=== PATIENT | male | born 1950 | race Asian ===

== ENCOUNTER 2024-05-26 11:46 | Inpatient (IN) | payer MEDICARE, SELFPAY ==
[2024-05-26 12:14] VITALS: BP 93/58; PULSE 74; RESP 20; TEMP 36.5; O2SAT 100; BMI 23.0
--- NOTE | 2024-05-26 12:26 | XR_ITS ---
Examination: Foot, left, 3 views Technique: AP, oblique, lateral views foot, 3 views Date and time of exam: May 26, 2024 1212 hours INDICATIONS: Nonhealing ulcer lateral foot fifth digit one month FINDINGS: Prominent osteopenia. No fracture. No anjelica cortical bone destruction IMPRESSION: No anjelica cortical bone destruction If symptoms persist, consider MRI foot without contrast follow-up
--- NOTE | 2024-05-26 12:27 | EDRME_ITS ---
Rapid Medical Screening Exam [facility] Arrival date/time: 05/26/24 11:46 73-year-old male with a history of hyperlipidemia and type 2 diabetes presents to the emergency room with a chief complaint of abnormal lab work and generalized weakness. Patient states he was sent to the emergency room for a sodium level of 120 and an elevated WBC count I have greeted and performed a focused initial assessment of this patient. A comprehensive ED assessment and evaluation of the patient, analysis of all test results, and completion of the medical decision making process will be conducted by additional ED providers. Chief Complaint: Recheck/Abnormal Lab/Rx Vital signs: Vital Signs Temperature 97.7 F 05/26/24 12:14 Pulse Rate 74 05/26/24 12:14 Respiratory Rate 20 05/26/24 12:14 Blood Pressure 93/58 L 05/26/24 12:14 Pulse Oximetry (%) 100 05/26/24 12:14 Oxygen Delivery Method Room Air 05/26/24 12:14 Vital signs reviewed by provider: Yes
[2024-05-26 12:59] LABS: Basophils % (Auto) 0 % (0-2.5); Eosinophils # (Auto) 0.4 Thou/mm3 (0.0-0.5); Eosinophils % (Auto) 2 % (0-10); Hematocrit 32.3 % (41.0-53.0); Hemoglobin 11.5 g/dL (13.5-16.0); Immature Granulocytes % (Auto) 2 % (0-0); Immature Granulocytes Auto 0.43 Thou/mm3 (0.00-0.00); Lymphocytes # (Auto) 1.2 Thou/mm3 (1.0-4.8); Lymphocytes % (Auto) 4 % (10-50); Mean Corpuscular HGB Conc 35.6 g/dl (31.0-37.0); Mean Corpuscular Hemoglobin 31.9 pg (25.0-35.0); Mean Corpuscular Volume 90 fL (80-100); Monocytes # (Auto) 2.1 Thou/mm3 (0.0-0.8); Monocytes % (Auto) 8 % (0-12); Neutrophils # (Auto) 22.3 Thou/mm3 (1.8-7.7); Neutrophils % (Auto) 85 % (37-80); Nucleated Red Blood Cell % 0 /100 WBC (0); Platelet Count 356 Thou/mm3 (140-440); RDW Standard Deviation 40.4 fL (35.1-43.9); Red Blood Count 3.61 Miln/mm3 (4.50-5.90); White Blood Count 26.4 Thou/mm3 (3.8-10.6)
[2024-05-26 13:17] LABS: Alanine Aminotransferase 77 U/L (10-49); Albumin, Serum 4.6 gm/dL (3.4-4.8); Albumin/Globulin Ratio 1.5 (1.2-2.2); Alkaline Phosphatase 86 U/L (46-116); Anion Gap 10 (7-16); Aspartate Amino Transferase 76 U/L (0-34); BUN/Creatinine Ratio 27 Ratio (12-20); Bilirubin,Total 0.2 mg/dL (0.3-1.2); Blood Urea Nitrogen 68 mg/dL (9-23); Calcium 9.2 mg/dL (8.3-10.6); Calcium (Corrected) 9.2 mg/dL (8.5-10.1); Carbon Dioxide 21.6 mMol/L (20.0-31.0); Chloride 90 mMol/L (98-107); Creatinine (Component) 2.5 mg/dL (0.6-1.3); Estimated Creatinine Clearance 21.5 mL/min (>60); Glucose 120 mg/dL (74-106); Lipase 74 U/L (12-53); Osmolality,Calculated 266 (275-295); Potassium 5.2 mMol/L (3.4-5.1); Sodium 122 mMol/L (136-145); Total Protein 7.6 gm/dL (5.7-8.2); eGFR 27 See Note
[2024-05-26 14:49] LABS: Collection Type, Urine Clean Catch
[2024-05-26 15:02] LABS: Bilirubin,Urine Negative (Negative); Blood,Urine Negative (Negative); Clarity,Urine Clear (Clear/Hazy); Color,Urine Yellow (Lt Yel-Yel); Glucose, Urine 2+ (Negative); Hyaline Casts,Urine < 1 /hpf (0-1); Ketones,Urine Negative (Negative); Leukocyte Esterase,Urine Positive (Negative); Nitrite,Urine Negative (Negative); PH,Urine 5.5 (5.0-7.0); Protein,Urine Trace (Neg - Trace); RBC,Urine 1 /hpf (0-3); Specific Gravity,Urine 1.016 (1.001-1.035); Squamous Epithelial Cell,Urine < 1 /hpf (0-5); WBC,Urine 2 /hpf (0-5)
[2024-05-26 15:11] VITALS: BP 128/69; PULSE 62; RESP 20; TEMP 36.3; O2SAT 100
[2024-05-26 18:22] VITALS: BP 135/81; PULSE 76; RESP 18; TEMP 36.5; O2SAT 100
--- NOTE | 2024-05-26 18:29 | PD.EDRECHK ---
ED Recheck Abnl Lab Rx-RME/HPI General Chief Complaint: Recheck/Abnormal Lab/Rx Stated Complaint: Abnormal labs today, infection on left toes Time Seen by Provider: 05/26/24 18:08 Arrival date/time: 05/26/24 11:46 RME / HPI RME / HPI narrative: 05/26/24 11:46 73-year-old male with a history of hyperlipidemia and type 2 diabetes presents to the emergency room with a chief complaint of abnormal lab work and generalized weakness. Patient states he was sent to the emergency room for a sodium level of 120 and an elevated WBC count I have greeted and performed a focused initial assessment of this patient. A comprehensive ED assessment and evaluation of the patient, analysis of all test results, and completion of the medical decision making process will be conducted by additional ED providers. The patient is a [place]-speaking 73-year-old male with past medical history of type 2 diabetes, hypertension, and hyperlipidemia who was sent to the ED today by PCP due to abnormal outpatient labs showing low sodium (120), elevated WBC (25), and elevated creatinine (2.5). Patient additionally has had a non-healing left foot wound for about 1 month with worsening pain. Patient is not sure how the wound started. Pain is worse at night and the pain is causing him to limp while walking. Patient was started on PO antibiotics by PCP but wound has not improved. He denies any fevers, chills, shortness of breath, chest pain, nausea, vomiting, or diarrhea. Patient reports no change in intake recently. He drinks about 2 bottles of water daily. Son is present at bedside to assist with translating and provide history. Patient goes to [facility] for primary care. Patient is currently not on insulin or any medications for his diabetes, currently managed through diet. Patient lives with son currently. complaint: abnormal lab Onset/Timin Initial visit (ago): hour(s) Initial visit for: cellulitis Returns today for: called because of abnormal lab/test and persistent/worsening pain related to initial visit Description of abnormal result: Sodium 120 WBC 25 Symptoms since prior visit: worsening pain and worsening redness Context: called for abnormal lab result Related Data Previous Rx's ?Medication ?Instructions ?Recorded aspirin 81 mg tablet,delayed 81 mg PO QDAY #30 tabs 06/10/23 release atorvastatin 80 mg tablet 80 mg PO QPM #30 tabs 06/10/23 blood-glucose sensor (FreeStyle #1 ea 06/10/23 Gian 3 Sensor device) sitagliptin phosphate 100 mg 100 mg PO QDAY #30 tabs 06/10/23 tablet (Januvia) Allergies Allergy/AdvReac Type Severity Reaction Status Date / Time No Known Allergies Allergy Unverified 06/07/23 18:57 Past Medical History Past Medical History Comments PMH COMMENT: Past Medical History: Type 2 diabetes, hypertension, and hyperlipidemia Family History: No known family history of diabetes or heart diseases Surgical History: Cholecystectomy, sinus surgery Social History: Former history of smoking 1 pack per day for about 50 years, quit about 10 years ago, denies current alcohol use, denies recreational drug use Current Medications: Patient does not remember his home medications but reports he takes an antihypertensive, cholesterol pill, and [id number] PPI Allergies: No known drug allergies ED Exam Narrative Physical exam: Physical Exam General: Awake and in no acute distress. Conversational and non-toxic appearing. HEENT: Normocephalic, atraumatic, mucous membranes moist. Heart: Regular rate and rhythm, no murmurs. Lungs: Clear to auscultation with no wheezing or crackles. Abdomen: Soft, nondistended, nontender, positive bowel sounds. ?No guarding or rebound tenderness. Neurologic: Alert and oriented x3, no gross neurological deficit, and patient able to move all 4 extremities. Extremities: No edema. Left foot with superficial ulcer with dark eschar that measures about 6x4 cm over lateral dorsum. Surrounding erythema. No drainage, pus, or fluctuance. 1x1 cm ulcer with dark eschar over the 5th lateral toe. Left foot with reduced peripheral DP, PT pulses. Skin: No rash or ecchymoses. Expanded Lower Extremity Exam Top foot image:  1. Superficial ulcer 4x6 cm with dark eschar 2. Superficial ulcer 1x1 cm with dark eschar Other Other exam information: Course Quality Measures none Orders Category Date Time Status Admit to Inpatient Status Routine Admission 05/26/24 20:03 Active Patient Condition Routine Admission 05/26/24 20:03 Ordered Bedside Blood Glucose [facility] Care 05/26/24 20:10 Active COVID-19 Screening Questionnaire NOW Care 05/26/24 19:25 Active Decision to Admit X1 Care 05/26/24 19:25 Active Notify provider NEEDED Care 05/26/24 20:03 Active Obtain weight NOW Care 05/26/24 20:03 Active Wound Care NOW Care 05/26/24 20:07 Active Diet Carbohydrate Consistent Diet 05/27/24 Breakfast Active XR foot comp LT min 3V Stat Exams 05/26/24 12:26 Completed Blood Culture (Lab) Stat Lab 05/26/24 20:07 Ordered CBC AM DRAW Lab 05/27/24 05:00 Ordered CBC AM DRAW Lab 05/28/24 05:00 Ordered CBC AM DRAW Lab 05/29/24 05:00 Ordered CBC AM DRAW Lab 05/30/24 05:00 Ordered CBC Stat Lab 05/26/24 12:43 Completed CMP [Comprehensive Metabolic Panel] AM DRAW Lab 05/27/24 05:00 Ordered CMP [Comprehensive Metabolic Panel] AM DRAW Lab 05/28/24 05:00 Ordered CMP [Comprehensive Metabolic Panel] AM DRAW Lab 05/29/24 05:00 Ordered CMP [Comprehensive Metabolic Panel] AM DRAW Lab 05/30/24 05:00 Ordered CMP [Comprehensive Metabolic Panel] Stat Lab 05/26/24 12:43 Completed CRP [C-Reactive Protein] Stat Lab 05/26/24 20:05 Ordered ESR [Sed Rate (ESR)] Stat Lab 05/26/24 20:05 Ordered Lipase Stat Lab 05/26/24 12:43 Completed MRSA Nasal Screen Stat Lab 05/26/24 20:07 Ordered Magnesium AM DRAW Lab 05/27/24 05:00 Ordered Magnesium AM DRAW Lab 05/28/24 05:00 Ordered Magnesium AM DRAW Lab 05/29/24 05:00 Ordered Magnesium AM DRAW Lab 05/30/24 05:00 Ordered Phosphorous AM DRAW Lab 05/27/24 05:00 Ordered Phosphorous AM DRAW Lab 05/28/24 05:00 Ordered Phosphorous AM DRAW Lab 05/29/24 05:00 Ordered Phosphorous AM DRAW Lab 05/30/24 05:00 Ordered Potassium Stat Lab 05/26/24 20:05 Ordered UA [Urinalysis] Stat Lab 05/26/24 14:12 Completed Urine Culture Stat Lab 05/26/24 14:12 Received Acetaminophen Tab [Tylenol Tab] Med 05/26/24 20:03 Active 650 mg PO Q6H PRN Acetaminophen Tab [Tylenol Tab] Med 05/26/24 20:03 Active 650 mg PO Q6H PRN Aspirin [Ecotrin] Med 05/26/24 20:10 Discontinued 81 mg PO X1 ONE Atorvastatin Calcium [Lipitor] Med 05/26/24 21:00 Ordered 80 mg PO HS Dextrose 50% Syr [D50w Syringe Abboject] Med 05/26/24 20:10 Active 25 ml IV Q15MIN PRN Dextrose 50% Syr [D50w Syringe Abboject] Med 05/26/24 20:10 Active 50 ml IV Q15MIN PRN Doxycycline Inj [Vibramycin Inj] 100 mg Med 05/26/24 21:00 Ordered Sodium Chloride 0.9% (P) [NS 0.9% mini bag] 100 ml IV BID Glucagon Inj Med 05/26/24 20:10 Active 1 mg IM Q15MIN PRN HYDROcodone/APAP 10/325 [[place] 10/325] Med 05/26/24 20:03 Active 1 tab PO Q4HR PRN INSULIN LISPRO (AdmeLOG) [HumaLOG] Med 05/26/24 21:00 Ordered See Protocol SC ACHS Ketorolac Inj [Toradol Inj] Med 05/26/24 18:34 Discontinued 30 mg IVP X1 ONE Ondansetron Inj [Zofran Inj] Med 05/26/24 20:03 Ordered 4 mg IV Q6H PRN Pantoprazole Inj [Protonix Inj] Med 05/27/24 09:00 Ordered 40 mg IVP QDAY Sodium Chloride 0.9% 1000 ml [Ns] 1,000 ml Med 05/26/24 20:06 Ordered IV 75 mls/hr cefTRIAXone/D5w 1gm IV premix [Rocephin/D5w 1gm IV Med 05/26/24 20:15 Ordered premix] 50 ml IV QDAY oxyCODONE/APAP 5/325 [Percocet 5/325] Med 05/26/24 20:03 Active 1 tab PO Q6H PRN Code Status Routine Oth 05/26/24 20:03 Ordered Vital Signs Vital signs: Vital Signs Temperature 97.7 F 05/26/24 12:14 Pulse Rate 74 05/26/24 12:14 Respiratory Rate 20 05/26/24 12:14 Blood Pressure 93/58 L 05/26/24 12:14 Pulse Oximetry (%) 100 05/26/24 12:14 Oxygen Delivery Method Room Air 05/26/24 12:14 Recheck / Abnormal Lab / Rx MDM Narrative MDM Narrative:: 18:20 Took over care of patient, reviewed the labs and X-ray. Patient has a leukocytosis as well as GORDON and electrolyte abnormalities. These are likely secondary to worsening infection, diabetic foot wound/cellulitis. Patient was prescribed PO antibiotics but has not had improvement. Reviewed the case with attending Dr. Fields. Patient would benefit from inpatient admission for initiation of IV antibiotics, fluid hydration, electrolyte correction, and possible further workup for nonhealing left foot wound. Patient data External records reviewed:: [facility] previous records Clinical information provided by:: patient and family Social determinants that could affect healthcare access:: none Patient has the following chronic illnesses:: As above How is presenting disease/condition affected by chronic disease/condition?: exacerbated by Evaluation data The following diagnostics were reviewed and interpreted by me:: lab results and radiology exam(s) Lab and/or radiology exams considered but not ordered:: MRI of the left foot Interpretation Summary: Left foot XR interpreted by me, no anjelica cortical bone destruction indicative of an osteomyelitis. Medications / Prescriptions Medications or Prescriptions considered but not ordered:: Additional pain medications such as Dilaudid. Medication administrations:: Medication Administration History Acetaminophen (Acetaminophen 325 Mg Tablet) 650 mg PO Q6H PRN PRN Reason: PAIN SCALE 1-3 (mild Stop: 06/25/24 20:02 Acetaminophen (Acetaminophen 325 Mg Tablet) 650 mg PO Q6H PRN PRN Reason: Fever >100 Stop: 06/25/24 20:02 Hydrocodone Bitart/Acetaminophen (Hydrocodone/Apap 10/325 Tab) 1 tab PO Q4HR PRN PRN Reason: PAIN SCALE 7-10 (Severe Stop: 05/31/24 20:02 Atorvastatin Calcium (Atorvastatin Calcium 20 Mg Tablet) 80 mg PO HS LEXI Stop: 06/25/24 20:59 Dextrose (Dextrose 50%-Water Inj 50 Ml Syringe) 25 ml IV Q15MIN PRN PRN Reason: BG 50-70 responsive npo pt Stop: 06/25/24 20:09 Dextrose (Dextrose 50%-Water Inj 50 Ml Syringe) 50 ml IV Q15MIN PRN PRN Reason: BG <50 OR BG <70 & pt unresponsive Stop: 06/25/24 20:09 Glucagon (Glucagon Inj 1 Mg Vial) 1 mg IM Q15MIN PRN PRN Reason: BG <70, and no IV access Sodium Chloride (Ns) 1,000 mls @ 75 mls/hr IV .[id number] [facility] Stop: 06/25/24 20:05 Doxycycline Hyclate 100 mg/ (Sodium Chloride) 100 mls @ 100 mls/hr IV BID [facility] Stop: 06/02/24 20:59 Ceftriaxone Sodium/Dextrose (Rocephin/D5w 1gm Iv Premix) 50 mls @ 100 mls/hr IV QDAY [facility] Stop: 06/02/24 20:14 Insulin Human Lispro (Insulin Lispro (Admelog) 1 Unit/0.01 Ml Unit) 0 unit [facility]; Protocol Stop: 06/25/24 20:59 Ondansetron HCl (Ondansetron Inj 2 Mg/Ml Inj 2 Ml) 4 mg IV Q6H PRN; Protocol PRN Reason: NAUSEA OR VOMITING Stop: 06/25/24 20:02 Oxycodone/Acetaminophen (Oxycodone/Apap 5/325 Tablet) 1 tab PO Q6H PRN PRN Reason: PAIN SCALE 4-6 (Moderate Stop: 05/31/24 20:02 Pantoprazole Sodium (Pantoprazole Inj 40 Mg Vial) 40 mg IVP QDAY [facility] Stop: 06/26/24 08:59 Discontinued Medications Aspirin (Aspirin Ec 81 Mg Tabec) 81 mg PO X1 ONE Stop: 05/26/24 20:11 Ketorolac Tromethamine (Ketorolac Inj 30 Mg/Ml Vial) 30 mg IVP X1 ONE Stop: 05/26/24 18:35 Last Admin: 05/26/24 19:20 Dose: 30 mg Documented By: EF ^ Consultations Consultation(s) initiated? (list below): Yes Consultation #1 (Physician, Specialty, Details): Hospitalist for admission Diagnosis Recheck Differential Diagnosis: other Most likely diagnosis given after review of the tests above:: Cellulitis of left foot, non healing diabetic foot wound, GORDON, electrolyte abnormalities, leukocytosis Admission Indicated Admission indicated?: indicated Admission Request Was there a request for admission?: Yes Admission Attestation Admission request attestation: Discussed case with [] from Hospitalist service regarding admission. Discussed patients ED course, exam findings, labs, and radiology results. The Hospitalist [agrees,declines] to accept the patient for admission. Disposition Plan Disposition Plan: Discharge Discharge Attestation Discharge Attestation: The patient and all family members were given an opportunity to ask questions and understood the discharge instructions. Discharge instructions specifically effects, indications for sooner follow up or return to the emergency department, and the expected course of current diagnosis. Patient condition: Stable Discharge Plan Plan Patient Disposition: Admit Acute Care w/in Hospital Prescriptions/Referrals Prescriptions/Med Rec: No Action aspirin 81 mg Tablet,Delayed Release (Dr/Ec) 81 mg PO QDAY Qty: 30 0RF (DME) FreeStInboundWriter Gian 3 Sensor Device See Rx Instructions .Route Qty: 1 0RF Rx Instructions: As directed Januvia 100 mg tablet 100 mg PO QDAY Qty: 30 0RF atorvastatin 80 mg tablet 80 mg PO QPM Qty: 30 0RF Referrals: Olivia Zuniga PA-C [Primary Care Provider] - In 1 week Problem List Clinical Impression: Diabetic foot infection Patient/Caregiver Discharge Instructions Print Language: Wolof Stand Alone Forms: [employer]essi Award Info., Patient Portal Info Letter
[2024-05-26] MEDS: KETOROLAC INJ 30 MG/ML VIAL IVP (19:20)
--- NOTE | 2024-05-26 19:56 | ESHP_ITS ---
Documentation for date of: 05/26/24 HPI History of Present Illness History of present illness: This is a 73-year-old male PMHx of T2DM, HLD, HTN, presenting with left foot swelling and pain x 1 month. He is [place]-speaking, at bedside assisted with interpretation. Foot pain has been worsening over the last month. Does not recall specific foot injury, isnet bite, or wound. He was seen by PCP today who recommended hospital admission given severe cellulitis, GORDON and leukocytosis. PCP also started oral ABX today. Denies previous similar symptoms, fever, chills, weight loss, headache, fall, trauma, chest pain, sob, cough, GI or urinary symptoms. No history of renal, liver or cardiovascular disease other than above mentioned. ED COURSE: Complaining of left foot pain. Had significant cellulitis of left foot extending below the ankle in addition to several superficial skin lesions as prescribed and physical exam below. Afebrile, BP 135/81, HR 76, RR 18, satting 100% on room air. WBC 26.4, Hgb 11.5 around baseline. Odium 122, potassium 5.2, CR 2.5 (baseline 1.6), BUN 68, GFR 27 (baseline 46), GLUCOSE 120, AST 76 and ALT 77. Left foot x-ray showed no anjelica cortical bone destruction. PMHx: HLD, HTN, T2DM PSHx: Septoplasty MEDS: Pending med rec ALLERGIES: NKA SH: Former history of smoking 1 pack per day for about 50 years, quit about 10 years ago, denies current alcohol use, denies recreational drug use Exam Vital Signs Temp Pulse Resp BP Pulse Ox O2 Del Method 97.7 F 76 18 135/81 H 100 Room Air 05/26/24 18:22 05/26/24 18:22 05/26/24 18:22 05/26/24 18:22 05/26/24 18:22 05/26/24 18:22 Narrative Exam GENERAL * Appears in moderate distress secondary to pain. HEENT * NCAT.?JAGDISH. Oral mucosa is moist. Patent Nares NECK * Supple, nontender, no thyromegaly, no meningismus, no JVD, no step offs CHEST * RRR, no m/g/r * CTAB, no w/r/r. Symmetrical chest rise. No intercostal subcostal retraction * Atraumatic, nontender, no crepitus, symmetrical expansion. ABDOMEN * Soft, flat, nontender. No guarding/rebound tenderness/masses. * Bowel sounds presents EXTREMITIES * Nontender, no cyanosis, no edema * No edema/cyanosis.? SKIN * Swelling, erythema, and warmth extending below the ankle. * 4 x 6 cm superficial nonbleeding, nonpurulent ulcer over distal anterolateral aspect of left food. * Similar lesion measuring 1 x 1 cm over distal plantar aspect of left foot 5th digit. * Similar lesion measuring 1 x 1 cm over distal plantar aspect of right foot 5th digit. * Slightly reduced DP/PT pulses on the left compared to right foot. NEUROMUSCULAR * No lumbar or midline, no CVA, no paraspinal muscle spasm or tenderness. * Moves all 4 extremities well, with full ROM and good CSM. * GRIFFIN x4, CN II-XII grossly intact. * No focal neurologic deficits. PSYCHIATRY * Normal mood and affect, cooperative, no SI or HI or hallucinations. Results: Labs 05/26/24 12:43 05/27/24 01:25 Labs: Short CBC 05/26/24 Range/Units 12:43 WBC 26.4 H (3.8-10.6) Thou/mm3 Hgb 11.5 L (13.5-16.0) g/dL Hct 32.3 L (41.0-53.0) % Plt Count 356 (140-440) Thou/mm3 BMP 05/26/24 12:43 Sodium 122 L Potassium 5.2 H Chloride 90 L Carbon Dioxide 21.6 BUN 68 H Creatinine 2.5 H Glucose 120 H Calcium 9.2 Liver Function 05/26/24 Range/Units 12:43 Total Bilirubin 0.2 L (0.3-1.2) mg/dL AST 76 H (0-34) U/L ALT 77 H (10-49) U/L Alkaline Phosphatase 86 (46-116) U/L Albumin 4.6 (3.4-4.8) gm/dL Urine 05/26/24 Range/Units 14:12 Urine Color Yellow (Lt Yel-Yel) Urine Clarity Clear (Clear/Hazy) Urine pH 5.5 (5.0-7.0) Ur Specific [place] 1.016 (1.001-1.035) Urine Protein Trace (Neg - Trace) Urine Glucose (UA) 2+ A (Negative) Quality Measures Quality Measures none Advance care planning discussed with:: patient Medications Home Medications and Allergies Allergies Allergy/AdvReac Type Severity Reaction Status Date / Time No Known Allergies Allergy Unverified 06/07/23 18:57 Visit Medications Discontinued Medications Ketorolac Tromethamine (Ketorolac Inj 30 Mg/Ml Vial) 30 mg IVP X1 ONE Stop: 05/26/24 18:35 Last Admin: 05/26/24 19:20 Dose: 30 mg Assessment & Plan Plan In summary: 73-year-old male PMHx of T2DM, HLD, HTN admitted for left foot cellulitis. Started on ANTIBIOTICS. Additionally, he is being managed for GORDON, hyperkalemia, and hyponatremia. Left foot cellulitis Leukocytosis Presenting with 1 month of left foot swelling, erythema and pain. Exam consistent with cellulitis extending below ankle, and 2 superficial skin lesions as described in exam above. He also had small skin lesion of fifth digit of right foot. Pulses diminished in left foot compared to right. No signs of compartment syndrome or necrosis. X-ray was negative for bony destruction. WBC 26.4. Afebrile, denies stomach symptoms. ? Continue CEFTRIAXONE daily (2/6 to present) ? Continue DOXYCYCLINE BID (26 to present) ? Wound care ? Pending CRP, ESR ? Pending blood culture ? Pending bilateral arterial duplex ? Consider MRI if symptoms do not improve Prerenal GORDON on CKD stage IIIA Hyperkalemia Hyponatremia Likely dehydrational. Sodium 122, potassium 5.2 then 6.0 on repeat. CR 2.5 (baseline 1.6), BUN 68, GFR 27 (baseline 46) Anticipate improvement with fluid resuscitation ? Started NS maintenance at 75 cc/H ? Gave X1 CALCIUM GLUCONATE 1 g, INSULIN 5 unit KAYEXALATE 30 mg ? Trending potassium ? Pending EKG. ? Pending urine sodium and electrolytes ? Daily labs HTN, HLD Currently normotensive. Pending med rec ? Restart antihypertensives as indicated. ? Continue home ATORVASTATIN 80 mg HS T2DM GLUCOSE 120. No recent A1c on file. ? INSULIN sliding scale ? Accu-Cheks ? Pending A1c Others Patient on daily ASPIRIN, unclear why. No known history of CVA, or PAD. ? Continued home ASPIRIN 81 mg daily Health maintenance Diet: CHO consistent GI prophylaxis: PROTONIX DVT prophylaxis: HEPARIN subcu Antibiotics: CEFTRIAXONE, DOXYCYCLINE CODE STATUS: Full code Disposition: Treating cellulitis. Patient case was discussed with attending, Todd Real MD. DO DENI Morejon Attending Provider Attestation/Addendum I have examined the patient, reviewed labs and imaging findings, discussed the case with the resident(s), and reviewed entered orders. I agree with the plan of care as outlined in this note, with these additional summaries/recommendations: Patient is a 73-year-old male with a medical history of diabetes mellitus type 2, hyperlipidemia, and primary hypertension presented to [facility] emergency department on 05/26/2024 with chief complaint of left foot pain and abnormal labs after being evaluated by PCP today and advised to go to the emergency room. In the ED patient was found to have left foot cellulitis, GORDON, and hyponatremia. Hospitalist team consulted for continuation of care. # Left foot cellulitis # Left foot wound Nonhealing left foot wound has been present for approximately 1 month which has progressively worsened and now difficulty ambulating and has apparently received outpatient antibiotics. XR LT Foot: No anjelica cortical bone destruction, WBC 26.4 on admission Order CRP/ESR, blood cultures, arterial Doppler to R/O PAD, and consult wound care Plan: Start IV Rocephin and oral doxycycline (05/26/24-). if CRP/ESR return elevated we will obtain MRI foot to definitively rule out osteomyelitis. Follow-up with physical therapy and wound care. Pain management and repeat hematology panel in AM. # Hypotonic hyponatremia Appears more chronic in nature and likely acute on chronic Presented with sodium 122 and serum osmolality 266 Likely multifactorial 2/2 dehydration/extrarenal losses/CKD/SIADH/low solute intake Work-up: Order urine osmolality, urine sodium, TSH, and trend sodium frequently Plan: Patient asymptomatic. Appears more hypovolemic in nature and will start IV maintenance fluids with frequent sodium checks. If no improvement we will consider nephrology consultation. # GORDON on CKD # Hyperkalemia Baseline creatinine appears to be around 1.6 and on admission creatinine 2.5 with BUN 68. GORDON component most likely secondary to prerenal azotemia from dehydration Plan: Start IV maintenance fluids. Avoid nephrotoxic agents and renally dose medications. Potassium minimally elevated and we will order repeat. # Diabetes mellitus type 2 06/09/23 A1c 7.2% Plan: Order repeat A1c. Start insulin sliding scale with Accu-Cheks. Target blood sugar of 140-180 while hospitalized. # Primary hypertension: Pending home medication reconciliation. Resume home antihypertensives as tolerated. # Hyperlipidemia: Plan: Resume home atorvastatin Dr. Real
[2024-05-26] MEDS: ATORVASTATIN CALCIUM 20 MG TABLET 80 MG PO (20:55)
[2024-05-26] MEDS: cefTRIAXone/D5w 1gm IV premix 50 ML IV (20:56)
[2024-05-26] MEDS: ASPIRIN EC 81 MG TABEC PO (20:56)
[2024-05-26] MEDS: SODIUM CHLORIDE 0.9% 1000 ML 1,000 ML 75 ML IV (20:56)
[2024-05-26] MEDS: INSULIN LISPRO (AdmeLOG) 1 UNIT/0.01 ML UNIT SC (20:56)
--- NOTE | 2024-05-26 21:16 | PC.NURSE ---
patient arrived with left foot discoloration and abrasion approximately 2x2 inches no drainage noted patient states he has had this wound for about 1 month.
--- NOTE | 2024-05-26 21:50 | XR_ITS ---
Examination: Arterial duplex lower extremity study. Date and time of exam: May 26, 2024 1950 2:00 PM Indications: Nonhealing wound left foot beginning one month ago Findings: Duplex sonographic imaging of the lower extremity arteries using B-mode/Zamudio scale imaging and Doppler spectral analysis and color flow. Ankle brachial indices have been recorded. Right common femoral artery demonstrates triphasic flow. Right superficial femoral artery demonstrates biphasic flow. Right popliteal artery demonstrates biphasic flow. Right posterior tibial artery demonstrated monophasic flow. Right ankle/brachial index is not able to perform Left common femoral artery demonstrates triphasic flow. Left superficial femoral artery demonstrates triphasic flow. Left popliteal artery demonstrates biphasic flow. Left posterior tibial artery demonstrated no flow. Left ankle/brachial index is 0.70. Impression: Severe bilateral obstructive arterial disease Recommend correlation with elective CTA abdominal aorta iliofemoral runoff
[2024-05-26 21:57] LABS: C-Reactive Protein 2.6 mg/dL (0.0-0.9)
[2024-05-26 22:21] LABS: Sed Rate (ESR) 57 mm/hr (0-20)
[2024-05-26 22:57] VITALS: BP 137/60; PULSE 75; RESP 18; TEMP 36.6; O2SAT 100
[2024-05-26] MEDS: DEXTROSE 50%-WATER INJ 50 ML SYRINGE IV (22:59)
[2024-05-26] MEDS: DOXYCYCLINE INJ 100 MG in SODIUM CHLORIDE 0.9% (P) 100 ML IV (22:59)
[2024-05-26] MEDS: CALCIUM GLUCONATE 10% INJ 1 GM/10 ML VIAL IV (22:59)
[2024-05-26] MEDS: SOD POLYSTYRENE SULFON SUSP 15 GM/60 ML BTL 30 GM PO (23:00)
[2024-05-26] MEDS: INSULIN HUM REGULAR 1 UNIT/0.01 ML (PER UNIT) 5 UNIT IV (23:00)
[2024-05-26 23:41] VITALS: BMI 22.8
[2024-05-27] VITALS (7 sets, daily range): BP systolic 96–132; BP diastolic 43–70; PULSE 62–106; RESP 17–18; TEMP 36.1–36.8; O2SAT 98–100
[2024-05-27] MEDS: HYDROcodone/APAP 10/325 TAB PO ×4 (00:02→18:40)
[2024-05-27] MEDS: SODIUM CHLORIDE 0.9% 1000 ML 1,000 ML 75 ML IV ×2 (01:23→21:36)
[2024-05-27 01:47] LABS: Potassium 5.4 mMol/L (3.4-5.1)
[2024-05-27] MEDS: HYDROmorphone INJ 2 MG/ML VIAL 0.25 MG IVP (02:16)
[2024-05-27] MEDS: oxyCODONE/APAP 5/325 TABLET 1 TAB PO (03:13)
[2024-05-27] MEDS: HEPARIN SOD INJ 5000 UNIT/ML VIAL SC ×3 (05:10→21:32)
[2024-05-27 05:45] LABS: Basophils # (Auto) 0.1 Thou/mm3 (0.0-0.2); Basophils % (Auto) 0 % (0-2.5); Eosinophils # (Auto) 0.6 Thou/mm3 (0.0-0.5); Eosinophils % (Auto) 3 % (0-10); Hematocrit 27.9 % (41.0-53.0); Hemoglobin 9.8 g/dL (13.5-16.0); Immature Granulocytes % (Auto) 2 % (0-0); Immature Granulocytes Auto 0.37 Thou/mm3 (0.00-0.00); Lymphocytes % (Auto) 4 % (10-50); Mean Corpuscular HGB Conc 35.1 g/dl (31.0-37.0); Mean Corpuscular Hemoglobin 31.8 pg (25.0-35.0); Mean Corpuscular Volume 91 fL (80-100); Monocytes # (Auto) 1.8 Thou/mm3 (0.0-0.8); Monocytes % (Auto) 8 % (0-12); Neutrophils # (Auto) 19.3 Thou/mm3 (1.8-7.7); Neutrophils % (Auto) 84 % (37-80); Nucleated Red Blood Cell % 0 /100 WBC (0); Platelet Count 287 Thou/mm3 (140-440); RDW Standard Deviation 40.6 fL (35.1-43.9); Red Blood Count 3.08 Miln/mm3 (4.50-5.90); White Blood Count 23.1 Thou/mm3 (3.8-10.6)
[2024-05-27 05:51] LABS: Glucose Estimated Average 151 mg/dL (80-131); Hemoglobin A1C 6.9 % Hgb (4.8-6.0)
[2024-05-27 06:48] LABS: Alanine Aminotransferase 63 U/L (10-49); Albumin, Serum 3.7 gm/dL (3.4-4.8); Albumin/Globulin Ratio 1.6 (1.2-2.2); Alkaline Phosphatase 80 U/L (46-116); Anion Gap 10 (7-16); Aspartate Amino Transferase 67 U/L (0-34); BUN/Creatinine Ratio 25 Ratio (12-20); Bilirubin,Total < 0.2 mg/dL (0.3-1.2); Blood Urea Nitrogen 75 mg/dL (9-23); Calcium 8.6 mg/dL (8.3-10.6); Calcium (Corrected) 8.8 mg/dL (8.5-10.1); Carbon Dioxide 19.6 mMol/L (20.0-31.0); Chloride 94 mMol/L (98-107); Estimated Creatinine Clearance 18.6 mL/min (>60); Globulin 2.3 gm/dL (2.3-3.5); Glucose 74 mg/dL (74-106); Magnesium 2.3 mg/dL (1.6-2.6); Osmolality,Calculated 270 (275-295); Phosphorous 5.9 mg/dL (2.4-5.1); Potassium 5.2 mMol/L (3.4-5.1); Sodium 124 mMol/L (136-145); eGFR 21 See Note
[2024-05-27] MEDS: PANTOPRAZOLE INJ 40 MG VIAL IVP (09:14)
[2024-05-27] MEDS: cefTRIAXone/D5w 1gm IV premix 50 ML IV (09:14)
[2024-05-27] MEDS: SODIUM CHLORIDE 0.9% 1000 ML 1,000 ML 999 ML IV (09:33)
--- NOTE | 2024-05-27 09:41 | PC.SS ---
Follow up note: Pt is on IV antibiotic.
[2024-05-27] MEDS: VANCOMYCIN/NS 1 GM IVPB 200 ML IV (10:26)
[2024-05-27] MEDS: traMADol HCL 50 MG TABLET PO (11:10)
--- NOTE | 2024-05-27 11:28 | XR_ITS ---
Examination: Retroperitoneal ultrasound, complete Technique: Multiple high resolution grayscale images of the retroperitoneum obtained, including kidneys and bladder. Exam date and time:May 27, 2024 1149 hours INDICATIONS: Acute renal insufficiency on laboratory examination today. FINDINGS: Right kidney 9.0 x 4.5 x 4.7 cm cortex 1.8 cm Left kidney 10.7 x 4.8 x 5.0 cm renal cortex 1.7 cm Moderate bilateral renal parenchymal scar formation 20 mm lower pole left renal cyst No hydronephrosis No bladder mass or bladder calculi, bladder prevoid volume 2 51 cc Prostate 4.2 x 3.4 x 3.9 cm volume 28.8 cc no prostate nodules IMPRESSION: Small kidneys with bilateral renal cortical thinning Moderate bilateral renal parenchymal scar formation
--- NOTE | 2024-05-27 11:55 | ESPR_ITS ---
<Statement entered by Hipolito Carbajal MD - 05/28/24 17:29> I discussed with and supervised the international representative physician involved in the care of this patient. Patient assessment and plan was discussed with entire medicine team, including my attending. I agree with the assessment and plan as documented by international representative doctor. Patient care was discussed with my attending physician Dr. Mel Carbajal, PGY-2 Documentation for date of: 05/27/24 Subjective Subjective Interval history: Patient is [place] speaking and interview conducted with registered healthcare interpretor Patient was seen and examined at bedside this AM. No acute exents overnight. Patient tolerating diet, adequate urine output and mentation is at baseline. Patient complains of 10/10 pain in his left foot. NA 124, OSM 270, K5.2, BUN 75 and CR 3. 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 Renal ultrasound and urine electrolytes ordered as well as CK level MRI left foot ordered to rule out osteomyelitis. Ceftriaxone and Doxy were discontinued and patient started on cefepime, Flagyl and vancomycin. Exam Vital Signs Temp Pulse Resp BP Pulse Ox O2 Del Method 97 F 62 18 101/53 L 99 Room Air 05/27/24 08:00 05/27/24 08:00 05/27/24 08:00 05/27/24 08:00 05/27/24 08:00 05/27/24 08:00 Narrative Exam Constitutional Alert, oriented x 3 and mild distress. Elderly male HEENT Vision grossly intact. Patent nares. Trachea midline Respiratory Chest normal on inspection and clear auscultation bilaterally Cardiovascular S1 and S2 audible, RRR. No murmurs carotid bruit. No gross JVD. Abdominal Soft and non tender to palpation in all quadrants. BS + Genitourinary No bladder tenderness, no flank pain. Normal to palpation Musculoskeletal Extremities tone within normal limits. No LE edema. Neurological CN II - XII grossly intact. Extremity motor and sensation grossly intact. Skin Warm, dry and intact. Left foot swollen, erythematous, 3 x 3 cm eschar noted on dorsal aspect of foot. Right fifth toe has 1x1cm area of necrosis Psychiatric Patient has good affect, is cooperative Objective Labs 06/03/24 05:34 06/03/24 05:34 Labs: Laboratory Results - last 24 hr 05/26/24 05/26/24 05/26/24 12:43 14:12 21:25 WBC 26.4 H RBC 3.61 L Hgb 11.5 L Hct 32.3 L MCV 90 MCH 31.9 MCHC 35.6 RDW Std Deviation 40.4 Plt Count 356 Neut % (Auto) 85 H Lymph % (Auto) 4 L [place] % (Auto) 8 Eos % (Auto) 2 Baso % (Auto) 0 Neut # (Auto) 22.3 H Lymph # (Auto) 1.2 [place] # (Auto) 2.1 H Eos # (Auto) 0.4 Baso # (Auto) 0.0 Immature Gran # (Auto) 0.43 H Absolute Nucleated RBC 0.00 Immature Gran % 2 H Nucleated RBC % 0 ESR 57 H Sodium 122 L Potassium 5.2 H 6.0 H D Chloride 90 L Carbon Dioxide 21.6 Anion Gap 10 BUN 68 H Creatinine 2.5 H Estim Creat Clear Calc 21.5 L eGFR 27 L BUN/Creatinine Ratio 27 H Glucose [address] Glu mg/dL Hemoglobin A1c Calculated Osmolality 266 L Calcium 9.2 Corrected Calcium 9.2 Phosphorus Magnesium Total Bilirubin 0.2 L AST 76 H ALT 77 H Alkaline Phosphatase 86 C-Reactive Prot, Quant 2.6 H Total Protein 7.6 Albumin 4.6 Globulin 3.0 Albumin/Globulin Ratio 1.5 Lipase 74 H Ur Collection Type Clean Catch Urine Color Yellow Urine Clarity Clear Urine pH 5.5 Ur Specific [place] 1.016 Urine Protein Trace Urine Glucose (UA) 2+ A Urine Ketones Negative Urine Blood Negative Urine Nitrite Negative Urine Bilirubin Negative Urine Urobilinogen (Auto) 2.0 Ur Leukocyte Esterase Positive Urine RBC 1 Urine WBC 2 Ur Squamous Epith Cells < 1 Urine Bacteria None Hyaline Casts < 1 Ur Random Sodium Ur Random Potassium Ur Random Chloride 05/27/24 05/27/24 05/27/24 01:25 04:58 11:25 WBC 23.1 H RBC 3.08 L Hgb 9.8 L Hct 27.9 L MCV 91 MCH 31.8 MCHC 35.1 RDW Std Deviation 40.6 Plt Count 287 D Neut % (Auto) 84 H Lymph % (Auto) 4 L [place] % (Auto) 8 Eos % (Auto) 3 Baso % (Auto) 0 Neut # (Auto) 19.3 H Lymph # (Auto) 1.0 [place] # (Auto) 1.8 H Eos # (Auto) 0.6 H Baso # (Auto) 0.1 Immature Gran # (Auto) 0.37 H Absolute Nucleated RBC 0.00 Immature Gran % 2 H Nucleated RBC % 0 ESR Sodium 124 L Potassium 5.4 H D 5.2 H Chloride 94 L Carbon Dioxide 19.6 L Anion Gap 10 BUN 75 H Creatinine 3.0 H D Estim Creat Clear Calc 18.6 L eGFR 21 L BUN/Creatinine Ratio 25 H Glucose [address] Glu mg/dL 151 H Hemoglobin A1c 6.9 H Calculated Osmolality 270 L Calcium 8.6 Corrected Calcium 8.8 Phosphorus 5.9 H Magnesium 2.3 Total Bilirubin < 0.2 L AST 67 H ALT 63 H Alkaline Phosphatase 80 C-Reactive Prot, Quant Total Protein 6.0 Albumin 3.7 D Globulin 2.3 Albumin/Globulin Ratio 1.6 Lipase Ur Collection Type Urine Color Urine Clarity Urine pH Ur Specific [place] Urine Protein Urine Glucose (UA) Urine Ketones Urine Blood Urine Nitrite Urine Bilirubin Urine Urobilinogen (Auto) Ur Leukocyte Esterase Urine RBC Urine WBC Ur Squamous Epith Cells Urine Bacteria Hyaline Casts Ur Random Sodium Cancelled Ur Random Potassium Cancelled Ur Random Chloride Cancelled Quality Measures Quality Measures none Advance care planning discussed with:: patient Assessment & Plan Assessment Current Active Medications: Generic Name Dose Route Start Last Admin Trade Name Freq PRN Reason Stop Dose Admin Acetaminophen 650 mg 05/26/24 20:03 Acetaminophen 325 Mg Tablet PO 06/25/24 20:02 Q6H PRN PAIN SCALE 1-3 (mild Acetaminophen 650 mg 05/26/24 20:03 Acetaminophen 325 Mg Tablet PO 06/25/24 20:02 Q6H PRN Fever >100 Hydrocodone Bitart/Acetaminophen 1 tab 05/27/24 09:31 Hydrocodone/Apap 10/325 Tab PO 05/31/24 20:02 Q4HR PRN PAIN SCALE 4-10(Mod-Sev Atorvastatin Calcium 80 mg 05/26/24 21:00 05/26/24 20:55 Atorvastatin Calcium 20 Mg Tablet PO 06/25/24 20:59 80 mg HS LEXI Administration Dextrose 25 ml 05/26/24 20:10 Dextrose 50%-Water Inj 50 Ml Syringe IV 06/25/24 20:09 Q15MIN PRN BG 50-70 responsive npo pt Dextrose 50 ml 05/26/24 20:10 Dextrose 50%-Water Inj 50 Ml Syringe IV 06/25/24 20:09 Q15MIN PRN BG <50 OR BG <70 & pt unresponsive Glucagon 1 mg 05/26/24 20:10 Glucagon Inj 1 Mg Vial IM Q15MIN PRN BG <70, and no IV access Heparin Sodium (Porcine) 5,000 unit 05/27/24 06:00 05/27/24 05:10 Heparin Sod Inj 5000 Unit/Ml Vial SC 06/10/24 05:59 5,000 unit Q8HR LEXI Administration Sodium Chloride 1,000 mls @ 75 mls/hr 05/26/24 20:06 05/27/24 01:23 Ns IV 06/25/24 20:05 75 mls/hr .[id number] LEXI Administration Ceftriaxone Sodium/Dextrose 50 mls @ 100 mls/hr 05/26/24 20:15 05/27/24 09:14 Rocephin/D5w 1gm Iv Premix IV 06/02/24 20:14 100 mls/hr QDAY LEXI Administration Insulin Human Lispro 0 unit 05/26/24 21:00 05/27/24 11:39 Insulin Lispro (Admelog) 1 Unit/0.01 Ml Unit SC 06/25/24 20:59 Not Given ACHS LEXI Protocol Ondansetron HCl 4 mg 05/26/24 20:03 Ondansetron Inj 2 Mg/Ml Inj 2 Ml IV 06/25/24 20:02 Q6H PRN NAUSEA OR VOMITING Protocol Pantoprazole Sodium 40 mg 05/27/24 09:00 05/27/24 09:14 Pantoprazole Inj 40 Mg Vial IVP 06/26/24 08:59 40 mg QDAY LEXI Administration Pharmacy Consult 1 each 05/27/24 09:00 Vancomycin Pharmacy To Dose 1 Each Each IV 06/26/24 08:59 QDAY PRN CONSULT Plan 73-year-old male PMHx of T2DM, HLD, HTN admitted for left foot cellulitis. Started on ANTIBIOTICS. Additionally, he is being managed for GORDON, hyperkalemia, and hyponatremia. Left foot cellulitis Bilateral peripheral arterial disease Leukocytosis Presenting with 1 month of left foot swelling, erythema and pain. On exam Left foot swollen, erythematous, 3 x 3 cm eschar noted on dorsal aspect of foot. Right fifth toe has 1x1cm area of necrosis He also had small skin lesion of fifth digit of right foot. Pulses diminished in left foot compared to right. Bilateral lower limb duplex arterial ultrasound completed and significant for bilateral peripheral arterial disease with left SOILA 0.7 X-ray was negative for bony destruction. WBC 26.4 ---> 23.1 CRP 2.6 Plan: ? Pending blood culture ? MRI left foot ordered to rule out osteomyelitis ? Discontinued CEFTRIAXONE 1 g IV daily [05/26-05/27] ? Discontinued DOXYCYCLINE 100 Mg once IV twice daily [05/26-05/27) ? Continue aspirin 81 Mg po daily - Started on cefepime 2 g IV x 1 and then 1 g IV daily from 05/28 for a total of 10 days treatment to be completed on 06/04/2024 ? Started on metronidazole 500 Mg IV every 8 hourly on [05/27? ? Started on vancomycin 1 g IV 3 times daily on [05/27? ? Wound care Prerenal GORDON on CKD stage IIIA Hyperkalemia Hypoosmolar hyponatremia Non-anion gap metabolic acidosis Likely dehydrational. Sodium 124 Osm 270, potassium 5.2 CR 3 (baseline 1.6), BUN 75, DDx: RTA type IV, medication induced Plan: ? Urine electrolytes ordered ? Kayexalate 30 g p.o. x 1 ? Normal saline 500 cc IVF bolus ? Nephrology, Dr Malhotra consulted. Appreciate recommendations Primary HTN Hypotension HLD BP 97/73 Plan: ? Antihypertensive held in light of hypotension ? Continue home ATORVASTATIN 80 mg HS Insulin-dependent diabetes mellitus type 2 [6.9%] Fasting blood glucose 74 Plan: ? Sliding scale insulin to cover for blood glucose spikes ? Hypoglycemic procedures in place Health maintenance: Disposition: IV antibiotics. MRI left foot. Pending Nephro recs Diet: Low consistent carb Lines: pIVs GI Prophylaxis: Pantoprazole Thrombo Prophylaxis: Heparin Code status: FULL CODE Plan of care discussed with Attending Dr. Leal and PGY2 Dr. Raven Rios MD PGY 1 Attending Provider Attestation/Addendum 73-year-old male with multiple comorbidities including hypertension, hyperlipidemia, type 2 diabetes mellitus who presented with left foot pain found to have left foot swelling with decreased pulses. As a result, unable to do a CTA given that patient has acute kidney injury and subsequently underwent bilateral lower limb arterial ultrasound with findings of bilateral peripheral arterial disease. As of now, plan to continue IV antibiotic therapy pending MRI of the foot. Patient does have swelling and erythema on exam however does have pulses bilaterally.I reviewed above note and agree with findings and plans. I have also personally examined the patient with medicine team and went over assessment and plan with medical team including international representative and resident physician.
[2024-05-27 11:59] LABS: Chloride,Urine Random 24.7 mMol/L (55.0-125.0); Creatinine,Random Urine 43 mg/dL (30-125); Potassium,Urine Random 14 mMol/L (12-62); Sodium,Urine Random 46.7 mMol/L (20.0-110.0)
--- NOTE | 2024-05-27 12:33 | PC.NURSE ---
Patients BP was 79/53 on his right arm and 96/42 on his left hand. MD notified.
[2024-05-27 12:35] LABS: Lactate (Lactic Acid) 0.5 mMol/L (0.4-2.0)
[2024-05-27 12:58] LABS: Albumin, Serum 3.6 gm/dL (3.4-4.8); Anion Gap 8 (7-16); BUN/Creatinine Ratio 27 Ratio (12-20); Blood Urea Nitrogen 69 mg/dL (9-23); Calcium 8.4 mg/dL (8.3-10.6); Calcium (Corrected) 8.7 mg/dL (8.5-10.1); Carbon Dioxide 20.8 mMol/L (20.0-31.0); Chloride 98 mMol/L (98-107); Creatine Kinase 1009 U/L (34-171); Creatinine (Component) 2.6 mg/dL (0.6-1.3); Estimated Creatinine Clearance 21.5 mL/min (>60); Glucose 95 mg/dL (74-106); Osmolality,Calculated 275 (275-295); Phosphorous 5.4 mg/dL (2.4-5.1); Potassium 5.2 mMol/L (3.4-5.1); Sodium 127 mMol/L (136-145); eGFR 25 See Note
[2024-05-27] MEDS: Silvasorb Gel 45 ML TUBE TOP (13:28)
--- NOTE | 2024-05-27 14:18 | PC.SS ---
SS met with patient, wfie, and dtr regarding hsi d/c plan.? Pt is alert/oriented.? Pt was admitted for Left Foot Celluliteis.? Pt confirmed demographic and contact information is correct on facesheet.? Pt resides with and son.? Pt ambulates using a 4 wheel with seat, rollator walker.? Pt is ok with all ADLs.? Pt named his dtr, Whit Beckham or his son, Paula Beckham medical decision makers if he is unable.? SS provided verbal d/c options for home or SNF.? Patient?s choice is to return home upon d/c.? Pt is diabetic, has glucometer, and test strips.? Pt is not on dialysis.? Pt followed up with PCP morning and who referred him to the ER.?? D/C plan:? Return home Next of Kin:? Whit Beckham, dtr, phone# [phone] or Paula Holcombchasityelvira, , phkone# [phone] PCP:? Dr. Olivia Zuniga from [facility] Address:? Correct on facesheet
--- NOTE | 2024-05-27 14:54 | ESCONSULT_ITS ---
HPI Data of Consult Consult date: 05/27/24 Requesting Physician: Delia Leal MD Admitting Provider: Todd Real MD Attending Provider: Delia Leal MD Primary Care Provider: Olivia Zuniga PA-C Consult Narrative Reason for consult: GORDON History of present illness: Mr. Hawthorne is a 73 year old male with PMH significant for Hypertension, hyperlipidemia and type 2 diabetes mellitus presented with chief complaint of left foot swelling that gradually worsened in last 1 month. He reported that, there could have been some foot injury or insect bite that he is not aware of. He went to see his PCP yesterday who recommended him to visit emergency department. He denied any fever or chills, headache, nausea or vomiting, chest pain or SOB, any changes in bowel or bladder habit. During evaluation, his vitals were stable, white count 23.1, hemoglobin 9.8, ESR 57, sodium level during presentation was 122 that slowly increased to 127 on IV normal saline 75 cc/h. Potassium initially was 5.2, that increased to 6.0 and trended down to 5.2. BUN 69, creatinine 2.6 which appears to be his baseline, and phosphorus 5.4. Left foot x-ray revealed no anjelica cortical bone destruction. Duplex scan lower extremity revealed severe bilateral obstructive arterial disease. Renal ultrasound revealed small kidneys with bilateral renal cortical thinning, moderate bilateral renal parenchymal scar formation. Urine electrolytes revealed creatinine 43, sodium 46, potassium 14, and chloride 24. PMH: As mentioned above PSHx: Septoplasty Allergies: No known allergies social history: Past smoker with [id number] smoking history and quit 18 years ago, denies any alcohol or recreational drug use. Medications: To be reconciled Nephrology consultation was done for further management of moderate hypovolemic hyponatremia, hyperkalemia and CKD. cc:: cc: Delia Leal MD Review of Systems Review of Systems Systems Reviewed: All systems reviewed, normal except as documented Past Medical History Past Medical History NEUROLOGIC: Negative Neurological Disorders CARDIAC: Positive Hypercholesterolemia and Hypertension; Negative Cardiac Disorders, Myocardial Infarction, Atrial Fibrillation, Angina, Heart Murmur, Coronary Artery Disease, Atherosclerotic Heart Disease, Peripheral Vascular Disease, Aneurysm, Congestive Heart Failure, Congenital Heart Disease, Rheumatic Fever, Cardiomyopathy, Edema, Pericarditis, Cellulitis, Deep Vein Thrombosis, Hypotension or Varicose Veins RESPIRATORY: Positive Respiratory Disorders (PNA), Asthma and Emphysema; Negative Chronic Obstructive Pulmonary Disease (COPD), Bronchitis, Pneumonia, Pulmonary Fibrosis, Tuberculosis, Pulmonary Embolism, Pulmonary Edema or Sleep Apnea GASTROINTESTINAL: Negative Gastrointestinal Disorders, Hepatitis or Colorectal Cancer GENITOURINARY: Positive Genitourinary Disorders; Negative Renal Disease, Kidney Stones, Neurogenic Bladder, Inguinal Hernia, Dialysis, Prostate Cancer or Benign Prostatic Hyperplasia REPRODUCTIVE: Negative Breast Cancer or Testicular Cancer MUSCULOSKELETAL: Positive Musculoskeletal Disorders; Negative Muscular Dystrophy, Myasthenia Gravis, Marfan's Syndrome, Bone Cancer, Arthritis, Rheumatoid Arthritis, Osteoporosis, Degenerative Disk Disease, Gout, Scoliosis, Carpal Tunnel Syndrome, Fibromyalgia, Fractures, Osteomyelitis or Poliovirus ENT: Negative Cataracts ENDOCRINE: Positive Endocrine Disorders and Diabetes Mellitus Type 2; Negative Diabetes Mellitus Type 1, Hypoglycemia, Anish's Syndrome, Albemarle's Disease, Hyperthyroidism, Hypothyroidism, Parathyroid Disease, Pituitary Disease, Systemic Lupus Erythematosus, Syndrome of Inappropriate Antidiuretic Hormone (SIADH), Adrenal Disease or Graves' Disease HEMATOLOGIC: Positive Blood Disorders and Anemia; Negative Leukemia, Hemophilia, Thalassemia, Sickle Cell Disease or Clotting Problems OTHER HISTORY: Positive Hospitalization; Negative Autoimmune Disease, Down Syndrome, Developmental Delay, Shingles, Falls, Blood Transfusions, Blood Transfusion Reaction, Anesthesia Reactions, Organ Transplant, Chemotherapy, Radiation Therapy, Hyperbaric Therapy, MRSA, VRSA, Vancomycin-Resistant Enterococci, Human Immunodeficiency Virus (HIV), Chicken Pox, Measles, Mumps, Rubella ([place] Measles), Pertussis, Clostridium Difficile, Cancer, Breast Cancer, Cervical Cancer, Colorectal Cancer, Lung Cancer, Ovarian Cancer, Prostate Cancer or Testicular Cancer Family History FAMILY HISTORY: Negative Family Psychiatric Problems, Family Respiratory Disorders, Family Cardiac Disorders, Family Gastrointestinal Problems, Family Cancer, Family Surgery or Family Anesthesia Reaction Surgical History SURGICAL: Positive Nose Surgery (deviated septum repair) and Vasectomy; Negative Cardiac Surgery, Pacemaker, Endocrine Surgery, Ear Surgery, Tympanostomy Tube, Eye Surgery, Oral Surgery, Tonsillectomy, Adenoidectomy, Cochlear Implant, Corneal Transplant, Throat Surgery, Abdominal Surgery, Tracheostomy, Nephrectomy, Transurethral Resection, Joint Replacement, Amputation, Open Reduction Internal Fixation, Arthroscopy, Neurologic Surgery, Brain Shunt or Organ Transplant Social History SMOKING STATUS: Former smoker SECOND HAND EXPOSURE: No Past Medical History Comments PMH COMMENT: Past Medical History: Type 2 diabetes, hypertension, and hyperlipidemia Family History: No known family history of diabetes or heart diseases Surgical History: Cholecystectomy, sinus surgery Social History: Former history of smoking 1 pack per day for about 50 years, quit about 10 years ago, denies current alcohol use, denies recreational drug use Current Medications: Patient does not remember his home medications but reports he takes an antihypertensive, cholesterol pill, and [id number] PPI Allergies: No known drug allergies Exam Vital Signs Temp Pulse Resp BP Pulse Ox O2 Del Method 97.2 F 75 17 96/43 L 98 Room Air 05/27/24 12:00 05/27/24 12:05/27/24 12:05/27/24 12:05/27/24 12:05/27/24 12:00 Narrative Exam General: Elderly, cooperative gentleman, no acute distress, Alert and Oriented x 3 HEENT: Moist mucous membranes, oropharynx clear Neck: Supple, No masses, No JVD CVS: S1S2 Regular rate and rhythm, No murmurs, rubs or gallops Lungs: Clear to auscultation with no accessory use, no wheeze no rhonchi Abd: Soft, NT/ND, +BS, no organomegaly Ext: Left foot swollen, erythematous, 3 x 3 cm eschar noted on dorsal aspect of foot. Right fifth toe has 1x1cm area of necrosis Psych: Appropriate mood and affect Results Labs 05/29/24 05:08 05/29/24 05:08 Labs: Short CBC 05/27/24 Range/Units 04:58 WBC 23.1 H (3.8-10.6) Thou/mm3 Hgb 9.8 L (13.5-16.0) g/dL Hct 27.9 L (41.0-53.0) % Plt Count 287 D (140-440) Thou/mm3 BMP 05/26/24 05/27/24 05/27/24 21:25 01:25 04:58 Sodium 124 L Potassium 6.0 H D 5.4 H D 5.2 H Chloride 94 L Carbon Dioxide 19.6 L BUN 75 H Creatinine 3.0 H D Glucose 74 Calcium 8.6 05/27/24 12:24 Sodium 127 L Potassium 5.2 H Chloride 98 Carbon Dioxide 20.8 BUN 69 H Creatinine 2.6 H Glucose 95 Calcium 8.4 Cardiac Enzymes 05/27/24 Range/Units 12:24 Total Creatine Kinase 1009 H (34-171) U/L Liver Function 05/27/24 05/27/24 Range/Units 04:58 12:24 Total Bilirubin < 0.2 L (0.3-1.2) mg/dL AST 67 H (0-34) U/L ALT 63 H (10-49) U/L Alkaline Phosphatase 80 (46-116) U/L Albumin 3.7 D 3.6 (3.4-4.8) gm/dL Urine 05/26/24 Range/Units 14:12 Urine Color Yellow (Lt Yel-Yel) Urine Clarity Clear (Clear/Hazy) Urine pH 5.5 (5.0-7.0) Ur Specific [place] 1.016 (1.001-1.035) Urine Protein Trace (Neg - Trace) Urine Glucose (UA) 2+ A (Negative) Quality Measures Quality Measures none Advance care planning discussed with:: patient Medications Home Medications and Allergies Allergies Allergy/AdvReac Type Severity Reaction Status Date / Time No Known Allergies Allergy Unverified 06/07/23 18:57 Visit Medications Acetaminophen (Acetaminophen 325 Mg Tablet) 650 mg PO Q6H PRN PRN Reason: PAIN SCALE 1-3 (mild Stop: 06/25/24 20:02 Acetaminophen (Acetaminophen 325 Mg Tablet) 650 mg PO Q6H PRN PRN Reason: Fever >100 Stop: 06/25/24 20:02 Hydrocodone Bitart/Acetaminophen (Hydrocodone/Apap 10/325 Tab) 1 tab PO Q4HR PRN PRN Reason: PAIN SCALE 4-10(Mod-Sev Stop: 05/31/24 20:02 Atorvastatin Calcium (Atorvastatin Calcium 20 Mg Tablet) 80 mg PO HS LEXI Stop: 06/25/24 20:59 Last Admin: 05/26/24 20:55 Dose: 80 mg Dextrose (Dextrose 50%-Water Inj 50 Ml Syringe) 25 ml IV Q15MIN PRN PRN Reason: BG 50-70 responsive npo pt Stop: 06/25/24 20:09 Dextrose (Dextrose 50%-Water Inj 50 Ml Syringe) 50 ml IV Q15MIN PRN PRN Reason: BG <50 OR BG <70 & pt unresponsive Stop: 06/25/24 20:09 Glucagon (Glucagon Inj 1 Mg Vial) 1 mg IM Q15MIN PRN PRN Reason: BG <70, and no IV access Heparin Sodium (Porcine) (Heparin Sod Inj 5000 Unit/Ml Vial) 5,000 unit SC Q8HR [facility] Stop: 06/10/24 05:59 Last Admin: 05/27/24 13:28 Dose: 5,000 unit Sodium Chloride (Ns) 1,000 mls @ 75 mls/hr IV .[id number] [facility] Stop: 06/25/24 20:05 Last Admin: 05/27/24 01:23 Dose: 75 mls/hr Ceftriaxone Sodium/Dextrose (Rocephin/D5w 1gm Iv Premix) 50 mls @ 100 mls/hr IV QDAY [facility] Stop: 06/02/24 20:14 Last Admin: 05/27/24 09:14 Dose: 100 mls/hr Insulin Human Lispro (Insulin Lispro (Admelog) 1 Unit/0.01 Ml Unit) 0 unit SC ACHS [facility]; Protocol Stop: 06/25/24 20:59 Last Admin: 05/27/24 11:39 Dose: Not Given Ondansetron HCl (Ondansetron Inj 2 Mg/Ml Inj 2 Ml) 4 mg IV Q6H PRN; Protocol PRN Reason: NAUSEA OR VOMITING Stop: 06/25/24 20:02 Pantoprazole Sodium (Pantoprazole Inj 40 Mg Vial) 40 mg IVP QDAY [facility] Stop: 06/26/24 08:59 Last Admin: 05/27/24 09:14 Dose: 40 mg Pharmacy Consult (Vancomycin Pharmacy To Dose 1 Each Each) 1 each IV QDAY PRN PRN Reason: CONSULT Stop: 06/26/24 08:59 Discontinued Medications Hydrocodone Bitart/Acetaminophen (Hydrocodone/Apap 10/325 Tab) 1 tab PO Q4HR PRN PRN Reason: PAIN SCALE 7-10 (Severe Stop: 05/31/24 20:02 Last Admin: 05/27/24 09:28 Dose: 1 tab Aspirin (Aspirin Ec 81 Mg Tabec) 81 mg PO X1 ONE Stop: 05/26/24 20:11 Last Admin: 05/26/24 20:56 Dose: 81 mg Calcium Gluconate (Calcium Gluconate 10% Inj 1 Gm/10 Ml Vial) 1 gm IV X1 ONE Stop: 05/26/24 22:06 Last Admin: 05/26/24 22:59 Dose: 1 gm Dextrose (Dextrose 50%-Water Inj 50 Ml Syringe) 50 ml IV X1 ONE Stop: 05/26/24 22:10 Last Admin: 05/26/24 22:59 Dose: 50 ml Hydromorphone HCl (Hydromorphone Inj 2 Mg/Ml Vial) 0.25 mg IVP X1 ONE Stop: 05/27/24 02:02 Last Admin: 05/27/24 02:16 Dose: 0.25 mg Doxycycline Hyclate 100 mg/ (Sodium Chloride) 100 mls @ 100 mls/hr IV BID LEXI Stop: 06/02/24 20:59 Last Admin: 05/26/24 22:59 Dose: 100 mls/hr Vancomycin/Sodium Chloride (Vancomycin/Ns 1 Gm Ivpb) 200 mls @ 120 mls/hr IV X1 ONE Stop: 05/27/24 10:39 Last Admin: 05/27/24 10:26 Dose: 120 mls/hr Sodium Chloride (Ns) 1,000 mls @ 999 mls/hr IV .Q1H1M ONE Stop: 05/27/24 10:26 Last Admin: 05/27/24 09:33 Dose: 999 mls/hr Insulin Human Regular (Insulin Hum Regular 1 Unit/0.01 Ml (Per Unit)) 5 unit IV X1 ONE Stop: 05/26/24 22:10 Last Admin: 05/26/24 23:00 Dose: 5 unit Ketorolac Tromethamine (Ketorolac Inj 30 Mg/Ml Vial) 30 mg IVP X1 ONE Stop: 05/26/24 18:35 Last Admin: 05/26/24 19:20 Dose: 30 mg Oxycodone/Acetaminophen (Oxycodone/Apap 5/325 Tablet) 1 tab PO Q6H PRN PRN Reason: PAIN SCALE 4-6 (Moderate Stop: 05/31/24 20:02 Last Admin: 05/27/24 03:13 Dose: 1 tab Sodium Polystyrene Sulfonate (Sod Polystyrene Sulfon Susp 15 Gm/60 Ml Btl) 30 gm PO X1 ONE Stop: 05/26/24 22:10 Last Admin: 05/26/24 23:00 Dose: 30 gm Tramadol HCl (Tramadol Hcl 50 Mg Tablet) 50 mg PO X1 ONE Stop: 05/27/24 10:49 Last Admin: 05/27/24 11:10 Dose: 50 mg Assessment & Plan Plan The patient is a 73 year old male with PMH significant for Hypertension, hyperlipidemia and type 2 diabetes mellitus presented with chief complaint of left foot swelling that gradually worsened in last 1 month was found to have left foot cellulitis, and nephrology consultation was done for the mangement of hyperkalemia, hyponatremia and GORDON on CKD. #Hyperkalemia Likely secondary to CKD Potassium initially was 5.2, that increased to 6.0 and trended down to 5.2. Patient was given Kayexalate 30 g x 1 overnight -Kayexalate 30 g x 1 again given this afternoon -Monitor BMP every 4 hourly, if potassium greater than 6.5 or EKG changes, consider IV regular insulin 5 unit x 1, albuterol inhalation, IV D50 50 cc x 1, and calcium gluconate 1 g x 1. #Moderate hypovolemic hypoosmolar hyponatremia Patient's sodium was as low as 122, and has been slowly being corrected to 127 -Continue with IV normal saline 75 cc/hr -Continue to monitor BMP every 4 hourly #GORDON on CKD IIIA Likely prerenal 2/2 dehydrations Patients baseline GFR is 46 and has gone down to 25 Renal ultrasound revealed small kidneys with bilateral renal cortical thinning, moderate bilateral renal parenchymal scar formation. Urine electrolytes revealed creatinine 43, sodium 46, potassium 14, and chloride 24 consistent with prerenal GORDON with BUN/Cr ration 25 -Continue with NS 75cc/hr -Monitor BMP daily am -Avoid nephrotoxic drugs #HTN Currently stable -Avoid JENNIFER/ARB or thiazide diuretics, in the setting of GORDON on CKD Left foot cellulitis Leukocytosis HLD T2DM -Management deferred to primary team Thank you for your opportunity to participate nephrology team in this patient care. The patient's management plan was discussed with my attending physician MD Oral Cloud MD, PGY2 Attending Provider Attestation/Addendum Patient seen and examined with resident physician Dr. Mendez. Note reviewed, agree with findings and recommendations. Patient with GORDON secondary to prerenal azotemia and underlying CKD (from hypertension, diabetes. Renal ultrasound showed moderate scarring consistent with underlying CKD. Hyperkalemia seems to be improving with medical management. Suspect from underlying renal insufficiency. Patient also with left foot cellulitis on antibiotics. Decreased circulation consistent with diabetic peripheral artery disease. Noted anemia-will add iron and Procrit. Thank you Dr. Leal for allowing me to participate in the care of Mr. Hawthorne
[2024-05-27] MEDS: CEFEPIME INJ 2 GM in SODIUM CHLORIDE 0.9% (P) 50 ML IV (15:23)
[2024-05-27] MEDS: SOD POLYSTYRENE SULFON SUSP 15 GM/60 ML BTL 30 GM PO (15:35)
[2024-05-27] MEDS: metroNIDAZOLE/NS 500 MG IVPB 500 MG/100 ML BAG 200 MG IV ×2 (15:35→21:35)
[2024-05-27 16:01] LABS: Lactate (Lactic Acid) 0.6 mMol/L (0.4-2.0)
[2024-05-27 17:46] LABS: Anion Gap 8 (7-16); BUN/Creatinine Ratio 25 Ratio (12-20); Blood Urea Nitrogen 66 mg/dL (9-23); Calcium 8.6 mg/dL (8.3-10.6); Carbon Dioxide 20.3 mMol/L (20.0-31.0); Chloride 98 mMol/L (98-107); Creatinine (Component) 2.6 mg/dL (0.6-1.3); Estimated Creatinine Clearance 21.5 mL/min (>60); Glucose 106 mg/dL (74-106); Osmolality,Calculated 272 (275-295); Potassium 5.5 mMol/L (3.4-5.1); Sodium 126 mMol/L (136-145); eGFR 25 See Note
--- NOTE | 2024-05-27 19:30 | PC.NURSE ---
Patient's daughter did not came back to take all the home medications of the patient. Medications left on med room [place], called pharmacy to keep it for now. Endorsed to shift nurse manager nurse.
[2024-05-27 20:04] LABS: Anion Gap 10 (7-16); BUN/Creatinine Ratio 25 Ratio (12-20); Blood Urea Nitrogen 65 mg/dL (9-23); Calcium 8.9 mg/dL (8.3-10.6); Carbon Dioxide 21.2 mMol/L (20.0-31.0); Chloride 99 mMol/L (98-107); Creatinine (Component) 2.6 mg/dL (0.6-1.3); Estimated Creatinine Clearance 21.5 mL/min (>60); Glucose 117 mg/dL (74-106); Osmolality,Calculated 280 (275-295); Potassium 5.2 mMol/L (3.4-5.1); Sodium 130 mMol/L (136-145); eGFR 25 See Note
[2024-05-27] MEDS: ATORVASTATIN CALCIUM 20 MG TABLET 80 MG PO (21:34)
[2024-05-28] VITALS (8 sets, daily range): BP systolic 90–102; BP diastolic 54–73; PULSE 90–116; RESP 18–20; TEMP 36.3–36.7; O2SAT 97–100
[2024-05-28] MEDS: HYDROcodone/APAP 10/325 TAB PO ×4 (01:36→22:25)
[2024-05-28 05:48] LABS: Basophils # (Auto) 0.1 Thou/mm3 (0.0-0.2); Basophils % (Auto) 0 % (0-2.5); Eosinophils # (Auto) 0.6 Thou/mm3 (0.0-0.5); Eosinophils % (Auto) 3 % (0-10); Hematocrit 27.7 % (41.0-53.0); Hemoglobin 9.6 g/dL (13.5-16.0); Immature Granulocytes % (Auto) 2 % (0-0); Immature Granulocytes Auto 0.32 Thou/mm3 (0.00-0.00); Lymphocytes # (Auto) 0.7 Thou/mm3 (1.0-4.8); Lymphocytes % (Auto) 3 % (10-50); Mean Corpuscular HGB Conc 34.7 g/dl (31.0-37.0); Mean Corpuscular Hemoglobin 31.6 pg (25.0-35.0); Mean Corpuscular Volume 91 fL (80-100); Monocytes # (Auto) 1.6 Thou/mm3 (0.0-0.8); Monocytes % (Auto) 7 % (0-12); Neutrophils # (Auto) 18.6 Thou/mm3 (1.8-7.7); Neutrophils % (Auto) 85 % (37-80); Nucleated Red Blood Cell % 0 /100 WBC (0); Platelet Count 318 Thou/mm3 (140-440); RDW Standard Deviation 41.4 fL (35.1-43.9); Red Blood Count 3.04 Miln/mm3 (4.50-5.90)
[2024-05-28] MEDS: metroNIDAZOLE/NS 500 MG IVPB 500 MG/100 ML BAG 200 MG IV ×3 (05:52→21:52)
[2024-05-28] MEDS: HEPARIN SOD INJ 5000 UNIT/ML VIAL SC ×3 (05:55→21:55)
[2024-05-28 06:17] LABS: Alanine Aminotransferase 45 U/L (10-49); Albumin, Serum 3.7 gm/dL (3.4-4.8); Albumin/Globulin Ratio 1.5 (1.2-2.2); Alkaline Phosphatase 95 U/L (46-116); Anion Gap 8 (7-16); Aspartate Amino Transferase 63 U/L (0-34); BUN/Creatinine Ratio 26 Ratio (12-20); Bilirubin,Total 0.2 mg/dL (0.3-1.2); Blood Urea Nitrogen 63 mg/dL (9-23); Calcium 8.8 mg/dL (8.3-10.6); Chloride 103 mMol/L (98-107); Creatinine (Component) 2.4 mg/dL (0.6-1.3); Estimated Creatinine Clearance 23.3 mL/min (>60); Globulin 2.5 gm/dL (2.3-3.5); Glucose 83 mg/dL (74-106); Magnesium 2.2 mg/dL (1.6-2.6); Osmolality,Calculated 277 (275-295); Phosphorous 5.1 mg/dL (2.4-5.1); Potassium 4.9 mMol/L (3.4-5.1); Sodium 130 mMol/L (136-145); Total Protein 6.2 gm/dL (5.7-8.2); eGFR 28 See Note
[2024-05-28 07:13] LABS: Vancomycin,Random 10.8 mcg/mL
[2024-05-28] MEDS: CEFEPIME INJ 1 GM in SODIUM CHLORIDE 0.9% (P) 50 ML IV (09:59)
[2024-05-28] MEDS: PANTOPRAZOLE INJ 40 MG VIAL IVP (10:00)
[2024-05-28] MEDS: Silvasorb Gel 45 ML TUBE TOP (10:04)
[2024-05-28] MEDS: VANCOMYCIN/NS 500 MG IVPB 100 ML 120 MG IV (11:15)
[2024-05-28] MEDS: SODIUM CHLORIDE 0.9% 1000 ML 1,000 ML 70 ML IV (14:48)
[2024-05-28] MEDS: MORPHINE SULF INJ 10 MG/ML VIAL 2 MG IVP ×2 (14:54→19:07)
[2024-05-28] MEDS: INSULIN LISPRO (AdmeLOG) 1 UNIT/0.01 ML UNIT SC (17:31)
--- NOTE | 2024-05-28 18:20 | ESPR_ITS ---
Documentation for date of: 05/28/24 Subjective Subjective Interval history: The patient is a 73 year old male with PMH significant for Hypertension, hyperlipidemia and type 2 diabetes mellitus presented with chief complaint of left foot swelling that gradually worsened in last 1 month. He reported that, there could have been some foot injury or insect bite that he is not aware of. He went to see his PCP yesterday who recommended him to visit emergency department. He denied any fever or chills, headache, nausea or vomiting, chest pain or SOB, any changes in bowel or bladder habit. During evaluation, his vitals were stable, white count 23.1, hemoglobin 9.8, ESR 57, sodium level during presentation was 122 that slowly increased to 127 on IV normal saline 75 cc/h. Potassium initially was 5.2, that increased to 6.0 and trended down to 5.2. BUN 69, creatinine 2.6 which appears to be his baseline, and phosphorus 5.4. Left foot x-ray revealed no anjelica cortical bone destruction. Duplex scan lower extremity revealed severe bilateral obstructive arterial disease. Renal ultrasound revealed small kidneys with bilateral renal cortical thinning, moderate bilateral renal parenchymal scar formation. Urine electrolytes revealed creatinine 43, sodium 46, potassium 14, and chloride 24. PMH: As mentioned above PSHx: Septoplasty Allergies: No known allergies social history: Past smoker with [id number] smoking history and quit 18 years ago, denies any alcohol or recreational drug use. Medications: To be reconciled Nephrology consultation was done for further management of moderate hypovolemic normal osmolar hyponatremia, hyperkalemia and CKD. 05/28/2024: The patient was interviewed and examined at the bedside this morning. He reported pain over his left foot. Vitals were stable with soft blood pressure. Labs were significant for white count 22.0, hemoglobin 9.6. Sodium 130, potassium 4.9, BUN 63, creatinine 2.4, EGFR 28, phosphorus 5.1. We will continue with maintenance normal saline fluid 70 cc/h as patient seemed to be mildly dehydrated, and his sodium correction is at goal levels. Exam Vital Signs Temp Pulse Resp BP Pulse Ox O2 Del Method 97.6 F 90 18 90/54 L 97 Room Air 05/28/24 16:05/28/24 16:05/28/24 16:05/28/24 16:05/28/24 16:25 16:00 Narrative Exam General: Elderly, cooperative gentleman, no acute distress, Alert and Oriented x 3 HEENT: Moist mucous membranes, oropharynx clear Neck: Supple, No masses, No JVD CVS: S1S2 Regular rate and rhythm, No murmurs, rubs or gallops Lungs: Clear to auscultation with no accessory use, no wheeze no rhonchi Abd: Soft, NT/ND, +BS, no organomegaly Ext: Left foot swollen, erythematous, 3 x 3 cm eschar noted on dorsal aspect of foot. Right fifth toe has 1x1cm area of necrosis Psych: Appropriate mood and affect Objective Labs 05/29/24 05:08 05/29/24 05:08 Labs: Laboratory Results - last 24 hr 05/27/24 05/28/24 18:55 04:58 WBC 22.0 H RBC 3.04 L Hgb 9.6 L Hct 27.7 L MCV 91 MCH 31.6 MCHC 34.7 RDW Std Deviation 41.4 Plt Count 318 D Neut % (Auto) 85 H Lymph % (Auto) 3 L [place] % (Auto) 7 Eos % (Auto) 3 Baso % (Auto) 0 Neut # (Auto) 18.6 H Lymph # (Auto) 0.7 L [place] # (Auto) 1.6 H Eos # (Auto) 0.6 H Baso # (Auto) 0.1 Immature Gran # (Auto) 0.32 H Absolute Nucleated RBC 0.00 Immature Gran % 2 H Nucleated RBC % 0 Sodium 130 L 130 L Potassium 5.2 H 4.9 Chloride 99 103 Carbon Dioxide 21.2 19.0 L Anion Gap 10 8 BUN 65 H 63 H Creatinine 2.6 H 2.4 H Estim Creat Clear Calc 21.5 L 23.3 L eGFR 25 L 28 L BUN/Creatinine Ratio 25 H 26 H Glucose 117 H 83 Calculated Osmolality 280 277 Calcium 8.9 8.8 Corrected Calcium 9.0 Phosphorus 5.1 Magnesium 2.2 Total Bilirubin 0.2 L AST 63 H ALT 45 Alkaline Phosphatase 95 Total Protein 6.2 Albumin 3.7 Globulin 2.5 Albumin/Globulin Ratio 1.5 Random Vancomycin 10.8 Quality Measures Quality Measures none Advance care planning discussed with:: patient Assessment & Plan Assessment Current Active Medications: Generic Name Dose Route Start Last Admin Trade Name Freq PRN Reason Stop Dose Admin Acetaminophen 650 mg 02/06/25 20:03 Acetaminophen 325 Mg Tablet PO 06/25/24 20:02 Q6H PRN PAIN SCALE 1-3 (mild Acetaminophen 650 mg 05/26/24 20:03 Acetaminophen 325 Mg Tablet PO 06/25/24 20:02 Q6H PRN Fever >100 Hydrocodone Bitart/Acetaminophen 1 tab 05/27/24 09:31 05/28/24 10:29 Hydrocodone/Apap 10/325 Tab PO 05/31/24 20:02 1 tab Q4HR PRN Administration PAIN SCALE 4-10(Mod-Sev Atorvastatin Calcium 80 mg 05/26/24 21:00 05/27/24 21:34 Atorvastatin Calcium 20 Mg Tablet PO 06/25/24 20:59 80 mg HS LEXI Administration Dextrose 25 ml 05/26/24 20:10 Dextrose 50%-Water Inj 50 Ml Syringe IV 06/25/24 20:09 Q15MIN PRN BG 50-70 responsive npo pt Dextrose 50 ml 05/26/24 20:10 Dextrose 50%-Water Inj 50 Ml Syringe IV 06/25/24 20:09 Q15MIN PRN BG <50 OR BG <70 & pt unresponsive Glucagon 1 mg 05/26/24 20:10 Glucagon Inj 1 Mg Vial IM Q15MIN PRN BG <70, and no IV access Heparin Sodium (Porcine) 5,000 unit 05/27/24 06:00 05/28/24 14:49 Heparin Sod Inj 5000 Unit/Ml Vial SC 06/10/24 05:59 5,000 unit Q8HR LEXI Administration Metronidazole 500 mg in 100 mls @ 200 mls/hr 05/27/24 15:05 05/28/24 14:48 Flagyl 500 Mg Iv IV 06/03/24 15:04 200 mls/hr Q8HR LEXI Administration Cefepime HCl 1 gm/ Sodium 50 mls @ 100 mls/hr 05/28/24 09:00 05/28/24 09:59 Chloride IV 06/04/24 08:59 100 mls/hr DAILY LEXI Administration Sodium Chloride 1,000 mls @ 70 mls/hr 05/28/24 10:27 05/28/24 14:48 Ns IV 06/27/24 10:26 70 mls/hr .[id number] LEXI Administration Insulin Human Lispro 0 unit 05/26/24 21:00 05/28/24 17:31 Insulin Lispro (Admelog) 1 Unit/0.01 Ml Unit SC 06/25/24 20:59 1 unit ACHS LEXI Administration Protocol Morphine Sulfate 2 mg 05/28/24 12:27 05/28/24 14:54 Morphine Sulf Inj 10 Mg/Ml Vial IVP 06/02/24 12:26 2 mg Q4HR PRN Administration Pain-breakthrough Ondansetron HCl 4 mg 05/26/24 20:03 Ondansetron Inj 2 Mg/Ml Inj 2 Ml IV 06/25/24 20:02 Q6H PRN NAUSEA OR VOMITING Protocol Pantoprazole Sodium 40 mg 05/27/24 09:00 05/28/24 10:00 Pantoprazole Inj 40 Mg Vial IVP 06/26/24 08:59 40 mg QDAY LEXI Administration Pharmacy Consult 1 each 05/27/24 09:00 Vancomycin Pharmacy To Dose 1 Each Each IV 06/26/24 08:59 QDAY PRN CONSULT Plan The patient is a 73 year old male with PMH significant for Hypertension, hyperlipidemia and type 2 diabetes mellitus presented with chief complaint of left foot swelling that gradually worsened in last 1 month was found to have left foot cellulitis, and nephrology consultation was done for the mangement of hyperkalemia, hyponatremia and GORDON on CKD. #Hyperkalemia Likely secondary to CKD Potassium initially was 5.2, that increased to 6.0 and trended down to 5.2. Patient was given Kayexalate 30 g x 1 overnight -Kayexalate 15 g x 1 again given -Monitor daily am K. #Moderate hypovolemic hypoosmolar hyponatremia Patient's sodium was as low as 122, and has been slowly being corrected to 127 2: Na level 130 -Continue with IV normal saline 70 cc/hr -Continue to monitor BMP in the am #GORDON on CKD IIIA Likely prerenal 2/2 dehydrations Patients baseline GFR is 46 and has gone down to 25 Renal ultrasound revealed small kidneys with bilateral renal cortical thinning, moderate bilateral renal parenchymal scar formation. Urine electrolytes revealed creatinine 43, sodium 46, potassium 14, and chloride 24 consistent with prerenal GORDON with BUN/Cr ration 25 -Continue with NS 70cc/hr -Monitor BMP daily am -Avoid nephrotoxic drugs #HTN Currently stable -Avoid JENNIFER/ARB or thiazide diuretics, in the setting of GORDON on CKD Left foot cellulitis Leukocytosis= HLD T2DM -Management deferred to primary team Thank you for your opportunity to participate nephrology team in this patient care. The patient's management plan was discussed with my attending physician MD Oral Cloud MD, PGY2 Attending Provider Attestation/Addendum Patient seen and examined with resident physician Dr. Mendez. Note reviewed, agree with findings and recommendations. Patient with GORDON secondary to prerenal azotemia and underlying CKD (from hypertension, diabetes. Renal ultrasound showed moderate scarring consistent with underlying CKD. Hyperkalemia seems to be improving with medical management. Suspect from underlying renal insufficiency. Patient also with left foot cellulitis on antibiotics. Decreased circulation consistent with diabetic peripheral artery disease. Noted anemia-will add iron and Procrit.
--- NOTE | 2024-05-28 19:51 | ESPR_ITS ---
Documentation for date of: 05/28/24 Subjective Subjective Interval history: No significant overnight events, WBC downtrending, creatinine improved from 2.6- 2.4. Patient pending MRI to rule out cellulitis. We will continue cefepime, Flagyl and vancomycin meantime. During exam patient still endorsing pain, will add morphine for breakthrough management. Exam Vital Signs Temp Pulse Resp BP Pulse Ox O2 Del Method 97.6 F 90 18 90/54 L 97 Room Air 05/28/24 16:00 05/28/24 16:00 05/28/24 16:00 05/28/24 16:00 05/28/24 16:00 05/28/24 16:00 Narrative Exam Constitutional Alert, oriented x 3 and mild distress. Elderly male HEENT Vision grossly intact. Patent nares. Trachea midline Respiratory Chest normal on inspection and clear auscultation bilaterally Cardiovascular S1 and S2 audible, RRR. No murmurs carotid bruit. No gross JVD. Abdominal Soft and non tender to palpation in all quadrants. BS + Genitourinary No bladder tenderness, no flank pain. Normal to palpation Musculoskeletal Extremities tone within normal limits. No LE edema. Neurological CN II - XII grossly intact. Extremity motor and sensation grossly intact. Skin Warm, dry and intact. Left foot swollen, erythematous, 3 x 3 cm eschar noted on dorsal aspect of foot. Right fifth toe has 1x1cm area of necrosis Psychiatric Patient has good affect, is cooperative Objective Labs 06/03/24 05:34 06/03/24 05:34 Labs: Laboratory Results - last 24 hr 05/27/24 05/28/24 18:55 04:58 WBC 22.0 H RBC 3.04 L Hgb 9.6 L Hct 27.7 L MCV 91 MCH 31.6 MCHC 34.7 RDW Std Deviation 41.4 Plt Count 318 D Neut % (Auto) 85 H Lymph % (Auto) 3 L [facility] % (Auto) 7 Eos % (Auto) 3 Baso % (Auto) 0 Neut # (Auto) 18.6 H Lymph # (Auto) 0.7 L [facility] # (Auto) 1.6 H Eos # (Auto) 0.6 H Baso # (Auto) 0.1 Immature Gran # (Auto) 0.32 H Absolute Nucleated RBC 0.00 Immature Gran % 2 H Nucleated RBC % 0 Sodium 130 L 130 L Potassium 5.2 H 4.9 Chloride 99 103 Carbon Dioxide 21.2 19.0 L Anion Gap 10 8 BUN 65 H 63 H Creatinine 2.6 H 2.4 H Estim Creat Clear Calc 21.5 L 23.3 L eGFR 25 L 28 L BUN/Creatinine Ratio 25 H 26 H Glucose 117 H 83 Calculated Osmolality 280 277 Calcium 8.9 8.8 Corrected Calcium 9.0 Phosphorus 5.1 Magnesium 2.2 Total Bilirubin 0.2 L AST 63 H ALT 45 Alkaline Phosphatase 95 Total Protein 6.2 Albumin 3.7 Globulin 2.5 Albumin/Globulin Ratio 1.5 Random Vancomycin 10.8 Quality Measures Quality Measures none Advance care planning discussed with:: other Assessment & Plan Assessment Current Active Medications: Generic Name Dose Route Start Last Admin Trade Name Freq PRN Reason Stop Dose Admin Acetaminophen 650 mg 05/26/24 20:03 Acetaminophen 325 Mg Tablet PO 06/25/24 20:02 Q6H PRN PAIN SCALE 1-3 (mild Acetaminophen 650 mg 05/26/24 20:03 Acetaminophen 325 Mg Tablet PO 06/25/24 20:02 Q6H PRN Fever >100 Hydrocodone Bitart/Acetaminophen 1 tab 05/27/24 09:31 05/28/24 10:29 Hydrocodone/Apap 10/325 Tab PO 05/31/24 20:02 1 tab Q4HR PRN Administration PAIN SCALE 4-10(Mod-Sev Atorvastatin Calcium 80 mg 05/26/24 21:00 05/27/24 21:34 Atorvastatin Calcium 20 Mg Tablet PO 06/25/24 20:59 80 mg HS LEXI Administration Dextrose 25 ml 05/26/24 20:10 Dextrose 50%-Water Inj 50 Ml Syringe IV 06/25/24 20:09 Q15MIN PRN BG 50-70 responsive npo pt Dextrose 50 ml 05/26/24 20:10 Dextrose 50%-Water Inj 50 Ml Syringe IV 06/25/24 20:09 Q15MIN PRN BG <50 OR BG <70 & pt unresponsive Glucagon 1 mg 05/26/24 20:10 Glucagon Inj 1 Mg Vial IM Q15MIN PRN BG <70, and no IV access Heparin Sodium (Porcine) 5,000 unit 05/27/24 06:00 05/28/24 14:49 Heparin Sod Inj 5000 Unit/Ml Vial SC 06/10/24 05:59 5,000 unit Q8HR LEXI Administration Metronidazole 500 mg in 100 mls @ 200 mls/hr 05/27/24 15:05 05/28/24 14:48 Flagyl 500 Mg Iv IV 06/03/24 15:04 200 mls/hr Q8HR LEXI Administration Cefepime HCl 1 gm/ Sodium 50 mls @ 100 mls/hr 05/28/24 09:00 05/28/24 09:59 Chloride IV 06/04/24 08:59 100 mls/hr DAILY LEXI Administration Sodium Chloride 1,000 mls @ 70 mls/hr 05/28/24 10:27 05/28/24 14:48 Ns IV 06/27/24 10:26 70 mls/hr .[id number] LEXI Administration Insulin Human Lispro 0 unit 05/26/24 21:00 05/28/24 17:31 Insulin Lispro (Admelog) 1 Unit/0.01 Ml Unit SC 06/25/24 20:59 1 unit ACHS LEXI Administration Protocol Morphine Sulfate 2 mg 05/28/24 12:27 05/28/24 19:07 Morphine Sulf Inj 10 Mg/Ml Vial IVP 06/02/24 12:26 2 mg Q4HR PRN Administration Pain-breakthrough Ondansetron HCl 4 mg 05/26/24 20:03 Ondansetron Inj 2 Mg/Ml Inj 2 Ml IV 06/25/24 20:02 Q6H PRN NAUSEA OR VOMITING Protocol Pantoprazole Sodium 40 mg 05/27/24 09:00 05/28/24 10:00 Pantoprazole Inj 40 Mg Vial IVP 06/26/24 08:59 40 mg QDAY LEXI Administration Pharmacy Consult 1 each 05/27/24 09:00 Vancomycin Pharmacy To Dose 1 Each Each IV 06/26/24 08:59 QDAY PRN CONSULT Plan 73-year-old male PMHx of T2DM, HLD, HTN admitted for left foot cellulitis. Started on ANTIBIOTICS. Additionally, he is being managed for GORDON, hyperkalemia, and hyponatremia. Left foot cellulitis Bilateral peripheral arterial disease Leukocytosis Presenting with 1 month of left foot swelling, erythema and pain. On exam Left foot swollen, erythematous, 3 x 3 cm eschar noted on dorsal aspect of foot. Right fifth toe has 1x1cm area of necrosis He also had small skin lesion of fifth digit of right foot. Pulses diminished in left foot compared to right. Bilateral lower limb duplex arterial ultrasound completed and significant for bilateral peripheral arterial disease with left SOILA 0.7 X-ray was negative for bony destruction. WBC 26.4 ---> 23.1 CRP 2.6 Plan: ? Pending blood culture ? MRI left foot ordered to rule out osteomyelitis ? Discontinued CEFTRIAXONE 1 g IV daily [05/26-05/27] ? Discontinued DOXYCYCLINE 100 Mg once IV twice daily [05/26-05/27) ? Continue aspirin 81 Mg po daily - Started on cefepime 2 g IV x 1 and then 1 g IV daily from 05/28 for a total of 10 days treatment to be completed on 06/04/2024 ? Started on metronidazole 500 Mg IV every 8 hourly on [05/27? ? Started on vancomycin 1 g IV 3 times daily on [05/27? ? Wound care Prerenal GORDON on CKD stage IIIA Hyperkalemia Hypoosmolar hyponatremia Non-anion gap metabolic acidosis Likely dehydrational. Sodium 124 Osm 270, potassium 5.2 CR 3 (baseline 1.6), BUN 75, DDx: RTA type IV, medication induced Plan: ? Urine electrolytes ordered ? Kayexalate 30 g p.o. x 1 ? Normal saline 500 cc IVF bolus ? Nephrology, Dr Malhotra consulted. Appreciate recommendations Primary HTN Hypotension HLD BP 97/73 Plan: ? Antihypertensive held in light of hypotension ? Continue home ATORVASTATIN 80 mg HS Insulin-dependent diabetes mellitus type 2 [6.9%] Fasting blood glucose 74 Plan: ? Sliding scale insulin to cover for blood glucose spikes ? Hypoglycemic procedures in place Health maintenance: Disposition: IV antibiotics. MRI left foot. Pending Nephro recs Diet: Low consistent carb Lines: pIVs GI Prophylaxis: Pantoprazole Thrombo Prophylaxis: Heparin Code status: FULL CODE This patient care was discussed with my attending Dr. Mel Carbajal MD PGY-2 Disclaimer: Minor errors in ceramic restorer may be present since this note was dictated by speech recognition software. Attending Provider Attestation/Addendum 73-year-old male with multiple comorbidities including hypertension, hyperlipidemia, type 2 diabetes mellitus who presented with left foot pain found to have left foot swelling with decreased pulses. As a result, unable to do a CTA given that patient has acute kidney injury and subsequently underwent bilateral lower limb arterial ultrasound with findings of bilateral peripheral arterial disease. As of now, plan to continue IV antibiotic therapy pending MRI of the foot. Patient does have swelling and erythema on exam however does have pulses bilaterally. Furthermore, plan to continue IV antibiotic therapy pending MRI. I reviewed above note and agree with findings and plans. I have also personally examined the patient with medicine team and went over assessment and plan with medical team including chief of internal medicine and resident physician.
[2024-05-28] MEDS: ATORVASTATIN CALCIUM 20 MG TABLET 80 MG PO (20:05)
[2024-05-28] MEDS: SOD POLYSTYRENE SULFON SUSP 15 GM/60 ML BTL PO (20:07)
[2024-05-28] MEDS: ALBUTEROL/IPRATROPIUM (Duoneb) RT SOL 3 ML NEBU INH (22:00)
[2024-05-28] MEDS: guaiFENesin SYRUP 200 MG/10 ML UDC PO (22:26)
[2024-05-29] VITALS (9 sets, daily range): BP systolic 90–110; BP diastolic 56–74; PULSE 87–120; RESP 16–18; TEMP 36.3–36.9; O2SAT 97–100
[2024-05-29] MEDS: MORPHINE SULF INJ 10 MG/ML VIAL 2 MG IVP (02:40)
[2024-05-29] MEDS: HYDROcodone/APAP 10/325 TAB PO ×2 (05:24→19:57)
[2024-05-29] MEDS: metroNIDAZOLE/NS 500 MG IVPB 500 MG/100 ML BAG 200 MG IV ×3 (05:28→22:32)
[2024-05-29] MEDS: HEPARIN SOD INJ 5000 UNIT/ML VIAL SC ×3 (05:31→22:35)
[2024-05-29 05:43] LABS: Basophils % (Auto) 0 % (0-2.5); Eosinophils # (Auto) 0.6 Thou/mm3 (0.0-0.5); Eosinophils % (Auto) 3 % (0-10); Hematocrit 25.4 % (41.0-53.0); Hemoglobin 8.9 g/dL (13.5-16.0); Immature Granulocytes % (Auto) 1 % (0-0); Immature Granulocytes Auto 0.29 Thou/mm3 (0.00-0.00); Lymphocytes # (Auto) 0.8 Thou/mm3 (1.0-4.8); Lymphocytes % (Auto) 4 % (10-50); Mean Corpuscular Volume 91 fL (80-100); Monocytes # (Auto) 1.7 Thou/mm3 (0.0-0.8); Monocytes % (Auto) 8 % (0-12); Neutrophils # (Auto) 17.7 Thou/mm3 (1.8-7.7); Neutrophils % (Auto) 84 % (37-80); Nucleated Red Blood Cell % 0 /100 WBC (0); Platelet Count 266 Thou/mm3 (140-440); RDW Standard Deviation 42.3 fL (35.1-43.9); Red Blood Count 2.78 Miln/mm3 (4.50-5.90); White Blood Count 21.1 Thou/mm3 (3.8-10.6)
[2024-05-29 06:00] LABS: Alanine Aminotransferase 62 U/L (10-49); Albumin, Serum 3.5 gm/dL (3.4-4.8); Albumin/Globulin Ratio 1.5 (1.2-2.2); Alkaline Phosphatase 96 U/L (46-116); Anion Gap 7 (7-16); Aspartate Amino Transferase 66 U/L (0-34); BUN/Creatinine Ratio 27 Ratio (12-20); Bilirubin,Total 0.2 mg/dL (0.3-1.2); Blood Urea Nitrogen 52 mg/dL (9-23); Calcium 8.6 mg/dL (8.3-10.6); Carbon Dioxide 20.9 mMol/L (20.0-31.0); Chloride 104 mMol/L (98-107); Creatinine (Component) 1.9 mg/dL (0.6-1.3); Estimated Creatinine Clearance 29.4 mL/min (>60); Globulin 2.4 gm/dL (2.3-3.5); Glucose 134 mg/dL (74-106); Magnesium 1.9 mg/dL (1.6-2.6); Osmolality,Calculated 280 (275-295); Potassium 4.8 mMol/L (3.4-5.1); Sodium 132 mMol/L (136-145); Total Protein 5.9 gm/dL (5.7-8.2); Vancomycin,Random 9.9 mcg/mL; eGFR 37 See Note
[2024-05-29] MEDS: CEFEPIME INJ 1 GM in SODIUM CHLORIDE 0.9% (P) 50 ML IV (08:24)
[2024-05-29] MEDS: PANTOPRAZOLE INJ 40 MG VIAL IVP (08:24)
[2024-05-29] MEDS: SODIUM CHLORIDE 0.9% 1000 ML 1,000 ML 70 ML IV (08:29)
[2024-05-29 08:41] LABS: Thyroid Stimulating Hormone 0.05 uIU/mL (0.55-4.78)
[2024-05-29] MEDS: Silvasorb Gel 45 ML TUBE TOP (09:41)
[2024-05-29] MEDS: EPOETIN ALFA-EPBX INJ 10,000 UNIT/ML VIAL (ESRD) 10000 UNIT SC (10:23)
[2024-05-29] MEDS: ferumoxytoL (ESRD) 510 MG in SODIUM CHLORIDE 0.9% 100 ML 234 MG IV (10:25)
[2024-05-29] MEDS: VANCOMYCIN/NS 1 GM IVPB 200 ML IV (12:34)
--- NOTE | 2024-05-29 12:43 | PD.SURCONS ---
HPI Consult details History of present illness: 73M with HTN, HLD, DMII admitted with 1-month history of left foot swelling and pain. Pt has been treated with cefepime/flagy/vanc since 05/26, WBC is gradually downtrending from 26 but pt has had worsening appearance of foot prompting general surgery consultation. Pt underwent xray which was negative for osteo, arterial duplex showing severe obstructive disease bilaterally and is awaiting MRI PMHx: HLD, HTN, DMII (A1c 6.9) PSHx: Septoplasty Allergies: NKDA SH: Smoked 50PPD but quit 10 years ago Review of Systems Review of Systems ROS Unobtainable: All systems reviewed & no additional complaints except as documented Meds Home Medications and Allergies Allergies Allergy/AdvReac Type Severity Reaction Status Date / Time No Known Allergies Allergy Unverified 06/07/23 18:57 Exam Vital Signs Temp Pulse Resp BP Pulse Ox O2 Del Method 97.5 F 96 18 110/68 97 Room Air 05/29/24 12:00 05/29/24 12:00 05/29/24 12:00 05/29/24 12:00 05/29/24 12:00 05/29/24 12:00 Constitutional Constitutional: no acute distress Routine Respiratory Exam Respiratory: Present no resp distress Routine Extremities Exam Comments: left foot erythema distally with blue discoloration of 4th and 5th toes, eschar of lateral aspect of foot, no fluctuance or drainage. Foot is warm but no pulses are palpable Results Results: Laboratory Laboratory results: results reviewed Results: Imaging Imaging narrative: Xray and SOILA/PVR reviewed Assessment & Plan Plan 73M with HTN, HLD, DMII presenting with left foot cellulitis now with blue discoloration of toes. On exam there is no evidence of any abscess Will follow up MRI Obtain CTA if possible given renal function No indication for surgical intervention for now
--- NOTE | 2024-05-29 13:24 | ESPR_ITS ---
Documentation for date of: 05/29/24 Subjective Subjective Interval history: Interval history: The patient is a 73 year old male with PMH significant for Hypertension, hyperlipidemia and type 2 diabetes mellitus presented with chief complaint of left foot swelling that gradually worsened in last 1 month. He reported that, there could have been some foot injury or insect bite that he is not aware of. He went to see his PCP yesterday who recommended him to visit emergency department. He denied any fever or chills, headache, nausea or vomiting, chest pain or SOB, any changes in bowel or bladder habit. During evaluation, his vitals were stable, white count 23.1, hemoglobin 9.8, ESR 57, sodium level during presentation was 122 that slowly increased to 127 on IV normal saline 75 cc/h. Potassium initially was 5.2, that increased to 6.0 and trended down to 5.2. BUN 69, creatinine 2.6 which appears to be his baseline, and phosphorus 5.4. Left foot x-ray revealed no anjelica cortical bone destruction. Duplex scan lower extremity revealed severe bilateral obstructive arterial disease. Renal ultrasound revealed small kidneys with bilateral renal cortical thinning, moderate bilateral renal parenchymal scar formation. Urine electrolytes revealed creatinine 43, sodium 46, potassium 14, and chloride 24. PMH: As mentioned above PSHx: Septoplasty Allergies: No known allergies social history: Past smoker with [id number] smoking history and quit 18 years ago, denies any alcohol or recreational drug use. Medications: To be reconciled Nephrology consultation was done for further management of moderate hypovolemic normal osmolar hyponatremia, hyperkalemia and CKD. 05/28/2024: The patient was interviewed and examined at the bedside this morning. He reported pain over his left foot. Vitals were stable with soft blood pressure. Labs were significant for white count 22.0, hemoglobin 9.6. Sodium 130, potassium 4.9, BUN 63, creatinine 2.4, EGFR 28, phosphorus 5.1. We will continue with maintenance normal saline fluid 70 cc/h as patient seemed to be mildly dehydrated, and his sodium correction is at goal levels. 05/29/2024 patient currently seen in medical floor. Resting comfortably. Labs, medications reviewed. Creatinine improving. Continue with current management. Left foot cellulitis/ulcers, severe peripheral vascular disease. Review of Systems Review of Systems Narrative Review of Systems: Patient denies any chest pain, shortness of breath. Denies any nausea, vomiting. Exam Vital Signs Temp Pulse Resp BP Pulse Ox O2 Del Method 36.9 C 104 H 18 104/63 98 Room Air 05/29/24 20:00 05/29/24 20:00 05/29/24 20:00 05/29/24 20:00 05/29/24 20:00 05/29/24 20:00 Narrative Exam General: Elderly, cooperative gentleman, no acute distress, Alert and Oriented x 3 HEENT: Moist mucous membranes, oropharynx clear Neck: Supple, No masses, No JVD CVS: S1S2 Regular rate and rhythm, No murmurs, rubs or gallops Lungs: Clear to auscultation with no accessory use, no wheeze no rhonchi Abd: Soft, NT/ND, +BS, no organomegaly Ext: Left foot swollen, erythematous, 3 x 3 cm eschar noted on dorsal aspect of foot. Right fifth toe has 1x1cm area of necrosis Psych: Appropriate mood and affect Objective Labs 05/31/24 04:48 05/31/24 04:48 Labs: Laboratory Results - last 24 hr 05/29/24 05:08 WBC 21.1 H RBC 2.78 L Hgb 8.9 L Hct 25.4 L MCV 91 MCH 32.0 MCHC 35.0 RDW Std Deviation 42.3 Plt Count 266 D Neut % (Auto) 84 H Lymph % (Auto) 4 L [place] % (Auto) 8 Eos % (Auto) 3 Baso % (Auto) 0 Neut # (Auto) 17.7 H Lymph # (Auto) 0.8 L [place] # (Auto) 1.7 H Eos # (Auto) 0.6 H Baso # (Auto) 0.0 Immature Gran # (Auto) 0.29 H Absolute Nucleated RBC 0.00 Immature Gran % 1 H Nucleated RBC % 0 Sodium 132 L Potassium 4.8 Chloride 104 Carbon Dioxide 20.9 Anion Gap 7 BUN 52 H Creatinine 1.9 H D Estim Creat Clear Calc 29.4 L eGFR 37 L BUN/Creatinine Ratio 27 H Glucose 134 H D Calculated Osmolality 280 Calcium 8.6 Corrected Calcium 9.0 Phosphorus 4.0 Magnesium 1.9 Total Bilirubin 0.2 L AST 66 H ALT 62 H Alkaline Phosphatase 96 Total Protein 5.9 Albumin 3.5 Globulin 2.4 Albumin/Globulin Ratio 1.5 TSH 0.05 L* Random Vancomycin 9.9 Assessment & Plan Additional Assessment & Plan Additional Plan: The patient is a 73 year old male with PMH significant for Hypertension, hyperlipidemia and type 2 diabetes mellitus presented with chief complaint of left foot swelling that gradually worsened in last 1 month was found to have left foot cellulitis, and nephrology consultation was done for the mangement of hyperkalemia, hyponatremia and GORDON on CKD. #Hyperkalemia Likely secondary to CKD As needed Kayexalate -Monitor daily am K. #Moderate hypovolemic hypoosmolar hyponatremia Patient's sodium was as low as 122, and has been slowly being corrected to 127 05/29: Na level 133 -Continue with IV normal saline 70 cc/hr -Continue to monitor BMP in the am #GORDON on CKD IIIA Likely prerenal 2/2 dehydrations Renal ultrasound revealed small kidneys with bilateral renal cortical thinning, moderate bilateral renal parenchymal scar formation. Urine electrolytes revealed creatinine 43, sodium 46, potassium 14, and chloride 24 consistent with prerenal GORDON with BUN/Cr ration 25 -Continue with NS 70cc/hr -Monitor BMP daily am -Avoid nephrotoxic drugs #HTN Currently stable -Avoid JENNIFER/ARB or thiazide diuretics, in the setting of GORDON on CKD Left foot cellulitis Leukocytosis= HLD T2DM -Management deferred to primary team Thank you for your opportunity to participate nephrology team in this patient care. Quality - progress note Quality Measures Quality Measures: VTE prophylaxis Reason for Continued Stay Reason for Continued Stay: further monitoring
--- NOTE | 2024-05-29 14:22 | ESPR_ITS ---
<Statement entered by Volodymyr Mendes MD - 05/30/24 16:31> Agree with plan and examination finding on the note below. Patient seen and examined at bedside today. Labs and imaging reviewed. Patient care discussed with my attending Dr. Leal and co-resident . Documentation for date of: 05/29/24 Subjective Subjective Interval history: LPatient was seen and examined at bedside this AM. No acute exents overnight. Patient tolerating diet, adequate urine output and mentation is at baseline. Patient complains of 9/10 left foot pain but adequate relief with pain medication. Pending MRI left foot to rule out osteomyelitis. Will consult general surgery, Dr. Hutton for further recommendations. Exam Vital Signs Temp Pulse Resp BP Pulse Ox O2 Del Method 97.5 F 96 18 110/68 97 Room Air 05/29/24 12:00 05/29/24 12:00 05/29/24 12:00 05/29/24 12:00 05/29/24 12:00 05/29/24 12:00 Narrative Exam Constitutional Alert, oriented x 3 and mild distress. Elderly male HEENT Vision grossly intact. Patent nares. Trachea midline Respiratory Chest normal on inspection and clear auscultation bilaterally Cardiovascular S1 and S2 audible, RRR. No murmurs carotid bruit. No gross JVD. Abdominal Soft and non tender to palpation in all quadrants. BS + Genitourinary No bladder tenderness, no flank pain. Normal to palpation Musculoskeletal Extremities tone within normal limits. 1+ edematous left foot. Dorsalis pedis and posterior tibial artery pulses not palpated in bilateral lower limbs. Neurological CN II - XII grossly intact. Extremity motor and sensation grossly intact. Skin Warm, dry and intact. Left foot swollen, erythematous, bluish color, 3 x 3 cm eschar noted on dorsal aspect of foot. Right fifth toe has 1x1cm area of necrosis Psychiatric Patient has good affect, is cooperative Objective Labs 06/03/24 05:34 06/03/24 05:34 Labs: Laboratory Results - last 24 hr 05/29/24 05:08 WBC 21.1 H RBC 2.78 L Hgb 8.9 L Hct 25.4 L MCV 91 MCH 32.0 MCHC 35.0 RDW Std Deviation 42.3 Plt Count 266 D Neut % (Auto) 84 H Lymph % (Auto) 4 L [place] % (Auto) 8 Eos % (Auto) 3 Baso % (Auto) 0 Neut # (Auto) 17.7 H Lymph # (Auto) 0.8 L [place] # (Auto) 1.7 H Eos # (Auto) 0.6 H Baso # (Auto) 0.0 Immature Gran # (Auto) 0.29 H Absolute Nucleated RBC 0.00 Immature Gran % 1 H Nucleated RBC % 0 Sodium 132 L Potassium 4.8 Chloride 104 Carbon Dioxide 20.9 Anion Gap 7 BUN 52 H Creatinine 1.9 H D Estim Creat Clear Calc 29.4 L eGFR 37 L BUN/Creatinine Ratio 27 H Glucose 134 H D Calculated Osmolality 280 Calcium 8.6 Corrected Calcium 9.0 Phosphorus 4.0 Magnesium 1.9 Total Bilirubin 0.2 L AST 66 H ALT 62 H Alkaline Phosphatase 96 Total Protein 5.9 Albumin 3.5 Globulin 2.4 Albumin/Globulin Ratio 1.5 TSH 0.05 L* Random Vancomycin 9.9 Quality Measures Quality Measures none Advance care planning discussed with:: patient Assessment & Plan Assessment Current Active Medications: Generic Name Dose Route Start Last Admin Trade Name Freq PRN Reason Stop Dose Admin Acetaminophen 650 mg 05/26/24 20:03 Acetaminophen 325 Mg Tablet PO 06/25/24 20:02 Q6H PRN PAIN SCALE 1-3 (mild Acetaminophen 650 mg 05/26/24 20:03 Acetaminophen 325 Mg Tablet PO 06/25/24 20:02 Q6H PRN Fever >100 Hydrocodone Bitart/Acetaminophen 1 tab 05/27/24 09:31 05/29/24 05:24 Hydrocodone/Apap 10/325 Tab PO 05/31/24 20:02 1 tab Q4HR PRN Administration PAIN SCALE 4-10(Mod-Sev Albuterol/Ipratropium 3 ml 05/28/24 21:02 05/28/24 22:00 Albuterol/Ipratropium (Duoneb) Rt Marjorie 3 Ml Nebu INH 06/27/24 21:01 3 ml Q6HRRT PRN Administration SHORTNESS OF BREATH OR WHEEZE Atorvastatin Calcium 80 mg 05/26/24 21:00 05/28/24 20:05 Atorvastatin Calcium 20 Mg Tablet PO 06/25/24 20:59 80 mg HS LEXI Administration Dextrose 25 ml 05/26/24 20:10 Dextrose 50%-Water Inj 50 Ml Syringe IV 06/25/24 20:09 Q15MIN PRN BG 50-70 responsive npo pt Dextrose 50 ml 05/26/24 20:10 Dextrose 50%-Water Inj 50 Ml Syringe IV 06/25/24 20:09 Q15MIN PRN BG <50 OR BG <70 & pt unresponsive Glucagon 1 mg 05/26/24 20:10 Glucagon Inj 1 Mg Vial IM Q15MIN PRN BG <70, and no IV access Heparin Sodium (Porcine) 5,000 unit 05/27/24 06:00 05/29/24 05:31 Heparin Sod Inj 5000 Unit/Ml Vial SC 06/10/24 05:59 5,000 unit Q8HR LEXI Administration Metronidazole 500 mg in 100 mls @ 200 mls/hr 05/27/24 15:05 05/29/24 05:58 Flagyl 500 Mg Iv IV 06/03/24 15:04 Infused Q8HR LEXI Infusion Cefepime HCl 1 gm/ Sodium 50 mls @ 100 mls/hr 05/28/24 09:00 05/29/24 08:24 Chloride IV 06/04/24 08:59 100 mls/hr DAILY LEXI Administration Sodium Chloride 1,000 mls @ 70 mls/hr 05/28/24 10:27 05/29/24 08:29 Ns IV 06/27/24 10:26 70 mls/hr .[id number] LEXI Administration Vancomycin/Sodium Chloride 200 mls @ 120 mls/hr 05/29/24 10:00 05/29/24 12:34 Vancomycin/Ns 1 Gm Ivpb IV 06/05/24 09:59 120 mls/hr QDAY@1000 LEXI Administration Insulin Human Lispro 0 unit 05/26/24 21:00 05/29/24 12:35 Insulin Lispro (Admelog) 1 Unit/0.01 Ml Unit SC 06/25/24 20:59 Not Given ACHS LEXI Protocol Morphine Sulfate 2 mg 05/28/24 12:27 05/29/24 02:40 Morphine Sulf Inj 10 Mg/Ml Vial IVP 06/02/24 12:26 2 mg Q4HR PRN Administration Pain-breakthrough Ondansetron HCl 4 mg 05/26/24 20:03 Ondansetron Inj 2 Mg/Ml Inj 2 Ml IV 06/25/24 20:02 Q6H PRN NAUSEA OR VOMITING Protocol Pantoprazole Sodium 40 mg 05/27/24 09:00 05/29/24 08:24 Pantoprazole Inj 40 Mg Vial IVP 06/26/24 08:59 40 mg QDAY LEXI Administration Pharmacy Consult 1 each 05/27/24 09:00 Vancomycin Pharmacy To Dose 1 Each Each IV 06/26/24 08:59 QDAY PRN CONSULT Plan 73-year-old male PMHx of T2DM, HLD, HTN admitted for left foot cellulitis. Started on ANTIBIOTICS. Additionally, he is being managed for GORDON, hyperkalemia, and hyponatremia. Left foot cellulitis Bilateral peripheral arterial disease Leukocytosis Presenting with 1 month of left foot swelling, erythema and pain. On exam Left foot swollen, erythematous, 3 x 3 cm eschar noted on dorsal aspect of foot. Right fifth toe has 1x1cm area of necrosis He also had small skin lesion of fifth digit of right foot. Pulses diminished in left foot compared to right however present Bilateral lower limb duplex arterial ultrasound completed and significant for bilateral peripheral arterial disease with left SOILA 0.7 X-ray was negative for bony destruction. WBC 26.4 ---> 23.1 CRP 2.6 Patient received 1 day of ceftriaxone 1 g IV daily and doxycycline 100 Mg IV twice daily from [05/26 - 05/27] Blood culture NBG x 48 hours preliminary Urine culture no growth. Plan: ? MRI left foot ordered to rule out osteomyelitis ? Continue aspirin 81 Mg po daily - Continue cefepime 2 g IV x 1 and then 1 g IV daily from 05/28 for a total of 10 days treatment to be completed on 06/04/2024 ? Continue metronidazole 500 Mg IV every 8 hourly on [05/27? ? Continue vancomycin 1 g IV 3 times daily on [05/27? ? Wound care recommendations pending ? As per general surgeon, no signs of abscess currently and no need for acute surgical intervention. Recommended to wait on MRI left foot. ? General Surgery, Dr. Hutton consulted. Appreciate recommendations Prerenal GORDON on CKD stage IIIA - improving Hyperkalemia - resolved Hypoosmolar hyponatremia - resolved Non-anion gap metabolic acidosis - resolved Likely dehydrational. Sodium 124 ---> 132 , potassium 5.2---> 4.8 CR 3 ---> 1.9 (baseline 1.6), BUN 75 ---> 52 DDx: RTA type IV, medication induced Plan: ? Renally dose medication ? Avoid nephrotoxic agents ? Nephrology, Dr Malhotra consulted. Appreciate recommendations Primary HTN Hypotension Hyperlipidemia BP 98/71 Plan: ? Antihypertensive held in light of hypotension ? Continue home ATORVASTATIN 80 mg HS Insulin-dependent diabetes mellitus type 2 [6.9%] Fasting blood glucose 134 Plan: ? Sliding scale insulin to cover for blood glucose spikes ? Hypoglycemic procedures in place Health maintenance: Disposition: Pending left foot MRI. IV antibiotics Diet: Low consistent carb Lines: pIVs GI Prophylaxis: Pantoprazole Thrombo Prophylaxis: Heparin 5000 units SC every 8 hours Code status: FULL CODE Plan of care discussed with Attending Dr. Leal and PGY3 Dr. Vaughn Rios MD PGY 1 Attending Provider Attestation/Addendum 73-year-old male with multiple comorbidities including hypertension, hyperlipidemia, type 2 diabetes mellitus who presented with left foot pain found to have left foot swelling with decreased pulses. As a result, unable to do a CTA given that patient has acute kidney injury and subsequently underwent bilateral lower limb arterial ultrasound with findings of bilateral peripheral arterial disease. As of now, plan to continue IV antibiotic therapy pending MRI of the foot. Patient does have swelling and erythema on exam however does have pulses bilaterally. Furthermore, plan to continue IV antibiotic therapy pending MRI. Discussed case with general surgeon who recommended continuing IV antibiotic therapy and did not recommend any surgical intervention as of now. I reviewed above note and agree with findings and plans. I have also personally examined the patient with medicine team and went over assessment and plan with medical team including planner intern and resident physician.
[2024-05-29] MEDS: INSULIN LISPRO (AdmeLOG) 1 UNIT/0.01 ML UNIT SC ×2 (17:16→20:09)
[2024-05-29] MEDS: ATORVASTATIN CALCIUM 20 MG TABLET 80 MG PO (20:07)
[2024-05-30] VITALS (10 sets, daily range): BP systolic 104–139; BP diastolic 55–76; PULSE 91–115; RESP 15–19; TEMP 36.7–36.9; O2SAT 97–100; BMI 22.6
[2024-05-30] MEDS: HYDROcodone/APAP 10/325 TAB PO ×3 (04:13→19:38)
[2024-05-30] MEDS: SODIUM CHLORIDE 0.9% 1000 ML 1,000 ML 70 ML IV ×2 (04:16→20:56)
[2024-05-30 05:38] LABS: Basophils % (Auto) 0 % (0-2.5); Eosinophils # (Auto) 0.9 Thou/mm3 (0.0-0.5); Eosinophils % (Auto) 4 % (0-10); Hematocrit 25.6 % (41.0-53.0); Hemoglobin 8.9 g/dL (13.5-16.0); Immature Granulocytes % (Auto) 2 % (0-0); Immature Granulocytes Auto 0.39 Thou/mm3 (0.00-0.00); Lymphocytes # (Auto) 0.9 Thou/mm3 (1.0-4.8); Lymphocytes % (Auto) 4 % (10-50); Mean Corpuscular HGB Conc 34.8 g/dl (31.0-37.0); Mean Corpuscular Hemoglobin 31.6 pg (25.0-35.0); Mean Corpuscular Volume 91 fL (80-100); Monocytes # (Auto) 1.5 Thou/mm3 (0.0-0.8); Monocytes % (Auto) 7 % (0-12); Neutrophils # (Auto) 17.3 Thou/mm3 (1.8-7.7); Neutrophils % (Auto) 83 % (37-80); Nucleated Red Blood Cell % 0 /100 WBC (0); Platelet Count 247 Thou/mm3 (140-440); RDW Standard Deviation 42.2 fL (35.1-43.9); Red Blood Count 2.82 Miln/mm3 (4.50-5.90)
[2024-05-30] MEDS: metroNIDAZOLE/NS 500 MG IVPB 500 MG/100 ML BAG 200 MG IV ×3 (05:58→20:57)
[2024-05-30] MEDS: HEPARIN SOD INJ 5000 UNIT/ML VIAL SC ×3 (06:01→20:57)
[2024-05-30 07:15] LABS: Alanine Aminotransferase 60 U/L (10-49); Albumin, Serum 3.4 gm/dL (3.4-4.8); Albumin/Globulin Ratio 1.4 (1.2-2.2); Alkaline Phosphatase 105 U/L (46-116); Anion Gap 9 (7-16); Aspartate Amino Transferase 72 U/L (0-34); BUN/Creatinine Ratio 26 Ratio (12-20); Bilirubin,Total 0.2 mg/dL (0.3-1.2); Blood Urea Nitrogen 39 mg/dL (9-23); Calcium 8.8 mg/dL (8.3-10.6); Calcium (Corrected) 9.3 mg/dL (8.5-10.1); Carbon Dioxide 19.7 mMol/L (20.0-31.0); Chloride 103 mMol/L (98-107); Creatinine (Component) 1.5 mg/dL (0.6-1.3); Estimated Creatinine Clearance 37.3 mL/min (>60); Globulin 2.5 gm/dL (2.3-3.5); Glucose 77 mg/dL (74-106); Magnesium 1.9 mg/dL (1.6-2.6); Osmolality,Calculated 272 (275-295); Phosphorous 2.8 mg/dL (2.4-5.1); Potassium 4.6 mMol/L (3.4-5.1); Sodium 132 mMol/L (136-145); Total Protein 5.9 gm/dL (5.7-8.2); eGFR 49 See Note
--- NOTE | 2024-05-30 07:49 | ESPR_ITS ---
<Statement entered by Volodymyr Mendes MD - 05/31/24 17:15> Agree with plan and examination finding on the note below. Patient seen and examined at bedside today. Labs and imaging reviewed. Patient care discussed with my attending Dr. Leal and co-resident Dr. Rios. Documentation for date of: 05/30/24 Subjective Subjective Interval history: LPatient was seen and examined at bedside this AM. No acute exents overnight. Patient tolerating diet, adequate urine output and mentation is at baseline. Patient complains of 9/10 left foot pain but adequate relief with pain medication. Pending CTA aorta with iliofemoral run off Vascular surgery, Dr. Greer consulted and closely following the case. Appreciate recommendations Exam Vital Signs Temp Pulse Resp BP Pulse Ox O2 Del Method 98.1 F 100 15 139/59 H 100 Room Air 05/30/24 04:00 05/30/24 04:00 05/30/24 04:00 05/30/24 04:00 05/30/24 04:00 05/30/24 04:00 Narrative Exam Constitutional Alert, oriented x 3 and mild distress. Elderly male HEENT Vision grossly intact. Patent nares. Trachea midline Respiratory Chest normal on inspection and clear auscultation bilaterally Cardiovascular S1 and S2 audible, RRR. No murmurs carotid bruit. No gross JVD. Abdominal Soft and non tender to palpation in all quadrants. BS + Genitourinary No bladder tenderness, no flank pain. Normal to palpation Musculoskeletal Extremities tone within normal limits. 1+ edematous left foot. Dorsalis pedis and posterior tibial artery pulses weak in bilateral lower limbs. Neurological CN II - XII grossly intact. Extremity motor and sensation grossly intact. Skin Warm, dry and intact. Left foot swollen, erythematous, 3 x 3 cm eschar noted on dorsal aspect of foot. Right fifth toe has 1x1cm area of necrosis Psychiatric Patient has good affect, is cooperative Objective Labs 06/03/24 05:34 06/03/24 05:34 Labs: Laboratory Results - last 24 hr 05/29/24 05/30/24 05:08 05:14 WBC 21.0 H RBC 2.82 L Hgb 8.9 L Hct 25.6 L MCV 91 MCH 31.6 MCHC 34.8 RDW Std Deviation 42.2 Plt Count 247 Neut % (Auto) 83 H Lymph % (Auto) 4 L [place] % (Auto) 7 Eos % (Auto) 4 Baso % (Auto) 0 Neut # (Auto) 17.3 H Lymph # (Auto) 0.9 L [place] # (Auto) 1.5 H Eos # (Auto) 0.9 H Baso # (Auto) 0.0 Immature Gran # (Auto) 0.39 H Absolute Nucleated RBC 0.00 Immature Gran % 2 H Nucleated RBC % 0 Sodium 132 L 132 L Potassium 4.8 4.6 Chloride 104 103 Carbon Dioxide 20.9 19.7 L Anion Gap 7 9 BUN 52 H 39 H Creatinine 1.9 H D 1.5 H Estim Creat Clear Calc 29.4 L 37.3 L eGFR 37 L 49 L BUN/Creatinine Ratio 27 H 26 H Glucose 134 H D 77 D Calculated Osmolality 280 272 L Calcium 8.6 8.8 Corrected Calcium 9.0 9.3 Phosphorus 4.0 2.8 Magnesium 1.9 1.9 Total Bilirubin 0.2 L 0.2 L AST 66 H 72 H ALT 62 H 60 H Alkaline Phosphatase 96 105 Total Protein 5.9 5.9 Albumin 3.5 3.4 Globulin 2.4 2.5 Albumin/Globulin Ratio 1.5 1.4 TSH 0.05 L* Random Vancomycin 9.9 Quality Measures Quality Measures none Advance care planning discussed with:: patient Assessment & Plan Assessment Current Active Medications: Generic Name Dose Route Start Last Admin Trade Name Freq PRN Reason Stop Dose Admin Acetaminophen 650 mg 05/26/24 20:03 Acetaminophen 325 Mg Tablet PO 06/25/24 20:02 Q6H PRN PAIN SCALE 1-3 (mild Acetaminophen 650 mg 05/26/24 20:03 Acetaminophen 325 Mg Tablet PO 06/25/24 20:02 Q6H PRN Fever >100 Hydrocodone Bitart/Acetaminophen 1 tab 05/27/24 09:31 05/30/24 04:13 Hydrocodone/Apap 10/325 Tab PO 05/31/24 20:02 1 tab Q4HR PRN Administration PAIN SCALE 4-10(Mod-Sev Albuterol/Ipratropium 3 ml 05/28/24 21:02 05/28/24 22:00 Albuterol/Ipratropium (Duoneb) Rt Marjorie 3 Ml Nebu INH 06/27/24 21:01 3 ml Q6HRRT PRN Administration SHORTNESS OF BREATH OR WHEEZE Atorvastatin Calcium 80 mg 05/26/24 21:00 05/29/24 20:07 Atorvastatin Calcium 20 Mg Tablet PO 06/25/24 20:59 80 mg HS LEXI Administration Dextrose 25 ml 05/26/24 20:10 Dextrose 50%-Water Inj 50 Ml Syringe IV 06/25/24 20:09 Q15MIN PRN BG 50-70 responsive npo pt Dextrose 50 ml 05/26/24 20:10 Dextrose 50%-Water Inj 50 Ml Syringe IV 06/25/24 20:09 Q15MIN PRN BG <50 OR BG <70 & pt unresponsive Glucagon 1 mg 05/26/24 20:10 Glucagon Inj 1 Mg Vial IM Q15MIN PRN BG <70, and no IV access Heparin Sodium (Porcine) 5,000 unit 05/27/24 06:00 05/30/24 06:01 Heparin Sod Inj 5000 Unit/Ml Vial SC 06/10/24 05:59 5,000 unit Q8HR LEXI Administration Metronidazole 500 mg in 100 mls @ 200 mls/hr 05/27/24 15:05 05/30/24 06:28 Flagyl 500 Mg Iv IV 06/03/24 15:04 Infused Q8HR LEXI Infusion Cefepime HCl 1 gm/ Sodium 50 mls @ 100 mls/hr 05/28/24 09:00 05/29/24 08:24 Chloride IV 06/04/24 08:59 100 mls/hr DAILY LEXI Administration Sodium Chloride 1,000 mls @ 70 mls/hr 05/28/24 10:27 05/30/24 04:16 Ns IV 06/27/24 10:26 70 mls/hr .[id number] LEXI Administration Vancomycin/Sodium Chloride 200 mls @ 120 mls/hr 05/29/24 10:00 05/29/24 12:34 Vancomycin/Ns 1 Gm Ivpb IV 06/05/24 09:59 120 mls/hr QDAY@1000 LEXI Administration Insulin Human Lispro 0 unit 05/26/24 21:00 05/30/24 07:33 Insulin Lispro (Admelog) 1 Unit/0.01 Ml Unit SC 06/25/24 20:59 Not Given ACHS LEXI Protocol Morphine Sulfate 2 mg 05/28/24 12:27 05/29/24 02:40 Morphine Sulf Inj 10 Mg/Ml Vial IVP 06/02/24 12:26 2 mg Q4HR PRN Administration Pain-breakthrough Ondansetron HCl 4 mg 05/26/24 20:03 Ondansetron Inj 2 Mg/Ml Inj 2 Ml IV 06/25/24 20:02 Q6H PRN NAUSEA OR VOMITING Protocol Pantoprazole Sodium 40 mg 05/27/24 09:00 05/29/24 08:24 Pantoprazole Inj 40 Mg Vial IVP 06/26/24 08:59 40 mg QDAY LEXI Administration Pharmacy Consult 1 each 05/27/24 09:00 Vancomycin Pharmacy To Dose 1 Each Each IV 06/26/24 08:59 QDAY PRN CONSULT Plan 73-year-old male PMHx of T2DM, HLD, HTN admitted for left foot cellulitis. Started on ANTIBIOTICS. Additionally, he is being managed for GORDON, hyperkalemia, and hyponatremia. Left foot cellulitis Bilateral peripheral arterial disease Leukocytosis Presenting with 1 month of left foot swelling, erythema and pain. On exam Left foot swollen, erythematous, 3 x 3 cm eschar noted on dorsal aspect of foot. Right fifth toe has 1x1cm area of necrosis He also had small skin lesion of fifth digit of right foot. Pulses diminished in left foot compared to right. Bilateral lower limb duplex arterial ultrasound completed and significant for bilateral peripheral arterial disease with left SOILA 0.7 X-ray was negative for bony destruction. WBC 23.1 ---> 21 CRP 2.6 Patient received 1 day of ceftriaxone 1 g IV daily and doxycycline 100 Mg IV twice daily from [05/26 - 05/27] Blood culture NBG x 48 hours preliminary Urine culture no growth. Plan: ? CTA aorta with Iliofemoral run off ordered ? Continue aspirin 81 Mg po daily - Continue cefepime 1 g IV daily from 05/28 for a total of 10 days treatment to be completed on 06/04/2024 ? Continue metronidazole 500 Mg IV every 8 hourly on [05/27? ? Continue vancomycin 1 g IV 3 times daily on [05/27? - Continue Normal saline IVF @70cc/hr pre and post IV contrast as per Nephrology recommendations ? Wound care recommendations pending ? Vascular surgery, Dr. Greer consulted and closely following the case. Appreciate recommendations ? General Surgery, Dr. Hutton consulted. Appreciate recommendations Prerenal GORDON on CKD stage IIIA - improving Hyperkalemia - resolved Hypoosmolar hyponatremia - resolved Non-anion gap metabolic acidosis - resolved Likely dehydrational. Sodium 124 ---> 132 , potassium 5.2---> 4.8 CR 3 ---> 1.5 (baseline 1.6), BUN 52 ---> 39 DDx: RTA type IV, medication induced Plan: ? Renally dose medication ? Avoid nephrotoxic agents ? Nephrology, Dr Malhotra consulted. Appreciate recommendations Primary HTN Hypotension Hyperlipidemia BP 139/59 Plan: ? To restart Losartan on 05/31 as per Nephrology recommendations ? Continue home ATORVASTATIN 80 mg HS Insulin-dependent diabetes mellitus type 2 [6.9%] Fasting blood glucose 77 Plan: ? Sliding scale insulin to cover for blood glucose spikes ? Hypoglycemic procedures in place Health maintenance: Disposition: Pending CTA aorta with iliofemoral run off. Vascular Surgery consult Diet: Low consistent carb Lines: pIVs GI Prophylaxis: Pantoprazole Thrombo Prophylaxis: Heparin 5000 units SC every 8 hours Code status: FULL CODE Plan of care discussed with Attending Dr. Leal and PGY3 Dr. Vaughn Rios MD PGY 1 Attending Provider Attestation/Addendum 73-year-old male with multiple comorbidities including hypertension, hyperlipidemia, type 2 diabetes mellitus who presented with left foot pain found to have left foot swelling with decreased pulses. As a result, unable to do a CTA given that patient has acute kidney injury and subsequently underwent bilateral lower limb arterial ultrasound with findings of bilateral peripheral arterial disease. As of now, plan to continue IV antibiotic therapy pending MRI of the foot. Patient does have swelling and erythema on exam however does have pulses bilaterally. Furthermore, plan to continue IV antibiotic therapy pending MRI. Discussed case with general surgeon who recommended continuing IV antibiotic therapy and did not recommend any surgical intervention as of now. In addition, consulted vascular surgery who recommended obtaining a CTA with runoff to evaluate the extent of PAD. Plan to continue IV antibiotic therapy and appreciate general surgery and vascular surgery input. I reviewed above note and agree with findings and plans. I have also personally examined the patient with medicine team and went over assessment and plan with medical team including technical support internship and resident physician.
[2024-05-30] MEDS: PANTOPRAZOLE INJ 40 MG VIAL IVP (08:27)
[2024-05-30] MEDS: CEFEPIME INJ 1 GM in SODIUM CHLORIDE 0.9% (P) 50 ML IV (08:27)
--- NOTE | 2024-05-30 09:15 | PC.SS ---
Follow up note: MRI pending. Pt is on IV antibiotic. Pt will return home upon dc.
[2024-05-30] MEDS: Silvasorb Gel 45 ML TUBE TOP (10:00)
[2024-05-30 10:16] LABS: Vancomycin,Trough 11.2 mcg/mL (5.0-10.0)
[2024-05-30] MEDS: VANCOMYCIN/NS 1 GM IVPB 200 ML IV (10:30)
--- NOTE | 2024-05-30 10:41 | ESPR_ITS ---
Documentation for date of: 05/30/24 Subjective Subjective Interval history: The patient is a 73 year old male with PMH significant for Hypertension, hyperlipidemia and type 2 diabetes mellitus presented with chief complaint of left foot swelling that gradually worsened in last 1 month. He reported that, there could have been some foot injury or insect bite that he is not aware of. He went to see his PCP yesterday who recommended him to visit emergency department. He denied any fever or chills, headache, nausea or vomiting, chest pain or SOB, any changes in bowel or bladder habit. During evaluation, his vitals were stable, white count 23.1, hemoglobin 9.8, ESR 57, sodium level during presentation was 122 that slowly increased to 127 on IV normal saline 75 cc/h. Potassium initially was 5.2, that increased to 6.0 and trended down to 5.2. BUN 69, creatinine 2.6 which appears to be his baseline, and phosphorus 5.4. Left foot x-ray revealed no anjelica cortical bone destruction. Duplex scan lower extremity revealed severe bilateral obstructive arterial disease. Renal ultrasound revealed small kidneys with bilateral renal cortical thinning, moderate bilateral renal parenchymal scar formation. Urine electrolytes revealed creatinine 43, sodium 46, potassium 14, and chloride 24. PMH: As mentioned above PSHx: Septoplasty Allergies: No known allergies social history: Past smoker with [id number] smoking history and quit 18 years ago, denies any alcohol or recreational drug use. Medications: To be reconciled Nephrology consultation was done for further management of moderate hypovolemic normal osmolar hyponatremia, hyperkalemia and CKD. 05/28/2024: The patient was interviewed and examined at the bedside this morning. He reported pain over his left foot. Vitals were stable with soft blood pressure. Labs were significant for white count 22.0, hemoglobin 9.6. Sodium 130, potassium 4.9, BUN 63, creatinine 2.4, EGFR 28, phosphorus 5.1. We will continue with maintenance normal saline fluid 70 cc/h as patient seemed to be mildly dehydrated, and his sodium correction is at goal levels. 05/30/2024: The patient was interviewed and examined at the bedside this morning. He reported still having some pain over her left foot. Vitals were fairly stable, white count 21.0, hemoglobin 8.9, sodium 132, bicarb 19.7, BUN 39, creatinine 1.5, GFR 49 mild transaminitis with AST 72 and ALT 60. Patient is eating and drinking well, and we will discontinue IV maintenance normal saline after the current bag. Exam Vital Signs Temp Pulse Resp BP Pulse Ox O2 Del Method 98.1 F 98 17 122/75 98 Room Air 05/30/24 08:00 05/30/24 08:00 05/30/24 08:00 05/30/24 08:00 05/30/24 08:00 05/30/24 04:00 Narrative Exam General: Elderly, cooperative gentleman, no acute distress, Alert and Oriented x 3 HEENT: Moist mucous membranes, oropharynx clear Neck: Supple, No masses, No JVD CVS: S1S2 Regular rate and rhythm, No murmurs, rubs or gallops Lungs: Clear to auscultation with no accessory use, no wheeze no rhonchi Abd: Soft, NT/ND, +BS, no organomegaly Ext: Left foot swollen, erythematous, 3 x 3 cm eschar noted on dorsal aspect of foot. Right fifth toe has 1x1cm area of necrosis Psych: Appropriate mood and affect Objective Labs 05/31/24 04:48 05/31/24 04:48 Labs: Laboratory Results - last 24 hr 05/30/24 05/30/24 05:14 09:12 WBC 21.0 H RBC 2.82 L Hgb 8.9 L Hct 25.6 L MCV 91 MCH 31.6 MCHC 34.8 RDW Std Deviation 42.2 Plt Count 247 Neut % (Auto) 83 H Lymph % (Auto) 4 L [place] % (Auto) 7 Eos % (Auto) 4 Baso % (Auto) 0 Neut # (Auto) 17.3 H Lymph # (Auto) 0.9 L [place] # (Auto) 1.5 H Eos # (Auto) 0.9 H Baso # (Auto) 0.0 Immature Gran # (Auto) 0.39 H Absolute Nucleated RBC 0.00 Immature Gran % 2 H Nucleated RBC % 0 Sodium 132 L Potassium 4.6 Chloride 103 Carbon Dioxide 19.7 L Anion Gap 9 BUN 39 H Creatinine 1.5 H Estim Creat Clear Calc 37.3 L eGFR 49 L BUN/Creatinine Ratio 26 H Glucose 77 D Calculated Osmolality 272 L Calcium 8.8 Corrected Calcium 9.3 Phosphorus 2.8 Magnesium 1.9 Total Bilirubin 0.2 L AST 72 H ALT 60 H Alkaline Phosphatase 105 Total Protein 5.9 Albumin 3.4 Globulin 2.5 Albumin/Globulin Ratio 1.4 Vancomycin Trough 11.2 H Quality Measures Quality Measures none Advance care planning discussed with:: patient Assessment & Plan Assessment Current Active Medications: Generic Name Dose Route Start Last Admin Trade Name Freq PRN Reason Stop Dose Admin Acetaminophen 650 mg 05/26/24 20:03 Acetaminophen 325 Mg Tablet PO 06/25/24 20:02 Q6H PRN PAIN SCALE 1-3 (mild Acetaminophen 650 mg 05/26/24 20:03 Acetaminophen 325 Mg Tablet PO 06/25/24 20:02 Q6H PRN Fever >100 Hydrocodone Bitart/Acetaminophen 1 tab 05/27/24 09:31 05/30/24 04:13 Hydrocodone/Apap 10/325 Tab PO 05/31/24 20:02 1 tab Q4HR PRN Administration PAIN SCALE 4-10(Mod-Sev Albuterol/Ipratropium 3 ml 05/28/24 21:02 05/28/24 22:00 Albuterol/Ipratropium (Duoneb) Rt Marjorie 3 Ml Nebu INH 06/27/24 21:01 3 ml Q6HRRT PRN Administration SHORTNESS OF BREATH OR WHEEZE Atorvastatin Calcium 80 mg 05/26/24 21:00 05/29/24 20:07 Atorvastatin Calcium 20 Mg Tablet PO 06/25/24 20:59 80 mg HS LEXI Administration Benzonatate 100 mg 05/30/24 09:28 Benzonatate 100 Mg Capsule PO 06/29/24 09:27 Q8HR PRN COUGH OR CONGESTION Protocol Dextrose 25 ml 05/26/24 20:10 Dextrose 50%-Water Inj 50 Ml Syringe IV 06/25/24 20:09 Q15MIN PRN BG 50-70 responsive npo pt Dextrose 50 ml 05/26/24 20:10 Dextrose 50%-Water Inj 50 Ml Syringe IV 06/25/24 20:09 Q15MIN PRN BG <50 OR BG <70 & pt unresponsive Glucagon 1 mg 05/26/24 20:10 Glucagon Inj 1 Mg Vial IM Q15MIN PRN BG <70, and no IV access Heparin Sodium (Porcine) 5,000 unit 05/27/24 06:00 05/30/24 06:01 Heparin Sod Inj 5000 Unit/Ml Vial SC 06/10/24 05:59 5,000 unit Q8HR LEXI Administration Metronidazole 500 mg in 100 mls @ 200 mls/hr 05/27/24 15:05 05/30/24 06:28 Flagyl 500 Mg Iv IV 06/03/24 15:04 Infused Q8HR LEXI Infusion Cefepime HCl 1 gm/ Sodium 50 mls @ 100 mls/hr 05/28/24 09:00 05/30/24 08:27 Chloride IV 06/04/24 08:59 100 mls/hr DAILY LEXI Administration Sodium Chloride 1,000 mls @ 70 mls/hr 05/28/24 10:27 05/30/24 04:16 Ns IV 06/27/24 10:26 70 mls/hr .[id number] LEXI Administration Vancomycin/Sodium Chloride 200 mls @ 120 mls/hr 05/29/24 10:00 05/29/24 12:34 Vancomycin/Ns 1 Gm Ivpb IV 06/05/24 09:59 120 mls/hr QDAY@1000 LEXI Administration Insulin Human Lispro 0 unit 05/26/24 21:00 05/30/24 07:33 Insulin Lispro (Admelog) 1 Unit/0.01 Ml Unit SC 06/25/24 20:59 Not Given ACHS LEXI Protocol Morphine Sulfate 2 mg 05/28/24 12:27 05/29/24 02:40 Morphine Sulf Inj 10 Mg/Ml Vial IVP 06/02/24 12:26 2 mg Q4HR PRN Administration Pain-breakthrough Ondansetron HCl 4 mg 05/26/24 20:03 Ondansetron Inj 2 Mg/Ml Inj 2 Ml IV 06/25/24 20:02 Q6H PRN NAUSEA OR VOMITING Protocol Pantoprazole Sodium 40 mg 05/27/24 09:00 05/30/24 08:27 Pantoprazole Inj 40 Mg Vial IVP 06/26/24 08:59 40 mg QDAY LEXI Administration Pharmacy Consult 1 each 05/27/24 09:00 Vancomycin Pharmacy To Dose 1 Each Each IV 06/26/24 08:59 QDAY PRN CONSULT Plan The patient is a 73 year old male with PMH significant for Hypertension, hyperlipidemia and type 2 diabetes mellitus presented with chief complaint of left foot swelling that gradually worsened in last 1 month was found to have left foot cellulitis, and nephrology consultation was done for the mangement of hyperkalemia, hyponatremia and GORDON on CKD. #Hyperkalemia, resolved Likely secondary to GORDON on CKD Potassium initially was 5.2, that increased to 6.0 and trended down to 4.6 after Kayexalate administration for couple of times -Monitor daily am K. #Moderate hypovolemic hypoosmolar hyponatremia, improving Patient's sodium was as low as 122, and has been slowly being corrected to 127 05/28: Na level 130 05/30/2024: Sodium level 132 -Continue with IV normal saline 70 cc/hr, until the current bag finishes, and then stop as patient is drinking and eating well -Continue to monitor BMP in the am #GORDON on CKD IIIA, GORDON improved Likely prerenal 2/2 dehydrations Patients baseline GFR is 46 and has gone down to 25 Renal ultrasound revealed small kidneys with bilateral renal cortical thinning, moderate bilateral renal parenchymal scar formation. Urine electrolytes revealed creatinine 43, sodium 46, potassium 14, and chloride 24 consistent with prerenal GORDON with BUN/Cr ration 25 05/30/2024: Creatinine 1.5, GFR 49 -Continue with NS 70cc/hr, until current bag finishes, and as patient is eating and drinking well we can discontinue after this bag -Monitor BMP daily am -Avoid nephrotoxic drugs #HTN Currently stable -Consider adding JENNIFER/ARB in the setting of CKD with diabetes mellitus Left foot cellulitis Leukocytosis= HLD T2DM -Management deferred to primary team Thank you for your opportunity to participate nephrology team in this patient care. The patient's management plan was discussed with my attending physician MD Oral Cloud MD, PGY2 Attending Provider Attestation/Addendum Patient seen and examined with resident physician Dr. Mendez. Note reviewed, agree with findings and recommendations. Patient with GORDON secondary to prerenal azotemia and underlying CKD (from hypertension, diabetes. Renal ultrasound showed moderate scarring consistent with underlying CKD. Hyperkalemia seems to be improving with medical management. Suspect from underlying renal insufficiency. Patient also with left foot cellulitis on antibiotics. Decreased circulation consistent with diabetic peripheral artery disease. Noted anemia-gave iron and Procrit. Patient will benefit from vascular evaluation for foot ulcer. Team wants to do CTA with contrast. Will monitor renal function closely.
--- NOTE | 2024-05-30 16:19 | XR_ITS ---
Examination: CTA abdominal aorta iliofemoral runoff. 2-D sagittal coronal reconstructions. 3-D reconstructions, vascular Exam date and time: May 30, 2024 and 1755 hrs. Indications: Left leg redness swelling and pain beginning one month ago Technique: Multiple CTA images of the abdominal aorta iliofemoral runoff arterial vessels, 2.0 mm slice thickness, post intravenous administration 130 cc [id number] 2-D sagittal coronal reconstructions. 3-D reconstructions, vascular 3-D postprocessing, including vascular maximum intensity projection images, 3-D volume rendering Low dose protocols were performed. One or more of the following dose reduction techniques were used; automated exposure control, adjustment of the mA and/or KV according to patient size, use of iterative reconstruction technique. Findings: Mild atelectasis in the lower lung zones Mild enlargement cardiac contour Liver is irregular in contour Contracted gallbladder Spleen is not enlarged No pancreatic or adrenal mass No hydronephrosis No bowel obstruction Normal appendix No diverticulitis Intact urinary bladder Transverse prostate dimension 3.8 cm Heavy abdominal aortic calcification, renal arteries are intact Common iliac and external iliac arteries grossly intact Heavy calcification right superficial femoral artery, multiple areas of 50-70% stenosis mid to distal right superficial femoral artery Calcified attenuated right popliteal artery Multiple occlusions of proximal mid and distal portions right anterior tibial posterior tibial arteries Heavy calcification left superficial femoral artery, multiple areas of the 20th 50% stenosis Heavily calcified with attenuated left popliteal artery Multiple occlusions of the proximal mid and distal left anterior posterior tibial arteries Impression: Severe trifurcation arterial obstructive disease below the knees bilaterally
[2024-05-30] MEDS: INSULIN LISPRO (AdmeLOG) 1 UNIT/0.01 ML UNIT SC (17:43)
[2024-05-30] MEDS: ATORVASTATIN CALCIUM 20 MG TABLET 80 MG PO (20:48)
[2024-05-30] MEDS: MORPHINE SULF INJ 10 MG/ML VIAL 2 MG IVP (20:48)
[2024-05-31] VITALS (15 sets, daily range): BP systolic 96–110; BP diastolic 48–72; PULSE 100–117; RESP 15–19; TEMP 36.6–36.7; O2SAT 96–100
--- NOTE | 2024-05-31 | XR_ITS ---
Examination: MRI left foot without contrast Date and time of exam: May 30, 2024 1734 hrs. Indications: Left foot redness swelling and pain beginning one month ago Technique: Multiple axial sagittal and coronal images of the left foot have been obtained with the Siemens high-resolution 1.5 Lindsey MRI scanner. Images obtained include T2-weighted fat-suppressed sagittal sections, TR 3500, TE 46, T2 weighted coronal fat suppressed images, TR 3050, TE 84, T2-weighted transverse fat suppressed images, TR 3260, TE 63, proton density transverse images, TR 4720 TE 46, and T1 weighted coronal images, TR 560, TE 13. Findings: The images are degraded by patient motion No soft tissue abscess No gross cortical bone destruction Soft tissue edema dorsum of the foot Impression: All of the images are severely degraded by patient motion Consider shorter scan time CT scan of the foot with intravenous contrast to best assess for osteomyelitis
[2024-05-31] MEDS: MORPHINE SULF INJ 10 MG/ML VIAL 2 MG IVP ×4 (00:49→18:10)
[2024-05-31] MEDS: HYDROcodone/APAP 10/325 TAB PO ×2 (02:09→08:22)
[2024-05-31] MEDS: HEPARIN SOD INJ 5000 UNIT/ML VIAL SC ×3 (05:02→22:36)
[2024-05-31] MEDS: metroNIDAZOLE/NS 500 MG IVPB 500 MG/100 ML BAG 200 MG IV ×3 (05:02→22:36)
[2024-05-31 05:28] LABS: Basophils % (Auto) 0 % (0-2.5); Eosinophils # (Auto) 0.9 Thou/mm3 (0.0-0.5); Eosinophils % (Auto) 5 % (0-10); Hematocrit 24.9 % (41.0-53.0); Immature Granulocytes % (Auto) 3 % (0-0); Immature Granulocytes Auto 0.51 Thou/mm3 (0.00-0.00); Lymphocytes # (Auto) 1.2 Thou/mm3 (1.0-4.8); Lymphocytes % (Auto) 6 % (10-50); Mean Corpuscular HGB Conc 33.7 g/dl (31.0-37.0); Mean Corpuscular Hemoglobin 31.2 pg (25.0-35.0); Mean Corpuscular Volume 93 fL (80-100); Monocytes # (Auto) 1.8 Thou/mm3 (0.0-0.8); Monocytes % (Auto) 9 % (0-12); Neutrophils # (Auto) 14.5 Thou/mm3 (1.8-7.7); Neutrophils % (Auto) 77 % (37-80); Nucleated Red Blood Cell % 0 /100 WBC (0); Platelet Count 240 Thou/mm3 (140-440); RDW Standard Deviation 44.1 fL (35.1-43.9); Red Blood Count 2.69 Miln/mm3 (4.50-5.90); White Blood Count 18.9 Thou/mm3 (3.8-10.6)
[2024-05-31 05:30] LABS: Hemoglobin 8.4 g/dL (13.5-16.0)
[2024-05-31 06:14] LABS: Alanine Aminotransferase 56 U/L (10-49); Albumin, Serum 3.2 gm/dL (3.4-4.8); Albumin/Globulin Ratio 1.3 (1.2-2.2); Alkaline Phosphatase 113 U/L (46-116); Anion Gap 8 (7-16); Aspartate Amino Transferase 92 U/L (0-34); BUN/Creatinine Ratio 24 Ratio (12-20); Bilirubin,Total 0.2 mg/dL (0.3-1.2); Blood Urea Nitrogen 34 mg/dL (9-23); Calcium (Corrected) 9.6 mg/dL (8.5-10.1); Carbon Dioxide 19.9 mMol/L (20.0-31.0); Chloride 105 mMol/L (98-107); Creatinine (Component) 1.4 mg/dL (0.6-1.3); Estimated Creatinine Clearance 39.9 mL/min (>60); Globulin 2.4 gm/dL (2.3-3.5); Glucose 100 mg/dL (74-106); Magnesium 1.8 mg/dL (1.6-2.6); Osmolality,Calculated 273 (275-295); Phosphorous 2.7 mg/dL (2.4-5.1); Sodium 133 mMol/L (136-145); Total Protein 5.6 gm/dL (5.7-8.2); eGFR 53 See Note
[2024-05-31] MEDS: LOSARTAN POTASSIUM 25 MG TABLET PO (08:23)
[2024-05-31] MEDS: CEFEPIME INJ 1 GM in SODIUM CHLORIDE 0.9% (P) 50 ML IV (08:23)
[2024-05-31] MEDS: CITRIC ACID/SODIUM CITR 15 ML UDC (BICITRA) 30 ML PO ×2 (08:23→20:24)
[2024-05-31] MEDS: PANTOPRAZOLE INJ 40 MG VIAL IVP (08:24)
--- NOTE | 2024-05-31 09:50 | PD.RESPRO ---
Documentation for date of: 05/31/24 Subjective Subjective Interval history: The patient is a 73 year old male with PMH significant for Hypertension, hyperlipidemia and type 2 diabetes mellitus presented with chief complaint of left foot swelling that gradually worsened in last 1 month. He reported that, there could have been some foot injury or insect bite that he is not aware of. He went to see his PCP yesterday who recommended him to visit emergency department. He denied any fever or chills, headache, nausea or vomiting, chest pain or SOB, any changes in bowel or bladder habit. During evaluation, his vitals were stable, white count 23.1, hemoglobin 9.8, ESR 57, sodium level during presentation was 122 that slowly increased to 127 on IV normal saline 75 cc/h. Potassium initially was 5.2, that increased to 6.0 and trended down to 5.2. BUN 69, creatinine 2.6 which appears to be his baseline, and phosphorus 5.4. Left foot x-ray revealed no anjelica cortical bone destruction. Duplex scan lower extremity revealed severe bilateral obstructive arterial disease. Renal ultrasound revealed small kidneys with bilateral renal cortical thinning, moderate bilateral renal parenchymal scar formation. Urine electrolytes revealed creatinine 43, sodium 46, potassium 14, and chloride 24. PMH: As mentioned above PSHx: Septoplasty Allergies: No known allergies social history: Past smoker with [id number] smoking history and quit 18 years ago, denies any alcohol or recreational drug use. Medications: To be reconciled Nephrology consultation was done for further management of moderate hypovolemic normal osmolar hyponatremia, hyperkalemia and CKD. 05/28/2024: The patient was interviewed and examined at the bedside this morning. He reported pain over his left foot. Vitals were stable with soft blood pressure. Labs were significant for white count 22.0, hemoglobin 9.6. Sodium 130, potassium 4.9, BUN 63, creatinine 2.4, EGFR 28, phosphorus 5.1. We will continue with maintenance normal saline fluid 70 cc/h as patient seemed to be mildly dehydrated, and his sodium correction is at goal levels. 05/30/2024: The patient was interviewed and examined at the bedside this morning. He reported still having some pain over her left foot. Vitals were fairly stable, white count 21.0, hemoglobin 8.9, sodium 132, bicarb 19.7, BUN 39, creatinine 1.5, GFR 49 mild transaminitis with AST 72 and ALT 60. Patient is eating and drinking well, and we will discontinue IV maintenance normal saline after the current bag. 05/31/2024: The patient was interviewed and examined at the bedside this morning. He reported doing fairly well. Vitals were fairly stable. White count trending down to 18.9, hemoglobin 8.4, sodium 133, potassium 5.0, BUN 34, creatinine 1.4, EGFR 53. CTA abdomen iliofemoral runoff revealed severe trifurcation arterial obstructive disease below knees bilaterally. We stopped IV normal saline. The patient was given p.o. Lasix 20 x 1. Exam Vital Signs Temp Pulse Resp BP Pulse Ox O2 Del Method 98.0 F 16 L 18 110/69 98 Room Air 05/31/24 08:00 05/31/24 08:38 05/31/24 08:38 05/31/24 08:23 05/31/24 08:38 05/31/24 08:00 Narrative Exam General: Elderly, cooperative gentleman, no acute distress, Alert and Oriented x 3 HEENT: Moist mucous membranes, oropharynx clear Neck: Supple, No masses, No JVD CVS: S1S2 Regular rate and rhythm, No murmurs, rubs or gallops Lungs: Mild bibasilar crackles, no wheeze no rhonchi Abd: Soft, NT/ND, +BS, no organomegaly Ext: Left foot swollen, erythematous, 3 x 3 cm eschar noted on dorsal aspect of foot. Right fifth toe has 1x1cm area of necrosis Psych: Appropriate mood and affect Objective Labs 06/01/24 05:25 06/01/24 05:25 Labs: Laboratory Results - last 24 hr 05/30/24 05/31/24 09:12 04:48 WBC 18.9 H RBC 2.69 L Hgb 8.4 L Hct 24.9 L MCV 93 MCH 31.2 MCHC 33.7 RDW Std Deviation 44.1 H Plt Count 240 Neut % (Auto) 77 Lymph % (Auto) 6 L [place] % (Auto) 9 Eos % (Auto) 5 Baso % (Auto) 0 Neut # (Auto) 14.5 H Lymph # (Auto) 1.2 [place] # (Auto) 1.8 H Eos # (Auto) 0.9 H Baso # (Auto) 0.0 Immature Gran # (Auto) 0.51 H Absolute Nucleated RBC 0.00 Immature Gran % 3 H Nucleated RBC % 0 Sodium 133 L Potassium 5.0 Chloride 105 Carbon Dioxide 19.9 L Anion Gap 8 BUN 34 H Creatinine 1.4 H Estim Creat Clear Calc 39.9 L eGFR 53 L BUN/Creatinine Ratio 24 H Glucose 100 Calculated Osmolality 273 L Calcium 9.0 Corrected Calcium 9.6 Phosphorus 2.7 Magnesium 1.8 Total Bilirubin 0.2 L AST 92 H ALT 56 H Alkaline Phosphatase 113 Total Protein 5.6 L Albumin 3.2 L Globulin 2.4 Albumin/Globulin Ratio 1.3 Vancomycin Trough 11.2 H Quality Measures Quality Measures none Advance care planning discussed with:: patient Assessment & Plan Assessment Current Active Medications: Generic Name Dose Route Start Last Admin Trade Name Freq PRN Reason Stop Dose Admin Acetaminophen 650 mg 05/26/24 20:03 Acetaminophen 325 Mg Tablet PO 06/25/24 20:02 Q6H PRN PAIN SCALE 1-3 (mild Acetaminophen 650 mg 05/26/24 20:03 Acetaminophen 325 Mg Tablet PO 06/25/24 20:02 Q6H PRN Fever >100 Hydrocodone Bitart/Acetaminophen 1 tab 05/27/24 09:31 05/31/24 08:22 Hydrocodone/Apap 10/325 Tab PO 05/31/24 20:02 1 tab Q4HR PRN Administration PAIN SCALE 4-10(Mod-Sev Albuterol/Ipratropium 3 ml 05/28/24 21:02 05/28/24 22:00 Albuterol/Ipratropium (Duoneb) Rt Marjorie 3 Ml Nebu INH 06/27/24 21:01 3 ml Q6HRRT PRN Administration SHORTNESS OF BREATH OR WHEEZE Atorvastatin Calcium 80 mg 05/26/24 21:00 05/30/24 20:48 Atorvastatin Calcium 20 Mg Tablet PO 06/25/24 20:59 80 mg HS LEXI Administration Benzonatate 100 mg 05/30/24 09:28 Benzonatate 100 Mg Capsule PO 06/29/24 09:27 Q8HR PRN COUGH OR CONGESTION Protocol Citric Acid/Sodium Citrate 30 ml 05/31/24 09:00 05/31/24 08:23 Citric Acid/Sodium Citr 15 Ml Udc (Bicitra) PO 06/30/24 08:59 30 ml BID LEXI Administration Dextrose 25 ml 05/26/24 20:10 Dextrose 50%-Water Inj 50 Ml Syringe IV 06/25/24 20:09 Q15MIN PRN BG 50-70 responsive npo pt Dextrose 50 ml 05/26/24 20:10 Dextrose 50%-Water Inj 50 Ml Syringe IV 06/25/24 20:09 Q15MIN PRN BG <50 OR BG <70 & pt unresponsive Glucagon 1 mg 05/26/24 20:10 Glucagon Inj 1 Mg Vial IM Q15MIN PRN BG <70, and no IV access Heparin Sodium (Porcine) 5,000 unit 05/27/24 06:00 05/31/24 05:02 Heparin Sod Inj 5000 Unit/Ml Vial SC 06/10/24 05:59 5,000 unit Q8HR LEXI Administration Metronidazole 500 mg in 100 mls @ 200 mls/hr 05/27/24 15:05 05/31/24 05:02 Flagyl 500 Mg Iv IV 06/03/24 15:04 200 mls/hr Q8HR LEXI Administration Cefepime HCl 1 gm/ Sodium 50 mls @ 100 mls/hr 05/28/24 09:00 05/31/24 08:23 Chloride IV 06/04/24 08:59 100 mls/hr DAILY LEXI Administration Vancomycin/Sodium Chloride 200 mls @ 120 mls/hr 05/29/24 10:00 05/30/24 10:30 Vancomycin/Ns 1 Gm Ivpb IV 06/05/24 09:59 120 mls/hr QDAY@1000 LEXI Administration Sodium Chloride 1,000 mls @ 70 mls/hr 05/30/24 10:44 05/30/24 20:56 Ns IV 06/27/24 16:00 70 mls/hr .[id number] LEXI Administration Insulin Human Lispro 0 unit 05/26/24 21:00 05/31/24 08:00 Insulin Lispro (Admelog) 1 Unit/0.01 Ml Unit SC 06/25/24 20:59 Not Given ACHS LEXI Protocol Losartan Potassium 25 mg 05/31/24 09:00 05/31/24 08:23 Losartan Potassium 25 Mg Tablet PO 06/30/24 08:59 25 mg QDAY LEXI Administration Morphine Sulfate 2 mg 05/28/24 12:27 05/31/24 05:02 Morphine Sulf Inj 10 Mg/Ml Vial IVP 06/02/24 12:26 2 mg Q4HR PRN Administration Pain-breakthrough Ondansetron HCl 4 mg 05/26/24 20:03 Ondansetron Inj 2 Mg/Ml Inj 2 Ml IV 06/25/24 20:02 Q6H PRN NAUSEA OR VOMITING Protocol Pantoprazole Sodium 40 mg 05/27/24 09:00 05/31/24 08:24 Pantoprazole Inj 40 Mg Vial IVP 06/26/24 08:59 40 mg QDAY LEXI Administration Pharmacy Consult 1 each 05/27/24 09:00 Vancomycin Pharmacy To Dose 1 Each Each IV 06/26/24 08:59 QDAY PRN CONSULT Plan The patient is a 73 year old male with PMH significant for Hypertension, hyperlipidemia and type 2 diabetes mellitus presented with chief complaint of left foot swelling that gradually worsened in last 1 month was found to have left foot cellulitis, and nephrology consultation was done for the mangement of hyperkalemia, hyponatremia and GORDON on CKD. #Hyperkalemia, resolved Likely secondary to GORDON on CKD Potassium initially was 5.2, that increased to 6.0 and trended down to 4.6 after Kayexalate administration for couple of times 05/31/2024: 5.0 -Started on renal diet -Monitor daily am K. #Moderate hypovolemic hypoosmolar hyponatremia, improving Patient's sodium was as low as 122, and has been slowly being corrected to 127 05/28: Na level 130 05/30/2024: Sodium level 132 -Continue with IV normal saline 70 cc/hr, until the current bag finishes, and then stop as patient is drinking and eating well -Continue to monitor BMP in the am #GORDON on CKD IIIA, GORDON improved Likely prerenal 2/2 dehydrations Patients baseline GFR is 46 and has gone down to 25 Renal ultrasound revealed small kidneys with bilateral renal cortical thinning, moderate bilateral renal parenchymal scar formation. Urine electrolytes revealed creatinine 43, sodium 46, potassium 14, and chloride 24 consistent with prerenal GORDON with BUN/Cr ration 25 05/30/2024: Creatinine 1.5, GFR 49 05/31/2024: Creatinine 1.5, GFR 53 -Continue with NS 70cc/hr, until current bag finishes, and as patient is eating and drinking well we can discontinue after this bag -Monitor BMP daily am -Avoid nephrotoxic drugs -However, due to possible fluid overload recommended to give one-time p.o. Lasix 20 Mg. #HTN Currently stable -Consider adding JENNIFER/ARB in the setting of CKD with diabetes mellitus Left foot cellulitis Severe peripheral arterial disease Leukocytosis HLD T2DM -Management deferred to primary team Thank you for your opportunity to participate nephrology team in this patient care. The patient's management plan was discussed with my attending physician MD Oral Cloud MD, PGY2 Attending Provider Attestation/Addendum Patient seen and examined with resident physician Dr. Mendez. Note reviewed, agree with findings and recommendations. Patient with GORDON secondary to prerenal azotemia and underlying CKD (from hypertension, diabetes. Renal ultrasound showed moderate scarring consistent with underlying CKD. Hyperkalemia seems to be improving with medical management. Suspect from underlying renal insufficiency. Patient also with left foot cellulitis on antibiotics. Decreased circulation consistent with diabetic peripheral artery disease. Noted anemia-gave iron and Procrit. Surgery on the case for a left foot wound. CTA showed severe peripheral vascular disease. Creatinine stable.
[2024-05-31] MEDS: Furosemide 20 MG TABLET PO (11:13)
[2024-05-31] MEDS: BENZONATATE 100 MG CAPSULE PO ×2 (11:13→20:16)
--- NOTE | 2024-05-31 11:43 | ESCONSULT_ITS ---
HPI Consult details Consult date: 05/31/24 Reason for consultation narrative: Left foot diabetic infection with peripheral vascular disease History of present illness: Patient is a 73-year-old male who has been complaining of swelling and pain in the left foot progressive over the last week. He presented to the hospital and was found to have what appears to be a deep space infection in the left foot. His arterial Doppler examination was abnormal and the CTA was lower extremity runoff was performed today that shows severe peripheral vascular disease especially below the knee on both sides. I did review the images myself and there appears to be fairly continuous flow in the arterial system left leg with several focal areas especially in the popliteal artery of short segment occlusions Meds Home Medications and Allergies Allergies Allergy/AdvReac Type Severity Reaction Status Date / Time No Known Allergies Allergy Unverified 06/07/23 18:57 Exam Vital Signs Temp Pulse Resp BP Pulse Ox O2 Del Method 98.0 F 105 H 18 110/69 98 Room Air 05/31/24 08:00 05/31/24 11:13 05/31/24 08:38 05/31/24 11:13 05/31/24 08:38 05/31/24 08:00 Narrative Exam Physical examination of left lower extremity shows fairly normal muscular development. The foot is swollen with purple discoloration and gangrene on the lateral aspect likely betraying a deep space foot infection. Assessment & Plan Additional Assessment Additional comments: Severe left foot diabetic infection likely involving the deeper tissues of the foot with associated peripheral vascular disease Plan The patient could benefit from injection arteriography in the left lower e xtremity to try to improve flow though controlling sepsis in the foot would be the priority at this point
--- NOTE | 2024-05-31 11:54 | PD.SURCONS ---
HPI Consult details History of present illness: Patient is a 73-year-old male who has been complaining of swelling and pain in the left foot progressive over the last week. He presented to the hospital and was found to have what appears to be a deep space infection in the left foot. His arterial Doppler examination was abnormal and the CTA was lower extremity runoff was performed today that shows severe peripheral vascular disease especially below the knee on both sides. I did review the images myself and there appears to be fairly continuous flow in the arterial system left leg with several focal areas especially in the popliteal artery of short segment occlusions Meds Home Medications and Allergies Allergies Allergy/AdvReac Type Severity Reaction Status Date / Time No Known Allergies Allergy Unverified 06/07/23 18:57 Exam Vital Signs Temp Pulse Resp BP Pulse Ox O2 Del Method 97.8 F 100 18 99/48 L 100 Room Air 05/31/24 11:45 05/31/24 11:45 05/31/24 11:45 05/31/24 11:45 05/31/24 11:45 05/31/24 11:45
[2024-05-31] MEDS: ALBUTEROL/IPRATROPIUM (Duoneb) RT SOL 3 ML NEBU INH (12:26)
--- NOTE | 2024-05-31 12:35 | XR_ITS ---
Examination: AP chest single view Technique one AP portable upright chest single view Exam date and time: May 31, 2024 1601 hours Comparison July 02, 2023 INDICATIONS: Shortness of breath today. FINDINGS: Mild heart failure Mild enlargement cardiac contour Prominent vascular congestion Prominent osteopenia IMPRESSION: Mild heart failure
--- NOTE | 2024-05-31 12:37 | PC.NURSE ---
SOB, tachycardia, hypotension, noted on pt rr called today at approx 1215
[2024-05-31] MEDS: SODIUM CHLORIDE 0.9% 250 ML 250 ML 999 ML IV (12:45)
--- NOTE | 2024-05-31 13:20 | PC.NURSE ---
RR called d/t low bp, sob and tachycardia.
--- NOTE | 2024-05-31 13:24 | XR_ITS ---
Examination: Ultrasound soft tissue extremity left foot TECHNIQUE: Grayscale sonographic images soft tissue left foot Exam date and time: May 31, 2024 1359 hours INDICATIONS: Left foot redness swelling and pain beginning one month ago. FINDINGS: Open wound adjacent to the fifth digit Soft tissue complex mass in this region 3.6 x 5.5 x 1.9 cm with fluid IMPRESSION: Abscess in the soft tissue adjacent to the fifth digit 3.6 x 0.5 x 1.9 cm Consider MRI foot without contrast follow-up
--- NOTE | 2024-05-31 14:04 | ESDS_ITS ---
<Statement entered by Volodymyr Mendes MD - 06/02/24 10:42> Agree with plan and examination finding on the note below. Patient seen and examined at bedside today. Labs and imaging reviewed. Patient care discussed with my attending and co-resident Dr. Rios. Planned Discharge Date 05/31/24 DS: Providers Provider Date of admission: 05/26/24 20:03 Primary care physician: Olivia Zuniga PA-C Admitting Provider: Todd Real MD Attending Provider on Admission: Delia Leal MD Consults: 05/26/24 21:12 Referral Physical Therapy Routine Comment: Physician Instructions: 05/27/24 02:30 Referral Wound Care Routine Comment: 05/27/24 10:03 Referral OP Wound Healing Dept Routine Comment: Arterial ulcers left and right feet 05/27/24 11:35 Consult to Nephrology Routine Comment: Consulting Provider: Yunier Malhotra 05/29/24 10:16 Consult to General Surgery Routine Comment: Severe PAD, Worsening LLE cellulitis Consulting Provider: Angelika Hutton 05/30/24 15:29 Consult to General Surgery Routine Comment: PAD Consulting Provider: Osmany Greer Attending Provider on DC: Yordan Rios MD Discharging Provider: Yordan Rios MD DS: Diagnosis Problem List Completed Was Problem List Reviewed/Reconciled?: Yes Hospital Course Hospital Course Hospital course: 73-year-old male PMHx of T2DM, HLD, HTN admitted for left foot cellulitis. Started on ANTIBIOTICS. Additionally, he is being managed for GORDON, hyperkalemia, and hyponatremia. For patient's left foot cellulitis he was treated with IV antibiotics. Initially patient received 1 day of ceftriaxone 1 g IV daily and doxycycline 100 Mg IV twice daily from [05/26-05/27]. Patient also received vancomycin 1 g IV 3 times daily for 5 days from [05/27 - 05/31]. He was also treated with cefepime 1 g IV daily from 05/28?and metronidazole 500 Mg IV Q8 hourly from [05/27?. Ultrasound revealed a 3.6 x 0.5 x 1.9 cm abscess and general surgery schedule patient for I&D. Patient was also diagnosed with peripheral arterial disease during hospitalization. Imaging studies revealed: Bilateral lower limb duplex arterial ultrasound completed and significant for bilateral peripheral arterial disease with left SOILA 0.7 X-ray was negative for bony destruction. Abdomen CTA completed on 05/30/2024: 50-70% stenosis right superficial femoral artery. 50% stenosis left superficial femoral artery. Vascular surgeon, Dr. Greer consulted and assessed the patient. He recommended for decompression of the left foot followed by left lower extremity angioplasty. Lower extremity angioplasty currently unavailable at [facility] and patient will need to be transferred to a tertiary center for treatment. Patient also had acute kidney injury on chronic kidney disease. On admission his creatinine was 3 and improved to 1.4 after normal saline IV fluids. Patient is currently clinically stable for discharge to tertiary center for vascular surgery intervention/consult. Discharge diagnoses: 1. Left foot cellulitis 2. Bilateral peripheral arterial disease 3. Leukocytosis 4. Epistaxis?resolving 5. Nonproductive cough 6. Pulmonary edema?resolving 7. Acute kidney injury on CKD stage IIIa?improved 8. Primary hypertension 9. Hyperlipidemia 10. Insulin-dependent diabetes mellitus type 2 Discharge Plan: ? Pending transfer for vascular surgery. We are grateful to be able to participate in Mr. Landrum's care. We wish him the best. Plan of care discussed with Attending Dr. Leal and PGY3 Dr. Vaughn Rios MD PGY 1 Time Spent with Patient Time attestation: Total time spent providing and/or coordinating discharge services: Time spent: Greater than 30 minutes (35) Exam Vital Signs Temp Pulse Resp BP Pulse Ox O2 Del Method 97.8 F 107 H 19 99/48 L 100 Room Air 05/31/24 11:45 05/31/24 13:31 05/31/24 12:28 05/31/24 11:45 05/31/24 12:28 05/31/24 11:45 Narrative Exam Constitutional Alert, oriented x 3 and mild distress. Elderly male HEENT Vision grossly intact. Patent nares. Trachea midline Respiratory Chest normal on inspection and clear auscultation bilaterally Cardiovascular S1 and S2 audible, RRR. No murmurs carotid bruit. No gross JVD. Abdominal Soft and non tender to palpation in all quadrants. BS + Genitourinary No bladder tenderness, no flank pain. Normal to palpation Musculoskeletal Extremities tone within normal limits. 1+ edematous left foot. Dorsalis pedis and posterior tibial artery pulses weak in bilateral lower limbs. Neurological CN II - XII grossly intact. Extremity motor and sensation grossly intact. Skin Warm, dry and intact. Left foot swollen, erythematous, 3 x 3 cm eschar noted on dorsal aspect of foot. Right fifth toe has 1x1cm area of necrosis Psychiatric Patient has good affect, is cooperative Discharge Plan Plan Patient Disposition: Xfer Other Service Needed for Transfer: Vascular Surgery Disposition Comment: Patient needs vascular surgery for left lower limb angioplasty Prescriptions/Referrals Prescriptions/Med Rec: No Action aspirin 81 mg Tablet,Delayed Release (Dr/Ec) 81 mg PO QDAY Qty: 30 0RF (DME) SoothEaseStPetta Gain 3 Sensor Device See Rx Instructions .Route Qty: 1 0RF Rx Instructions: As directed Januvia 100 mg tablet 100 mg PO QDAY Qty: 30 0RF atorvastatin 80 mg tablet 80 mg PO QPM Qty: 30 0RF Referrals: Olivia Zuniga PA-C [Primary Care Provider] - Patient/Caregiver Discharge Instructions Other Discharge Activity Instructions:: 1) Follow up with [facility], [address] [place] [address]. Call [phone] for appointment. 2) Follow up with Primary MD to obtain consult for Vascular Surgery. 3) Wound care: May shower than perform wound care. - Right outer 5th toe and left outer 5th toe ulcers: swab with betadine BID (goal to keep clean and dry) - Left outer top of foot: Wash hands with soap and water, Remove old dressing. Cleanse wound site with Normal Saline, pat dry with gauze. Wash hands again, apply thin layer of silvasorb gel to wound bed and cover with foam dressing one a day. Avoid wearing tight fitting shoes over wound site. If active bleeding occurs, apply tight dressing and return to MD or ER. ?Notify primary doctor or return to Emergency Room if any of the following: ?Fever above 100.6? F. ?Increased pain ?Increase swelling ?Red streaks around your wound ?Drainage becomes foul smelling or changes color ?The wound is larger or deeper ?The wound looks dried out or dark ?Bleeding that does not stop with holding pressure Education Materials: Nutrition for Wound Healing, Changing Dressing Dc, Wound Care Dc Print Language: Turkmen Stand Alone Forms: Yessi Award Info., Patient Portal Info Letter Quality Discharge Quality Measures VTE prophylaxis MD Attestestation Attestation 73-year-old male with multiple comorbidities including hypertension, hyperlipidemia, type 2 diabetes mellitus who presented with left foot pain found to have left foot swelling with decreased pulses. As a result, unable to do a CTA given that patient has acute kidney injury and subsequently underwent bilateral lower limb arterial ultrasound with findings of bilateral peripheral arterial disease. As of now, plan to continue IV antibiotic therapy pending MRI of the foot. Patient does have swelling and erythema on exam however does have pulses bilaterally. Furthermore, plan to continue IV antibiotic therapy pending MRI. Discussed case with general surgeon who recommended continuing IV antibiotic therapy and did not recommend any surgical intervention as of now. In addition, consulted vascular surgery who recommended obtaining a CTA with runoff to evaluate the extent of PAD. Moreover, patient underwent CTA with runoff with findings of bilateral significant PAD. Will attempt to transfer the patient for vascular intervention. Plan to continue IV antibiotic therapy and appreciate general surgery and vascular surgery input. I reviewed above note and agree with findings and plans. I have also personally examined the patient with medicine team and went over assessment and plan with medical team including r d intern and resident physician.
--- NOTE | 2024-05-31 14:05 | ESPR_ITS ---
<Statement entered by Volodymyr Mendes MD - 06/02/24 10:42> Agree with plan and examination finding on the note below. Patient seen and examined at bedside today. Labs and imaging reviewed. Patient care discussed with my attending and co-resident Dr. Rios. Documentation for date of: 05/31/24 Subjective Subjective Interval history: LPatient was seen and examined at bedside this AM. No acute exents overnight. Patient tolerating diet, adequate urine output and mentation is at baseline. Patient complains of 9/10 left foot pain but adequate relief with pain medication. Patient also complains of shortness of breath and a nonproductive cough with mild epistaxis. Ordered Tessalon Perles for nonproductive cough. Discontinued vancomycin IV as blood culture negative x 48 hours. Started on doxycycline 100 Mg IV twice daily for MRSA coverage. Abdomen CTA completed on 05/30/2024: 50-70% stenosis right superficial femoral artery. 50% stenosis left superficial femoral artery. Left foot ultrasound revealed 3.6 x 0.5 x 1.9 cm abscess adjacent to the fifth digit. Vascular surgeon, Dr. Greer consulted and assessed the patient. He recommended for decompression of the left foot followed by left lower extremity angioplasty. Lower extremity angioplasty currently unavailable at [facility] and patient will need to be transferred to a tertiary center for treatment. General surgeon, Dr. Hutton will perform I&D of left foot abscess tomorrow. Exam Vital Signs Temp Pulse Resp BP Pulse Ox O2 Del Method 97.8 F 107 H 19 99/48 L 100 Room Air 05/31/24 11:45 05/31/24 13:31 05/31/24 12:28 05/31/24 11:45 05/31/24 12:28 05/31/24 11:45 Narrative Exam Constitutional Alert, oriented x 3 and mild distress. Elderly male HEENT Vision grossly intact. Patent nares. Trachea midline Respiratory Chest normal on inspection and clear auscultation bilaterally Cardiovascular S1 and S2 audible, RRR. No murmurs carotid bruit. No gross JVD. Abdominal Soft and non tender to palpation in all quadrants. BS + Genitourinary No bladder tenderness, no flank pain. Normal to palpation Musculoskeletal Extremities tone within normal limits. 1+ edematous left foot. Dorsalis pedis and posterior tibial artery pulses weak in bilateral lower limbs. Neurological CN II - XII grossly intact. Extremity motor and sensation grossly intact. Skin Warm, dry and intact. Left foot swollen, erythematous, 3 x 3 cm eschar noted on dorsal aspect of foot. Right fifth toe has 1x1cm area of necrosis Psychiatric Patient has good affect, is cooperative Objective Labs 06/03/24 05:34 06/03/24 05:34 Labs: Laboratory Results - last 24 hr 05/31/24 04:48 WBC 18.9 H RBC 2.69 L Hgb 8.4 L Hct 24.9 L MCV 93 MCH 31.2 MCHC 33.7 RDW Std Deviation 44.1 H Plt Count 240 Neut % (Auto) 77 Lymph % (Auto) 6 L Ripley % (Auto) 9 Eos % (Auto) 5 Baso % (Auto) 0 Neut # (Auto) 14.5 H Lymph # (Auto) 1.2 Ripley # (Auto) 1.8 H Eos # (Auto) 0.9 H Baso # (Auto) 0.0 Immature Gran # (Auto) 0.51 H Absolute Nucleated RBC 0.00 Immature Gran % 3 H Nucleated RBC % 0 Sodium 133 L Potassium 5.0 Chloride 105 Carbon Dioxide 19.9 L Anion Gap 8 BUN 34 H Creatinine 1.4 H Estim Creat Clear Calc 39.9 L eGFR 53 L BUN/Creatinine Ratio 24 H Glucose 100 Calculated Osmolality 273 L Calcium 9.0 Corrected Calcium 9.6 Phosphorus 2.7 Magnesium 1.8 Total Bilirubin 0.2 L AST 92 H ALT 56 H Alkaline Phosphatase 113 Total Protein 5.6 L Albumin 3.2 L Globulin 2.4 Albumin/Globulin Ratio 1.3 Quality Measures Quality Measures none Advance care planning discussed with:: patient Assessment & Plan Assessment Current Active Medications: Generic Name Dose Route Start Last Admin Trade Name Freq PRN Reason Stop Dose Admin Acetaminophen 650 mg 05/26/24 20:03 Acetaminophen 325 Mg Tablet PO 06/25/24 20:02 Q6H PRN PAIN SCALE 1-3 (mild Acetaminophen 650 mg 05/26/24 20:03 Acetaminophen 325 Mg Tablet PO 06/25/24 20:02 Q6H PRN Fever >100 Hydrocodone Bitart/Acetaminophen 1 tab 05/27/24 09:31 05/31/24 08:22 Hydrocodone/Apap 10/325 Tab PO 05/31/24 20:02 1 tab Q4HR PRN Administration PAIN SCALE 4-10(Mod-Sev Albuterol/Ipratropium 3 ml 05/28/24 21:02 05/31/24 12:26 Albuterol/Ipratropium (Duoneb) Rt Marjorie 3 Ml Nebu INH 06/27/24 21:01 3 ml Q6HRRT PRN Administration SHORTNESS OF BREATH OR WHEEZE Atorvastatin Calcium 80 mg 05/26/24 21:00 05/30/24 20:48 Atorvastatin Calcium 20 Mg Tablet PO 06/25/24 20:59 80 mg HS LEXI Administration Benzonatate 100 mg 05/30/24 09:28 05/31/24 11:13 Benzonatate 100 Mg Capsule PO 06/29/24 09:27 100 mg Q8HR PRN Administration COUGH OR CONGESTION Protocol Citric Acid/Sodium Citrate 30 ml 05/31/24 09:00 05/31/24 08:23 Citric Acid/Sodium Citr 15 Ml Udc (Bicitra) PO 06/30/24 08:59 30 ml BID LEXI Administration Dextrose 25 ml 05/26/24 20:10 Dextrose 50%-Water Inj 50 Ml Syringe IV 06/25/24 20:09 Q15MIN PRN BG 50-70 responsive npo pt Dextrose 50 ml 05/26/24 20:10 Dextrose 50%-Water Inj 50 Ml Syringe IV 06/25/24 20:09 Q15MIN PRN BG <50 OR BG <70 & pt unresponsive Glucagon 1 mg 05/26/24 20:10 Glucagon Inj 1 Mg Vial IM Q15MIN PRN BG <70, and no IV access Heparin Sodium (Porcine) 5,000 unit 05/27/24 06:00 05/31/24 05:02 Heparin Sod Inj 5000 Unit/Ml Vial SC 06/10/24 05:59 5,000 unit Q8HR LEXI Administration Metronidazole 500 mg in 100 mls @ 200 mls/hr 05/27/24 15:05 05/31/24 05:02 Flagyl 500 Mg Iv IV 06/03/24 15:04 200 mls/hr Q8HR LEXI Administration Cefepime HCl 1 gm/ Sodium 50 mls @ 100 mls/hr 05/28/24 09:00 05/31/24 08:23 Chloride IV 06/04/24 08:59 100 mls/hr DAILY LEIX Administration Sodium Chloride 1,000 mls @ 70 mls/hr 05/30/24 10:44 05/30/24 20:56 Ns IV 06/27/24 16:00 70 mls/hr .[id number] LEXI Administration Doxycycline Hyclate 100 mg/ 100 mls @ 100 mls/hr 05/31/24 21:00 Sodium Chloride IV 06/07/24 20:59 BID LEXI Albumin Human 12.5 gm in 50 mls @ 50 mls/hr 05/31/24 13:59 Albuminar-25 Ivpb IV 05/31/24 14:58 X1 ONE Insulin Human Lispro 0 unit 05/26/24 21:00 05/31/24 08:00 Insulin Lispro (Admelog) 1 Unit/0.01 Ml Unit SC 06/25/24 20:59 Not Given ACHS [facility] Protocol Morphine Sulfate 2 mg 05/28/24 12:27 05/31/24 11:14 Morphine Sulf Inj 10 Mg/Ml Vial IVP 06/02/24 12:26 2 mg Q4HR PRN Administration Pain-breakthrough Ondansetron HCl 4 mg 05/26/24 20:03 Ondansetron Inj 2 Mg/Ml Inj 2 Ml IV 06/25/24 20:02 Q6H PRN NAUSEA OR VOMITING Protocol Pantoprazole Sodium 40 mg 05/27/24 09:00 05/31/24 08:24 Pantoprazole Inj 40 Mg Vial IVP 06/26/24 08:59 40 mg QDAY LEXI Administration Pharmacy Consult 1 each 05/27/24 09:00 Vancomycin Pharmacy To Dose 1 Each Each IV 06/26/24 08:59 QDAY PRN CONSULT Plan 73-year-old male PMHx of T2DM, HLD, HTN admitted for left foot cellulitis. Started on ANTIBIOTICS. Additionally, he is being managed for GORDON, hyperkalemia, and hyponatremia. Left foot cellulitis Bilateral peripheral arterial disease Leukocytosis Presenting with 1 month of left foot swelling, erythema and pain. On exam Left foot swollen, erythematous, 3 x 3 cm eschar noted on dorsal aspect of foot. Right fifth toe has 1x1cm area of necrosis He also had small skin lesion of fifth digit of right foot. Pulses diminished in left foot compared to right. Bilateral lower limb duplex arterial ultrasound completed and significant for bilateral peripheral arterial disease with left SOILA 0.7 X-ray was negative for bony destruction. Abdomen CTA completed on 05/30/2024: 50-70% stenosis right superficial femoral artery. 50% stenosis left superficial femoral artery. Left foot ultrasound revealed 3.6 x 0.5 x 1.9 cm abscess adjacent to the fifth digit. WBC 23.1 ---> 18.9 CRP 2.6 Blood culture NBG x 48 hours preliminary Urine culture no growth. Patient received 1 day of ceftriaxone 1 g IV daily and doxycycline 100 Mg IV twice daily from [05/26 - 05/27] Received Vancomycin 1 G IV tid for 5 days from [05/27 - 05/31] Plan: ? Continue aspirin 81 Mg po daily ? Discontinued vancomycin 1 g IV 3 times daily on [05/27?05/31] - Started on Doxycycline 100mg IV BID [05/31 - Continue cefepime 1 g IV daily from 05/28 for a total of 10 days treatment to be completed on 06/04/2024 ? Continue metronidazole 500 Mg IV every 8 hourly on [05/27? - Discontinued IVF - Pending Transfer to tertiary centre for vascular surgery - Vascular surgeon, Dr. Greer consulted and assessed the patient. He recommended for decompression of the left foot followed by left lower extremity angioplasty. Lower extremity angioplasty currently unavailable at [facility] and patient will need to be transferred to a tertiary center for treatment. - General surgeon, Dr. Hutton will perform I&D of left foot abscess tomorrow. Epistaxis Nonproductive cough Pulmonary edema Patient complains of shortness of breath and a nonproductive cough with mild epistaxis. Chest x-ray showed increased vascular markings and pulmonary edema Plan: ? RSV, influenza A and B and cocci ordered ? Tessalon pearls ordered ? Lasix 20 Mg p.o. x 1 ? Albumin 12.5 g IV x 1 ordered ? Lasix 40 Mg IV x 1 ordered Prerenal GORDON on CKD stage IIIA - improving Hyperkalemia - resolved Hypoosmolar hyponatremia - resolved Non-anion gap metabolic acidosis - resolved Likely dehydrational. Sodium 124 ---> 132 , potassium 5.2---> 4.8 CR 3 ---> 1.4 (baseline 1.6), BUN 52 ---> 34 DDx: RTA type IV, medication induced Plan: ? Renally dose medication ? Avoid nephrotoxic agents ? Nephrology, Dr Malhotra consulted. Appreciate recommendations Primary HTN Hypotension Hyperlipidemia BP 139/59 Plan: ? To restart Losartan on 05/31 as per Nephrology recommendations ? Continue home ATORVASTATIN 80 mg HS Insulin-dependent diabetes mellitus type 2 [6.9%] Fasting blood glucose 77 Plan: ? Sliding scale insulin to cover for blood glucose spikes ? Hypoglycemic procedures in place Health maintenance: Disposition: Pending transfer to higher level of care for vascular surgery. I&D Diet: Low consistent carb Lines: pIVs GI Prophylaxis: Pantoprazole Thrombo Prophylaxis: Heparin 5000 units SC every 8 hours Code status: FULL CODE Plan of care discussed with Attending Dr. Leal and PGY3 Dr. Vaughn Rios MD PGY 1 Attending Provider Attestation/Addendum 73-year-old male with multiple comorbidities including hypertension, hyperlipidemia, type 2 diabetes mellitus who presented with left foot pain found to have left foot swelling with decreased pulses. As a result, unable to do a CTA given that patient has acute kidney injury and subsequently underwent bilateral lower limb arterial ultrasound with findings of bilateral peripheral arterial disease. As of now, plan to continue IV antibiotic therapy pending MRI of the foot. Patient does have swelling and erythema on exam however does have pulses bilaterally. Furthermore, plan to continue IV antibiotic therapy pending MRI. Discussed case with general surgeon who recommended continuing IV antibiotic therapy and did not recommend any surgical intervention as of now. In addition, consulted vascular surgery who recommended obtaining a CTA with runoff to evaluate the extent of PAD. Moreover, patient underwent CTA with runoff with findings of bilateral significant PAD. Will attempt to transfer the patient for vascular intervention. In the meantime, patient underwent MRI with no evidence of abscess however ultrasound noted significant abscess on the left foot for which we will reach out to general surgery regarding drainage. Currently, patient does complain of left lower extremity pain however denies any other complaints. I reviewed above note and agree with findings and plans. I have also personally examined the patient with medicine team and went over assessment and plan with medical team including risk management intern and resident physician.
[2024-05-31] MEDS: ALBUMIN HUMAN 25% IVPB 12.5 GM/50 ML BTL IV (15:00)
[2024-05-31] MEDS: MIDODRINE 5 MG TABLET 10 MG PO (15:18)
[2024-05-31] MEDS: FUROSEMIDE INJ 10 MG/ML 4ML VIAL 40 MG IVP (15:19)
--- NOTE | 2024-05-31 15:48 | PD.SURPROG ---
Documentation for date of: 05/31/24 Subjective Subjective Brief History: 73M with HTN, HLD, DMII admitted with 1-month history of left foot swelling and pain. Pt has been treated with cefepime/flagy/vanc since 05/26, WBC is gradually downtrending from 26 but pt has had worsening appearance of foot prompting general surgery consultation. Pt underwent xray which was negative for osteo, arterial duplex showing severe obstructive disease bilaterally and is awaiting MRI PMHx: HLD, HTN, DMII (A1c 6.9) PSHx: Septoplasty Allergies: NKDA SH: Smoked 50PPD but quit 10 years ago Narrative: Ongoing left foot pain, WBC 18, US of foot today showing abscess adjacent to 5th digit Exam Vital Signs Temp Pulse Resp BP Pulse Ox O2 Del Method 97.8 F 100 19 96/72 100 Room Air 05/31/24 11:45 05/31/24 15:19 05/31/24 12:28 05/31/24 15:19 05/31/24 12:28 05/31/24 11:45 Constitutional Constitutional: no acute distress Routine Respiratory Exam Respiratory: Present no resp distress Routine Extremities Exam Comments: left foot erythema slight improvement compared to previously made markings, but 4th and 5th digits remain discolored and there is tenderness laterally Results Results: Laboratory Laboratory results: results reviewed Results: Imaging Imaging narrative: US foot reviewed Assessment & Plan Plan 73M with HTN, HLD, DMII presenting with left foot cellulitis and abscess shown on US today I&D of left foot tomorrow Continue abx Appreciate vascular recs
[2024-05-31] MEDS: INSULIN LISPRO (AdmeLOG) 1 UNIT/0.01 ML UNIT SC ×2 (17:07→20:24)
--- NOTE | 2024-05-31 17:30 | PC.NURSE ---
I called [facility] transfer center, to initiate a transfer to higher level of care, for a vascular surgeon, for a severe sandra. obstruction. I reached a voicemail and was asked to leave a message. Message left with pharmacist in charge owner's #. Pt is currently down in MRI. Will attempt to call back at a later time.
--- NOTE | 2024-05-31 18:45 | PC.NURSE ---
2 MG given to patient in MRI d/t pt having discomfort during procedure @ approx 1810 . on a flacc scale pain 7/10. Wasted 8MG in med room witness by Tyesha MEAD
[2024-05-31] MEDS: Silvasorb Gel 45 ML TUBE TOP (18:47)
[2024-05-31] MEDS: DOXYCYCLINE INJ 100 MG in SODIUM CHLORIDE 0.9% (P) 100 ML IV (20:16)
[2024-05-31] MEDS: ATORVASTATIN CALCIUM 20 MG TABLET 80 MG PO (20:16)
[2024-05-31] MEDS: HYDROcodone/APAP 5/325 TABLET 1 TAB PO (21:00)
--- NOTE | 2024-05-31 21:06 | PC.NURSE ---
Tertiary transfer order noted, attempted to call [facility], no answer, left a voice message.
--- NOTE | 2024-05-31 21:16 | PC.NURSE ---
Called [facility], spoke with Megan, transfer center, requesting latest doctors note, face sheet, imaging and labs.
--- NOTE | 2024-05-31 21:22 | PC.NURSE ---
Spoke with Megan at [facility] transfer center, informed her that pt is scheduled for a procedure, I&D in am. Megan advised to try and contact other facility as they are very busy.
--- NOTE | 2024-05-31 23:01 | PC.NURSE ---
Megan from [facility] called back, stated that she has not received any paperworks needed. Attempted to fax all paperworks needed using different fax machine, not going through. MRI result emailed to Megan as requested.
--- NOTE | 2024-05-31 23:07 | PC.NURSE ---
Contacted [facility] for tertiary transfer needed, spoke with Kurtis, stated that transfer may not occur tonight but paperworks can get started. Will fax paperworks needed.
--- NOTE | 2024-05-31 23:31 | PC.NURSE ---
Receive a call back from Kurtis at [facility], all paperworks received. Stated that Dr. Martinez is on tomorrow and most likely will take patient as soon as insurance is authorized. Will go ahead and cancel [facility] for now as per Kurtis, unless further assistance is needed then will reach out to them . Please follow up [facility] in am. Called [facility] and spoke with Megan, cancelled transfer.
[2024-06-01] VITALS (43 sets, daily range): BP systolic 88–121; BP diastolic 56–77; PULSE 88–133; RESP 12–24; TEMP 36.3–37.2; O2SAT 94–100
[2024-06-01] MEDS: MORPHINE SULF INJ 10 MG/ML VIAL 2 MG IVP ×3 (00:10→16:32)
[2024-06-01] MEDS: metroNIDAZOLE/NS 500 MG IVPB 500 MG/100 ML BAG 200 MG IV ×3 (05:59→23:19)
[2024-06-01] MEDS: HEPARIN SOD INJ 5000 UNIT/ML VIAL SC ×2 (06:00→22:03)
[2024-06-01 06:11] LABS: Basophils % (Auto) 0 % (0-2.5); Eosinophils # (Auto) 1.2 Thou/mm3 (0.0-0.5); Eosinophils % (Auto) 6 % (0-10); Hematocrit 23.1 % (41.0-53.0); Immature Granulocytes % (Auto) 3 % (0-0); Immature Granulocytes Auto 0.72 Thou/mm3 (0.00-0.00); Lymphocytes # (Auto) 1.3 Thou/mm3 (1.0-4.8); Lymphocytes % (Auto) 6 % (10-50); Mean Corpuscular HGB Conc 34.6 g/dl (31.0-37.0); Mean Corpuscular Hemoglobin 32.1 pg (25.0-35.0); Mean Corpuscular Volume 93 fL (80-100); Monocytes # (Auto) 1.7 Thou/mm3 (0.0-0.8); Monocytes % (Auto) 8 % (0-12); Neutrophils # (Auto) 16.8 Thou/mm3 (1.8-7.7); Neutrophils % (Auto) 77 % (37-80); Nucleated Red Blood Cell # 0.03 Thou/mm3 (0.00-0.00); Nucleated Red Blood Cell % 0 /100 WBC (0); Platelet Count 252 Thou/mm3 (140-440); Red Blood Count 2.49 Miln/mm3 (4.50-5.90)
[2024-06-01 06:13] LABS: White Blood Count 21.7 Thou/mm3 (3.8-10.6)
[2024-06-01] MEDS: HYDROmorphone INJ 2 MG/ML VIAL 0.5 MG IVP (06:15)
[2024-06-01 06:34] LABS: Alanine Aminotransferase 54 U/L (10-49); Albumin, Serum 3.3 gm/dL (3.4-4.8); Albumin/Globulin Ratio 1.4 (1.2-2.2); Alkaline Phosphatase 107 U/L (46-116); Anion Gap 7 (7-16); Aspartate Amino Transferase 107 U/L (0-34); BUN/Creatinine Ratio 23 Ratio (12-20); Bilirubin,Total 0.3 mg/dL (0.3-1.2); Blood Urea Nitrogen 35 mg/dL (9-23); Calcium 9.1 mg/dL (8.3-10.6); Calcium (Corrected) 9.7 mg/dL (8.5-10.1); Carbon Dioxide 22.5 mMol/L (20.0-31.0); Chloride 106 mMol/L (98-107); Creatinine (Component) 1.5 mg/dL (0.6-1.3); Estimated Creatinine Clearance 37.3 mL/min (>60); Globulin 2.4 gm/dL (2.3-3.5); Glucose 100 mg/dL (74-106); Magnesium 1.7 mg/dL (1.6-2.6); Osmolality,Calculated 278 (275-295); Phosphorous 2.9 mg/dL (2.4-5.1); Potassium 4.8 mMol/L (3.4-5.1); Sodium 135 mMol/L (136-145); Total Protein 5.7 gm/dL (5.7-8.2); eGFR 49 See Note
[2024-06-01 07:10] LABS: Respiratory Syncytial Virus Ag Negative (Negative)
--- NOTE | 2024-06-01 08:29 | PC.CM ---
Addendum entered by Lucy Dalton RN 06/01/24 19:04: Patient needs transfer for left foot cellulitis in setting of bilateral arterial disease. Patient needs vascular for left lower extremity angioplasty. Patient will be getting an I&D with Dr. Hutton tomorrow. I reached out to [facility] and initiated transfer. Packet started and placed on transfer nurse desk.? We will need to work on getting authorization. Original Note: I reviewed notes and I see patient needs to be transferred for vascular surgeon, Dr. Greer consulted and assessed the patient. He recommended for decompression of the left foot followed by left lower extremity angioplasty. Lower extremity angioplasty currently unavailable at [facility] and patient will need to be transferred to a tertiary center for treatment. General surgeon, Dr. Hutton will perform I&D of left foot abscess.
[2024-06-01] MEDS: PANTOPRAZOLE INJ 40 MG VIAL IVP (09:08)
[2024-06-01] MEDS: DOXYCYCLINE INJ 100 MG in SODIUM CHLORIDE 0.9% (P) 100 ML IV ×2 (09:08→23:20)
--- NOTE | 2024-06-01 09:29 | PC.SS ---
Follow up note: Pt is higher level of care transfer.
[2024-06-01] MEDS: ALBUTEROL/IPRATROPIUM (Duoneb) RT SOL 3 ML NEBU INH (10:00)
[2024-06-01] MEDS: CEFEPIME INJ 1 GM in SODIUM CHLORIDE 0.9% (P) 50 ML IV (10:15)
--- NOTE | 2024-06-01 12:20 | PD.EVENT ---
Documentation for date of: 06/01/24 Event Note Event Note: Pt was taken to OR for planned incision and drainage of left foot abscess under MAC anesthesia. After medications were given he developed supraventricular tachycardia and anesthesiologist recommended terminating procedure. We will obtain EKG and request cardiology evaluation, will reschedule for tomorrow AM if pt is safe to proceed by then. I explained to pt's who expressed understanding and conferred with hospitalist team
--- NOTE | 2024-06-01 12:22 | EKG_ITS ---
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
--- NOTE | 2024-06-01 12:30 | SUR.PHASEI ---
pt received from OR in recovery bay 7. pt awake and alert, breathing unlabored on oxymask 8l. pt tachycardiac in afib rvr. Kike OCLEMAN at bedside, EKG order stat and metal technician consulted and aware of pt. report received from Farhana SHEEHAN and Jesús MEAD. Case was cancelled pt brought to [facility] for monitoring.
[2024-06-01] MEDS: AMIODARONE 150 MG IVPB 150 MG/100 ML BAG 600 MG IV (13:10)
--- NOTE | 2024-06-01 13:26 | ESPR_ITS ---
<Statement entered by Hipolito Carbajal MD - 06/02/24 17:50> I & D cancelled as patient was fount to have SVT on operating table. Will need cardiac clearance prior to procedure. I discussed with and supervised the analysis intern physician involved in the care of this patient. Patient assessment and plan was discussed with entire medicine team, including my attending. I agree with the assessment and plan as documented by analysis intern doctor. Patient care was discussed with my attending physician Dr. Sergio Carbajal, PGY-2 Documentation for date of: 06/01/24 Subjective Subjective Interval history: LPatient was seen and examined at bedside this AM. No acute exents overnight. Patient tolerating diet, adequate urine output and mentation is at baseline. Patient complains of 9/10 left foot pain but adequate relief with pain medication. Patient also complains a nonproductive cough. Will order DuoNebs x 1, normal saline nasal spray and guaifenesin. Patient scheduled for I&D of left foot abscess today. In the OR patient developed an SVT and procedure was subsequently canceled. He was started on amiodarone infusion by anesthesia and cardiology, Dr. Eron Garcia was consulted. Exam Vital Signs Temp Pulse Resp BP Pulse Ox O2 Del Method 97.4 F 105 H 20 99/66 100 Room Air 06/01/24 11:25 06/01/24 13:10 06/01/24 11:25 06/01/24 13:10 06/01/24 11:25 06/01/24 11:25 Narrative Exam Constitutional Alert, oriented x 3 and mild distress. Elderly male HEENT Vision grossly intact. Patent nares. Trachea midline Respiratory Chest normal on inspection and clear auscultation bilaterally Cardiovascular S1 and S2 audible, RRR. No murmurs carotid bruit. No gross JVD. Abdominal Soft and non tender to palpation in all quadrants. BS + Genitourinary No bladder tenderness, no flank pain. Normal to palpation Musculoskeletal Extremities tone within normal limits. 1+ edematous left foot. Dorsalis pedis and posterior tibial artery pulses weak in bilateral lower limbs. Neurological CN II - XII grossly intact. Extremity motor and sensation grossly intact. Skin Warm, dry and intact. Left foot swollen, erythematous, 3 x 3 cm eschar noted on dorsal aspect of foot. Right fifth toe has 1x1cm area of necrosis Psychiatric Patient has good affect, is cooperative Objective Labs 06/04/24 04:41 06/04/24 04:41 Labs: Laboratory Results - last 24 hr 06/01/24 06/01/24 04:30 05:25 WBC 21.7 H RBC 2.49 L Hgb 8.0 L Hct 23.1 L MCV 93 MCH 32.1 MCHC 34.6 RDW Std Deviation 44.0 H Plt Count 252 Neut % (Auto) 77 Lymph % (Auto) 6 L [place] % (Auto) 8 Eos % (Auto) 6 Baso % (Auto) 0 Neut # (Auto) 16.8 H Lymph # (Auto) 1.3 [place] # (Auto) 1.7 H Eos # (Auto) 1.2 H Baso # (Auto) 0.0 Immature Gran # (Auto) 0.72 H Absolute Nucleated RBC 0.03 H Immature Gran % 3 H Nucleated RBC % 0 Sodium 135 L Potassium 4.8 Chloride 106 Carbon Dioxide 22.5 Anion Gap 7 BUN 35 H Creatinine 1.5 H Estim Creat Clear Calc 37.3 L eGFR 49 L BUN/Creatinine Ratio 23 H Glucose 100 Calculated Osmolality 278 Calcium 9.1 Corrected Calcium 9.7 Phosphorus 2.9 Magnesium 1.7 Total Bilirubin 0.3 AST 107 H ALT 54 H Alkaline Phosphatase 107 Total Protein 5.7 Albumin 3.3 L Globulin 2.4 Albumin/Globulin Ratio 1.4 RSV Rapid Negative Quality Measures Quality Measures VTE prophylaxis Advance care planning discussed with:: patient Assessment & Plan Assessment Current Active Medications: Generic Name Dose Route Start Last Admin Trade Name Freq PRN Reason Stop Dose Admin Acetaminophen 650 mg 05/26/24 20:03 Acetaminophen 325 Mg Tablet PO 06/25/24 20:02 Q6H PRN PAIN SCALE 1-3 (mild Acetaminophen 650 mg 05/26/24 20:03 Acetaminophen 325 Mg Tablet PO 06/25/24 20:02 Q6H PRN Fever >100 Hydrocodone Bitart/Acetaminophen 1 tab 05/31/24 20:40 05/31/24 21:00 Hydrocodone/Apap 5/325 Tablet PO 06/05/24 20:39 1 tab Q4HR PRN Administration PAIN SCALE 4-6 Albuterol/Ipratropium 3 ml 05/28/24 21:02 05/31/24 12:26 Albuterol/Ipratropium (Duoneb) Rt Marjorie 3 Ml Nebu INH 06/27/24 21:01 3 ml Q6HRRT PRN Administration SHORTNESS OF BREATH OR WHEEZE Atorvastatin Calcium 80 mg 05/26/24 21:00 05/31/24 20:16 Atorvastatin Calcium 20 Mg Tablet PO 06/25/24 20:59 80 mg HS LEXI Administration Benzonatate 100 mg 05/30/24 09:28 05/31/24 20:16 Benzonatate 100 Mg Capsule PO 06/29/24 09:27 100 mg Q8HR PRN Administration COUGH OR CONGESTION Protocol Citric Acid/Sodium Citrate 30 ml 05/31/24 09:00 05/31/24 20:24 Citric Acid/Sodium Citr 15 Ml Udc (Bicitra) PO 06/30/24 08:59 30 ml BID LEXI Administration Dextrose 25 ml 05/26/24 20:10 Dextrose 50%-Water Inj 50 Ml Syringe IV 06/25/24 20:09 Q15MIN PRN BG 50-70 responsive npo pt Dextrose 50 ml 05/26/24 20:10 Dextrose 50%-Water Inj 50 Ml Syringe IV 06/25/24 20:09 Q15MIN PRN BG <50 OR BG <70 & pt unresponsive Glucagon 1 mg 05/26/24 20:10 Glucagon Inj 1 Mg Vial IM Q15MIN PRN BG <70, and no IV access Guaifenesin 200 mg 06/01/24 10:00 Guaifenesin Syrup 200 Mg/10 Ml Udc PO 07/01/24 09:59 TID LEXI Protocol Heparin Sodium (Porcine) 5,000 unit 05/27/24 06:00 06/01/24 06:00 Heparin Sod Inj 5000 Unit/Ml Vial SC 06/10/24 05:59 5,000 unit Q8HR LEXI Administration Metronidazole 500 mg in 100 mls @ 200 mls/hr 05/27/24 15:05 06/01/24 05:59 Flagyl 500 Mg Iv IV 06/03/24 15:04 200 mls/hr Q8HR LEXI Administration Cefepime HCl 1 gm/ Sodium 50 mls @ 100 mls/hr 05/28/24 09:00 06/01/24 10:15 Chloride IV 06/04/24 08:59 100 mls/hr DAILY LEXI Administration Doxycycline Hyclate 100 mg/ 100 mls @ 100 mls/hr 05/31/24 21:00 06/01/24 09:08 Sodium Chloride IV 06/07/24 20:59 100 mls/hr BID LEXI Administration Amiodarone HCl/Dextrose 360 mg in 200 mls @ 33.333 mls/hr 06/01/24 13:00 Nexterone Ivpb IV 06/01/24 18:59 .Q6H ONE Insulin Human Lispro 0 unit 05/26/24 21:00 05/31/24 20:24 Insulin Lispro (Admelog) 1 Unit/0.01 Ml Unit SC 06/25/24 20:59 2 unit ACHS LEXI Administration Protocol Morphine Sulfate 2 mg 05/28/24 12:27 06/01/24 04:22 Morphine Sulf Inj 10 Mg/Ml Vial IVP 06/05/24 12:26 2 mg Q4HR PRN Administration Pain-breakthrough Ondansetron HCl 4 mg 05/26/24 20:03 Ondansetron Inj 2 Mg/Ml Inj 2 Ml IV 06/25/24 20:02 Q6H PRN NAUSEA OR VOMITING Protocol Pantoprazole Sodium 40 mg 05/27/24 09:00 06/01/24 09:08 Pantoprazole Inj 40 Mg Vial IVP 06/26/24 08:59 40 mg QDAY LEXI Administration Plan 73-year-old male PMHx of T2DM, HLD, HTN admitted for left foot cellulitis. Started on ANTIBIOTICS. Additionally, he is being managed for GORDON, hyperkalemia, and hyponatremia. Atrial fibrillation with RVR?new onset Patient will schedule for I&D today. After administration of anesthesia he went into A-fib with RVR. EKG showed A-fib with RVR, along with ST depressions in leads V3, V4, V5, V6, and ST elevation in aVR indicating ischemia/coronary artery disease. [id number]: 3 points [age, HTN, DM] Patient was started on amiodarone infusion Plan: ? Continue amiodarone infusion ? May need anticoagulation ? Cardiology, Dr. Eron Garcia consulted. Appreciate recommendations. Left foot cellulitis Bilateral peripheral arterial disease Leukocytosis Presenting with 1 month of left foot swelling, erythema and pain. On exam Left foot swollen, erythematous, 3 x 3 cm eschar noted on dorsal aspect of foot. Right fifth toe has 1x1cm area of necrosis He also had small skin lesion of fifth digit of right foot. Pulses diminished in left foot compared to right. Bilateral lower limb duplex arterial ultrasound completed and significant for bilateral peripheral arterial disease with left SOILA 0.7 X-ray was negative for bony destruction. Abdomen CTA completed on 05/30/2024: 50-70% stenosis right superficial femoral artery. 50% stenosis left superficial femoral artery. Left foot ultrasound revealed 3.6 x 0.5 x 1.9 cm abscess adjacent to the fifth digit. WBC 23.1 ---> 18.9 CRP 2.6 Blood culture NBG x 48 hours preliminary Urine culture no growth. Patient received 1 day of ceftriaxone 1 g IV daily and doxycycline 100 Mg IV twice daily from [05/26 - 05/27] Received Vancomycin 1 G IV tid for 5 days from [05/27 - 05/31] Plan: ? Continue aspirin 81 Mg po daily - Continue Doxycycline 100mg IV BID [05/31 - Continue cefepime 1 g IV daily from 05/28 for a total of 10 days treatment to be completed on 06/04/2024 ? Continue metronidazole 500 Mg IV every 8 hourly on [05/27?VF - Pending Transfer to tertiary centre for vascular surgery - Vascular surgeon, Dr. Greer consulted and assessed the patient. He recommended for decompression of the left foot followed by left lower extremity angioplasty. Lower extremity angioplasty currently unavailable at [facility] and patient will need to be transferred to a tertiary center for treatment. - General surgeon, Dr. Hutton will perform I&D of left foot abscess today. Pulmonary coccidiomycosis Epistaxis - resolved Nonproductive cough Pulmonary edema?resolving Patient complains of shortness of breath and a nonproductive cough with mild epistaxis. Chest x-ray showed increased vascular markings and pulmonary edema Cocci IgM positive Plan: - Fluconazole 400 Mg p.o. x 1 ? Fluconazole 200 Mg p.o. daily from 06/02 Prerenal GORDON on CKD stage IIIA - improving Hyperkalemia - resolved Hypoosmolar hyponatremia - resolved Non-anion gap metabolic acidosis - resolved Likely dehydrational. Sodium 124 ---> 132 , potassium 5.2---> 4.8 CR 3 ---> 1.4 (baseline 1.6), BUN 52 ---> 34 DDx: RTA type IV, medication induced Plan: ? Renally dose medication ? Avoid nephrotoxic agents ? Nephrology, Dr Malhotra consulted. Appreciate recommendations Primary HTN Hypotension Hyperlipidemia BP 139/59 Plan: ? Continue home ATORVASTATIN 80 mg HS Insulin-dependent diabetes mellitus type 2 [6.9%] Fasting blood glucose 77 Plan: ? Sliding scale insulin to cover for blood glucose spikes ? Hypoglycemic procedures in place Health maintenance: Disposition: Pending transfer to higher level of care for vascular surgery. I&D . Cardio recs Diet: Low consistent carb Lines: pIVs GI Prophylaxis: Pantoprazole Thrombo Prophylaxis: Heparin 5000 units SC every 8 hours Code status: FULL CODE Plan of care discussed with Attending Dr. Moore and PGY2 Dr. Raven Rios MD PGY 1 Attending Provider Attestation/Addendum I attest that I was physically present for the evaluation, physical examination, lab and imaging review of the patient with the residents. I discussed the case with the residents and agree with the findings and plans of care as documented above. Patient has been planned for transfer to [facility] for left lower extremity angioplasty with vascular surgery. Before that, patient was planned for I&D for left foot abscess with general surgery, while in the OT, patient developed A-fib with RVR. He was started on amiodarone infusion. EKG also showed ST depression in leads V3, V4, V5, V6 and aVR, we will obtain troponin, cardiology consult, and continue with amiodarone. Patient continues to be on doxycycline, cefepime and metronidazole. Also noted to have cocci IgM positive, patient has been complaining of cough and shortness of breath. We will start fluconazole 400 mg today followed by 200 mg daily from tomorrow. Kidney function have been improving. Continues to be on aspirin and atorvastatin. Evelyn Moore MD
[2024-06-01 13:47] LABS: Cocci Serology, IgM Positive (Negative)
[2024-06-01 13:49] LABS: Cocid Sro, CF/ID (UCD) NO CHG* See Sep Rpt
[2024-06-01] MEDS: AMIODARONE 360 MG IVPB 360 MG/200 ML BAG 33.333 MG IV (13:55)
--- NOTE | 2024-06-01 16:38 | ESCONSULT_ITS ---
<Statement entered by Raul Garcia MD - 06/04/24 17:36> I personally evaluate the patient examined patient has peripheral artery disease nonhealing wounds and abscess apparently was having procedure before the procedure was started during anesthesia developed A-fib RVR EKG showed marked ST depression across the precordial leads and aVR elevation surgery multivessel CAD. Patient was given amiodarone IV bolus followed by infusion as per my recommendation continue to convert to sinus rhythm once rates controlled well patient converts to sinus rhythm patient can have I&D but will probably require coronary angiogram at some point for assessment of CAD because severe is ischemia continue amiodarone and repeat enzymes possible NSTEMI demand ischemia. I evaluated the patient with Dr. Demetris Mederos, PGY 1 agree with treatment plan recommendations HPI Data of Consult Requesting Physician: Delia Leal MD Admitting Provider: Todd Real MD Attending Provider: Delia Leal MD Primary Care Provider: Olivia Zuniga PA-C Consult Narrative Reason for consult: Afib w/ RVR, now onset History of present illness: 73-year-old male PMHx of T2DM, HLD, HTN, presented with left foot swelling and pain x 1 month. He is [place]-speaking but able to understand some Georgian, at bedside assisted with interpretation. Foot pain has been worsening over the last month. Does not recall specific foot injury, insect bite, or wound. He was seen by PCP day of admission who recommended hospital admission given severe cellulitis, GORDON and leukocytosis. PCP also started oral ABX. Denied previous similar symptoms, fever, chills, weight loss, headache, fall, trauma, chest pain, sob, cough, GI or urinary symptoms. No history of renal, liver or cardiovascular disease other than above mentioned. Patient received IV antibiotics for cellulitis. Patient also received duplex scan BLE, which revealed severe obstructing peripheral artery disease. MRI was performed which ruled out osteomyelitis. Abdominal CTA with iliofemoral runoff was ordered, showed severe bilateral peripheral artery disease with femoral arterial stenosis and trifurcation arterial obstructive disease beneath the knees bilaterally. Vascular surgery consulted, recommended controlling sepsis and then transfer for vascular angioplasty. Ultrasound of left foot revealed abscess, patient was scheduled for an I&D. Just prior to the procedure, patient developed A-fib with RVR, associated with palpitations, no chest pain or shortness of breath. Patient received amiodarone bolus followed by amiodarone infusion, patient returned to sinus rhythm, tachycardic with heart rate 110. EKG showed A-fib with RVR, signs of ischemia with ST depressions in leads V3, V4, V5, V6, ST elevation in lead aVR. Cardiology was consulted. Labs today significant for WBC 21.7, hemoglobin 8.0, potassium 4.8, magnesium 1.7, BUN 35, creatinine 1.5, EGFR 49. ED COURSE: WBC 26.4, Hgb 11.5 around baseline. Sodium 122, potassium 5.2, CR 2.5 (baseline 1.6), BUN 68, GFR 27 (baseline 46), GLUCOSE 120, AST 76 and ALT 77. Left foot x-ray showed no anjelica cortical bone destruction. PMHx: HLD, HTN, T2DM PSHx: Septoplasty MEDS: Pending med rec ALLERGIES: NKA SH: Former history of smoking 1 pack per day for about 50 years, quit about 10 years ago, denies current alcohol use, denies recreational drug use cc:: cc: Delia Leal MD Review of Systems Review of Systems Systems Reviewed: All systems reviewed, normal except as documented Exam Vital Signs Temp Pulse Resp BP Pulse Ox O2 Del Method O2 Flow Rate 98 F 101 H 15 105/65 96 Room Air 4 06/01/24 16:00 06/01/24 16:00 06/01/24 16:00 06/01/24 16:00 06/01/24 16:00 06/01/24 11:25 06/01/24 13:45 Narrative Exam PE: Gen: Well-developed and well-nourished. Mildly lethargic. HEENT: NCAT, PERRLA, EOMI, MMM, anicteric conjunctivae. CVS: normal S1 and S2. RRR. No M/R/G. Diminished peripheral pulses BLE. Resp: CTA B/L. No rhonchi, rales, crackles or wheezing. Abd: soft, non-tender, non-distended. MSK: Good ROM in BUE & BLE. BLE edema 2+ pitting. Left foot blanching erythema, skin peeling without drainage. Neuro: CN II-XII grossly intact. Strength 5/5 in BUE & BLE. Alert and oriented x2. Results Labs 06/01/24 05:25 06/01/24 05:25 Labs: Short CBC 06/01/24 Range/Units 05:25 WBC 21.7 H (3.8-10.6) Thou/mm3 Hgb 8.0 L (13.5-16.0) g/dL Hct 23.1 L (41.0-53.0) % Plt Count 252 (140-440) Thou/mm3 BMP 06/01/24 05:25 Sodium 135 L Potassium 4.8 Chloride 106 Carbon Dioxide 22.5 BUN 35 H Creatinine 1.5 H Glucose 100 Calcium 9.1 Liver Function 06/01/24 Range/Units 05:25 Total Bilirubin 0.3 (0.3-1.2) mg/dL AST 107 H (0-34) U/L ALT 54 H (10-49) U/L Alkaline Phosphatase 107 (46-116) U/L Albumin 3.3 L (3.4-4.8) gm/dL Quality Measures Quality Measures VTE prophylaxis Advance care planning discussed with:: patient and spouse Medications Home Medications and Allergies Allergies Allergy/AdvReac Type Severity Reaction Status Date / Time No Known Allergies Allergy Unverified 06/07/23 18:57 Visit Medications Acetaminophen (Acetaminophen 325 Mg Tablet) 650 mg PO Q6H PRN PRN Reason: PAIN SCALE 1-3 (mild Stop: 06/25/24 20:02 Acetaminophen (Acetaminophen 325 Mg Tablet) 650 mg PO Q6H PRN PRN Reason: Fever >100 Stop: 06/25/24 20:02 Hydrocodone Bitart/Acetaminophen (Hydrocodone/Apap 5/325 Tablet) 1 tab PO Q4HR PRN PRN Reason: PAIN SCALE 4-6 Stop: 06/05/24 20:39 Last Admin: 05/31/24 21:00 Dose: 1 tab Albuterol/Ipratropium (Albuterol/Ipratropium (Duoneb) Rt Marjorie 3 Ml Nebu) 3 ml INH Q6HRRT PRN PRN Reason: SHORTNESS OF BREATH OR WHEEZE Stop: 06/27/24 21:01 Last Admin: 05/31/24 12:26 Dose: 3 ml Atorvastatin Calcium (Atorvastatin Calcium 20 Mg Tablet) 80 mg PO HS LEXI Stop: 06/25/24 20:59 Last Admin: 05/31/24 20:16 Dose: 80 mg Benzonatate (Benzonatate 100 Mg Capsule) 100 mg PO Q8HR PRN; Protocol PRN Reason: COUGH OR CONGESTION Stop: 06/29/24 09:27 Last Admin: 05/31/24 20:16 Dose: 100 mg Citric Acid/Sodium Citrate (Citric Acid/Sodium Citr 15 Ml Udc (Bicitra)) 30 ml PO BID [facility] Stop: 06/30/24 08:59 Last Admin: 05/31/24 20:24 Dose: 30 ml Dextrose (Dextrose 50%-Water Inj 50 Ml Syringe) 25 ml IV Q15MIN PRN PRN Reason: BG 50-70 responsive npo pt Stop: 06/25/24 20:09 Dextrose (Dextrose 50%-Water Inj 50 Ml Syringe) 50 ml IV Q15MIN PRN PRN Reason: BG <50 OR BG <70 & pt unresponsive Stop: 06/25/24 20:09 Fluconazole (Fluconazole 100 Mg Tablet) 200 mg PO QDAY [facility] Stop: 06/09/24 08:59 Glucagon (Glucagon Inj 1 Mg Vial) 1 mg IM Q15MIN PRN PRN Reason: BG <70, and no IV access Guaifenesin (Guaifenesin Syrup 200 Mg/10 Ml Udc) 200 mg PO TID [facility]; Protocol Stop: 07/01/24 09:59 Heparin Sodium (Porcine) (Heparin Sod Inj 5000 Unit/Ml Vial) 5,000 unit SC Q8HR [facility] Stop: 06/10/24 05:59 Last Admin: 06/01/24 06:00 Dose: 5,000 unit Metronidazole (Flagyl 500 Mg Iv) 500 mg in 100 mls @ 200 mls/hr IV Q8HR [facility] Stop: 06/03/24 15:04 Last Infusion: 06/01/24 16:15 Dose: Infused Doxycycline Hyclate 100 mg/ (Sodium Chloride) 100 mls @ 100 mls/hr IV BID [facility] Stop: 06/07/24 20:59 Last Admin: 06/01/24 09:08 Dose: 100 mls/hr Amiodarone HCl/Dextrose (Nexterone Ivpb) 360 mg in 200 mls @ 33.333 mls/hr IV .Q6H ONE Stop: 06/01/24 18:59 Last Admin: 06/01/24 13:55 Dose: 33.333 mls/hr Cefepime HCl 2 gm/ Sodium (Chloride) 50 mls @ 100 mls/hr IV Q12HR [facility] Stop: 06/04/24 08:59 Insulin Human Lispro (Insulin Lispro (Admelog) 1 Unit/0.01 Ml Unit) 0 unit SC ACHS [facility]; Protocol Stop: 06/25/24 20:59 Last Admin: 06/01/24 12:30 Dose: Not Given Morphine Sulfate (Morphine Sulf Inj 10 Mg/Ml Vial) 2 mg IVP Q4HR PRN PRN Reason: Pain-breakthrough Stop: 06/05/24 12:26 Last Admin: 06/01/24 16:32 Dose: 2 mg Ondansetron HCl (Ondansetron Inj 2 Mg/Ml Inj 2 Ml) 4 mg IV Q6H PRN; Protocol PRN Reason: NAUSEA OR VOMITING Stop: 06/25/24 20:02 Pantoprazole Sodium (Pantoprazole Inj 40 Mg Vial) 40 mg IVP QDAY [facility] Stop: 06/26/24 08:59 Last Admin: 06/01/24 09:08 Dose: 40 mg Discontinued Medications Hydrocodone Bitart/Acetaminophen (Hydrocodone/Apap 10/325 Tab) 1 tab PO Q4HR PRN PRN Reason: PAIN SCALE 7-10 (Severe Stop: 05/31/24 20:02 Last Admin: 05/27/24 09:28 Dose: 1 tab Hydrocodone Bitart/Acetaminophen (Hydrocodone/Apap 10/325 Tab) 1 tab PO Q4HR PRN PRN Reason: PAIN SCALE 4-10(Mod-Sev Stop: 05/31/24 20:02 Last Admin: 05/31/24 08:22 Dose: 1 tab Albuterol/Ipratropium (Albuterol/Ipratropium (Duoneb) Rt Marjorie 3 Ml Nebu) 3 ml INH X1 ONE Stop: 05/31/24 12:19 Last Admin: 05/31/24 15:31 Dose: Not Given Albuterol/Ipratropium (Albuterol/Ipratropium (Duoneb) Rt Marjorie 3 Ml Nebu) 3 ml INH X1 ONE Stop: 06/01/24 09:50 Last Admin: 06/01/24 10:00 Dose: 3 ml Aspirin (Aspirin Ec 81 Mg Tabec) 81 mg PO X1 ONE Stop: 05/26/24 20:11 Last Admin: 05/26/24 20:56 Dose: 81 mg Calcium Gluconate (Calcium Gluconate 10% Inj 1 Gm/10 Ml Vial) 1 gm IV X1 ONE Stop: 05/26/24 22:06 Last Admin: 05/26/24 22:59 Dose: 1 gm Dextrose (Dextrose 50%-Water Inj 50 Ml Syringe) 50 ml IV X1 ONE Stop: 05/26/24 22:10 Last Admin: 05/26/24 22:59 Dose: 50 ml Epoetin Nicolás (Epoetin Nicolás-Epbx Inj 10,000 Unit/Ml Vial (Esrd)) 10,000 unit SC X1 ONE Stop: 05/29/24 08:58 Last Admin: 05/29/24 10:23 Dose: 10,000 unit Fluconazole (Fluconazole 100 Mg Tablet) 400 mg PO X1 ONE Stop: 06/01/24 14:22 Furosemide (Furosemide 20 Mg Tablet) 20 mg PO X1 ONE Stop: 05/31/24 09:59 Last Admin: 05/31/24 11:13 Dose: 20 mg Furosemide (Furosemide Inj 10 Mg/Ml 4ml Vial) 40 mg IVP X1 ONE Stop: 05/31/24 14:00 Last Admin: 05/31/24 15:19 Dose: 40 mg Guaifenesin (Guaifenesin Syrup 200 Mg/10 Ml Udc) 200 mg PO X1 ONE; Protocol Stop: 05/28/24 21:03 Last Admin: 05/28/24 22:26 Dose: 200 mg Hydromorphone HCl (Hydromorphone Inj 2 Mg/Ml Vial) 0.25 mg IVP X1 ONE Stop: 05/27/24 02:02 Last Admin: 05/27/24 02:16 Dose: 0.25 mg Hydromorphone HCl (Hydromorphone Inj 2 Mg/Ml Vial) 0.5 mg IVP X1 ONE Stop: 06/01/24 06:04 Last Admin: 06/01/24 06:15 Dose: 0.5 mg Sodium Chloride (Ns) 1,000 mls @ 75 mls/hr IV .[id number] LEXI Stop: 06/25/24 20:05 Last Admin: 05/27/24 21:36 Dose: 75 mls/hr Doxycycline Hyclate 100 mg/ (Sodium Chloride) 100 mls @ 100 mls/hr IV BID LEXI Stop: 06/02/24 20:59 Last Admin: 05/26/24 22:59 Dose: 100 mls/hr Ceftriaxone Sodium/Dextrose (Rocephin/D5w 1gm Iv Premix) 50 mls @ 100 mls/hr IV QDAY [facility] Stop: 06/02/24 20:14 Last Admin: 05/27/24 09:14 Dose: 100 mls/hr Vancomycin/Sodium Chloride (Vancomycin/Ns 1 Gm Ivpb) 200 mls @ 120 mls/hr IV X1 ONE Stop: 05/27/24 10:39 Last Admin: 05/27/24 10:26 Dose: 120 mls/hr Sodium Chloride (Ns) 1,000 mls @ 999 mls/hr IV .Q1H1M ONE Stop: 05/27/24 10:26 Last Admin: 05/27/24 09:33 Dose: 999 mls/hr Cefepime HCl 2 gm/ Sodium (Chloride) 50 mls @ 100 mls/hr IV X1 ONE Stop: 05/27/24 15:33 Last Admin: 05/27/24 15:23 Dose: 100 mls/hr Cefepime HCl 1 gm/ Sodium (Chloride) 50 mls @ 100 mls/hr IV DAILY [facility] Stop: 06/04/24 08:59 Last Admin: 06/01/24 10:15 Dose: 100 mls/hr Vancomycin/Sodium Chloride (Vancomycin/Ns 500 Mg Ivpb) 100 mls @ 120 mls/hr IV X1 ONE Stop: 05/28/24 10:49 Last Admin: 05/28/24 11:15 Dose: 120 mls/hr Sodium Chloride (Ns) 1,000 mls @ 70 mls/hr IV .[id number] [facility] Stop: 06/27/24 10:26 Last Admin: 05/30/24 04:16 Dose: 70 mls/hr Vancomycin/Sodium Chloride (Vancomycin/Ns 1 Gm Ivpb) 200 mls @ 120 mls/hr IV QDAY@1000 [facility] Stop: 06/05/24 09:59 Last Admin: 05/31/24 11:34 Dose: Not Given Ferumoxytol 510 mg/ Sodium (Chloride) 117 mls @ 234 mls/hr IV X1 ONE Stop: 05/29/24 09:29 Last Admin: 05/29/24 10:25 Dose: 234 mls/hr Sodium Chloride (Ns) 1,000 mls @ 70 mls/hr IV .[id number] LEXI Stop: 06/27/24 16:00 Last Admin: 05/31/24 15:35 Dose: Not Given Sodium Chloride (Ns) 250 mls @ 999 mls/hr IV .Q16M ONE Stop: 05/31/24 12:35 Last Admin: 05/31/24 12:45 Dose: 999 mls/hr Albumin Human (Albuminar-25 Ivpb) 12.5 gm in 50 mls @ 50 mls/hr IV X1 ONE Stop: 05/31/24 14:58 Last Admin: 05/31/24 15:00 Dose: 50 mls/hr Amiodarone HCl/Dextrose (Nexterone Ivpb) 150 mg in 100 mls @ 600 mls/hr IV .Q10M ONE Stop: 06/01/24 13:08 Last Infusion: 06/01/24 13:30 Dose: Infused Insulin Human Regular (Insulin Hum Regular 1 Unit/0.01 Ml (Per Unit)) 5 unit IV X1 ONE Stop: 05/26/24 22:10 Last Admin: 05/26/24 23:00 Dose: 5 unit Ketorolac Tromethamine (Ketorolac Inj 30 Mg/Ml Vial) 30 mg IVP X1 ONE Stop: 05/26/24 18:35 Last Admin: 05/26/24 19:20 Dose: 30 mg Losartan Potassium (Losartan Potassium 25 Mg Tablet) 25 mg PO QDAY [facility] Stop: 06/30/24 08:59 Last Admin: 05/31/24 08:23 Dose: 25 mg Midodrine (Midodrine 5 Mg Tablet) 10 mg PO X1 ONE Stop: 05/31/24 14:00 Last Admin: 05/31/24 15:18 Dose: 10 mg Oxycodone/Acetaminophen (Oxycodone/Apap 5/325 Tablet) 1 tab PO Q6H PRN PRN Reason: PAIN SCALE 4-6 (Moderate Stop: 05/31/24 20:02 Last Admin: 05/27/24 03:13 Dose: 1 tab Pharmacy Consult (Vancomycin Pharmacy To Dose 1 Each Each) 1 each IV QDAY PRN PRN Reason: CONSULT Stop: 06/26/24 08:59 Sodium Chloride (Saline Nasal 45 Ml Btl) 1 spray NASAL X1 ONE Stop: 06/01/24 09:50 Sodium Polystyrene Sulfonate (Sod Polystyrene Sulfon Susp 15 Gm/60 Ml Btl) 30 gm PO X1 ONE Stop: 05/26/24 22:10 Last Admin: 05/26/24 23:00 Dose: 30 gm Sodium Polystyrene Sulfonate (Sod Polystyrene Sulfon Susp 15 Gm/60 Ml Btl) 30 gm PO X1 ONE Stop: 05/27/24 15:00 Last Admin: 05/27/24 15:35 Dose: 30 gm Sodium Polystyrene Sulfonate (Sod Polystyrene Sulfon Susp 15 Gm/60 Ml Btl) 15 gm PO X1 ONE Stop: 05/28/24 18:53 Last Admin: 05/28/24 20:07 Dose: 15 gm Tramadol HCl (Tramadol Hcl 50 Mg Tablet) 50 mg PO X1 ONE Stop: 05/27/24 10:49 Last Admin: 05/27/24 11:10 Dose: 50 mg Assessment & Plan Plan 73-year-old male PMHx of T2DM, HLD, HTN, presenting with chief complaint of left foot swelling and pain x 1 month, admitted for cellulitis. #A-fib with RVR, new onset versus paroxysmal #ST depressions, signs of ischemia on EKG Prior to receiving I&D for left foot abscess, patient developed A-fib with RVR on the monitor. EKG showed A-fib with RVR, along with ST depressions in leads V3, V4, V5, V6, and ST elevation in aVR indicating ischemia/coronary artery disease. Patient received amiodarone bolus and is now on amiodarone infusion protocol. Following amiodarone infusion patient is back to sinus rhythm, remains tachycardic heart rate approximately 110. During this time patient endorsed palpitations, but denied chest pain, shortness of breath. Patient does not recall a similar incident in the past. Cardiology consulted for possible new onset of A-fib with RVR, cardiac clearance for I&D tomorrow. -Telemetry -Continue amiodarone infusion protocol before transitioning to p.o. amiodarone -Patient clear for I&D tomorrow #Peripheral arterial disease with ischemia of bilateral legs Presented with 1 month of left foot swelling, erythema and pain. On exam bilateral lower extremities 2+ pitting edema, diminished peripheral pulses. Left foot with blanching erythema, skin peeling, small area of necrosis. Abdominal CTA with iliofemoral runoff showed 50 to 70% stenosis of right superficial femoral artery, 50% stenosis left superficial femoral artery, severe trifurcation arterial obstructive disease below the knees bilaterally. Vascular surgeon, Dr. Greer consulted and assessed the patient. He recommended for decompression of the left foot followed by left lower extremity angioplasty. Lower extremity angioplasty currently unavailable at [facility] and patient will need to be transferred to a tertiary center for treatment. Patient would require thorough cardiac evaluation before vascular surgery, should be stable for angioplasty. Plan: -Continue aspirin 81 Mg po daily -Continue atorvastatin 80 mg p.o. at bedtime -Pending Transfer to tertiary centre for vascular surgery #Acute cocci infection #Left foot cellulitis #Epistaxis #Nonproductive cough #Pulmonary edema #Prerenal GORDON on CKD stage IIIA - improving #Hyperkalemia - resolved #Hypoosmolar hyponatremia - resolved #Non-anion gap metabolic acidosis - resolved #Primary HTN #Hypotension #Hyperlipidemia #Insulin-dependent diabetes mellitus type 2 [6.9%] Management as per primary team. DVT prophylaxis: Heparin GI prophylaxis: Protonix Diet: N.p.o. after midnight Lines: Peripheral IV Code status: Full code Plan of care discussed with attending Dr. Garcia. Demetris Mederos MD PGY?1
--- NOTE | 2024-06-01 16:59 | SUR.PHASEI ---
[id number] patient is awake, alert, breathing unlabored, pt was supposed to have I&D left foot cancelled by anesthesia provider due to cardiac arrhythmia, report received from [facility], waiting for telemetry bed assignment. Per RN report, amiodarone drip bolus bag #1 completed and amiodaron bag #2 is running at this time.
--- NOTE | 2024-06-01 17:12 | PD.RESPRO ---
Documentation for date of: 06/01/24 Subjective Subjective Interval history: The patient is a 73 year old male with PMH significant for Hypertension, hyperlipidemia and type 2 diabetes mellitus presented with chief complaint of left foot swelling that gradually worsened in last 1 month. He reported that, there could have been some foot injury or insect bite that he is not aware of. He went to see his PCP yesterday who recommended him to visit emergency department. He denied any fever or chills, headache, nausea or vomiting, chest pain or SOB, any changes in bowel or bladder habit. During evaluation, his vitals were stable, white count 23.1, hemoglobin 9.8, ESR 57, sodium level during presentation was 122 that slowly increased to 127 on IV normal saline 75 cc/h. Potassium initially was 5.2, that increased to 6.0 and trended down to 5.2. BUN 69, creatinine 2.6 which appears to be his baseline, and phosphorus 5.4. Left foot x-ray revealed no anjelica cortical bone destruction. Duplex scan lower extremity revealed severe bilateral obstructive arterial disease. Renal ultrasound revealed small kidneys with bilateral renal cortical thinning, moderate bilateral renal parenchymal scar formation. Urine electrolytes revealed creatinine 43, sodium 46, potassium 14, and chloride 24. PMH: As mentioned above PSHx: Septoplasty Allergies: No known allergies social history: Past smoker with [id number] smoking history and quit 18 years ago, denies any alcohol or recreational drug use. Medications: To be reconciled Nephrology consultation was done for further management of moderate hypovolemic normal osmolar hyponatremia, hyperkalemia and CKD. 05/28/2024: The patient was interviewed and examined at the bedside this morning. He reported pain over his left foot. Vitals were stable with soft blood pressure. Labs were significant for white count 22.0, hemoglobin 9.6. Sodium 130, potassium 4.9, BUN 63, creatinine 2.4, EGFR 28, phosphorus 5.1. We will continue with maintenance normal saline fluid 70 cc/h as patient seemed to be mildly dehydrated, and his sodium correction is at goal levels. 05/30/2024: The patient was interviewed and examined at the bedside this morning. He reported still having some pain over her left foot. Vitals were fairly stable, white count 21.0, hemoglobin 8.9, sodium 132, bicarb 19.7, BUN 39, creatinine 1.5, GFR 49 mild transaminitis with AST 72 and ALT 60. Patient is eating and drinking well, and we will discontinue IV maintenance normal saline after the current bag. 05/31/2024: The patient was interviewed and examined at the bedside this morning. He reported doing fairly well. Vitals were fairly stable. White count trending down to 18.9, hemoglobin 8.4, sodium 133, potassium 5.0, BUN 34, creatinine 1.4, EGFR 53. CTA abdomen iliofemoral runoff revealed severe trifurcation arterial obstructive disease below knees bilaterally. We stopped IV normal saline. The patient was given p.o. Lasix 20 x 1. 06/01/2024: The patient was interviewed and examined at the bedside this morning. He again reported doing fairly well. His vitals were stable with mild tachycardia, saturating 96% on room air. White count mildly trended up to 21.7, hemoglobin 8.0, sodium 135, potassium 4.8, BUN 35, creatinine 1.5, GFR 49, AST 107, ALT 54 with coccidiomycosis IgM antibody positive. Exam Vital Signs Temp Pulse Resp BP Pulse Ox O2 Del Method O2 Flow Rate 98 F 101 H 15 105/65 96 Room Air 4 06/01/24 16:00 06/01/24 16:00 06/01/24 16:00 06/01/24 16:06/01/24 16:00 06/01/24 11:25 06/01/24 13:45 Narrative Exam General: Elderly, cooperative gentleman, no acute distress, Alert and Oriented x 3 HEENT: Moist mucous membranes, oropharynx clear Neck: Supple, No masses, No JVD CVS: S1S2 Regular rate and rhythm, No murmurs, rubs or gallops Lungs: Mild bibasilar crackles, no wheeze no rhonchi Abd: Soft, NT/ND, +BS, no organomegaly Ext: Left foot swollen, erythematous, 3 x 3 cm eschar noted on dorsal aspect of foot. Right fifth toe has 1x1cm area of necrosis Psych: Appropriate mood and affect Objective Labs 06/01/24 05:25 06/01/24 05:25 Labs: Laboratory Results - last 24 hr 06/01/24 06/01/24 04:30 05:25 WBC 21.7 H RBC 2.49 L Hgb 8.0 L Hct 23.1 L MCV 93 MCH 32.1 MCHC 34.6 RDW Std Deviation 44.0 H Plt Count 252 Neut % (Auto) 77 Lymph % (Auto) 6 L [place] % (Auto) 8 Eos % (Auto) 6 Baso % (Auto) 0 Neut # (Auto) 16.8 H Lymph # (Auto) 1.3 [place] # (Auto) 1.7 H Eos # (Auto) 1.2 H Baso # (Auto) 0.0 Immature Gran # (Auto) 0.72 H Absolute Nucleated RBC 0.03 H Immature Gran % 3 H Nucleated RBC % 0 Sodium 135 L Potassium 4.8 Chloride 106 Carbon Dioxide 22.5 Anion Gap 7 BUN 35 H Creatinine 1.5 H Estim Creat Clear Calc 37.3 L eGFR 49 L BUN/Creatinine Ratio 23 H Glucose 100 Calculated Osmolality 278 Calcium 9.1 Corrected Calcium 9.7 Phosphorus 2.9 Magnesium 1.7 Total Bilirubin 0.3 AST 107 H ALT 54 H Alkaline Phosphatase 107 Total Protein 5.7 Albumin 3.3 L Globulin 2.4 Albumin/Globulin Ratio 1.4 Coccidioides IgM Ab Positive A RSV Rapid Negative Quality Measures Quality Measures VTE prophylaxis Advance care planning discussed with:: patient Assessment & Plan Assessment Current Active Medications: Generic Name Dose Route Start Last Admin Trade Name Freq PRN Reason Stop Dose Admin Acetaminophen 650 mg 05/26/24 20:03 Acetaminophen 325 Mg Tablet PO 06/25/24 20:02 Q6H PRN PAIN SCALE 1-3 (mild Acetaminophen 650 mg 05/26/24 20:03 Acetaminophen 325 Mg Tablet PO 06/25/24 20:02 Q6H PRN Fever >100 Hydrocodone Bitart/Acetaminophen 1 tab 05/31/24 20:40 05/31/24 21:00 Hydrocodone/Apap 5/325 Tablet PO 06/05/24 20:39 1 tab Q4HR PRN Administration PAIN SCALE 4-6 Albuterol/Ipratropium 3 ml 05/28/24 21:02 05/31/24 12:26 Albuterol/Ipratropium (Duoneb) Rt Marjorie 3 Ml Nebu INH 06/27/24 21:01 3 ml Q6HRRT PRN Administration SHORTNESS OF BREATH OR WHEEZE Atorvastatin Calcium 80 mg 05/26/24 21:00 05/31/24 20:16 Atorvastatin Calcium 20 Mg Tablet PO 06/25/24 20:59 80 mg HS LEXI Administration Benzonatate 100 mg 05/30/24 09:28 05/31/24 20:16 Benzonatate 100 Mg Capsule PO 06/29/24 09:27 100 mg Q8HR PRN Administration COUGH OR CONGESTION Protocol Citric Acid/Sodium Citrate 30 ml 05/31/24 09:00 05/31/24 20:24 Citric Acid/Sodium Citr 15 Ml Udc (Bicitra) PO 06/30/24 08:59 30 ml BID LEXI Administration Dextrose 25 ml 05/26/24 20:10 Dextrose 50%-Water Inj 50 Ml Syringe IV 06/25/24 20:09 Q15MIN PRN BG 50-70 responsive npo pt Dextrose 50 ml 05/26/24 20:10 Dextrose 50%-Water Inj 50 Ml Syringe IV 06/25/24 20:09 Q15MIN PRN BG <50 OR BG <70 & pt unresponsive Fluconazole 200 mg 06/02/24 09:00 Fluconazole 100 Mg Tablet PO 06/09/24 08:59 QDAY LEXI Glucagon 1 mg 05/26/24 20:10 Glucagon Inj 1 Mg Vial IM Q15MIN PRN BG <70, and no IV access Guaifenesin 200 mg 06/01/24 10:00 Guaifenesin Syrup 200 Mg/10 Ml Udc PO 07/01/24 09:59 TID LEXI Protocol Heparin Sodium (Porcine) 5,000 unit 05/27/24 06:00 06/01/24 06:00 Heparin Sod Inj 5000 Unit/Ml Vial SC 06/10/24 05:59 5,000 unit Q8HR LEXI Administration Metronidazole 500 mg in 100 mls @ 200 mls/hr 05/27/24 15:05 06/01/24 16:15 Flagyl 500 Mg Iv IV 06/03/24 15:04 Infused Q8HR LEXI Infusion Doxycycline Hyclate 100 mg/ 100 mls @ 100 mls/hr 05/31/24 21:00 06/01/24 09:08 Sodium Chloride IV 06/07/24 20:59 100 mls/hr BID LEXI Administration Amiodarone HCl/Dextrose 360 mg in 200 mls @ 33.333 mls/hr 06/01/24 13:00 06/01/24 13:55 Nexterone Ivpb IV 06/01/24 18:59 33.333 mls/hr .Q6H ONE Administration Cefepime HCl 2 gm/ Sodium 50 mls @ 100 mls/hr 06/01/24 21:00 Chloride IV 06/04/24 08:59 Q12HR [facility] Insulin Human Lispro 0 unit 05/26/24 21:00 06/01/24 12:30 Insulin Lispro (Admelog) 1 Unit/0.01 Ml Unit SC 06/25/24 20:59 Not Given ACHS [facility] Protocol Morphine Sulfate 2 mg 05/28/24 12:27 06/01/24 16:32 Morphine Sulf Inj 10 Mg/Ml Vial IVP 06/05/24 12:26 2 mg Q4HR PRN Administration Pain-breakthrough Ondansetron HCl 4 mg 05/26/24 20:03 Ondansetron Inj 2 Mg/Ml Inj 2 Ml IV 06/25/24 20:02 Q6H PRN NAUSEA OR VOMITING Protocol Pantoprazole Sodium 40 mg 05/27/24 09:00 06/01/24 09:08 Pantoprazole Inj 40 Mg Vial IVP 06/26/24 08:59 40 mg QDAY [facility] Administration Plan The patient is a 73 year old male with PMH significant for Hypertension, hyperlipidemia and type 2 diabetes mellitus presented with chief complaint of left foot swelling that gradually worsened in last 1 month was found to have left foot cellulitis, and nephrology consultation was done for the mangement of hyperkalemia, hyponatremia and GORDON on CKD. #Hyperkalemia, resolved Likely secondary to GORDON on CKD Potassium initially was 5.2, that increased to 6.0 and trended down to 4.6 after Kayexalate administration for couple of times 05/31/2024: 5.0 06/01/2024: Potassium 4.8 -Started on renal diet -Monitor daily am K. #Moderate hypovolemic hypoosmolar hyponatremia, improving Patient's sodium was as low as 122, and has been slowly being corrected to 135 05/28: Na level 130 05/30/2024: Sodium level 132 06/01/2024: Sodium level 135 -Continue to monitor BMP in the am #GORDON on CKD IIIA, GORDON improved Likely prerenal 2/2 dehydrations Patients baseline GFR is 46 and has gone down to 25 Renal ultrasound revealed small kidneys with bilateral renal cortical thinning, moderate bilateral renal parenchymal scar formation. Urine electrolytes revealed creatinine 43, sodium 46, potassium 14, and chloride 24 consistent with prerenal GORDON with BUN/Cr ration 25 05/30/2024: Creatinine 1.5, GFR 49 05/31/2024: Creatinine 1.5, GFR 53 06/01/2024: Creatinine 1.5, GFR 49 -Monitor BMP daily am -Avoid nephrotoxic drugs #HTN Currently stable -Consider adding JENNIFER/ARB in the setting of CKD with diabetes mellitus Left foot cellulitis Severe peripheral arterial disease Leukocytosis HLD T2DM -Management deferred to primary team Thank you for your opportunity to participate nephrology team in this patient care. The patient's management plan was discussed with my attending physician MD Oral Cloud MD, PGY2 Attending Provider Attestation/Addendum Patient seen and examined with resident physician Dr. Mendez. Note reviewed, agree with findings and recommendations. Patient with GORDON secondary to prerenal azotemia and underlying CKD (from hypertension, diabetes. Renal ultrasound showed moderate scarring consistent with underlying CKD. Hyperkalemia seems to be improving with medical management. Suspect from underlying renal insufficiency. Patient also with left foot cellulitis on antibiotics. Decreased circulation consistent with diabetic peripheral artery disease. Noted anemia-gave iron and Procrit. Patient will benefit from vascular evaluation for foot ulcer. Team did CTA with contrast. Showed severe peripheral vascular disease. Creatinine stable. Will monitor renal function closely. Patient was taken for I&D for the left foot abscess-during procedure noted that he has SVT, procedure aborted and cardiology was consulted for clearance.
[2024-06-01] MEDS: HYDROcodone/APAP 5/325 TABLET 1 TAB PO ×2 (17:42→22:35)
[2024-06-01] MEDS: FLUCONAZOLE 100 MG TABLET 400 MG PO (17:44)
[2024-06-01] MEDS: BENZONATATE 100 MG CAPSULE PO (17:45)
--- NOTE | 2024-06-01 18:33 | SUR.PHASEI ---
174 norco 5/325mg given PO due to pain in left foot, pt eating dinner tray at this time 174 diflucan 400mg x1 PO med given as ordered 174 benzonate 100mg PO given due to cough/congestion 175 Dr. Garcia predictive maintenance technician at bedside assessing patient, sinus tach at this time, stated to keep amiodarone running as ordered, waiting for tele bed room assignment
--- NOTE | 2024-06-01 19:02 | SUR.PHASEI ---
daughter Barron and at bedside, will be leaving for the day and took patient's belongings except for cellphone and glasses which remain at bedside, waiting for tele bed assignment
--- NOTE | 2024-06-01 20:16 | SUR.PHASEI ---
amiodarone drip bag #2 completed, Dr. Garcia called to verify order for bag #3, amiodarone drip bag #3 orered per MD, waiting for tele bed assignment
[2024-06-01] MEDS: AMIODARONE 360 MG IVPB 360 MG/200 ML BAG 16.667 MG IV (20:25)
--- NOTE | 2024-06-01 20:28 | SUR.PHASEI ---
amiodarone bag #3 started with new IV filter, pharmacy called to bring 2100 scheduled medications
--- NOTE | 2024-06-01 20:44 | SUR.PHASEI ---
patient is awake, alert, breathing unlabored, vital signs stable. operating report given to Karen MEAD, will transfer patient to tele room 278. professional development manager has already given report to television engineering teacher.Daughter Whit ([phone]) made aware of new room number.
--- NOTE | 2024-06-01 21:08 | SUR.PHASEI ---
2056 patient is awake, alert, breathing unlabored report has been given to Karen RN, patient transferred to room 278 with portable monitoring device.amiodarone drip running, 2099 scheduled medications will be administered by intensive care medicine specialist Karen.
[2024-06-01] MEDS: ATORVASTATIN CALCIUM 20 MG TABLET 80 MG PO (21:55)
[2024-06-01] MEDS: CEFEPIME INJ 2 GM in SODIUM CHLORIDE 0.9% (P) 50 ML IV (21:55)
[2024-06-01] MEDS: guaiFENesin SYRUP 200 MG/10 ML UDC PO (21:55)
[2024-06-01] MEDS: INSULIN LISPRO (AdmeLOG) 1 UNIT/0.01 ML UNIT SC (21:58)
[2024-06-01] MEDS: CITRIC ACID/SODIUM CITR 15 ML UDC (BICITRA) 30 ML PO (21:58)
[2024-06-02] VITALS (20 sets, daily range): BP systolic 100–141; BP diastolic 49–73; PULSE 58–100; RESP 15–22; TEMP 35.7–36.6; O2SAT 93–100
[2024-06-02] MEDS: Silvasorb Gel 45 ML TUBE TOP ×2 (00:30→09:45)
[2024-06-02] MEDS: guaiFENesin SYRUP 200 MG/10 ML UDC PO ×3 (05:26→21:08)
[2024-06-02] MEDS: metroNIDAZOLE/NS 500 MG IVPB 500 MG/100 ML BAG 200 MG IV ×3 (05:26→21:12)
[2024-06-02 06:05] LABS: Basophils % (Auto) 0 % (0-2.5); Eosinophils % (Auto) 5 % (0-10); Immature Granulocytes % (Auto) 4 % (0-0); Immature Granulocytes Auto 0.81 Thou/mm3 (0.00-0.00); Lymphocytes # (Auto) 1.6 Thou/mm3 (1.0-4.8); Lymphocytes % (Auto) 8 % (10-50); Mean Corpuscular HGB Conc 33.8 g/dl (31.0-37.0); Mean Corpuscular Hemoglobin 31.8 pg (25.0-35.0); Mean Corpuscular Volume 94 fL (80-100); Monocytes # (Auto) 1.7 Thou/mm3 (0.0-0.8); Monocytes % (Auto) 9 % (0-12); Neutrophils # (Auto) 14.8 Thou/mm3 (1.8-7.7); Neutrophils % (Auto) 74 % (37-80); Nucleated Red Blood Cell # 0.04 Thou/mm3 (0.00-0.00); Nucleated Red Blood Cell % 0 /100 WBC (0); Platelet Count 206 Thou/mm3 (140-440); RDW Standard Deviation 45.3 fL (35.1-43.9); Red Blood Count 2.23 Miln/mm3 (4.50-5.90); White Blood Count 19.9 Thou/mm3 (3.8-10.6)
[2024-06-02 06:09] LABS: Hemoglobin 7.1 g/dL (13.5-16.0)
[2024-06-02 06:40] LABS: Alanine Aminotransferase 52 U/L (10-49); Albumin, Serum 2.9 gm/dL (3.4-4.8); Albumin/Globulin Ratio 1.5 (1.2-2.2); Alkaline Phosphatase 98 U/L (46-116); Anion Gap 13 (7-16); Aspartate Amino Transferase 96 U/L (0-34); BUN/Creatinine Ratio 25 Ratio (12-20); Bilirubin,Total 0.2 mg/dL (0.3-1.2); Blood Urea Nitrogen 38 mg/dL (9-23); Calcium 8.5 mg/dL (8.3-10.6); Calcium (Corrected) 9.4 mg/dL (8.5-10.1); Carbon Dioxide 18.5 mMol/L (20.0-31.0); Chloride 105 mMol/L (98-107); Creatinine (Component) 1.5 mg/dL (0.6-1.3); Estimated Creatinine Clearance 37.3 mL/min (>60); Glucose 137 mg/dL (74-106); Magnesium 1.7 mg/dL (1.6-2.6); Osmolality,Calculated 282 (275-295); Phosphorous 3.1 mg/dL (2.4-5.1); Potassium 4.9 mMol/L (3.4-5.1); Sodium 136 mMol/L (136-145); Total Protein 4.9 gm/dL (5.7-8.2); eGFR 49 See Note
--- NOTE | 2024-06-02 07:58 | EKG_ITS ---
[facility] Test Date: 2024-06-02 Pat Name: FOZIA RODRIGUEZ [facility] Gender: Male Cargo Handler: TIFFANIE : 1950 Requested By: Yordan Rios Order Number: [id number] Reading MD: Yordan Rios Measurements Intervals [place] Rate: 88 P: -8 MA: 146 QRS: 18 QRSD: 93 T: 2 QT: 382 QTc: 462 Interpretive Statements SINUS RHYTHM POSSIBLE RIGHT VENTRICULAR CONDUCTION DELAY MARKED ST DEPRESSION, CONSIDER SUBENDOCARDIAL INJURY Compared to ECG 06/01/2024 12:44:33 Atrial fibrillation no longer present Incomplete right bundle-branch block no longer present ST (T wave) deviation still present /store/S0/[id number].pdf
[2024-06-02 09:21] LABS: Troponin I 12.412 ng/mL (0.0-0.045)
[2024-06-02] MEDS: AMIODARONE 360 MG IVPB 360 MG/200 ML BAG 16.667 MG IV (09:58)
[2024-06-02] MEDS: Magnesium Sulfate 4 GM Ivpb 4 GM/50 ML BAG IV (09:59)
[2024-06-02] MEDS: CITRIC ACID/SODIUM CITR 15 ML UDC (BICITRA) 30 ML PO ×2 (10:01→21:13)
[2024-06-02] MEDS: DOXYCYCLINE INJ 100 MG in SODIUM CHLORIDE 0.9% (P) 100 ML IV ×2 (10:02→21:11)
[2024-06-02] MEDS: CEFEPIME INJ 2 GM in SODIUM CHLORIDE 0.9% (P) 50 ML IV ×2 (10:03→20:34)
[2024-06-02] MEDS: PANTOPRAZOLE INJ 40 MG VIAL IVP (10:03)
[2024-06-02] MEDS: FLUCONAZOLE 100 MG TABLET 200 MG PO (10:04)
--- NOTE | 2024-06-02 10:04 | PC.CC ---
[address] Holland regarding the transfer request. Dr. Holland stated transfer request is canceled.
--- NOTE | 2024-06-02 10:08 | ECHO_ITS ---
Transthoracic Echo Report Ht (in): 64.2 Wt (lb): 133 Exam Location: Echo Lab Status: Inpatient Client [employer] Specialist: PASQUALE Saravia Indications: Procedure Performed: BP: 126 / 76 HR: Technical Quality: Good MEASUREMENTS (Male / Female) Normal Values 2D ECHO LA Systolic Diameter LX 3.9 cm 3.0 - 4.0 / 2.7 - 3.8 cm LV Ejection Fraction MOD 4C 50.5 % DOPPLER AV Peak Gradient 8.2 mmHg AV Mean Gradient 4.9 mmHg AV Velocity Time Integral 23.2 cm AI Pressure Half Time 335.0 ms LVOT Peak Gradient 2.1 mmHg LVOT Velocity Time Integral 13.1 cm MR Peak Velocity 538.0 cm/s MR Peak Gradient 115.8 mmHg TR Peak Velocity 279.0 cm/s TR Peak Gradient 31.1 mmHg PV Peak Gradient 2.6 mmHg Pulmonary Artery Diastolic Press 9.1 mmHg FINDINGS Left Ventricle The left ventricular ejection fraction is normal, estimated at 55-60%. There is grade II diastolic dysfunction of the left ventricle (pseudonormal filling pattern). Right Ventricle The right ventricle is normal in size and systolic function. The estimated right ventricular systolic pressure, 45 mmHg Left Atrium The left atrial cavity size is mildly increased. Right Atrium The right atrial cavity size is mildly increased. Atrial Septum The interatrial septum appears normal with no evidence of a shunt. Aorta The aorta is normal by two-dimensional, color flow and Doppler interrogation. Mitral Valve Moderate mitral regurgitation. Mild mitral annular calcification. Aortic Valve Trace to mild aortic valve regurgitation. Tricuspid Valve There is mild tricuspid valve regurgitation. Pulmonic Valve Mild pulmonic valve regurgitation. Vessels The pulmonary artery appears normal. The inferior vena cava pulmonary and hepatic veins appear normal. Pericardium The pericardium is normal by two-dimensional imaging. There is no significant pericardial effusion. CONCLUSIONS Indication: A-fib with RVR and elevated troponins Normal LV size and function. Estimated LVEF 55 to 60%. Normal RV size and function. Mild TR. Estimated RVSP 45 mmHg. mild to moderate PAH. Mild biatrial dilatation. Mild MAC. Moderate MR. Mild AI. Mild TR Jarad Majano (Electronically Signed) Final Date: 02 June 2024 15:46
--- NOTE | 2024-06-02 10:08 | XR_ITS ---
Examination: AP chest single view Technique one AP portable sitting chest single view Exam date and time: June 02, 2024 1043 hours Comparison May 31, 2024 INDICATIONS: Shortness of breath today. FINDINGS: Minor prominence left ventricle Mild accentuation bronchovascular markings. No lobar pneumonia or pulmonary edema Prominent osteopenia IMPRESSION: Bronchitis pattern
[2024-06-02 10:41] LABS: Ferritin 1470 ng/mL (10.5-307.3); Iron 90 mcg/dL (65-175); Percent Iron Saturation 71 % (20-55); Total Iron Binding Capacity 126 mcg/dL (250-425); Unsaturated Iron Binding 36 (225-295)
[2024-06-02 10:44] LABS: B-Type Natriuretic Peptide 564 pg/mL (0-100)
--- NOTE | 2024-06-02 10:54 | ESPR_ITS ---
<Statement entered by Hipolito Carbajal MD - 06/02/24 18:03> Patient had SVT yesterday, EKG ordered this morning which indicated ST depression, troponin this morning was 10, cardiology was called regarding findings. Patient was cleared for I & D by Dr. Hutton. Patient will undergo further ACS workup prior to discharge. I discussed with and supervised the fall internship physician involved in the care of this patient. Patient assessment and plan was discussed with entire medicine team, including my attending. I agree with the assessment and plan as documented by fall internship doctor. Patient care was discussed with my attending physician Dr. Sergio Carbajal, PGY-2 Documentation for date of: 06/02/24 Subjective Subjective Interval history: LPatient was seen and examined at bedside this AM. No acute exents overnight. Patient NPO, adequate urine output and mentation is at baseline. Patient complains of shortness of breath at rest, nonproductive cough. Yesterday patient developed new onset A-fib with RVR while in the OR. Procedure was canceled and patient started on oxygen by cardiology. This a.m. EKG showed sinus rhythm. ST elevations in aVR and V1 not NSTEMI range. ST depressions in V4?V6. Q waves in V3. Rate 88 Chest x-ray significant for mild increase bronchovascular. Bronchitis pattern. Troponin 9012 point, BNP 565 Exam Vital Signs Temp Pulse Resp BP Pulse Ox O2 Del Method O2 Flow Rate 97.4 F 92 19 115/66 98 Room Air 4 06/02/24 08:00 06/02/24 09:58 06/02/24 08:00 06/02/24 09:58 06/02/24 08:00 06/02/24 08:00 06/01/24 13:45 Narrative Exam Constitutional Alert, oriented x 3 and mild distress. Elderly male HEENT Vision grossly intact. Patent nares. Trachea midline Respiratory Chest normal on inspection and clear auscultation bilaterally. Transmitted sounds. Cardiovascular S1 and S2 audible, RRR. No murmurs carotid bruit. No gross JVD. Abdominal Soft and non tender to palpation in all quadrants. BS + Genitourinary No bladder tenderness, no flank pain. Normal to palpation Musculoskeletal Extremities tone within normal limits. 1+ edematous left foot. Dorsalis pedis and posterior tibial artery pulses weak in bilateral lower limbs. Neurological CN II - XII grossly intact. Extremity motor and sensation grossly intact. Skin Warm, dry and intact. Left foot swollen, erythematous, 3 x 3 cm eschar noted on dorsal aspect of foot. Right fifth toe has 1x1cm area of necrosis Psychiatric Patient has good affect, is cooperative Objective Labs 06/04/24 04:41 06/04/24 04:41 Labs: Laboratory Results - last 24 hr 06/01/24 06/02/24 06/02/24 05:25 04:10 08:29 WBC 19.9 H RBC 2.23 L Hgb 7.1 L Hct 21.0 L* MCV 94 MCH 31.8 MCHC 33.8 RDW Std Deviation 45.3 H Plt Count 206 D Neut % (Auto) 74 Lymph % (Auto) 8 L [place] % (Auto) 9 Eos % (Auto) 5 Baso % (Auto) 0 Neut # (Auto) 14.8 H Lymph # (Auto) 1.6 [place] # (Auto) 1.7 H Eos # (Auto) 1.0 H Baso # (Auto) 0.0 Immature Gran # (Auto) 0.81 H Absolute Nucleated RBC 0.04 H Immature Gran % 4 H Nucleated RBC % 0 Sodium 136 Potassium 4.9 Chloride 105 Carbon Dioxide 18.5 L Anion Gap 13 BUN 38 H Creatinine 1.5 H Estim Creat Clear Calc 37.3 L eGFR 49 L BUN/Creatinine Ratio 25 H Glucose 137 H Calculated Osmolality 282 Calcium 8.5 Corrected Calcium 9.4 Phosphorus 3.1 Magnesium 1.7 Iron 90 TIBC 126 L Iron Saturation 71 H Unsat Iron Binding 36 L Ferritin 1470 H Total Bilirubin 0.2 L AST 96 H ALT 52 H Alkaline Phosphatase 98 Troponin I 12.412 H* B-Natriuretic Peptide 564 H* Total Protein 4.9 L Albumin 2.9 L Globulin 2.0 L Albumin/Globulin Ratio 1.5 Coccidioides IgM Ab Positive A Blood Type O Positive Antibody Screen NEGATIVE Crossmatch See Detail Blood Bank Wristband ID Yes Quality Measures Quality Measures VTE prophylaxis Advance care planning discussed with:: patient Assessment & Plan Assessment Current Active Medications: Generic Name Dose Route Start Last Admin Trade Name Freq PRN Reason Stop Dose Admin Acetaminophen 650 mg 05/26/24 20:03 Acetaminophen 325 Mg Tablet PO 06/25/24 20:02 Q6H PRN PAIN SCALE 1-3 (mild Hydrocodone Bitart/Acetaminophen 1 tab 05/31/24 20:40 06/01/24 22:35 Hydrocodone/Apap 5/325 Tablet PO 06/05/24 20:39 1 tab Q4HR PRN Administration PAIN SCALE 4-6 Albuterol/Ipratropium 3 ml 06/02/24 13:00 Albuterol/Ipratropium (Duoneb) Rt Marjorie 3 Ml Nebu INH 07/02/24 12:59 Q6HRRT LEXI Atorvastatin Calcium 80 mg 05/26/24 21:00 06/01/24 21:55 Atorvastatin Calcium 20 Mg Tablet PO 06/25/24 20:59 80 mg HS LEXI Administration Benzonatate 100 mg 06/02/24 14:00 Benzonatate 100 Mg Capsule PO 07/02/24 13:59 Q8HR LEXI Protocol Citric Acid/Sodium Citrate 30 ml 05/31/24 09:00 06/02/24 10:01 Citric Acid/Sodium Citr 15 Ml Udc (Bicitra) PO 06/30/24 08:59 30 ml BID LEXI Administration Dextrose 25 ml 05/26/24 20:10 Dextrose 50%-Water Inj 50 Ml Syringe IV 06/25/24 20:09 Q15MIN PRN BG 50-70 responsive npo pt Dextrose 50 ml 05/26/24 20:10 Dextrose 50%-Water Inj 50 Ml Syringe IV 06/25/24 20:09 Q15MIN PRN BG <50 OR BG <70 & pt unresponsive Fluconazole 200 mg 06/02/24 09:00 06/02/24 10:04 Fluconazole 100 Mg Tablet PO 06/09/24 08:59 200 mg QDAY LEXI Administration Glucagon 1 mg 05/26/24 20:10 Glucagon Inj 1 Mg Vial IM Q15MIN PRN BG <70, and no IV access Guaifenesin 200 mg 06/01/24 10:00 06/02/24 05:26 Guaifenesin Syrup 200 Mg/10 Ml Udc PO 07/01/24 09:59 200 mg TID LEXI Administration Protocol Heparin Sodium (Porcine) 5,000 unit 05/27/24 06:00 06/02/24 05:27 Heparin Sod Inj 5000 Unit/Ml Vial SC 06/10/24 05:59 Not Given Q8HR LEXI Metronidazole 500 mg in 100 mls @ 200 mls/hr 05/27/24 15:05 06/02/24 05:26 Flagyl 500 Mg Iv IV 06/03/24 15:04 200 mls/hr Q8HR LEXI Administration Doxycycline Hyclate 100 mg/ 100 mls @ 100 mls/hr 05/31/24 21:00 06/02/24 10:02 Sodium Chloride IV 06/07/24 20:59 100 mls/hr BID LEXI Administration Cefepime HCl 2 gm/ Sodium 50 mls @ 100 mls/hr 06/01/24 21:00 06/02/24 10:03 Chloride IV 06/04/24 08:59 100 mls/hr Q12HR LEXI Administration Amiodarone HCl/Dextrose 360 mg in 200 mls @ 16.667 mls/hr 06/01/24 20:16 06/02/24 09:58 Nexterone Ivpb IV 06/02/24 20:15 16.667 mls/hr .Q12H LEXI Administration Magnesium Sulfate 4 gm in 50 mls @ 12.5 mls/hr 06/02/24 08:06 06/02/24 09:59 Magnesium Sulfate Ivpb IV 06/02/24 12:05 12.5 mls/hr X1 ONE Administration Insulin Human Lispro 0 unit 05/26/24 21:00 06/02/24 10:03 Insulin Lispro (Admelog) 1 Unit/0.01 Ml Unit SC 06/25/24 20:59 Not Given ACHS LEXI Protocol Morphine Sulfate 2 mg 05/28/24 12:27 06/01/24 16:32 Morphine Sulf Inj 10 Mg/Ml Vial IVP 06/05/24 12:26 2 mg Q4HR PRN Administration Pain-breakthrough Ondansetron HCl 4 mg 05/26/24 20:03 Ondansetron Inj 2 Mg/Ml Inj 2 Ml IV 06/25/24 20:02 Q6H PRN NAUSEA OR VOMITING Protocol Pantoprazole Sodium 40 mg 05/27/24 09:00 06/02/24 10:03 Pantoprazole Inj 40 Mg Vial IVP 06/26/24 08:59 40 mg QDAY LEXI Administration Plan 73-year-old male PMHx of T2DM, HLD, HTN admitted for left foot cellulitis. Started on ANTIBIOTICS. Additionally, he is being managed for GORDON, hyperkalemia, and hyponatremia. ACS NSTEMI type I versus type II Chronic diastolic congestive heart failure with preserved ejection fraction [EF 55-60%] Patient developed shortness of breath and nonproductive cough. [2] EKG showed A-fib with RVR, along with ST depressions in leads V3, V4, V5, V6, and ST elevation in aVR indicating ischemia/coronary artery disease. [2] EKG showed sinus rhythm. ST elevations in aVR and V1 not NSTEMI range. ST depressions in V4?V6. Q waves in V3. Rate 88 Troponin I 12.412 BNP 564 Plan: ? ASA 325 Mg p.o. x 1 - Continue atorvastatin 80 Mg p.o. at bedtime ? Cardiology, Dr. Majano consulted. Appreciate recommendations. Atrial fibrillation with RVR?new onset Patient will schedule for I&D today. After administration of anesthesia he went into A-fib with RVR. [06/01] EKG showed A-fib with RVR, along with ST depressions in leads V3, V4, V5, V6, and ST elevation in aVR indicating ischemia/coronary artery disease. [06/02] EKG showed sinus rhythm. ST elevations in aVR and V1 not NSTEMI range. ST depressions in V4?V6. Q waves in V3. Rate 88 [id number]: 3 points [age, HTN, DM] Patient was started on amiodarone infusion Plan: ? Continue amiodarone infusion ? May need anticoagulation ? Cardiology, Dr. Majano consulted. Appreciate recommendations. Left foot cellulitis Bilateral peripheral arterial disease Leukocytosis Presenting with 1 month of left foot swelling, erythema and pain. On exam Left foot swollen, erythematous, 3 x 3 cm eschar noted on dorsal aspect of foot. Right fifth toe has 1x1cm area of necrosis He also had small skin lesion of fifth digit of right foot. Pulses diminished in left foot compared to right. Bilateral lower limb duplex arterial ultrasound completed and significant for bilateral peripheral arterial disease with left SOILA 0.7 X-ray was negative for bony destruction. Abdomen CTA completed on 05/30/2024: 50-70% stenosis right superficial femoral artery. 50% stenosis left superficial femoral artery. Left foot ultrasound revealed 3.6 x 0.5 x 1.9 cm abscess adjacent to the fifth digit. WBC 23.1 ---> 18.9 CRP 2.6 Blood culture NBG x 48 hours preliminary Urine culture no growth. Patient received 1 day of ceftriaxone 1 g IV daily and doxycycline 100 Mg IV twice daily from [05/26 - 05/27] Received Vancomycin 1 G IV tid for 5 days from [05/27 - 05/31] Plan: ? Continue aspirin 81 Mg po daily - Continue Doxycycline 100mg IV BID [05/31 - Continue cefepime 1 g IV daily from 05/28 for a total of 10 days treatment to be completed on 06/04/2024 ? Continue metronidazole 500 Mg IV every 8 hourly on [05/27?VF - Pending Transfer to tertiary centre for vascular surgery - Vascular surgeon, Dr. Greer consulted and assessed the patient. He recommended for decompression of the left foot followed by left lower extremity angioplasty. Lower extremity angioplasty currently unavailable at [facility] and patient will need to be transferred to a tertiary center for treatment. - General surgeon, Dr. Hutton will perform I&D of left foot abscess once cleared by cardiology. Pulmonary coccidiomycosis Epistaxis - resolved Nonproductive cough Pulmonary edema?resolving Patient complains of shortness of breath and a nonproductive cough with mild epistaxis. Chest x-ray showed increased vascular markings and pulmonary edema Cocci IgM positive Received loading dose of Fluconazole 400mg po x 1 Plan: ? Fluconazole 200 Mg p.o. daily from 06/02 Prerenal GORDON on CKD stage IIIA - improving Hyperkalemia - resolved Hypoosmolar hyponatremia - resolved Non-anion gap metabolic acidosis - resolved Likely dehydrational. Sodium 124 ---> 132 , potassium 5.2---> 4.8 CR 3 ---> 1.4 (baseline 1.6), BUN 52 ---> 34 DDx: RTA type IV, medication induced Plan: ? Renally dose medication ? Avoid nephrotoxic agents ? Nephrology, Dr Malhotra consulted. Appreciate recommendations Primary HTN Hypotension Hyperlipidemia BP 139/59 Plan: ? Continue home ATORVASTATIN 80 mg HS Insulin-dependent diabetes mellitus type 2 [6.9%] Fasting blood glucose 77 Plan: ? Sliding scale insulin to cover for blood glucose spikes ? Hypoglycemic procedures in place Health maintenance: Disposition: Pending cardiology recommendations. Possible I&D of foot abscess by general surgery. For transfer for vascular surgery once cleared by cardiology. Diet: NPO Lines: pIVs GI Prophylaxis: Pantoprazole Thrombo Prophylaxis: Heparin 5000 units SC every 8 hours Code status: FULL CODE Plan of care discussed with Attending Dr. Moore and PGY2 Dr. Raven Rios MD PGY 1 Attending Provider Attestation/Addendum I attest that I was physically present for the evaluation, physical examination, lab and imaging review of the patient with the residents. I discussed the case with the residents and agree with the findings and plans of care as documented above. At bedside today, patient continues to complain of cough and shortness of breath but denies any chest pain or palpitations. Troponin was obtained, which came back at 12.412, patient has BNP of 564. Discussed with cardiology, recommended aspirin 325 and continuation of atorvastatin. Repeat EKG shows ST depression in aVR and V1, ST depressions in V4-V6 along with Q waves in V3. He was also noted to have hemoglobin of 7.1, dropped from 8.0 yesterday. Patient does not have any obvious source of bleeding except for his chronic wound. We will obtain FOBT. Patient undergoing I&D with general surgery for his foot abscess. Continues to be on broad-spectrum antibiotics. Continues to be on fluconazole for coccidiomycosis. Discussed with cardiology, patient will be plan for left heart catheterization for possible NSTEMI if his FOBT comes back negative. Pending transfer to higher center for possible angioplasty needing prior cardiac evaluation. Evelyn Moore MD
--- NOTE | 2024-06-02 12:00 | PD.IMPROG ---
Documentation for date of: 06/02/24 Subjective Subjective Interval history: Patient seen and examined at the bedside. Patient denies any chest pain chest pressure at the present point of time but does have some shortness of breath. Overnight events noted and patient has been have any further episodes of RVR. Heart rate is well-controlled on the telemetry and continue with amiodarone drip for now. Troponins this morning are elevated 12.0 and will need further workup for the same. Surgical team and anesthesia team contacted me again this afternoon and patient infection is apparently severe and he will not do well without the I&D significant debridement and would require urgent surgery Discussed with surgical team, anesthesia that patient is definitely highly elevated cardiac risk for the surgery. Given the urgent surgery, recommended to proceed if patient and the family understand the risks and benefits for it and recommended regional block rather than general anesthesia for the patient. Recommended type and screen, 2 units of PRBC transfusion, stat echocardiogram, FOBT, further workup of the anemia prior to any kind of cardiac intervention as detailed below Patient was diagnosed with pulmonary coccidiomycosis during this admission. Exam Vital Signs Temp Pulse Resp BP Pulse Ox O2 Del Method O2 Flow Rate 96.8 F 85 15 117/65 100 Oxy Mask 4 06/02/24 20:00 06/02/24 20:00 06/02/24 20:00 06/02/24 20:00 06/02/24 20:00 06/02/24 20:00 06/02/24 20:00 Narrative Exam General: Alert and oriented x3. In mild acute distress secondary to pain in the left foot Eyes: Pupils are equal and reactive to light bilaterally. HEENT: Atraumatic, normocephalic. No JVD noted. Mucosa moist. Cardiovascular: Normal S1 and S2. Irregularly irregular.. 3/6 systolic murmur appreciated at the apex, left leg 2+ edema and right foot 1+ Respiratory: No respiratory distress. Bilateral air entry present with occasional crackles as well as rhonchi Abdomen: Soft, nontender, nondistended. Skin: No rash. Warm to touch. Musculoskeletal: Left foot wound in dressing, cellulitis extending to the lower leg and 2+ edema. Able to move all 4 extremities. Neuro: Alert and oriented x3. No focal neuro deficits. Psych: Normal affect and mood Objective Labs 06/03/24 05:34 06/03/24 05:34 Labs: Laboratory Results - last 24 hr 06/02/24 06/02/24 06/02/24 04:10 08:29 13:40 WBC 19.9 H RBC 2.23 L Hgb 7.1 L 7.1 L Hct 21.0 L* 20.9 L* MCV 94 MCH 31.8 MCHC 33.8 RDW Std Deviation 45.3 H Plt Count 206 D Neut % (Auto) 74 Lymph % (Auto) 8 L [place] % (Auto) 9 Eos % (Auto) 5 Baso % (Auto) 0 Neut # (Auto) 14.8 H Lymph # (Auto) 1.6 [place] # (Auto) 1.7 H Eos # (Auto) 1.0 H Baso # (Auto) 0.0 Immature Gran # (Auto) 0.81 H Absolute Nucleated RBC 0.04 H Immature Gran % 4 H Nucleated RBC % 0 Sodium 136 Potassium 4.9 Chloride 105 Carbon Dioxide 18.5 L Anion Gap 13 BUN 38 H Creatinine 1.5 H Estim Creat Clear Calc 37.3 L eGFR 49 L BUN/Creatinine Ratio 25 H Glucose 137 H Calculated Osmolality 282 Calcium 8.5 Corrected Calcium 9.4 Phosphorus 3.1 Magnesium 1.7 Iron 90 TIBC 126 L Iron Saturation 71 H Unsat Iron Binding 36 L Ferritin 1470 H Total Bilirubin 0.2 L AST 96 H ALT 52 H Alkaline Phosphatase 98 Troponin I 12.412 H* 11.086 H* D B-Natriuretic Peptide 564 H* Total Protein 4.9 L Albumin 2.9 L Globulin 2.0 L Albumin/Globulin Ratio 1.5 Blood Type O Positive Antibody Screen NEGATIVE Crossmatch See Detail Blood Bank Wristband ID Yes Assessment & Plan A&P Narrative A 73-year-old male with a past medical history of type 2 diabetes mellitus, hyperlipidemia, hypertension, CKD stage III, HFpEF, last EF of 55 to 60%, normocytic normochromic anemia, initially presented to the hospital for left foot swelling pain and erythema. 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 This morning the troponins were elevated 12.0 and I was consulted again. Patient is well-known to me as outpatient and he follows up with me in the clinic. 1. NSTEMI-mostly type I versus type II given supply/demand mismatch. 2. Abnormal EKG with severe ST depressions in the the leads and minimal ST elevation in the aVR indicating possible multivessel disease. 3. New onset atrial fibrillation with RVR 4. Left foot abscess and left leg cellulitis 5. Sepsis secondary to the left foot abscess as well as the cellulitis. 6. 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 Severe PAD as noted on CTA with left greater than right lower extremity disease-mostly below the knee 8. Acute on chronic kidney disease stage III 9. Severe anemia with hemoglobin of 7.1-unclear etiology-acute on chronic anemia 10. HFrEF last EF of 55 to 60% 11. Diabetes mellitus type 2 12. Hyperlipidemia 13. Essential hypertension 14. Mild cognitive deficiency Apparently patient and has been having worsening left foot wound with discharge and is admitted to the hospital for the same foot infection. Patient was started on IV antibiotic with no significant improvement in continue to worsen with significant amount of pus in the wound. General surgery was consulted and incision and drainage was planned on 06/01/2024 and prior to the operation patient went into atrial fibrillation with RVR. Patient was started on amiodarone drip and after which she converted to normal sinus rhythm Cardiology was consulted for further evaluation and the surgery was canceled. An EKG was performed which showed significant diffuse ST depressions in all the leads with minimal ST elevation < 1mm in aVR during the A-fib with RVR episode suggesting possible multivessel disease versus left main disease. Troponins were elevated 12.0 next morning. Cardiac catheterization was considered but patient appeared to be severely septic with increasing WBC count at around 20K. His hemoglobin was low at 7.1 and patient also had GORDON since admission with a creatinine ranging between 1.5-1.9. Patient also denied any Chest pain or chest pressure except for some shortness of breath. Surgical team and anesthesia team consulted again this afternoon and patient infection is apparently severe and he will not do well without the I&D significant debridement and would require urgent surgery Recommendations: Recommend to do stat transfuse the patient with 2 unit PRBC as the anemia in addition to the A-fib with RVR because infiltrative demand ischemia for the heart. Recommended stat chest x-ray and a BNP to rule out any kind of significant. Which she does not appear to be in at the present point of time during my clinical exam. Stat echocardiogram was ordered and did not show any significant change from outpatient echo done 6 months ago for the patient with normal LVEF at 55 to 60%. Normal LV size, RV size and function. Mild TR. Mild to moderate PAH with estimated RVSP 45 mmHg. Mild biatrial dilatation. Mild MAC, moderate MR, mild AI and mild TR. EF on his outpatient nuclear stress test was also normal at around 60% and was negative at that point of time in 2023 which could be false positive stress test for balanced ischemia from multivessel disease. Surgical team and anesthesia team contacted me again this afternoon and patient infection is apparently severe and he will not do well without the I&D significant debridement and would require urgent surgery Discussed with surgical team, anesthesia that patient is definitely highly elevated cardiac risk for the surgery. Given the urgent surgery, recommended to proceed if patient and the family understand the risks and benefits for it and recommended regional block rather than general anesthesia for the patient. Will plan to do the cardiac catheterization tomorrow or day after when the patient improves from the present sepsis and his kidney function is more stable as he does not have any chest pain and chest pressure and see how he recovers from the surgery today. Recommend aspirin 325 mg x 1 and start aspirin 81 mg once daily. High intensity statin Patient will need heparin drip but he is severely anemic and recommended primary team to stop the anemia workup for now and transfuse 2 units PRBC. Plan to do FOBT also as there is no clear cause of the anemia and the patient did not have surgery and before that his hemoglobin dropped to 7.1. Will need to workup the severe anemia to the present point of time as pt needs catheterization, further interventions and he will need to be on dual antiplatelets. Heparin drip can then be started at later point of time when the workup completed and hemoglobin is stable Management of rest of the medical conditions as per primary team and other consultants. Thank you for the consult and allowing me to participate in the care of the patient. Cardiology will continue to follow. Jarad Majano M.D. Interventional Cardiology. Time Spent With Patient Time: Total time spent is greater than 50% in coordination of care (as documented) at patient's floor/unit and/or counseling patient:
[2024-06-02] MEDS: Aspirin 325 MG TABLET PO (12:07)
--- NOTE | 2024-06-02 13:23 | PD.SURPROG ---
Documentation for date of: 06/02/24 Subjective Subjective Brief History: 73M with HTN, HLD, DMII admitted with 1-month history of left foot swelling and pain. Pt has been treated with cefepime/flagy/vanc since 05/26, WBC is gradually downtrending from 26 but pt has had worsening appearance of foot prompting general surgery consultation. Pt underwent xray which was negative for osteo, arterial duplex showing severe obstructive disease bilaterally and is awaiting MRI PMHx: HLD, HTN, DMII (A1c 6.9) PSHx: Septoplasty Allergies: NKDA SH: Smoked 50PPD but quit 10 years ago Narrative: Heart rate controlled on amiodarone, troponin 12, pt feeling shortness of breath but no chest pain, WBC 19.9, Hgb 7.1 receiving 2u PRBC Exam Vital Signs Temp Pulse Resp BP Pulse Ox O2 Del Method O2 Flow Rate 96.6 F L 84 21 H 118/66 94 L Room Air 4 06/02/24 12:42 06/02/24 12:42 06/02/24 12:42 06/02/24 12:42 06/02/24 12:42 06/02/24 12:00 06/02/24 12:42 Constitutional Constitutional: chronically ill appearing Routine Respiratory Exam Respiratory: Present no resp distress Routine Extremities Exam Comments: left 5th toe necrotic, eschar of lateral aspect of foot with surrounding erythema and fluctuance Results Results: Laboratory Laboratory results: results reviewed Assessment & Plan Plan 73M with HTN, HLD, DMII presenting with left foot cellulitis and abscess, planned for I&D 06/01 however case postponed due to new onset afib RVR after induction of MAC anesthesia; since then EKG has shown ST depressions and troponin is elevated at 12, pt is undergoing cardiac workup but given the severity of infection cardiology did determine it is ok to proceed with surgery with regional block. I explained to pt and family that he may need 5th toe amputation as well as I&D, all questions were answered and they expressed understanding
[2024-06-02 13:56] LABS: Hematocrit 20.9 % (41.0-53.0)
[2024-06-02 14:03] LABS: Hemoglobin 7.1 g/dL (13.5-16.0)
[2024-06-02 14:10] LABS: Troponin I 11.086 ng/mL (0.0-0.045)
--- NOTE | 2024-06-02 14:20 | SUR.PHASEI ---
1420: Pt. AAOx4, vitals stable, breathing unlabored, no complaint of pain or nausea, dressing to left foot CDI, no active bleed noted, bilateral popliteal pulses strong and regular, report received from MD Doan and [place] MEAD.
--- NOTE | 2024-06-02 14:24 | ESOP_ITS ---
Date of Procedure 06/02/24 Pre Op Diagnosis Left foot abscess Post Op Diagnosis Same Procedure Excisional debridement of left foot necrotic tissue, incision and drainage of left foot abscess Findings Left lateral foot abscess with copious pus Procedure Description After discussion of risks and benefits with patient and family, patient was b rought to the operating room and a regional block was performed. Patient was prepped and draped in usual sterile fashion. After timeout the necrotic tissue of the lateral aspect of the left distal foot was sharply excised to the level of muscle using a #15 blade. There was immediate output of pus from which a culture was taken and the surrounding tissues were probed for loculations which were broken up. Approximately 20 cc of pus was removed. The wound was irrigated with Betadine, hydrogen peroxide and saline and hemostasis was achieved with electrocautery. The wound was packed with moistened Dominique and covered with fluffs and Kerlix. Patient was brought to PACU in stable condition Pathology / specimen Other (Tissue culture and wound culture) Estimated Blood Loss 20 Surgeon Angelika Hutton MD Surgical Staff Operation Date: 06/03/24 08:30 <No data on this case meets the specified criteria>
--- NOTE | 2024-06-02 14:55 | SUR.PHASEI ---
1455: Pt. AAOx4, vitals stable, breathing unlabored, no complaint of pain or nasuea, dressing to left foot CDI, no active bleed noted, bilateral popliteal pulses strong and regular, gave report to floor nurse prior to transfer to room 278. Family made aware of transfer to room, no complicaitons.
--- NOTE | 2024-06-02 15:20 | PD.ANESPROG ---
Documentation for date of: 06/02/24 ANESTHESIA NOTE: Patient had regional anesthesia with L ankle block and mild monitored sedation for L food I & D earlier today. Pre-op, he has h/o DM, HLD and HTN and family at bedside reported possible hx of CO in the past. He was actually taken to OR yesterday by the surgeon and HYPERBARIC NURSE, but per the report, he developed A fib RVR/V tach intra-op after sedation given and thus his surgery was cancelled, and the surgeon obtained cardiology consult. His Troponin and BNP came back elevated today. He had cough, he denied chest pains recently. He endorsed L foot pain which appeared markedly infectious with erythema, swelling and some dark areas as well. I spoke with the journal box inspector, who thinks patient may have CAD and is thinking about doing cath, but cleared the patient for I & D since it's surgically necessary per the surgeon and I discussed with the patient ad family and everyone agreed to proceed. He has been started on Amio IV and has converted to sinus rhythm and he was receiving RBC pre-op for low Hgb. He did very well intra-op under regional block and mild sedation and his vitals remained stable. His Amio was continued as is and his 1st unit of RBC was completed intra-op. He did well in PACU also, was alert and calm, VSS, denied chest pain, and was transferred back to floor. Will defer further management to the primary team. Zac Doan MD Anesthesia Progress Note Progress Note Most recent Vital Signs: Last Vital Signs Temp 97.5 F 06/02/24 14:50 Pulse 81 06/02/24 14:50 Resp 20 06/02/24 14:50 BP 110/61 06/02/24 14:50 Pulse Ox 100 06/02/24 14:50 O2 Del Method Room Air 06/02/24 12:00 O2 Flow Rate 2 06/02/24 14:50
[2024-06-02] MEDS: BENZONATATE 100 MG CAPSULE PO ×2 (15:34→21:08)
[2024-06-02] MEDS: HEPARIN SOD INJ 5000 UNIT/ML VIAL SC ×2 (15:35→21:13)
[2024-06-02] MEDS: HYDROcodone/APAP 5/325 TABLET 1 TAB PO (19:08)
[2024-06-02] MEDS: ALBUTEROL/IPRATROPIUM (Duoneb) RT SOL 3 ML NEBU INH (19:08)
--- NOTE | 2024-06-02 19:24 | PD.RESPRO ---
Documentation for date of: 06/02/24 Subjective Subjective Interval history: The patient is a 73 year old male with PMH significant for Hypertension, hyperlipidemia and type 2 diabetes mellitus presented with chief complaint of left foot swelling that gradually worsened in last 1 month. He reported that, there could have been some foot injury or insect bite that he is not aware of. He went to see his PCP yesterday who recommended him to visit emergency department. He denied any fever or chills, headache, nausea or vomiting, chest pain or SOB, any changes in bowel or bladder habit. During evaluation, his vitals were stable, white count 23.1, hemoglobin 9.8, ESR 57, sodium level during presentation was 122 that slowly increased to 127 on IV normal saline 75 cc/h. Potassium initially was 5.2, that increased to 6.0 and trended down to 5.2. BUN 69, creatinine 2.6 which appears to be his baseline, and phosphorus 5.4. Left foot x-ray revealed no anjelica cortical bone destruction. Duplex scan lower extremity revealed severe bilateral obstructive arterial disease. Renal ultrasound revealed small kidneys with bilateral renal cortical thinning, moderate bilateral renal parenchymal scar formation. Urine electrolytes revealed creatinine 43, sodium 46, potassium 14, and chloride 24. PMH: As mentioned above PSHx: Septoplasty Allergies: No known allergies social history: Past smoker with [id number] smoking history and quit 18 years ago, denies any alcohol or recreational drug use. Medications: To be reconciled Nephrology consultation was done for further management of moderate hypovolemic normal osmolar hyponatremia, hyperkalemia and CKD. 05/28/2024: The patient was interviewed and examined at the bedside this morning. He reported pain over his left foot. Vitals were stable with soft blood pressure. Labs were significant for white count 22.0, hemoglobin 9.6. Sodium 130, potassium 4.9, BUN 63, creatinine 2.4, EGFR 28, phosphorus 5.1. We will continue with maintenance normal saline fluid 70 cc/h as patient seemed to be mildly dehydrated, and his sodium correction is at goal levels. 05/30/2024: The patient was interviewed and examined at the bedside this morning. He reported still having some pain over her left foot. Vitals were fairly stable, white count 21.0, hemoglobin 8.9, sodium 132, bicarb 19.7, BUN 39, creatinine 1.5, GFR 49 mild transaminitis with AST 72 and ALT 60. Patient is eating and drinking well, and we will discontinue IV maintenance normal saline after the current bag. 05/31/2024: The patient was interviewed and examined at the bedside this morning. He reported doing fairly well. Vitals were fairly stable. White count trending down to 18.9, hemoglobin 8.4, sodium 133, potassium 5.0, BUN 34, creatinine 1.4, EGFR 53. CTA abdomen iliofemoral runoff revealed severe trifurcation arterial obstructive disease below knees bilaterally. We stopped IV normal saline. The patient was given p.o. Lasix 20 x 1. 06/01/2024: The patient was interviewed and examined at the bedside this morning. He again reported doing fairly well. His vitals were stable with mild tachycardia, saturating 96% on room air. White count mildly trended up to 21.7, hemoglobin 8.0, sodium 135, potassium 4.8, BUN 35, creatinine 1.5, GFR 49, AST 107, ALT 54 with coccidiomycosis IgM antibody positive. 06/02/2024: The patient was interviewed and examined at the bedside this morning. He again reported doing fairly well. His vitals were stable with mild tachycardia, saturating 96% on room air. WBC trended mildly to 19.9, Hb 7.1, HCO3 18.5, BUN and creatinine at base line. Exam Vital Signs Temp Pulse Resp BP Pulse Ox O2 Del Method O2 Flow Rate 96.2 F L 90 15 141/72 H 95 Room Air 2 06/02/24 16:30 06/02/24 19:13 06/02/24 19:13 06/02/24 16:30 06/02/24 19:13 06/02/24 16:00 06/02/24 16:27 Narrative Exam General: Elderly, cooperative gentleman, no acute distress, Alert and Oriented x 3 HEENT: Moist mucous membranes, oropharynx clear Neck: Supple, No masses, No JVD CVS: S1S2 Regular rate and rhythm, No murmurs, rubs or gallops Lungs: Mild bibasilar crackles, no wheeze no rhonchi Abd: Soft, NT/ND, +BS, no organomegaly Ext: Left foot swollen, erythematous, 3 x 3 cm eschar noted on dorsal aspect of foot. Right fifth toe has 1x1cm area of necrosis Psych: Appropriate mood and affect Objective Labs 06/03/24 05:34 06/03/24 05:34 Labs: Laboratory Results - last 24 hr 06/02/24 06/02/24 06/02/24 04:10 08:29 13:40 WBC 19.9 H RBC 2.23 L Hgb 7.1 L 7.1 L Hct 21.0 L* 20.9 L* MCV 94 MCH 31.8 MCHC 33.8 RDW Std Deviation 45.3 H Plt Count 206 D Neut % (Auto) 74 Lymph % (Auto) 8 L [place] % (Auto) 9 Eos % (Auto) 5 Baso % (Auto) 0 Neut # (Auto) 14.8 H Lymph # (Auto) 1.6 [place] # (Auto) 1.7 H Eos # (Auto) 1.0 H Baso # (Auto) 0.0 Immature Gran # (Auto) 0.81 H Absolute Nucleated RBC 0.04 H Immature Gran % 4 H Nucleated RBC % 0 Sodium 136 Potassium 4.9 Chloride 105 Carbon Dioxide 18.5 L Anion Gap 13 BUN 38 H Creatinine 1.5 H Estim Creat Clear Calc 37.3 L eGFR 49 L BUN/Creatinine Ratio 25 H Glucose 137 H Calculated Osmolality 282 Calcium 8.5 Corrected Calcium 9.4 Phosphorus 3.1 Magnesium 1.7 Iron 90 TIBC 126 L Iron Saturation 71 H Unsat Iron Binding 36 L Ferritin 1470 H Total Bilirubin 0.2 L AST 96 H ALT 52 H Alkaline Phosphatase 98 Troponin I 12.412 H* 11.086 H* D B-Natriuretic Peptide 564 H* Total Protein 4.9 L Albumin 2.9 L Globulin 2.0 L Albumin/Globulin Ratio 1.5 Blood Type O Positive Antibody Screen NEGATIVE Crossmatch See Detail Blood Bank Wristband ID Yes Quality Measures Quality Measures VTE prophylaxis Advance care planning discussed with:: patient Assessment & Plan Assessment Current Active Medications: Generic Name Dose Route Start Last Admin Trade Name Freq PRN Reason Stop Dose Admin Acetaminophen 650 mg 05/26/24 20:03 Acetaminophen 325 Mg Tablet PO 06/25/24 20:02 Q6H PRN PAIN SCALE 1-3 (mild Hydrocodone Bitart/Acetaminophen 1 tab 05/31/24 20:40 06/02/24 19:08 Hydrocodone/Apap 5/325 Tablet PO 06/05/24 20:39 1 tab Q4HR PRN Administration PAIN SCALE 4-6 Albuterol/Ipratropium 3 ml 06/02/24 13:00 06/02/24 19:08 Albuterol/Ipratropium (Duoneb) Rt Marjorie 3 Ml Nebu INH 07/02/24 12:59 3 ml Q6HRRT LEXI Administration Atorvastatin Calcium 80 mg 05/26/24 21:00 06/01/24 21:55 Atorvastatin Calcium 20 Mg Tablet PO 06/25/24 20:59 80 mg HS LEXI Administration Benzonatate 100 mg 06/02/24 14:00 06/02/24 15:34 Benzonatate 100 Mg Capsule PO 07/02/24 13:59 100 mg Q8HR LEXI Administration Protocol Citric Acid/Sodium Citrate 30 ml 05/31/24 09:00 06/02/24 10:01 Citric Acid/Sodium Citr 15 Ml Udc (Bicitra) PO 06/30/24 08:59 30 ml BID LEXI Administration Dextrose 25 ml 05/26/24 20:10 Dextrose 50%-Water Inj 50 Ml Syringe IV 06/25/24 20:09 Q15MIN PRN BG 50-70 responsive npo pt Dextrose 50 ml 05/26/24 20:10 Dextrose 50%-Water Inj 50 Ml Syringe IV 06/25/24 20:09 Q15MIN PRN BG <50 OR BG <70 & pt unresponsive Fluconazole 200 mg 06/02/24 09:00 06/02/24 10:04 Fluconazole 100 Mg Tablet PO 06/09/24 08:59 200 mg QDAY LEXI Administration Glucagon 1 mg 05/26/24 20:10 Glucagon Inj 1 Mg Vial IM Q15MIN PRN BG <70, and no IV access Guaifenesin 200 mg 06/01/24 10:00 06/02/24 15:35 Guaifenesin Syrup 200 Mg/10 Ml Udc PO 07/01/24 09:59 200 mg TID LEXI Administration Protocol Heparin Sodium (Porcine) 5,000 unit 05/27/24 06:00 06/02/24 15:35 Heparin Sod Inj 5000 Unit/Ml Vial SC 06/10/24 05:59 5,000 unit Q8HR LEXI Administration Metronidazole 500 mg in 100 mls @ 200 mls/hr 05/27/24 15:05 06/02/24 15:35 Flagyl 500 Mg Iv IV 06/03/24 15:04 200 mls/hr Q8HR LEXI Administration Doxycycline Hyclate 100 mg/ 100 mls @ 100 mls/hr 05/31/24 21:00 06/02/24 10:02 Sodium Chloride IV 06/07/24 20:59 100 mls/hr BID LEXI Administration Cefepime HCl 2 gm/ Sodium 50 mls @ 100 mls/hr 06/01/24 21:00 06/02/24 10:03 Chloride IV 06/04/24 08:59 100 mls/hr Q12HR LEXI Administration Amiodarone HCl/Dextrose 360 mg in 200 mls @ 16.667 mls/hr 06/01/24 20:16 06/02/24 09:58 Nexterone Ivpb IV 06/02/24 20:15 16.667 mls/hr .Q12H LEXI Administration Insulin Human Lispro 0 unit 05/26/24 21:00 06/02/24 17:15 Insulin Lispro (Admelog) 1 Unit/0.01 Ml Unit SC 06/25/24 20:59 Not Given ACHS LEXI Protocol Morphine Sulfate 2 mg 05/28/24 12:27 06/01/24 16:32 Morphine Sulf Inj 10 Mg/Ml Vial IVP 06/05/24 12:26 2 mg Q4HR PRN Administration Pain-breakthrough Ondansetron HCl 4 mg 05/26/24 20:03 Ondansetron Inj 2 Mg/Ml Inj 2 Ml IV 06/25/24 20:02 Q6H PRN NAUSEA OR VOMITING Protocol Pantoprazole Sodium 40 mg 05/27/24 09:00 06/02/24 10:03 Pantoprazole Inj 40 Mg Vial IVP 06/26/24 08:59 40 mg QDAY LEXI Administration Plan The patient is a 73 year old male with PMH significant for Hypertension, hyperlipidemia and type 2 diabetes mellitus presented with chief complaint of left foot swelling that gradually worsened in last 1 month was found to have left foot cellulitis, and nephrology consultation was done for the mangement of hyperkalemia, hyponatremia and GORDON on CKD. #Hyperkalemia, resolved Likely secondary to GORDON on CKD Potassium initially was 5.2, that increased to 6.0 and trended down to 4.6 after Kayexalate administration for couple of times 05/31/2024: 5.0 06/01/2024: Potassium 4.8 -Started on renal diet -Monitor daily am K. #Moderate hypovolemic hypoosmolar hyponatremia, improved Patient's sodium was as low as 122, and has been slowly being corrected to 135 05/28: Na level 130 05/30/2024: Sodium level 132 06/01/2024: Sodium level 135 -Continue to monitor BMP in the am #GORDON on CKD IIIA, GORDON improved Likely prerenal 2/2 dehydrations Patients baseline GFR is 46 and has gone down to 25 Renal ultrasound revealed small kidneys with bilateral renal cortical thinning, moderate bilateral renal parenchymal scar formation. Urine electrolytes revealed creatinine 43, sodium 46, potassium 14, and chloride 24 consistent with prerenal GORDON with BUN/Cr ration 25 05/30/2024: Creatinine 1.5, GFR 49 05/31/2024: Creatinine 1.5, GFR 53 06/01/2024: Creatinine 1.5, GFR 49 -Monitor BMP daily am -Avoid nephrotoxic drugs #HTN Currently stable -Consider adding JENNIFER/ARB in the setting of CKD with diabetes mellitus Left foot cellulitis Severe peripheral arterial disease Leukocytosis HLD T2DM -Management deferred to primary team Thank you for your opportunity to participate nephrology team in this patient care. The patient's management plan was discussed with my attending physician MD Oral Cloud MD, PGY2 Attending Provider Attestation/Addendum Patient seen and examined with resident physician Dr. Mendez. Note reviewed, agree with findings and recommendations. Patient with GORDON secondary to prerenal azotemia and underlying CKD (from hypertension, diabetes. Renal ultrasound showed moderate scarring consistent with underlying CKD. Hyperkalemia seems to be improving with medical management. Suspect from underlying renal insufficiency. Patient also with left foot cellulitis on antibiotics. Decreased circulation consistent with diabetic peripheral artery disease. Noted anemia-gave iron and Procrit. Patient will benefit from vascular evaluation for foot ulcer. Team did CTA with contrast. Showed severe peripheral vascular disease. Creatinine stable. Will monitor renal function closely. Patient was taken for I&D for the left foot abscess-during procedure noted that he has SVT, procedure aborted and cardiology was consulted for clearance. 06/02/2024 creatinine stable at 1.6. Heart rate seems to be better. Patient going for I&D with Dr. Hutton. Fluids discontinued. Patient clinically looks rather euvolemic.
[2024-06-02] MEDS: MORPHINE SULF INJ 10 MG/ML VIAL 2 MG IVP (19:43)
[2024-06-02] MEDS: ATORVASTATIN CALCIUM 20 MG TABLET 80 MG PO (21:08)
[2024-06-02] MEDS: INSULIN LISPRO (AdmeLOG) 1 UNIT/0.01 ML UNIT SC (21:08)
[2024-06-03] VITALS (21 sets, daily range): BP systolic 108–136; BP diastolic 58–86; PULSE 75–99; RESP 16–99; TEMP 35.9–36.6; O2SAT 91–100
[2024-06-03] MEDS: AMIODARONE 360 MG IVPB 360 MG/200 ML BAG 16.667 MG IV (01:17)
[2024-06-03] MEDS: HYDROcodone/APAP 5/325 TABLET 1 TAB PO ×3 (01:25→20:07)
[2024-06-03] MEDS: ALBUTEROL/IPRATROPIUM (Duoneb) RT SOL 3 ML NEBU INH ×2 (01:51→18:41)
[2024-06-03] MEDS: guaiFENesin SYRUP 200 MG/10 ML UDC PO ×2 (05:26→21:58)
[2024-06-03] MEDS: BENZONATATE 100 MG CAPSULE PO ×2 (05:27→21:58)
[2024-06-03] MEDS: HEPARIN SOD INJ 5000 UNIT/ML VIAL SC ×2 (05:27→21:59)
[2024-06-03] MEDS: metroNIDAZOLE/NS 500 MG IVPB 500 MG/100 ML BAG 200 MG IV (05:27)
[2024-06-03 05:58] LABS: Basophils # (Auto) 0.1 Thou/mm3 (0.0-0.2); Basophils % (Auto) 0 % (0-2.5); Eosinophils # (Auto) 1.3 Thou/mm3 (0.0-0.5); Eosinophils % (Auto) 6 % (0-10); Hematocrit 27.3 % (41.0-53.0); Hemoglobin 9.6 g/dL (13.5-16.0); Immature Granulocytes % (Auto) 4 % (0-0); Lymphocytes # (Auto) 1.4 Thou/mm3 (1.0-4.8); Lymphocytes % (Auto) 7 % (10-50); Mean Corpuscular HGB Conc 35.2 g/dl (31.0-37.0); Mean Corpuscular Hemoglobin 31.8 pg (25.0-35.0); Mean Corpuscular Volume 90 fL (80-100); Monocytes # (Auto) 1.4 Thou/mm3 (0.0-0.8); Monocytes % (Auto) 7 % (0-12); Neutrophils # (Auto) 15.7 Thou/mm3 (1.8-7.7); Neutrophils % (Auto) 76 % (37-80); Nucleated Red Blood Cell # 0.06 Thou/mm3 (0.00-0.00); Nucleated Red Blood Cell % 0 /100 WBC (0); Platelet Count 229 Thou/mm3 (140-440); RDW Standard Deviation 47.8 fL (35.1-43.9); Red Blood Count 3.02 Miln/mm3 (4.50-5.90); White Blood Count 20.7 Thou/mm3 (3.8-10.6)
[2024-06-03 06:22] LABS: Alanine Aminotransferase 45 U/L (10-49); Albumin, Serum 3.2 gm/dL (3.4-4.8); Albumin/Globulin Ratio 1.3 (1.2-2.2); Alkaline Phosphatase 103 U/L (46-116); Anion Gap 7 (7-16); Aspartate Amino Transferase 87 U/L (0-34); BUN/Creatinine Ratio 21 Ratio (12-20); Bilirubin,Total 0.2 mg/dL (0.3-1.2); Blood Urea Nitrogen 30 mg/dL (9-23); Calcium 8.8 mg/dL (8.3-10.6); Calcium (Corrected) 9.4 mg/dL (8.5-10.1); Carbon Dioxide 21.8 mMol/L (20.0-31.0); Chloride 106 mMol/L (98-107); Creatinine (Component) 1.4 mg/dL (0.6-1.3); Estimated Creatinine Clearance 39.9 mL/min (>60); Globulin 2.5 gm/dL (2.3-3.5); Glucose 129 mg/dL (74-106); Magnesium 2.1 mg/dL (1.6-2.6); Osmolality,Calculated 278 (275-295); Phosphorous 2.9 mg/dL (2.4-5.1); Potassium 4.2 mMol/L (3.4-5.1); Sodium 135 mMol/L (136-145); Total Protein 5.7 gm/dL (5.7-8.2); eGFR 53 See Note
[2024-06-03 06:45] LABS: Osmolality, Urine* 305 mOsm/kg (50-1200)
[2024-06-03] MEDS: MORPHINE SULF INJ 10 MG/ML VIAL 2 MG IVP (08:21)
--- NOTE | 2024-06-03 08:28 | PD.SURPROG ---
Documentation for date of: 06/03/24 Subjective Subjective Brief History: 73M with HTN, HLD, DMII admitted with 1-month history of left foot swelling and pain. Pt has been treated with cefepime/flagy/vanc since 05/26, WBC is gradually downtrending from 26 but pt has had worsening appearance of foot prompting general surgery consultation. Pt underwent xray which was negative for osteo, arterial duplex showing severe obstructive disease bilaterally and is awaiting MRI PMHx: HLD, HTN, DMII (A1c 6.9) PSHx: Septoplasty Allergies: NKDA SH: Smoked 50PPD but quit 10 years ago Narrative: Stable foot pain, no acute events, WBC remaining high at 20 Exam Vital Signs Temp Pulse Resp BP Pulse Ox O2 Del Method O2 Flow Rate 96.7 F L 85 20 117/65 91 L Room Air 4 06/03/24 04:00 06/03/24 04:00 06/03/24 04:00 06/03/24 04:00 06/03/24 04:00 06/03/24 04:00 06/02/24 20:00 Constitutional Constitutional: no acute distress Routine Respiratory Exam Respiratory: Present no resp distress Routine Extremities Exam Comments: left foot wound with fibrinous tissue, no active bleeding, mild surrounding erythema, stable necrosis of 5th toe and partial 4th toe Results Results: Laboratory Laboratory results: results reviewed Assessment & Plan Plan 73M with HTN, HLD, DMII presenting with left foot cellulitis and abscess, course complicated by concern for NSTEMI now s/p excisional debridement, I&D 06/02 Wet-dry dressings daily Appreciate cardiology recommendations Procedures Procedures Excisional debridement of left foot necrotic tissue, incision and drainage of left foot abscess
--- NOTE | 2024-06-03 09:12 | PC.SS ---
Follow up note: GI bleed work up. Possible Cath placement. Pt will return home upon dc.
[2024-06-03] MEDS: CEFEPIME INJ 2 GM in SODIUM CHLORIDE 0.9% (P) 50 ML IV ×2 (09:35→20:08)
[2024-06-03] MEDS: DOXYCYCLINE INJ 100 MG in SODIUM CHLORIDE 0.9% (P) 100 ML IV ×2 (09:35→21:58)
[2024-06-03] MEDS: PANTOPRAZOLE INJ 40 MG VIAL IVP (09:36)
[2024-06-03] MEDS: FUROSEMIDE INJ 10 MG/ML 4ML VIAL 40 MG IVP (09:36)
[2024-06-03] MEDS: FLUCONAZOLE 100 MG TABLET 200 MG PO (09:37)
[2024-06-03] MEDS: ASPIRIN EC 81 MG TABEC PO (09:37)
[2024-06-03] MEDS: CITRIC ACID/SODIUM CITR 15 ML UDC (BICITRA) 30 ML PO ×2 (09:37→21:57)
[2024-06-03] MEDS: Silvasorb Gel 45 ML TUBE TOP (09:49)
[2024-06-03] MEDS: Lisinopril 2.5 MG TABLET 5 MG PO (10:48)
[2024-06-03 10:49] LABS: INR 1.2 (0.9-1.3); Partial Thromboplastin Time 50.6 Seconds (22.0-36.0); Prothrombin Time 12.7 Seconds (9.0-12.2)
--- NOTE | 2024-06-03 14:35 | PD.RESPRO ---
Documentation for date of: 06/03/24 Subjective Subjective Interval history: The patient is a 73 year old male with PMH significant for Hypertension, hyperlipidemia and type 2 diabetes mellitus presented with chief complaint of left foot swelling that gradually worsened in last 1 month. He reported that, there could have been some foot injury or insect bite that he is not aware of. He went to see his PCP yesterday who recommended him to visit emergency department. He denied any fever or chills, headache, nausea or vomiting, chest pain or SOB, any changes in bowel or bladder habit. During evaluation, his vitals were stable, white count 23.1, hemoglobin 9.8, ESR 57, sodium level during presentation was 122 that slowly increased to 127 on IV normal saline 75 cc/h. Potassium initially was 5.2, that increased to 6.0 and trended down to 5.2. BUN 69, creatinine 2.6 which appears to be his baseline, and phosphorus 5.4. Left foot x-ray revealed no anjelica cortical bone destruction. Duplex scan lower extremity revealed severe bilateral obstructive arterial disease. Renal ultrasound revealed small kidneys with bilateral renal cortical thinning, moderate bilateral renal parenchymal scar formation. Urine electrolytes revealed creatinine 43, sodium 46, potassium 14, and chloride 24. PMH: As mentioned above PSHx: Septoplasty Allergies: No known allergies social history: Past smoker with [id number] smoking history and quit 18 years ago, denies any alcohol or recreational drug use. Medications: To be reconciled Nephrology consultation was done for further management of moderate hypovolemic normal osmolar hyponatremia, hyperkalemia and CKD. 05/28/2024: The patient was interviewed and examined at the bedside this morning. He reported pain over his left foot. Vitals were stable with soft blood pressure. Labs were significant for white count 22.0, hemoglobin 9.6. Sodium 130, potassium 4.9, BUN 63, creatinine 2.4, EGFR 28, phosphorus 5.1. We will continue with maintenance normal saline fluid 70 cc/h as patient seemed to be mildly dehydrated, and his sodium correction is at goal levels. 05/30/2024: The patient was interviewed and examined at the bedside this morning. He reported still having some pain over her left foot. Vitals were fairly stable, white count 21.0, hemoglobin 8.9, sodium 132, bicarb 19.7, BUN 39, creatinine 1.5, GFR 49 mild transaminitis with AST 72 and ALT 60. Patient is eating and drinking well, and we will discontinue IV maintenance normal saline after the current bag. 05/31/2024: The patient was interviewed and examined at the bedside this morning. He reported doing fairly well. Vitals were fairly stable. White count trending down to 18.9, hemoglobin 8.4, sodium 133, potassium 5.0, BUN 34, creatinine 1.4, EGFR 53. CTA abdomen iliofemoral runoff revealed severe trifurcation arterial obstructive disease below knees bilaterally. We stopped IV normal saline. The patient was given p.o. Lasix 20 x 1. 06/01/2024: The patient was interviewed and examined at the bedside this morning. He again reported doing fairly well. His vitals were stable with mild tachycardia, saturating 96% on room air. White count mildly trended up to 21.7, hemoglobin 8.0, sodium 135, potassium 4.8, BUN 35, creatinine 1.5, GFR 49, AST 107, ALT 54 with coccidiomycosis IgM antibody positive. 06/02/2024: The patient was interviewed and examined at the bedside this morning. He again reported doing fairly well. His vitals were stable with mild tachycardia, saturating 96% on room air. WBC trended mildly to 19.9, Hb 7.1, HCO3 18.5, BUN and creatinine at base line. 06/03/2024: The patient was interviewed and examined at the bedside this morning. He reported his pain not being well-controlled recently after incision and drainage of left foot wound. Vitals were stable. White count mildly trended up to 20.7, hemoglobin 9.6, sodium 135, potassium 4.2, creatinine 1.4, GFR 53, glucose 129, AST 87. During physical examination the patient was found to have bibasilar crackles, and was given 1 dose of IV Lasix 40 Mg. The patient is supposed to undergo cardiac cath this afternoon. Exam Vital Signs Temp Pulse Resp BP Pulse Ox O2 Del Method O2 Flow Rate 97.0 F 83 23 H 125/62 100 Nasal Cannula 3 06/03/24 11:54 06/03/24 11:54 06/03/24 11:54 06/03/24 11:54 06/03/24 11:54 06/03/24 11:54 06/03/24 11:54 Narrative Exam General: Elderly, cooperative gentleman, no acute distress, Alert and Oriented x 3 HEENT: Moist mucous membranes, oropharynx clear Neck: Supple, No masses, No JVD CVS: S1S2 Regular rate and rhythm, No murmurs, rubs or gallops Lungs: Mild bibasilar crackles, no wheeze no rhonchi Abd: Soft, NT/ND, +BS, no organomegaly Ext: Left foot swollen, covered under clean dressing Psych: Appropriate mood and affect Objective Labs 06/03/24 05:34 06/03/24 05:34 Labs: Laboratory Results - last 24 hr 05/27/24 06/02/24 06/03/24 11:25 08:29 05:34 WBC 20.7 H RBC 3.02 L Hgb 9.6 L D Hct 27.3 L MCV 90 MCH 31.8 MCHC 35.2 RDW Std Deviation 47.8 H Plt Count 229 Neut % (Auto) 76 Lymph % (Auto) 7 L [place] % (Auto) 7 Eos % (Auto) 6 Baso % (Auto) 0 Neut # (Auto) 15.7 H Lymph # (Auto) 1.4 [place] # (Auto) 1.4 H Eos # (Auto) 1.3 H Baso # (Auto) 0.1 Immature Gran # (Auto) 0.90 H Absolute Nucleated RBC 0.06 H Immature Gran % 4 H Nucleated RBC % 0 PT 12.7 H INR 1.2 APTT 50.6 H Sodium 135 L Potassium 4.2 D Chloride 106 Carbon Dioxide 21.8 Anion Gap 7 BUN 30 H Creatinine 1.4 H Estim Creat Clear Calc 39.9 L eGFR 53 L BUN/Creatinine Ratio 21 H Glucose 129 H Calculated Osmolality 278 Calcium 8.8 Corrected Calcium 9.4 Phosphorus 2.9 Magnesium 2.1 Total Bilirubin 0.2 L AST 87 H ALT 45 Alkaline Phosphatase 103 Total Protein 5.7 Albumin 3.2 L Globulin 2.5 Albumin/Globulin Ratio 1.3 Urine Osmolality 305 Blood Type O Positive Antibody Screen NEGATIVE Crossmatch See Detail Blood Bank Wristband ID Yes Quality Measures Quality Measures VTE prophylaxis Advance care planning discussed with:: patient Assessment & Plan Assessment Current Active Medications: Generic Name Dose Route Start Last Admin Trade Name Freq PRN Reason Stop Dose Admin Acetaminophen 650 mg 05/26/24 20:03 Acetaminophen 325 Mg Tablet PO 06/25/24 20:02 Q6H PRN PAIN SCALE 1-3 (mild Hydrocodone Bitart/Acetaminophen 1 tab 05/31/24 20:40 06/03/24 09:51 Hydrocodone/Apap 5/325 Tablet PO 06/05/24 20:39 1 tab Q4HR PRN Administration PAIN SCALE 4-6 Albuterol/Ipratropium 3 ml 06/02/24 13:00 06/03/24 12:47 Albuterol/Ipratropium (Duoneb) Rt Marjorie 3 Ml Nebu INH 07/02/24 12:59 Not Given Q6HRRT LEXI Aspirin 81 mg 06/03/24 09:00 06/03/24 09:37 Aspirin Ec 81 Mg Tabec PO 07/03/24 08:59 81 mg QDAY LEXI Administration Atorvastatin Calcium 80 mg 05/26/24 21:00 06/02/24 21:08 Atorvastatin Calcium 20 Mg Tablet PO 06/25/24 20:59 80 mg HS LEXI Administration Benzonatate 100 mg 06/02/24 14:00 06/03/24 05:27 Benzonatate 100 Mg Capsule PO 07/02/24 13:59 100 mg Q8HR LEXI Administration Protocol Citric Acid/Sodium Citrate 30 ml 05/31/24 09:00 06/03/24 09:37 Citric Acid/Sodium Citr 15 Ml Udc (Bicitra) PO 06/30/24 08:59 30 ml BID LEXI Administration Dextrose 25 ml 05/26/24 20:10 Dextrose 50%-Water Inj 50 Ml Syringe IV 06/25/24 20:09 Q15MIN PRN BG 50-70 responsive npo pt Dextrose 50 ml 05/26/24 20:10 Dextrose 50%-Water Inj 50 Ml Syringe IV 06/25/24 20:09 Q15MIN PRN BG <50 OR BG <70 & pt unresponsive Fluconazole 200 mg 06/02/24 09:00 06/03/24 09:37 Fluconazole 100 Mg Tablet PO 06/09/24 08:59 200 mg QDAY LEXI Administration Glucagon 1 mg 05/26/24 20:10 Glucagon Inj 1 Mg Vial IM Q15MIN PRN BG <70, and no IV access Guaifenesin 200 mg 06/01/24 10:00 06/03/24 05:26 Guaifenesin Syrup 200 Mg/10 Ml Udc PO 07/01/24 09:59 200 mg TID LEXI Administration Protocol Heparin Sodium (Porcine) 5,000 unit 05/27/24 06:00 06/03/24 05:27 Heparin Sod Inj 5000 Unit/Ml Vial SC 06/10/24 05:59 5,000 unit Q8HR LEXI Administration Metronidazole 500 mg in 100 mls @ 200 mls/hr 05/27/24 15:05 06/03/24 05:27 Flagyl 500 Mg Iv IV 06/03/24 15:04 200 mls/hr Q8HR LEXI Administration Doxycycline Hyclate 100 mg/ 100 mls @ 100 mls/hr 05/31/24 21:00 06/03/24 09:35 Sodium Chloride IV 06/07/24 20:59 100 mls/hr BID LEXI Administration Cefepime HCl 2 gm/ Sodium 50 mls @ 100 mls/hr 06/01/24 21:00 06/03/24 09:35 Chloride IV 06/04/24 08:59 100 mls/hr Q12HR LEXI Administration Insulin Human Lispro 0 unit 05/26/24 21:00 06/03/24 07:49 Insulin Lispro (Admelog) 1 Unit/0.01 Ml Unit SC 06/25/24 20:59 Not Given ACHS LEXI Protocol Lisinopril 5 mg 06/03/24 10:30 06/03/24 10:48 Lisinopril 2.5 Mg Tablet PO 07/03/24 10:29 5 mg QDAY LEXI Administration Morphine Sulfate 2 mg 05/28/24 12:27 06/03/24 08:21 Morphine Sulf Inj 10 Mg/Ml Vial IVP 06/05/24 12:26 2 mg Q4HR PRN Administration Pain-breakthrough Ondansetron HCl 4 mg 05/26/24 20:03 Ondansetron Inj 2 Mg/Ml Inj 2 Ml IV 06/25/24 20:02 Q6H PRN NAUSEA OR VOMITING Protocol Pantoprazole Sodium 40 mg 05/27/24 09:00 06/03/24 09:36 Pantoprazole Inj 40 Mg Vial IVP 06/26/24 08:59 40 mg QDAY LEXI Administration Plan The patient is a 73 year old male with PMH significant for Hypertension, hyperlipidemia and type 2 diabetes mellitus presented with chief complaint of left foot swelling that gradually worsened in last 1 month was found to have left foot cellulitis, and nephrology consultation was done for the mangement of hyperkalemia, hyponatremia and GORDON on CKD. #Hyperkalemia, resolved Likely secondary to GORDON on CKD Potassium initially was 5.2, that increased to 6.0 and trended down to 4.6 after Kayexalate administration for couple of times 05/31/2024: 5.0 06/01/2024: Potassium 4.8 -Started on renal diet -Monitor daily am K. #Moderate hypovolemic hypoosmolar hyponatremia, improved Patient's sodium was as low as 122, and has been slowly being corrected to 135 05/28: Na level 130 05/30/2024: Sodium level 132 06/01/2024: Sodium level 135 -Continue to monitor BMP in the am #GORDON on CKD IIIA, GORDON improved Likely prerenal 2/2 dehydrations Patients baseline GFR is 46 and has gone down to 25 Renal ultrasound revealed small kidneys with bilateral renal cortical thinning, moderate bilateral renal parenchymal scar formation. Urine electrolytes revealed creatinine 43, sodium 46, potassium 14, and chloride 24 consistent with prerenal GORDON with BUN/Cr ration 25 05/30/2024: Creatinine 1.5, GFR 49 05/31/2024: Creatinine 1.5, GFR 53 06/01/2024: Creatinine 1.5, GFR 49 -Monitor BMP daily am -Avoid nephrotoxic drugs #HTN Currently stable -on ACEI in the setting of CKD with diabetes mellitus Left foot cellulitis Severe peripheral arterial disease Leukocytosis HLD T2DM -Management deferred to primary team Thank you for your opportunity to participate nephrology team in this patient care. The patient's management plan was discussed with my attending physician MD Oral Cloud MD, PGY2 Attending Provider Attestation/Addendum Patient seen and examined with resident physician Dr. Mendez. Note reviewed, agree with findings and recommendations. Patient with GORDON secondary to prerenal azotemia and underlying CKD (from hypertension, diabetes. Renal ultrasound showed moderate scarring consistent with underlying CKD. Hyperkalemia seems to be improving with medical management. Suspect from underlying renal insufficiency. Patient also with left foot cellulitis on antibiotics. Decreased circulation consistent with diabetic peripheral artery disease. Noted anemia-gave iron and Procrit. Patient will benefit from vascular evaluation for foot ulcer. Team did CTA with contrast. Showed severe peripheral vascular disease. Creatinine stable. Will monitor renal function closely. Patient was taken for I&D for the left foot abscess-during procedure noted that he has SVT, procedure aborted and cardiology was consulted for clearance. 06/02/2024 creatinine stable at 1.6. Heart rate seems to be better. Patient going for I&D with Dr. Hutton. Fluids discontinued. Patient clinically looks rather euvolemic. 06/03/2024 patient currently seen medical floor. Stable creatinine at 1.4. Noted 2+ edema with mild congestion in the lungs. IV fluids were discontinued yesterday. Will give 1 dose of Lasix. S/p IND. Dr. Navarro at bedside. Left small toe still seems to be discolored with questionable gangrene. Dr Lennon was consulted per Dr. Hutton. Patient has severe peripheral vascular disease-down the road unfortunately might need left BKA. Currently on lisinopril 5 mg p.o. daily.
--- NOTE | 2024-06-03 15:00 | PD.CARDCATH ---
Cardiac Cath Procedure Procedure Name Date of procedure: 06/03/2024 BREADING MACHINE TENDER: Jarad Majano MD PROCEDURE PERFORMED: 1. Left heart cardiac catheterization including right, left coronary angiograms and left ventriculogram 2. Ultrasound-guided access of the right radial artery 3. Conscious sedation for 30 minutes. Procedure Narrative HISTORY AND INDICATIONS: A 73-year-old male with a past medical history of type 2 diabetes mellitus, hyperlipidemia, hypertension, CKD stage III, HFpEF, last EF of 55 to 60%, normocytic normochromic anemia, initially presented to the hospital for left foot swelling pain and erythema. 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 Patient was explained the risk benefits and alternatives of performing a left heart cardiac catheterization including the risk of bleeding, heart attack, stroke and in detail and the agreeable for the procedure. Consent signed, placed in the chart and H&P updated. DESCRIPTION OF PROCEDURE: The patient was brought to the cardiac catheterization lab and all asceptic precautions were followed. Patient was given 1 Mg of Versed and 50 mcg of fentanyl for moderate conscious sedation. 2 mL of lidocaine was given in the right wrist. The right radial artery was accessed via the ultrasound guidance as well as micropuncture technique. A 6 Palestinian glide sheath was introduced. We then used a 5 Palestinian TIG 4 catheter to perform the left and right coronary angiograms as well as a left ventriculogram which showed the following findings. 1. Left main artery is a medium to large size artery with 50% ostial stenosis and 40% distal left main stenosis LAD 2. LAD is a medium to large size artery with severe 90% stenosis in the mid LAD at the bifurcation of D1. LAD does wrap around the apex. D1 is a small to medium with severe 90% stenosis in the proximal portion. 3. LCx is a large size artery with severe 90% stenosis in the proximal LCx and also severe 80% stenosis in the proximal small OM1 as well as severe 80% stenosis of proximal OM 2 is occluded 4. RCA is 100% occluded at the ostium. Excellent collaterals noted from the left to right filling up to the proximal RCA but patient has severe 80 to 90% stenosis in the mid RPDA. 5. LVEDP is elevated at 22 mmHg. There was no significant transvalvular aortic gradient. Left ventriculogram not performed as the patient already had an echo which showed an EF of 55 to 60% 6. Codominant circulation A radial band was used to achieve the hemostasis of the right radial artery access. Patient will be monitored in the cardiac billet header for the next 2 to 3 hours and will be discharged home / telemetry later today if hemodynamically stable. Complications: None Specimens: None Blood loss: Estimated 5-10 ml Summary/findings: 1. NSTEMI with elevated troponin at 12.0: LHC performed showed severe calcified multivessel disease with 100% occluded ostial RCA, 90% stenosis of the mid LAD, 90% stenosis of the D1, 80% stenosis of the proximal OM1, OM 2, severe 80% stenosis of the proximal LCx , 40-50% ostial left main stenosis and excellent [id number] collaterals extending up to the proximal RCA. 2. LVEDP is elevated at 22 mmHg. There was no significant transvalvular aortic gradient. Left ventriculogram not performed as the patient already had an echo which showed an EF of 55 to 60% Recommendations: 1. Cardiothoracic surgery consult recommended for CABG given the severe calcified multivessel disease as noted above. Discussed with cardiothoracic surgeon at [facility] Dr. Teodoro Gamboa who accepted patient to their service for CABG evaluation. 2. Recommend aggressive medical treatment and aggressive risk factor modification. Aspirin 81 mg once daily, high intensity statin and beta-heather 3. Recommended no lifting more than 5 pounds for next 7-10 days. Jarad Majano MD Interventional Cardiology.
--- NOTE | 2024-06-03 16:50 | PC.NURSE ---
hand off report given to jamar rn. patient transfer via gurney back to room. dressing is clean dry and intact. patient alert and oriented. GCS of 15. site is soft , flat, nontender, and no hematoma present. jamar assessed dressing.
--- NOTE | 2024-06-03 18:30 | ESPR_ITS ---
Documentation for date of: 06/03/24 Subjective Subjective Interval history: Overnight patient was found to be A-fib RVR, patient was started amnio drip overnight. Morning vitals and pulse WNL. Hemoglobin stable at 9.6, BUN and creatinine downtrending. Patient underwent left heart catheterization which showed multivessel disease of 100% occluded ostial RCA, 90% stenosis of mid LAD, 90% stenosis of D1, 80% stenosis of proximal OM1, severe 80% stenosis of proximal LCx. Cardiology recommended for patient to undergo CABG for severe calcified multivessel disease, case was discussed with cardiothoracic surgeon at [facility] Dr. Lux Gamboa who accepted patient for their service of CABG evaluation. Exam Vital Signs Temp Pulse Resp BP Pulse Ox O2 Del Method O2 Flow Rate 97.4 F 88 23 H 119/74 97 Nasal Cannula 3 06/03/24 17:03 06/03/24 17:03 06/03/24 17:03 06/03/24 17:03 06/03/24 17:03 06/03/24 17:03 06/03/24 17:03 Narrative Exam General: Elderly, cooperative gentleman, no acute distress, Alert and Oriented x 3 HEENT: Moist mucous membranes, oropharynx clear Neck: Supple, No masses, No JVD CVS: S1S2 Regular rate and rhythm, No murmurs, rubs or gallops Lungs: Mild bibasilar crackles, no wheeze no rhonchi Abd: Soft, NT/ND, +BS, no organomegaly Ext: Left foot swollen, covered under clean dressing Psych: Appropriate mood and affect Objective Labs 06/04/24 04:41 06/04/24 04:41 Labs: Laboratory Results - last 24 hr 05/27/24 06/03/24 11:25 05:34 WBC 20.7 H RBC 3.02 L Hgb 9.6 L D Hct 27.3 L MCV 90 MCH 31.8 MCHC 35.2 RDW Std Deviation 47.8 H Plt Count 229 Neut % (Auto) 76 Lymph % (Auto) 7 L [place] % (Auto) 7 Eos % (Auto) 6 Baso % (Auto) 0 Neut # (Auto) 15.7 H Lymph # (Auto) 1.4 [place] # (Auto) 1.4 H Eos # (Auto) 1.3 H Baso # (Auto) 0.1 Immature Gran # (Auto) 0.90 H Absolute Nucleated RBC 0.06 H Immature Gran % 4 H Nucleated RBC % 0 PT 12.7 H INR 1.2 APTT 50.6 H Sodium 135 L Potassium 4.2 D Chloride 106 Carbon Dioxide 21.8 Anion Gap 7 BUN 30 H Creatinine 1.4 H Estim Creat Clear Calc 39.9 L eGFR 53 L BUN/Creatinine Ratio 21 H Glucose 129 H Calculated Osmolality 278 Calcium 8.8 Corrected Calcium 9.4 Phosphorus 2.9 Magnesium 2.1 Total Bilirubin 0.2 L AST 87 H ALT 45 Alkaline Phosphatase 103 Total Protein 5.7 Albumin 3.2 L Globulin 2.5 Albumin/Globulin Ratio 1.3 Urine Osmolality 305 Quality Measures Quality Measures VTE prophylaxis Advance care planning discussed with:: other Assessment & Plan Assessment Current Active Medications: Generic Name Dose Route Start Last Admin Trade Name Freq PRN Reason Stop Dose Admin Acetaminophen 650 mg 05/26/24 20:03 Acetaminophen 325 Mg Tablet PO 06/25/24 20:02 Q6H PRN PAIN SCALE 1-3 (mild Hydrocodone Bitart/Acetaminophen 1 tab 05/31/24 20:40 06/03/24 09:51 Hydrocodone/Apap 5/325 Tablet PO 06/05/24 20:39 1 tab Q4HR PRN Administration PAIN SCALE 4-6 Albuterol/Ipratropium 3 ml 06/02/24 13:00 06/03/24 12:47 Albuterol/Ipratropium (Duoneb) Rt Marjorie 3 Ml Nebu INH 07/02/24 12:59 Not Given Q6HRRT LEXI Aspirin 81 mg 06/03/24 09:00 06/03/24 09:37 Aspirin Ec 81 Mg Tabec PO 07/03/24 08:59 81 mg QDAY LEXI Administration Atorvastatin Calcium 80 mg 05/26/24 21:00 06/02/24 21:08 Atorvastatin Calcium 20 Mg Tablet PO 06/25/24 20:59 80 mg HS LEXI Administration Benzonatate 100 mg 06/02/24 14:00 06/03/24 17:07 Benzonatate 100 Mg Capsule PO 07/02/24 13:59 Not Given Q8HR LEXI Protocol Citric Acid/Sodium Citrate 30 ml 05/31/24 09:00 06/03/24 09:37 Citric Acid/Sodium Citr 15 Ml Udc (Bicitra) PO 06/30/24 08:59 30 ml BID LEXI Administration Dextrose 25 ml 05/26/24 20:10 Dextrose 50%-Water Inj 50 Ml Syringe IV 06/25/24 20:09 Q15MIN PRN BG 50-70 responsive npo pt Dextrose 50 ml 05/26/24 20:10 Dextrose 50%-Water Inj 50 Ml Syringe IV 06/25/24 20:09 Q15MIN PRN BG <50 OR BG <70 & pt unresponsive Fluconazole 200 mg 06/02/24 09:00 06/03/24 09:37 Fluconazole 100 Mg Tablet PO 06/09/24 08:59 200 mg QDAY LEXI Administration Glucagon 1 mg 05/26/24 20:10 Glucagon Inj 1 Mg Vial IM Q15MIN PRN BG <70, and no IV access Guaifenesin 200 mg 06/01/24 10:00 06/03/24 17:07 Guaifenesin Syrup 200 Mg/10 Ml Udc PO 07/01/24 09:59 Not Given TID LEXI Protocol Heparin Sodium (Porcine) 5,000 unit 05/27/24 06:00 06/03/24 17:05 Heparin Sod Inj 5000 Unit/Ml Vial SC 06/10/24 05:59 Not Given Q8HR LEXI Doxycycline Hyclate 100 mg/ 100 mls @ 100 mls/hr 05/31/24 21:00 06/03/24 09:35 Sodium Chloride IV 06/07/24 20:59 100 mls/hr BID LEXI Administration Cefepime HCl 2 gm/ Sodium 50 mls @ 100 mls/hr 06/01/24 21:00 06/03/24 09:35 Chloride IV 06/04/24 08:59 100 mls/hr Q12HR LEXI Administration Insulin Human Lispro 0 unit 05/26/24 21:00 06/03/24 17:55 Insulin Lispro (Admelog) 1 Unit/0.01 Ml Unit SC 06/25/24 20:59 Not Given ACHS [facility] Protocol Lisinopril 5 mg 06/03/24 10:30 06/03/24 10:48 Lisinopril 2.5 Mg Tablet PO 07/03/24 10:29 5 mg QDAY LEXI Administration Morphine Sulfate 2 mg 05/28/24 12:27 06/03/24 08:21 Morphine Sulf Inj 10 Mg/Ml Vial IVP 06/05/24 12:26 2 mg Q4HR PRN Administration Pain-breakthrough Ondansetron HCl 4 mg 05/26/24 20:03 Ondansetron Inj 2 Mg/Ml Inj 2 Ml IV 06/25/24 20:02 Q6H PRN NAUSEA OR VOMITING Protocol Pantoprazole Sodium 40 mg 05/27/24 09:00 06/03/24 09:36 Pantoprazole Inj 40 Mg Vial IVP 06/26/24 08:59 40 mg QDAY LEXI Administration Plan 73-year-old male PMHx of T2DM, HLD, HTN admitted for left foot cellulitis. Started on ANTIBIOTICS. Additionally, he is being managed for GORDON, hyperkalemia, and hyponatremia. ACS NSTEMI type I versus type II Chronic diastolic congestive heart failure with preserved ejection fraction [EF 55-60%] Patient developed shortness of breath and nonproductive cough. [06/01] EKG showed A-fib with RVR, along with ST depressions in leads V3, V4, V5, V6, and ST elevation in aVR indicating ischemia/coronary artery disease. [06/02] EKG showed sinus rhythm. ST elevations in aVR and V1 not NSTEMI range. ST depressions in V4?V6. Q waves in V3. Rate 88 Troponin I 12.412 BNP 564 Patient underwent LHC on 06/03/2024 which indicated multivessel calcification Plan: - Continue atorvastatin 80 Mg p.o. at bedtime ? Cardiology, Dr. Majano on board. Appreciate recommendations. ? Patient to be transferred to [facility] for CABG evaluation by Dr. Ganesh Gamboa Atrial fibrillation with RVR?new onset Patient will schedule for I&D today. After administration of anesthesia he went into A-fib with RVR. [06/01] EKG showed A-fib with RVR, along with ST depressions in leads V3, V4, V5, V6, and ST elevation in aVR indicating ischemia/coronary artery disease. [06/02] EKG showed sinus rhythm. ST elevations in aVR and V1 not NSTEMI range. ST depressions in V4?V6. Q waves in V3. Rate 88 [id number]: 3 points [age, HTN, DM] Patient completed amiodarone drip Plan: ? Currently stable, consider starting amiodarone tablets ? May need anticoagulation in future ? Cardiology, Dr. Majano on board. Appreciate recommendations. Left foot cellulitis Bilateral peripheral arterial disease Leukocytosis Presenting with 1 month of left foot swelling, erythema and pain. On exam Left foot swollen, erythematous, 3 x 3 cm eschar noted on dorsal aspect of foot. Right fifth toe has 1x1cm area of necrosis He also had small skin lesion of fifth digit of right foot. Pulses diminished in left foot compared to right. Bilateral lower limb duplex arterial ultrasound completed and significant for bilateral peripheral arterial disease with left SOILA 0.7 X-ray was negative for bony destruction. Abdomen CTA completed on 05/30/2024: 50-70% stenosis right superficial femoral artery. 50% stenosis left superficial femoral artery. Left foot ultrasound revealed 3.6 x 0.5 x 1.9 cm abscess adjacent to the fifth digit. WBC 23.1 ---> 18.9 CRP 2.6 Blood culture NBG x 48 hours preliminary Urine culture no growth. Patient received 1 day of ceftriaxone 1 g IV daily and doxycycline 100 Mg IV twice daily from [05/26 - 05/27] Received Vancomycin 1 G IV tid for 5 days from [05/27 - 05/31] Patient underwent I&D by Dr. Navarro on 06/02/2024 Plan: ? Continue aspirin 81 Mg po daily - Continue Doxycycline 100mg IV BID [05/31 - Continue cefepime 1 g IV daily from 05/28 for a total of 10 days treatment to be completed on 06/04/2024 ? Continue metronidazole 500 Mg IV every 8 hourly on [05/27?VF - Pending Transfer to tertiary centre for vascular surgery - Vascular surgeon, Dr. Greer consulted and assessed the patient. He recommended for decompression of the left foot followed by left lower extremity angioplasty. Lower extremity angioplasty currently unavailable at [facility] and patient will need to be transferred to a tertiary center for treatment. Pulmonary coccidiomycosis Epistaxis - resolved Nonproductive cough Pulmonary edema?resolving Patient complains of shortness of breath and a nonproductive cough with mild epistaxis. Chest x-ray showed increased vascular markings and pulmonary edema Cocci IgM positive Received loading dose of Fluconazole 400mg po x 1 Plan: ? Fluconazole 200 Mg p.o. daily from 06/02 Prerenal GORDON on CKD stage IIIA - improving Hyperkalemia - resolved Hypoosmolar hyponatremia - resolved Non-anion gap metabolic acidosis - resolved Likely dehydrational. Sodium 124 ---> 132 , potassium 5.2---> 4.8 CR 3 ---> 1.4 (baseline 1.6), BUN 52 ---> 34 DDx: RTA type IV, medication induced Plan: ? Renally dose medication ? Avoid nephrotoxic agents ? Nephrology, Dr Malhotra consulted. Appreciate recommendations Primary HTN Hypotension Hyperlipidemia BP 139/59 Plan: ? Continue home ATORVASTATIN 80 mg HS Insulin-dependent diabetes mellitus type 2 [6.9%] Fasting blood glucose 77 Plan: ? Sliding scale insulin to cover for blood glucose spikes ? Hypoglycemic procedures in place Health maintenance: Disposition: Pending cardiology recommendations. Possible I&D of foot abscess by general surgery. For transfer for vascular surgery once cleared by cardiology. Diet: NPO Lines: pIVs GI Prophylaxis: Pantoprazole Thrombo Prophylaxis: Heparin 5000 units SC every 8 hours Code status: FULL CODE This patient care was discussed with my attending Dr. Teresa Carbajal MD PGY-2 Disclaimer: Minor errors in electroencephalogram technologist may be present since this note was dictated by speech recognition software. Attending Provider Attestation/Addendum I attest that I was physically present for the evaluation, physical examination, lab and imaging review of the patient with the residents. I discussed the case with the residents and agree with the findings and plans of care as documented above. At bedside, patient continues to have cough and mild shortness of breath, saturating well on room air. Patient had an episode of A-fib with RVR overnight and was started on amiodarone drip. Underwent left heart catheterization with cardiology, was found to have multivessel disease, 100% occluded ostial RCA, 90% stenosis of mid LAD, 90% stenosis of the D1, 80% stenosis of the proximal OM1, OM 2, severe 80% stenosis of the proximal LCx , 40-50% ostial left main stenosis and excellent [id number] collaterals extending up to the proximal RCA. Discussed with cardiology, stated that he has discussed with cardiothoracic surgeon at [facility] Dr. Teodoro Gamboa who accepted patient to their service for CABG evaluation. Discussed with the transfer nurse to start process for transfer for both CABG and angioplasty, CABG needing the preference. We will continue with antiplatelets and statin along with JENNIFER inhibitor that recommended by cardiology. We will switch to oral amiodarone. Evelyn Moore MD
--- NOTE | 2024-06-03 20:21 | PC.NURSE ---
Spoke with Zahida at [facility]
--- NOTE | 2024-06-03 21:40 | PC.NURSE ---
Spoke with Zahida at [facility], she confirmed that Dr. Cooper Valerio accepted the patient. [facility] requests that the transfer nurse/case management work on financial authorization for the patieint.
[2024-06-03] MEDS: INSULIN LISPRO (AdmeLOG) 1 UNIT/0.01 ML UNIT SC (21:56)
[2024-06-03] MEDS: ATORVASTATIN CALCIUM 20 MG TABLET 80 MG PO (21:57)
--- NOTE | 2024-06-03 23:00 | PD.IMPROG ---
Documentation for date of: 06/03/24 Subjective Subjective Interval history: Patient seen and examined at the bedside. No new cardiac complaints including any chest pain or chest pressure this morning. Still has left foot pain. Surgery successfully completed the left foot I&D abscess on 06/02/2024. No cardiac complications. Patient completed the amiodarone drip as per protocol and recommend to changed to amiodarone 200 mg p.o. twice daily for now 20 WBC still elevated at 20,000, hemoglobin is better at 9 point 2:06 transfusions and platelets are normal. BUN is 30 and creatinine is 1.4 slightly better than before. Troponin peaked at 12 point started downtrending at 11.0. Discussed with patient about placement for 7 arthritis of performing a left heart cardiac catheterization and explained it to him and given the elevated troponins and severe ST depressions in multiple leads along with minimal ST elevations in the aVR there is a possibility of multivessel disease. And suspected previously left heart cardiac catheterization showed severe multivessel disease as noted below and will need CABG evaluation. Discussed with cardiothoracic surgeon at [facility] Dr. Teodoro Gamboa who accepted patient to their service for CABG evaluation. Please see detailed cath report as noted below. Patient does have severe PAD for which vascular surgery was consulted over the phone and was recommended left leg angioplasty which can be performed after addressing his multivessel CAD. Please make sure to send this note, operative note, CD with both the echocardiogram as well as the cardiac catheterization images with the patient and transferred to [facility]. Exam Vital Signs Temp Pulse Resp BP Pulse Ox O2 Del Method O2 Flow Rate 97.7 F 99 19 119/74 95 Room Air 3 06/03/24 20:06/03/24 20:06/03/24 20:06/03/24 20:06/03/24 20:06/03/24 20:06/03/24 17:03 Narrative Exam General: Alert and oriented x3. In mild acute distress secondary to pain in the left foot Eyes: Pupils are equal and reactive to light bilaterally. HEENT: Atraumatic, normocephalic. No JVD noted. Mucosa moist. Cardiovascular: Normal S1 and S2. Irregularly irregular.. 3/6 systolic murmur appreciated at the apex, left leg 2+ edema and right foot 1+ Respiratory: No respiratory distress. Bilateral air entry present with occasional crackles as well as rhonchi Abdomen: Soft, nontender, nondistended. Skin: No rash. Warm to touch. Musculoskeletal: Left foot wound in dressing, cellulitis extending to the lower leg and 2+ edema. Able to move all 4 extremities. Neuro: Alert and oriented x3. No focal neuro deficits. Psych: Normal affect and mood Objective Labs 06/03/24 05:34 06/03/24 05:34 Labs: Laboratory Results - last 24 hr 05/27/24 06/03/24 06/03/24 11:25 05:34 18:40 WBC 20.7 H RBC 3.02 L Hgb 9.6 L D Hct 27.3 L MCV 90 MCH 31.8 MCHC 35.2 RDW Std Deviation 47.8 H Plt Count 229 Neut % (Auto) 76 Lymph % (Auto) 7 L Kingsbury % (Auto) 7 Eos % (Auto) 6 Baso % (Auto) 0 Neut # (Auto) 15.7 H Lymph # (Auto) 1.4 Kingsbury # (Auto) 1.4 H Eos # (Auto) 1.3 H Baso # (Auto) 0.1 Immature Gran # (Auto) 0.90 H Absolute Nucleated RBC 0.06 H Immature Gran % 4 H Nucleated RBC % 0 PT 12.7 H INR 1.2 APTT 50.6 H Sodium 135 L Potassium 4.2 D Chloride 106 Carbon Dioxide 21.8 Anion Gap 7 BUN 30 H Creatinine 1.4 H Estim Creat Clear Calc 39.9 L eGFR 53 L BUN/Creatinine Ratio 21 H Glucose 129 H Calculated Osmolality 278 Lactic Acid 1.0 Calcium 8.8 Corrected Calcium 9.4 Phosphorus 2.9 Magnesium 2.1 Total Bilirubin 0.2 L AST 87 H ALT 45 Alkaline Phosphatase 103 Total Protein 5.7 Albumin 3.2 L Globulin 2.5 Albumin/Globulin Ratio 1.3 Urine Osmolality 305 Assessment & Plan A&P Narrative A 73-year-old male with a past medical history of type 2 diabetes mellitus, hyperlipidemia, hypertension, CKD stage III, HFpEF, last EF of 55 to 60%, normocytic normochromic anemia, initially presented to the hospital for left foot swelling pain and erythema. 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 This morning the troponins were elevated 12.0 and I was consulted again. Patient is well-known to me as outpatient and he follows up with me in the clinic. 1. NSTEMI-mostly type I versus type II given supply/demand mismatch. 2. Abnormal EKG with severe ST depressions in the the leads and minimal ST elevation in the aVR indicating possible multivessel disease. 3. New onset atrial fibrillation with RVR 4. Left foot abscess and left leg cellulitis 5. Sepsis secondary to the left foot abscess as well as the cellulitis. 6. 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 Severe PAD as noted on CTA with left greater than right lower extremity disease-mostly below the knee 8. Acute on chronic kidney disease stage III 9. Severe anemia with hemoglobin of 7.1-unclear etiology-acute on chronic anemia 10. HFrEF last EF of 55 to 60% 11. Diabetes mellitus type 2 12. Hyperlipidemia 13. Essential hypertension 14. Mild cognitive deficiency Apparently patient and has been having worsening left foot wound with discharge and is admitted to the hospital for the same foot infection. Patient was started on IV antibiotic with no significant improvement in continue to worsen with significant amount of pus in the wound. General surgery was consulted and incision and drainage was planned on 06/01/2024 and prior to the operation patient went into atrial fibrillation with RVR. Patient was started on amiodarone drip and after which she converted to normal sinus rhythm Cardiology was consulted for further evaluation and the surgery was canceled. An EKG was performed which showed significant diffuse ST depressions in all the leads with minimal ST elevation < 1mm in aVR during the A-fib with RVR episode suggesting possible multivessel disease versus left main disease. Troponins were elevated 12.0 next morning. Cardiac catheterization was considered but patient appeared to be severely septic with increasing WBC count at around 20K. His hemoglobin was low at 7.1 and patient also had GORDON since admission with a creatinine ranging between 1.5-1.9. Patient also denied any Chest pain or chest pressure except for some shortness of breath. Surgical team and anesthesia team consulted again this afternoon and patient infection is apparently severe and he will not do well without the I&D significant debridement and would require urgent surgery Recommendations: Recommend to do stat transfuse the patient with 2 unit PRBC as the anemia in addition to the A-fib with RVR because infiltrative demand ischemia for the heart. Recommended stat chest x-ray and a BNP to rule out any kind of significant. Which she does not appear to be in at the present point of time during my clinical exam. Stat echocardiogram was ordered and did not show any significant change from outpatient echo done 6 months ago for the patient with normal LVEF at 55 to 60%. Normal LV size, RV size and function. Mild TR. Mild to moderate PAH with estimated RVSP 45 mmHg. Mild biatrial dilatation. Mild MAC, moderate MR, mild AI and mild TR. EF on his outpatient nuclear stress test was also normal at around 60% and was negative at that point of time in 2023 which could be false positive stress test for balanced ischemia from multivessel disease. Surgical team and anesthesia team contacted me again this afternoon and patient infection is apparently severe and he will not do well without the I&D significant debridement and would require urgent surgery Discussed with surgical team, anesthesia that patient is definitely highly elevated cardiac risk for the surgery. Given the urgent surgery, recommended to proceed if patient and the family understand the risks and benefits for it and recommended regional block rather than general anesthesia for the patient. Will plan to do the cardiac catheterization tomorrow or day after when the patient improves from the present sepsis and his kidney function is more stable as he does not have any chest pain and chest pressure and see how he recovers from the surgery today. Recommend aspirin 325 mg x 1 and start aspirin 81 mg once daily. High intensity statin Patient will need heparin drip but he is severely anemic and recommended primary team to stop the anemia workup for now and transfuse 2 units PRBC. Plan to do FOBT also as there is no clear cause of the anemia and the patient did not have surgery and before that his hemoglobin dropped to 7.1. Will need to workup the severe anemia to the present point of time as pt needs catheterization, further interventions and he will need to be on dual antiplatelets. Heparin drip can then be started at later point of time when the workup completed and hemoglobin is stable 06/03/2024: Patient seen and examined at the bedside. No new cardiac complaints including any chest pain or chest pressure this morning. Still has left foot pain. Surgery successfully completed the left foot I&D abscess on 06/02/2024. No cardiac complications. Patient completed the amiodarone drip as per protocol and recommend to changed to amiodarone 200 mg p.o. twice daily for now 20 WBC still elevated at 20,000, hemoglobin is better at 9 point 2:06 transfusions and platelets are normal. BUN is 30 and creatinine is 1.4 slightly better than before. Troponin peaked at 12 point started downtrending at 11.0. Discussed with patient about placement for 7 arthritis of performing a left heart cardiac catheterization and explained it to him and given the elevated troponins and severe ST depressions in multiple leads along with minimal ST elevations in the aVR there is a possibility of multivessel disease. And suspected previously left heart cardiac catheterization showed severe multivessel disease as noted below and will need CABG evaluation. Discussed with cardiothoracic surgeon at [facility] Dr. Teodoro Gamboa who accepted patient to their service for CABG evaluation. Please see detailed cath report as noted below. Patient does have severe PAD for which vascular surgery was consulted over the phone and was recommended left leg angioplasty which can be performed after addressing his multivessel CAD. Please make sure to send this note, operative note, CD with both the echocardiogram as well as the cardiac catheterization images with the patient and transferred to [facility]. Left heart cardiac catheterization: 06/04/2024 1. Left main artery is a medium to large size artery with 50% ostial stenosis and 40% distal left main stenosis LAD 2. LAD is a medium to large size artery with severe 90% stenosis in the mid LAD at the bifurcation of D1. LAD does wrap around the apex. D1 is a small to medium with severe 90% stenosis in the proximal portion. 3. LCx is a large size artery with severe 90% stenosis in the proximal LCx and also severe 80% stenosis in the proximal small OM1 as well as severe 80% stenosis of proximal OM 2 is occluded 4. RCA is 100% occluded at the ostium. Excellent collaterals noted from the left to right filling up to the proximal RCA but patient has severe 80 to 90% stenosis in the mid RPDA. 5. LVEDP is elevated at 22 mmHg. There was no significant transvalvular aortic gradient. Left ventriculogram not performed as the patient already had an echo which showed an EF of 55 to 60% 6. Codominant circulation Summary/findings: 1. NSTEMI with elevated troponin at 12.0: LHC performed showed severe calcified multivessel disease with 100% occluded ostial RCA, 90% stenosis of the mid LAD, 90% stenosis of the D1, 80% stenosis of the proximal OM1, OM 2, severe 80% stenosis of the proximal LCx , 40-50% ostial left main stenosis and excellent [id number] collaterals extending up to the proximal RCA. LVEDP mildly elevated 20 mmHg. Recommendations: 1. Cardiothoracic surgery consult recommended for CABG given the severe calcified multivessel disease as noted above. Discussed with cardiothoracic surgeon at [facility] Dr. Teodoro Gamboa who accepted patient to their service for CABG evaluation. 2. Recommend aggressive medical treatment and aggressive risk factor modification. Aspirin 81 mg once daily, high intensity statin and beta-heather 3. Recommended no lifting more than 5 pounds for next 7-10 days. Management of rest of the medical conditions as per primary team and other consultants. Thank you for the consult and allowing me to participate in the care of the patient. Cardiology will continue to follow. Jarad Majano M.D. Interventional Cardiology. Time Spent With Patient Time: Total time spent is greater than 50% in coordination of care (as documented) at patient's floor/unit and/or counseling patient:
[2024-06-04] VITALS (15 sets, daily range): BP systolic 104–131; BP diastolic 63–73; PULSE 61–138; RESP 16–98; TEMP 36.1–36.9; O2SAT 94–99
[2024-06-04] MEDS: ALBUTEROL/IPRATROPIUM (Duoneb) RT SOL 3 ML NEBU INH ×3 (01:12→19:15)
[2024-06-04] MEDS: AMIODARONE HCL 200 MG TABLET PO ×2 (04:24→21:18)
[2024-06-04 05:42] LABS: Basophils # (Auto) 0.1 Thou/mm3 (0.0-0.2); Basophils % (Auto) 0 % (0-2.5); Eosinophils # (Auto) 1.1 Thou/mm3 (0.0-0.5); Eosinophils % (Auto) 6 % (0-10); Hematocrit 28.5 % (41.0-53.0); Hemoglobin 9.8 g/dL (13.5-16.0); Immature Granulocytes % (Auto) 3 % (0-0); Immature Granulocytes Auto 0.51 Thou/mm3 (0.00-0.00); Lymphocytes # (Auto) 0.9 Thou/mm3 (1.0-4.8); Lymphocytes % (Auto) 5 % (10-50); Mean Corpuscular HGB Conc 34.4 g/dl (31.0-37.0); Mean Corpuscular Hemoglobin 31.2 pg (25.0-35.0); Mean Corpuscular Volume 91 fL (80-100); Monocytes # (Auto) 1.3 Thou/mm3 (0.0-0.8); Monocytes % (Auto) 7 % (0-12); Neutrophils # (Auto) 13.7 Thou/mm3 (1.8-7.7); Neutrophils % (Auto) 78 % (37-80); Nucleated Red Blood Cell # 0.02 Thou/mm3 (0.00-0.00); Nucleated Red Blood Cell % 0 /100 WBC (0); Platelet Count 266 Thou/mm3 (140-440); RDW Standard Deviation 47.4 fL (35.1-43.9); Red Blood Count 3.14 Miln/mm3 (4.50-5.90); White Blood Count 17.6 Thou/mm3 (3.8-10.6)
[2024-06-04] MEDS: BENZONATATE 100 MG CAPSULE PO ×3 (05:42→21:18)
[2024-06-04] MEDS: guaiFENesin SYRUP 200 MG/10 ML UDC PO ×3 (05:42→21:18)
[2024-06-04] MEDS: HEPARIN SOD INJ 5000 UNIT/ML VIAL SC ×3 (05:42→21:26)
[2024-06-04 06:26] LABS: Alanine Aminotransferase 39 U/L (10-49); Albumin, Serum 3.1 gm/dL (3.4-4.8); Albumin/Globulin Ratio 1.2 (1.2-2.2); Alkaline Phosphatase 104 U/L (46-116); Anion Gap 11 (7-16); Aspartate Amino Transferase 80 U/L (0-34); BUN/Creatinine Ratio 17 Ratio (12-20); Bilirubin,Total 0.3 mg/dL (0.3-1.2); Blood Urea Nitrogen 24 mg/dL (9-23); Calcium 8.8 mg/dL (8.3-10.6); Calcium (Corrected) 9.5 mg/dL (8.5-10.1); Carbon Dioxide 22.2 mMol/L (20.0-31.0); Chloride 102 mMol/L (98-107); Creatinine (Component) 1.4 mg/dL (0.6-1.3); Estimated Creatinine Clearance 39.9 mL/min (>60); Globulin 2.5 gm/dL (2.3-3.5); Glucose 107 mg/dL (74-106); Magnesium 1.9 mg/dL (1.6-2.6); Osmolality,Calculated 274 (275-295); Phosphorous 2.8 mg/dL (2.4-5.1); Potassium 4.2 mMol/L (3.4-5.1); Sodium 135 mMol/L (136-145); Total Protein 5.6 gm/dL (5.7-8.2); eGFR 53 See Note
[2024-06-04] MEDS: HYDROcodone/APAP 5/325 TABLET 1 TAB PO ×3 (07:14→20:12)
--- NOTE | 2024-06-04 08:32 | PC.CM ---
Addendum entered by Lucy Dalton RN 06/04/24 19:27: Patient needs to be transferred to [facility] for CABG. Dr. Abraham spoke to Dr. Cooper Valerio at [facility] and he has agreed??to accept patient. Patient will need insurance authorization. I reached out to [facility] and I spoke to Dr. Conner. He spoke to Dr. Jarad Garcia for a peer to peer review.? Dr. Conner ?with [facility] insurance?states they are fine with the transfer, and he will have his team work on authorization. [facility] aware that insurance is working on getting auth. Packet started with CD from laborer shaft sinking and and other reports. Dr. Moore and patient signed transfer paperwork. ?Packet left on transfer nurse desk. ? Addendum entered by Lucy Dalton RN 06/04/24 17:35: I had to call Valdemar to help get the CD for the laboratory phlebotomist. He was able to help the radiology orderly and he was able to make the CD from the laboratory phlebotomist. I placed it in the packet. Addendum entered by Lucy Dalton RN 06/04/24 15:27: I was not able to find the CD from the laboratory phlebotomist. I spoke to the nurse and we check in the chart and it was not with the chart. I was able to get a hold of Ashley from laboratory phlebotomist and she states they been having medical records print the CD because their machine is down. I called radiology to help and they were going to reach out to Candice to see if she could push over images to [facility] . She may also be able to print the CD at medical records. Radiology will get back to me. Addendum entered by Lucy Dalton RN 06/04/24 12:17: I mat Cristina transfer nurse at [facility] and I let her know that Dr. Conner with [facility] gave me a verbal okay to transfer patient. I let her know he states they are working on the authorization paperwork. Ibeth states I can send the paperwork once I get it. She did say they are at capacity, so they do not have a bed for patient anyway. I started packet and I had a CD made. Addendum entered by Lucy Dalton RN 06/04/24 10:10: I received a call back from Dr. Conner with [facility] CPA phone # [phone]. He states he spoke to Dr. Jarad Garcia and he will work on getting the authorization paperwork started. I let him know that [facility] will not move forward until we get the authorization completed. Original Note: I reviewed notes and patient needs transfer to [facility] for CABG as per Doctor note. Patient has been accepted by Dr. Cooper Valerio Cardiothoracic. I called and spoke to Ibeth with the transfer center at [facility]. She states they do have patient on the list but they will need authorization prior to accepting patient. I let her know if may be difficult being that it is a weekend. Ibeth states they do not have any beds anyway but the will not proceed with out authorization. I reviewed UR notes and I see patient has [facility] MCR [id number]. I called and was not able to leave a message. I called the [facility] [phone] and I left a message for them to call me back. I recieved a call back from a Dr. Conner with [facility] and I provided him with the details that we wanted to transfer patient to [facility] and they wanted authorization first. Dr. Conner wanted to speak to Dr. Abraham directly so I provided his with Dr. Jarad Garcia's number.
[2024-06-04] MEDS: DOXYCYCLINE INJ 100 MG in SODIUM CHLORIDE 0.9% (P) 100 ML IV ×2 (08:49→21:17)
[2024-06-04] MEDS: PANTOPRAZOLE INJ 40 MG VIAL IVP (08:49)
[2024-06-04] MEDS: FLUCONAZOLE 100 MG TABLET 200 MG PO (08:50)
[2024-06-04] MEDS: Silvasorb Gel 45 ML TUBE TOP (08:50)
[2024-06-04] MEDS: ASPIRIN EC 81 MG TABEC PO (08:50)
[2024-06-04] MEDS: Lisinopril 2.5 MG TABLET 5 MG PO (08:50)
[2024-06-04] MEDS: CITRIC ACID/SODIUM CITR 15 ML UDC (BICITRA) 30 ML PO ×2 (08:51→21:18)
[2024-06-04] MEDS: MORPHINE SULF INJ 10 MG/ML VIAL 2 MG IVP ×2 (10:34→19:28)
[2024-06-04] MEDS: INSULIN LISPRO (AdmeLOG) 1 UNIT/0.01 ML UNIT SC ×2 (11:35→21:25)
--- NOTE | 2024-06-04 12:14 | PD.RESPRO ---
Documentation for date of: 06/04/24 Subjective Subjective Interval history: The patient is a 73 year old male with PMH significant for Hypertension, hyperlipidemia and type 2 diabetes mellitus presented with chief complaint of left foot swelling that gradually worsened in last 1 month. He reported that, there could have been some foot injury or insect bite that he is not aware of. He went to see his PCP yesterday who recommended him to visit emergency department. He denied any fever or chills, headache, nausea or vomiting, chest pain or SOB, any changes in bowel or bladder habit. During evaluation, his vitals were stable, white count 23.1, hemoglobin 9.8, ESR 57, sodium level during presentation was 122 that slowly increased to 127 on IV normal saline 75 cc/h. Potassium initially was 5.2, that increased to 6.0 and trended down to 5.2. BUN 69, creatinine 2.6 which appears to be his baseline, and phosphorus 5.4. Left foot x-ray revealed no anjelica cortical bone destruction. Duplex scan lower extremity revealed severe bilateral obstructive arterial disease. Renal ultrasound revealed small kidneys with bilateral renal cortical thinning, moderate bilateral renal parenchymal scar formation. Urine electrolytes revealed creatinine 43, sodium 46, potassium 14, and chloride 24. PMH: As mentioned above PSHx: Septoplasty Allergies: No known allergies social history: Past smoker with [id number] smoking history and quit 18 years ago, denies any alcohol or recreational drug use. Medications: To be reconciled Nephrology consultation was done for further management of moderate hypovolemic normal osmolar hyponatremia, hyperkalemia and CKD. 05/28/2024: The patient was interviewed and examined at the bedside this morning. He reported pain over his left foot. Vitals were stable with soft blood pressure. Labs were significant for white count 22.0, hemoglobin 9.6. Sodium 130, potassium 4.9, BUN 63, creatinine 2.4, EGFR 28, phosphorus 5.1. We will continue with maintenance normal saline fluid 70 cc/h as patient seemed to be mildly dehydrated, and his sodium correction is at goal levels. 05/30/2024: The patient was interviewed and examined at the bedside this morning. He reported still having some pain over her left foot. Vitals were fairly stable, white count 21.0, hemoglobin 8.9, sodium 132, bicarb 19.7, BUN 39, creatinine 1.5, GFR 49 mild transaminitis with AST 72 and ALT 60. Patient is eating and drinking well, and we will discontinue IV maintenance normal saline after the current bag. 05/31/2024: The patient was interviewed and examined at the bedside this morning. He reported doing fairly well. Vitals were fairly stable. White count trending down to 18.9, hemoglobin 8.4, sodium 133, potassium 5.0, BUN 34, creatinine 1.4, EGFR 53. CTA abdomen iliofemoral runoff revealed severe trifurcation arterial obstructive disease below knees bilaterally. We stopped IV normal saline. The patient was given p.o. Lasix 20 x 1. 06/01/2024: The patient was interviewed and examined at the bedside this morning. He again reported doing fairly well. His vitals were stable with mild tachycardia, saturating 96% on room air. White count mildly trended up to 21.7, hemoglobin 8.0, sodium 135, potassium 4.8, BUN 35, creatinine 1.5, GFR 49, AST 107, ALT 54 with coccidiomycosis IgM antibody positive. 06/02/2024: The patient was interviewed and examined at the bedside this morning. He again reported doing fairly well. His vitals were stable with mild tachycardia, saturating 96% on room air. WBC trended mildly to 19.9, Hb 7.1, HCO3 18.5, BUN and creatinine at base line. 06/03/2024: The patient was interviewed and examined at the bedside this morning. He reported his pain not being well-controlled recently after incision and drainage of left foot wound. Vitals were stable. White count mildly trended up to 20.7, hemoglobin 9.6, sodium 135, potassium 4.2, creatinine 1.4, GFR 53, glucose 129, AST 87. During physical examination the patient was found to have bibasilar crackles, and was given 1 dose of IV Lasix 40 Mg. The patient is supposed to undergo cardiac cath this afternoon. 06/04/2024: The patient was interviewed and examined at the bedside this morning. He reported his pain being little bit more controlled, but it still hurts over his left foot. Vitals were fairly stable. White count mildly trended down to 17.6, sodium 135, potassium 4.2, BUN 24, creatinine 1.4, GFR 53, AST 80. The patient underwent left cardiac catheterization and was found to have multivessel calcification and CAD, and magnetic observer Dr. Majano recommended CABG. We will continue to monitor renal panel daily in the AM. Exam Vital Signs Temp Pulse Resp BP Pulse Ox O2 Del Method O2 Flow Rate 97.7 F 100 19 118/65 95 Room Air 3 06/04/24 07:54 06/04/24 08:50 06/04/24 07:54 06/04/24 08:50 06/04/24 07:54 06/04/24 07:54 06/03/24 17:03 Narrative Exam General: Elderly, cooperative gentleman, no acute distress, Alert and Oriented x 3 HEENT: Moist mucous membranes, oropharynx clear Neck: Supple, No masses, No JVD CVS: S1S2 Regular rate and rhythm, No murmurs, rubs or gallops Lungs: Mild bibasilar crackles, no wheeze no rhonchi Abd: Soft, NT/ND, +BS, no organomegaly Ext: Left foot swollen, covered under clean dressing, peripheral pulse unable to appreciate Psych: Appropriate mood and affect Objective Labs 06/05/24 05:08 06/05/24 05:08 Labs: Laboratory Results - last 24 hr 06/03/24 06/04/24 18:40 04:41 WBC 17.6 H RBC 3.14 L Hgb 9.8 L Hct 28.5 L MCV 91 MCH 31.2 MCHC 34.4 RDW Std Deviation 47.4 H Plt Count 266 D Neut % (Auto) 78 Lymph % (Auto) 5 L [place] % (Auto) 7 Eos % (Auto) 6 Baso % (Auto) 0 Neut # (Auto) 13.7 H Lymph # (Auto) 0.9 L [place] # (Auto) 1.3 H Eos # (Auto) 1.1 H Baso # (Auto) 0.1 Immature Gran # (Auto) 0.51 H Absolute Nucleated RBC 0.02 H Immature Gran % 3 H Nucleated RBC % 0 Sodium 135 L Potassium 4.2 Chloride 102 Carbon Dioxide 22.2 Anion Gap 11 BUN 24 H Creatinine 1.4 H Estim Creat Clear Calc 39.9 L eGFR 53 L BUN/Creatinine Ratio 17 Glucose 107 H Calculated Osmolality 274 L Lactic Acid 1.0 Calcium 8.8 Corrected Calcium 9.5 Phosphorus 2.8 Magnesium 1.9 Total Bilirubin 0.3 AST 80 H ALT 39 Alkaline Phosphatase 104 Total Protein 5.6 L Albumin 3.1 L Globulin 2.5 Albumin/Globulin Ratio 1.2 Quality Measures Quality Measures VTE prophylaxis Advance care planning discussed with:: patient Assessment & Plan Assessment Current Active Medications: Generic Name Dose Route Start Last Admin Trade Name Freq PRN Reason Stop Dose Admin Acetaminophen 650 mg 05/26/24 20:03 Acetaminophen 325 Mg Tablet PO 06/25/24 20:02 Q6H PRN PAIN SCALE 1-3 (mild Hydrocodone Bitart/Acetaminophen 1 tab 05/31/24 20:40 06/04/24 07:14 Hydrocodone/Apap 5/325 Tablet PO 06/05/24 20:39 1 tab Q4HR PRN Administration PAIN SCALE 4-6 Albuterol/Ipratropium 3 ml 06/02/24 13:00 06/04/24 07:42 Albuterol/Ipratropium (Duoneb) Rt Marjorie 3 Ml Nebu INH 07/02/24 12:59 3 ml Q6HRRT LEXI Administration Amiodarone HCl 200 mg 06/04/24 06:00 06/04/24 04:24 Amiodarone Hcl 200 Mg Tablet PO 07/04/24 05:59 200 mg BID LEXI Administration Aspirin 81 mg 06/03/24 09:00 06/04/24 08:50 Aspirin Ec 81 Mg Tabec PO 07/03/24 08:59 81 mg QDAY LEXI Administration Atorvastatin Calcium 80 mg 05/26/24 21:00 06/03/24 21:57 Atorvastatin Calcium 20 Mg Tablet PO 06/25/24 20:59 80 mg HS LEXI Administration Benzonatate 100 mg 06/02/24 14:00 06/04/24 05:42 Benzonatate 100 Mg Capsule PO 07/02/24 13:59 100 mg Q8HR LEXI Administration Protocol Citric Acid/Sodium Citrate 30 ml 05/31/24 09:00 06/04/24 08:51 Citric Acid/Sodium Citr 15 Ml Udc (Bicitra) PO 06/30/24 08:59 30 ml BID LEXI Administration Dextrose 25 ml 05/26/24 20:10 Dextrose 50%-Water Inj 50 Ml Syringe IV 06/25/24 20:09 Q15MIN PRN BG 50-70 responsive npo pt Dextrose 50 ml 05/26/24 20:10 Dextrose 50%-Water Inj 50 Ml Syringe IV 06/25/24 20:09 Q15MIN PRN BG <50 OR BG <70 & pt unresponsive Fluconazole 200 mg 06/02/24 09:00 06/04/24 08:50 Fluconazole 100 Mg Tablet PO 06/09/24 08:59 200 mg QDAY LEXI Administration Glucagon 1 mg 05/26/24 20:10 Glucagon Inj 1 Mg Vial IM Q15MIN PRN BG <70, and no IV access Guaifenesin 200 mg 06/01/24 10:00 06/04/24 05:42 Guaifenesin Syrup 200 Mg/10 Ml Udc PO 07/01/24 09:59 200 mg TID LEXI Administration Protocol Heparin Sodium (Porcine) 5,000 unit 05/27/24 06:00 06/04/24 05:42 Heparin Sod Inj 5000 Unit/Ml Vial SC 06/10/24 05:59 5,000 unit Q8HR LEXI Administration Doxycycline Hyclate 100 mg/ 100 mls @ 100 mls/hr 05/31/24 21:00 06/04/24 08:49 Sodium Chloride IV 06/07/24 20:59 100 mls/hr BID LEXI Administration Insulin Human Lispro 0 unit 05/26/24 21:00 06/04/24 11:35 Insulin Lispro (Admelog) 1 Unit/0.01 Ml Unit SC 06/25/24 20:59 1 unit ACHS LEXI Administration Protocol Lisinopril 5 mg 06/03/24 10:30 06/04/24 08:50 Lisinopril 2.5 Mg Tablet PO 07/03/24 10:29 5 mg QDAY LEXI Administration Morphine Sulfate 2 mg 05/28/24 12:27 06/04/24 10:34 Morphine Sulf Inj 10 Mg/Ml Vial IVP 06/05/24 12:26 2 mg Q4HR PRN Administration Pain-breakthrough Ondansetron HCl 4 mg 05/26/24 20:03 Ondansetron Inj 2 Mg/Ml Inj 2 Ml IV 06/25/24 20:02 Q6H PRN NAUSEA OR VOMITING Protocol Pantoprazole Sodium 40 mg 05/27/24 09:00 06/04/24 08:49 Pantoprazole Inj 40 Mg Vial IVP 06/26/24 08:59 40 mg QDAY LEXI Administration Plan The patient is a 73 year old male with PMH significant for Hypertension, hyperlipidemia and type 2 diabetes mellitus presented with chief complaint of left foot swelling that gradually worsened in last 1 month was found to have left foot cellulitis, and nephrology consultation was done for the mangement of hyperkalemia, hyponatremia and GORDON on CKD. #Hyperkalemia, resolved Likely secondary to GORDON on CKD Potassium initially was 5.2, that increased to 6.0 and trended down to 4.6 after Kayexalate administration for couple of times -Continue on renal diet -Monitor daily am K. #Moderate hypovolemic hypoosmolar hyponatremia, improved Patient's sodium was as low as 122, and has been slowly being corrected to 135 06/04/2024: Sodium 135 -Continue to monitor BMP in the am #GORDON on CKD IIIA, GORDON improved Likely prerenal 2/2 dehydrations Patients baseline GFR is 46 and has gone down to 25 Renal ultrasound revealed small kidneys with bilateral renal cortical thinning, moderate bilateral renal parenchymal scar formation. Urine electrolytes revealed creatinine 43, sodium 46, potassium 14, and chloride 24 consistent with prerenal GORDON with BUN/Cr ration 25 05/30/2024: Creatinine 1.5, GFR 49 05/31/2024: Creatinine 1.5, GFR 53 06/01/2024: Creatinine 1.5, GFR 49 -Monitor BMP daily am -Avoid nephrotoxic drugs #HTN Currently stable -on ACEI in the setting of CKD with diabetes mellitus Left foot cellulitis Severe CAD Severe peripheral arterial disease Leukocytosis HLD T2DM -Management deferred to primary team. Thank you for your opportunity to participate nephrology team in this patient care. The patient's management plan was discussed with my attending physician MD Oral Cloud MD, PGY2 Attending Provider Attestation/Addendum Patient seen and examined with resident physician Dr. Mendez. Note reviewed, agree with findings and recommendations. Patient with GORDON secondary to prerenal azotemia and underlying CKD (from hypertension, diabetes. Renal ultrasound showed moderate scarring consistent with underlying CKD. Hyperkalemia seems to be improving with medical management. Suspect from underlying renal insufficiency. Patient also with left foot cellulitis on antibiotics. Decreased circulation consistent with diabetic peripheral artery disease. Noted anemia-gave iron and Procrit. Patient will benefit from vascular evaluation for foot ulcer. Team did CTA with contrast. Showed severe peripheral vascular disease. Creatinine stable. Will monitor renal function closely. Patient was taken for I&D for the left foot abscess-during procedure noted that he has SVT, procedure aborted and cardiology was consulted for clearance. 06/02/2024 creatinine stable at 1.6. Heart rate seems to be better. Patient going for I&D with Dr. Hutton. Fluids discontinued. Patient clinically looks rather euvolemic. 06/03/2024 patient currently seen medical floor. Stable creatinine at 1.4. Noted 2+ edema with mild congestion in the lungs. IV fluids were discontinued yesterday. Will give 1 dose of Lasix. S/p IND. Dr. Navarro at bedside. Left small toe still seems to be discolored with questionable gangrene. Dr Lennon was consulted per Dr. Hutton. Patient has severe peripheral vascular disease-down the road unfortunately might need left BKA. Currently on lisinopril 5 mg p.o. daily. 06/04/2024 currently in medical floor. Family at bedside. Noted patient might be transferred to [facility] for CABG for multivessel disease for coronary artery disease. Dr. Hutton did I&D. Left small toe still seems to be discolored with possible gangrene. Needs cardiac evaluation prior to surgery. Creatinine stable.
--- NOTE | 2024-06-04 15:58 | ESPR_ITS ---
Documentation for date of: 06/04/24 Subjective Subjective Interval history: WBC [from 2217, hemoglobin stable at 9.8 and CHEM panel remarkable. Patient denies chest pain, chest pressure. [facility] thoracic surgeon has accepted patient for CABG evaluation, currently pending insurance authorization. Antibiotics cefepime and metronidazole completed, patient currently only on doxycycline with 3 days course left. Exam Vital Signs Temp Pulse Resp BP Pulse Ox O2 Del Method O2 Flow Rate 97.5 F 99 22 H 116/63 98 Room Air 3 06/04/24 12:00 06/04/24 12:42 06/04/24 12:42 06/04/24 12:00 06/04/24 12:42 06/04/24 12:00 06/03/24 17:03 Narrative Exam General: Elderly, cooperative gentleman, no acute distress, Alert and Oriented x 3 HEENT: Moist mucous membranes, oropharynx clear Neck: Supple, No masses, No JVD CVS: S1S2 Regular rate and rhythm, No murmurs, rubs or gallops Lungs: Mild bibasilar crackles, no wheeze no rhonchi Abd: Soft, NT/ND, +BS, no organomegaly Ext: Left foot swollen, covered under clean dressing Psych: Appropriate mood and affect Objective Labs 06/07/24 08:09 06/07/24 08:09 Labs: Laboratory Results - last 24 hr 06/03/24 06/04/24 18:40 04:41 WBC 17.6 H RBC 3.14 L Hgb 9.8 L Hct 28.5 L MCV 91 MCH 31.2 MCHC 34.4 RDW Std Deviation 47.4 H Plt Count 266 D Neut % (Auto) 78 Lymph % (Auto) 5 L [place] % (Auto) 7 Eos % (Auto) 6 Baso % (Auto) 0 Neut # (Auto) 13.7 H Lymph # (Auto) 0.9 L [place] # (Auto) 1.3 H Eos # (Auto) 1.1 H Baso # (Auto) 0.1 Immature Gran # (Auto) 0.51 H Absolute Nucleated RBC 0.02 H Immature Gran % 3 H Nucleated RBC % 0 Sodium 135 L Potassium 4.2 Chloride 102 Carbon Dioxide 22.2 Anion Gap 11 BUN 24 H Creatinine 1.4 H Estim Creat Clear Calc 39.9 L eGFR 53 L BUN/Creatinine Ratio 17 Glucose 107 H Calculated Osmolality 274 L Lactic Acid 1.0 Calcium 8.8 Corrected Calcium 9.5 Phosphorus 2.8 Magnesium 1.9 Total Bilirubin 0.3 AST 80 H ALT 39 Alkaline Phosphatase 104 Total Protein 5.6 L Albumin 3.1 L Globulin 2.5 Albumin/Globulin Ratio 1.2 Quality Measures Quality Measures VTE prophylaxis Advance care planning discussed with:: other Assessment & Plan Assessment Current Active Medications: Generic Name Dose Route Start Last Admin Trade Name Freq PRN Reason Stop Dose Admin Acetaminophen 650 mg 05/26/24 20:03 Acetaminophen 325 Mg Tablet PO 06/25/24 20:02 Q6H PRN PAIN SCALE 1-3 (mild Hydrocodone Bitart/Acetaminophen 1 tab 05/31/24 20:40 06/04/24 07:14 Hydrocodone/Apap 5/325 Tablet PO 06/05/24 20:39 1 tab Q4HR PRN Administration PAIN SCALE 4-6 Albuterol/Ipratropium 3 ml 06/02/24 13:00 06/04/24 12:41 Albuterol/Ipratropium (Duoneb) Rt Marjorie 3 Ml Nebu INH 07/02/24 12:59 Not Given Q6HRRT LEXI Amiodarone HCl 200 mg 06/04/24 06:00 06/04/24 04:24 Amiodarone Hcl 200 Mg Tablet PO 07/04/24 05:59 200 mg BID LEXI Administration Aspirin 81 mg 06/03/24 09:00 06/04/24 08:50 Aspirin Ec 81 Mg Tabec PO 07/03/24 08:59 81 mg QDAY LEXI Administration Atorvastatin Calcium 80 mg 05/26/24 21:00 06/03/24 21:57 Atorvastatin Calcium 20 Mg Tablet PO 06/25/24 20:59 80 mg HS LEXI Administration Benzonatate 100 mg 06/02/24 14:00 06/04/24 14:00 Benzonatate 100 Mg Capsule PO 07/02/24 13:59 100 mg Q8HR LEXI Administration Protocol Citric Acid/Sodium Citrate 30 ml 05/31/24 09:00 06/04/24 08:51 Citric Acid/Sodium Citr 15 Ml Udc (Bicitra) PO 06/30/24 08:59 30 ml BID LEXI Administration Dextrose 25 ml 05/26/24 20:10 Dextrose 50%-Water Inj 50 Ml Syringe IV 06/25/24 20:09 Q15MIN PRN BG 50-70 responsive npo pt Dextrose 50 ml 05/26/24 20:10 Dextrose 50%-Water Inj 50 Ml Syringe IV 06/25/24 20:09 Q15MIN PRN BG <50 OR BG <70 & pt unresponsive Fluconazole 200 mg 06/02/24 09:00 06/04/24 08:50 Fluconazole 100 Mg Tablet PO 06/09/24 08:59 200 mg QDAY LEXI Administration Glucagon 1 mg 05/26/24 20:10 Glucagon Inj 1 Mg Vial IM Q15MIN PRN BG <70, and no IV access Guaifenesin 200 mg 06/01/24 10:00 06/04/24 14:00 Guaifenesin Syrup 200 Mg/10 Ml Udc PO 07/01/24 09:59 200 mg TID LEXI Administration Protocol Heparin Sodium (Porcine) 5,000 unit 05/27/24 06:00 06/04/24 14:00 Heparin Sod Inj 5000 Unit/Ml Vial SC 06/10/24 05:59 5,000 unit Q8HR LEXI Administration Doxycycline Hyclate 100 mg/ 100 mls @ 100 mls/hr 05/31/24 21:00 06/04/24 08:49 Sodium Chloride IV 06/07/24 20:59 100 mls/hr BID LEXI Administration Insulin Human Lispro 0 unit 05/26/24 21:00 06/04/24 11:35 Insulin Lispro (Admelog) 1 Unit/0.01 Ml Unit SC 06/25/24 20:59 1 unit ACHS LEXI Administration Protocol Lisinopril 5 mg 06/03/24 10:30 06/04/24 08:50 Lisinopril 2.5 Mg Tablet PO 07/03/24 10:29 5 mg QDAY LEXI Administration Morphine Sulfate 2 mg 05/28/24 12:27 06/04/24 10:34 Morphine Sulf Inj 10 Mg/Ml Vial IVP 06/05/24 12:26 2 mg Q4HR PRN Administration Pain-breakthrough Ondansetron HCl 4 mg 05/26/24 20:03 Ondansetron Inj 2 Mg/Ml Inj 2 Ml IV 06/25/24 20:02 Q6H PRN NAUSEA OR VOMITING Protocol Pantoprazole Sodium 40 mg 05/27/24 09:00 06/04/24 08:49 Pantoprazole Inj 40 Mg Vial IVP 06/26/24 08:59 40 mg QDAY LEXI Administration Plan 73-year-old male PMHx of T2DM, HLD, HTN admitted for left foot cellulitis. Started on ANTIBIOTICS. Additionally, he is being managed for GORDON, hyperkalemia, and hyponatremia. ACS NSTEMI type I Chronic diastolic congestive heart failure with preserved ejection fraction [EF 55-60%] Patient developed shortness of breath and nonproductive cough. [2] EKG showed A-fib with RVR, along with ST depressions in leads V3, V4, V5, V6, and ST elevation in aVR indicating ischemia/coronary artery disease. [2] EKG showed sinus rhythm. ST elevations in aVR and V1 not NSTEMI range. ST depressions in V4?V6. Q waves in V3. Rate 88 Troponin I 12.412 BNP 564 Patient underwent LHC on 06/03/2024 which indicated multivessel occlusion Plan: - Continue atorvastatin 80 Mg p.o. at bedtime ? Cardiology, Dr. Majano on board. Appreciate recommendations. ? Patient to be transferred to [facility] [place] for CABG evaluation by Dr. Ganesh Gamboa Atrial fibrillation with RVR?new onset Patient will schedule for I&D today. After administration of anesthesia he went into A-fib with RVR. [06/01] EKG showed A-fib with RVR, along with ST depressions in leads V3, V4, V5, V6, and ST elevation in aVR indicating ischemia/coronary artery disease. [06/02] EKG showed sinus rhythm. ST elevations in aVR and V1 not NSTEMI range. ST depressions in V4?V6. Q waves in V3. Rate 88 [id number]: 3 points [age, HTN, DM] Patient completed amiodarone drip Plan: ? Currently stable, consider starting amiodarone tablets ? May need anticoagulation in future ? Cardiology, Dr. Majano on board. Appreciate recommendations. Left foot cellulitis Bilateral peripheral arterial disease Leukocytosis Presenting with 1 month of left foot swelling, erythema and pain. On exam Left foot swollen, erythematous, 3 x 3 cm eschar noted on dorsal aspect of foot. Right fifth toe has 1x1cm area of necrosis He also had small skin lesion of fifth digit of right foot. Pulses diminished in left foot compared to right. Bilateral lower limb duplex arterial ultrasound completed and significant for bilateral peripheral arterial disease with left SOILA 0.7 X-ray was negative for bony destruction. Abdomen CTA completed on 05/30/2024: 50-70% stenosis right superficial femoral artery. 50% stenosis left superficial femoral artery. Left foot ultrasound revealed 3.6 x 0.5 x 1.9 cm abscess adjacent to the fifth digit. WBC 23.1 ---> 18.9 CRP 2.6 Blood culture NBG x 48 hours preliminary Urine culture no growth. Patient received 1 day of ceftriaxone 1 g IV daily and doxycycline 100 Mg IV twice daily from [05/26 - 05/27] Received Vancomycin 1 G IV tid for 5 days from [05/27 - 05/31] Patient underwent I&D by Dr. Navarro on 06/02/2024 Plan: ? Continue aspirin 81 Mg po daily - Continue Doxycycline 100mg IV BID [05/31 - Continue cefepime 1 g IV daily from 05/28 for a total of 10 days treatment to be completed on 06/04/2024 ? Continue metronidazole 500 Mg IV every 8 hourly on [05/27?VF - Pending Transfer to tertiary centre for vascular surgery - Vascular surgeon, Dr. Greer consulted and assessed the patient. He recommended for decompression of the left foot followed by left lower extremity angioplasty. Lower extremity angioplasty currently unavailable at [facility] and patient will need to be transferred to a tertiary center for treatment. Pulmonary coccidiomycosis Epistaxis - resolved Nonproductive cough Pulmonary edema?resolving Patient complains of shortness of breath and a nonproductive cough with mild epistaxis. Chest x-ray showed increased vascular markings and pulmonary edema Cocci IgM positive Received loading dose of Fluconazole 400mg po x 1 Plan: ? Fluconazole 200 Mg p.o. daily from 06/02 Prerenal GORDON on CKD stage IIIA - improving Hyperkalemia - resolved Hypoosmolar hyponatremia - resolved Non-anion gap metabolic acidosis - resolved Likely dehydrational. Sodium 124 ---> 132 , potassium 5.2---> 4.8 CR 3 ---> 1.4 (baseline 1.6), BUN 52 ---> 34 DDx: RTA type IV, medication induced Plan: ? Renally dose medication ? Avoid nephrotoxic agents ? Nephrology, Dr Malhotra consulted. Appreciate recommendations Primary HTN Hypotension Hyperlipidemia BP 139/59 Plan: ? Continue home ATORVASTATIN 80 mg HS Insulin-dependent diabetes mellitus type 2 [6.9%] Fasting blood glucose 77 Plan: ? Sliding scale insulin to cover for blood glucose spikes ? Hypoglycemic procedures in place Health maintenance: Disposition: Patient pending transfer to [facility] [place] for CABG and LE arterial stent Diet: Cardiac Lines: pIVs GI Prophylaxis: Pantoprazole Thrombo Prophylaxis: Heparin 5000 units SC every 8 hours Code status: FULL CODE This patient care was discussed with my attending Dr. Teresa Carbajal MD PGY-2 Disclaimer: Minor errors in set off press operator may be present since this note was dictated by speech recognition software. Attending Provider Attestation/Addendum I attest that I was physically present for the evaluation, physical examination, lab and imaging review of the patient with the residents. I discussed the case with the residents and agree with the findings and plans of care as documented above. At bedside today, patient is states she is feeling well and does not have any complaints. Denies chest pain, palpitations or shortness of breath. Noted to be coughing. Left foot covered under clean dressing, toes are swollen. Transfer process has been started for CABG evaluation and possible angioplasty for left lower limb. Continues to be on fluconazole as patient is positive for cocci IgM. Evelyn Moore MD
[2024-06-04] MEDS: ATORVASTATIN CALCIUM 20 MG TABLET 80 MG PO (21:18)
--- NOTE | 2024-06-04 23:54 | PD.IMPROG ---
Documentation for date of: 06/04/24 Subjective Subjective Interval history: Patient seen and examined at the bedside. No new cardiac complaints including any chest pain or chest pressure this morning. Still has left foot pain. Surgery successfully completed the left foot I&D abscess on 06/02/2024. No cardiac complications. Patient completed the amiodarone drip as per protocol and recommend to changed to amiodarone 200 mg p.o. twice daily for now WBC increased to 17,000 and hemoglobin is stable around 9-10 after the 2 transfusions. BUN is 24 and creatinine is 1.4 and improved than before. Patient overall improving and will be completed IV antibiotics as per the primary team and still on oral antibiotics. Insurance company ophthalmic medical assistant called me this a.m. and discussed with him in detail the need for transfer the patient for a higher level of care for evaluation of CABG by cardiothoracic surgery. And suspected previously left heart cardiac catheterization completed on 06/03/2024 showed severe multivessel disease as noted below and will need CABG evaluation. Discussed with cardiothoracic surgeon at [facility] Dr. Teodoro Gamboa who accepted patient to their service for CABG evaluation. Please see detailed cath report as noted below. Patient does have severe PAD for which vascular surgery was consulted over the phone and was recommended left leg angioplasty which can be performed after addressing his multivessel CAD. Please make sure to send this note, operative note, CD with both the echocardiogram as well as the cardiac catheterization images with the patient and transferred to [facility] or [facility]. Exam Vital Signs Temp Pulse Resp BP Pulse Ox O2 Del Method O2 Flow Rate 98.5 F 95 24 H 110/69 94 L Room Air 3 06/04/24 20:00 06/04/24 21:18 06/04/24 20:00 06/04/24 21:18 06/04/24 20:00 06/04/24 20:00 06/03/24 17:03 Narrative Exam General: Alert and oriented x3. In mild acute distress secondary to pain in the left foot Eyes: Pupils are equal and reactive to light bilaterally. HEENT: Atraumatic, normocephalic. No JVD noted. Mucosa moist. Cardiovascular: Normal S1 and S2. Irregularly irregular.. 3/6 systolic murmur appreciated at the apex, left leg 2+ edema and right foot 1+ Respiratory: No respiratory distress. Bilateral air entry present with occasional crackles as well as rhonchi Abdomen: Soft, nontender, nondistended. Skin: No rash. Warm to touch. Musculoskeletal: Left foot wound in dressing, cellulitis extending to the lower leg and 2+ edema. Able to move all 4 extremities. Neuro: Alert and oriented x3. No focal neuro deficits. Psych: Normal affect and mood Objective Labs 06/04/24 04:41 06/04/24 04:41 Labs: Laboratory Results - last 24 hr 06/04/24 04:41 WBC 17.6 H RBC 3.14 L Hgb 9.8 L Hct 28.5 L MCV 91 MCH 31.2 MCHC 34.4 RDW Std Deviation 47.4 H Plt Count 266 D Neut % (Auto) 78 Lymph % (Auto) 5 L [place] % (Auto) 7 Eos % (Auto) 6 Baso % (Auto) 0 Neut # (Auto) 13.7 H Lymph # (Auto) 0.9 L [place] # (Auto) 1.3 H Eos # (Auto) 1.1 H Baso # (Auto) 0.1 Immature Gran # (Auto) 0.51 H Absolute Nucleated RBC 0.02 H Immature Gran % 3 H Nucleated RBC % 0 Sodium 135 L Potassium 4.2 Chloride 102 Carbon Dioxide 22.2 Anion Gap 11 BUN 24 H Creatinine 1.4 H Estim Creat Clear Calc 39.9 L eGFR 53 L BUN/Creatinine Ratio 17 Glucose 107 H Calculated Osmolality 274 L Calcium 8.8 Corrected Calcium 9.5 Phosphorus 2.8 Magnesium 1.9 Total Bilirubin 0.3 AST 80 H ALT 39 Alkaline Phosphatase 104 Total Protein 5.6 L Albumin 3.1 L Globulin 2.5 Albumin/Globulin Ratio 1.2 Assessment & Plan A&P Narrative A 73-year-old male with a past medical history of type 2 diabetes mellitus, hyperlipidemia, hypertension, CKD stage III, HFpEF, last EF of 55 to 60%, normocytic normochromic anemia, initially presented to the hospital for left foot swelling pain and erythema. 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 This morning the troponins were elevated 12.0 and I was consulted again. Patient is well-known to me as outpatient and he follows up with me in the clinic. 1. NSTEMI-mostly type I versus type II given supply/demand mismatch. 2. Abnormal EKG with severe ST depressions in the the leads and minimal ST elevation in the aVR indicating possible multivessel disease. 3. New onset atrial fibrillation with RVR 4. Left foot abscess and left leg cellulitis 5. Sepsis secondary to the left foot abscess as well as the cellulitis. 6. 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 Severe PAD as noted on CTA with left greater than right lower extremity disease-mostly below the knee 8. Acute on chronic kidney disease stage III 9. Severe anemia with hemoglobin of 7.1-unclear etiology-acute on chronic anemia 10. HFrEF last EF of 55 to 60% 11. Diabetes mellitus type 2 12. Hyperlipidemia 13. Essential hypertension 14. Mild cognitive deficiency Apparently patient and has been having worsening left foot wound with discharge and is admitted to the hospital for the same foot infection. Patient was started on IV antibiotic with no significant improvement in continue to worsen with significant amount of pus in the wound. General surgery was consulted and incision and drainage was planned on 06/01/2024 and prior to the operation patient went into atrial fibrillation with RVR. Patient was started on amiodarone drip and after which she converted to normal sinus rhythm Cardiology was consulted for further evaluation and the surgery was canceled. An EKG was performed which showed significant diffuse ST depressions in all the leads with minimal ST elevation < 1mm in aVR during the A-fib with RVR episode suggesting possible multivessel disease versus left main disease. Troponins were elevated 12.0 next morning. Cardiac catheterization was considered but patient appeared to be severely septic with increasing WBC count at around 20K. His hemoglobin was low at 7.1 and patient also had GORDON since admission with a creatinine ranging between 1.5-1.9. Patient also denied any Chest pain or chest pressure except for some shortness of breath. 04/01/25 Recommend to do stat transfuse the patient with 2 unit PRBC as the anemia in addition to the A-fib with RVR because infiltrative demand ischemia for the heart. Recommended stat chest x-ray and a BNP to rule out any kind of significant. Which she does not appear to be in at the present point of time during my clinical exam. Stat echocardiogram was ordered and did not show any significant change from outpatient echo done 6 months ago for the patient with normal LVEF at 55 to 60%. Normal LV size, RV size and function. Mild TR. Mild to moderate PAH with estimated RVSP 45 mmHg. Mild biatrial dilatation. Mild MAC, moderate MR, mild AI and mild TR. EF on his outpatient nuclear stress test was also normal at around 60% and was negative at that point of time in 2023 which could be false positive stress test for balanced ischemia from multivessel disease. Surgical team and anesthesia team contacted me again this afternoon and patient infection is apparently severe and he will not do well without the I&D significant debridement and would require urgent surgery Discussed with surgical team, anesthesia that patient is definitely highly elevated cardiac risk for the surgery. Given the urgent surgery, recommended to proceed if patient and the family understand the risks and benefits for it and recommended regional block rather than general anesthesia for the patient. Will plan to do the cardiac catheterization tomorrow or day after when the patient improves from the present sepsis and his kidney function is more stable as he does not have any chest pain and chest pressure and see how he recovers from the surgery today. Recommend aspirin 325 mg x 1 and start aspirin 81 mg once daily. High intensity statin Patient will need heparin drip but he is severely anemic and recommended primary team to stop the anemia workup for now and transfuse 2 units PRBC. Plan to do FOBT also as there is no clear cause of the anemia and the patient did not have surgery and before that his hemoglobin dropped to 7.1. Will need to workup the severe anemia to the present point of time as pt needs catheterization, further interventions and he will need to be on dual antiplatelets. Heparin drip can then be started at later point of time when the workup completed and hemoglobin is stable Left heart cardiac catheterization: 06/03/2024 1. Left main artery is a medium to large size artery with 50% ostial stenosis and 40% distal left main stenosis LAD 2. LAD is a medium to large size artery with severe 90% stenosis in the mid LAD at the bifurcation of D1. LAD does wrap around the apex. D1 is a small to medium with severe 90% stenosis in the proximal portion. 3. LCx is a large size artery with severe 90% stenosis in the proximal LCx and also severe 80% stenosis in the proximal small OM1 as well as severe 80% stenosis of proximal OM 2 is occluded 4. RCA is 100% occluded at the ostium. Excellent collaterals noted from the left to right filling up to the proximal RCA but patient has severe 80 to 90% stenosis in the mid RPDA. 5. LVEDP is elevated at 22 mmHg. There was no significant transvalvular aortic gradient. Left ventriculogram not performed as the patient already had an echo which showed an EF of 55 to 60%. Summary/findings: 1. NSTEMI with elevated troponin at 12.0: LHC performed showed severe calcified multivessel disease with 100% occluded ostial RCA, 90% stenosis of the mid LAD, 90% stenosis of the D1, 80% stenosis of the proximal OM1, OM 2, severe 80% stenosis of the proximal LCx , 40-50% ostial left main stenosis and excellent [id number] collaterals extending up to the proximal RCA. LVEDP mildly elevated 20 mmHg. 06/04/24 No new cardiac complaints including any chest pain or chest pressure this morning. Still has left foot pain. Surgery successfully completed the left foot I&D abscess on 06/02/2024. No cardiac complications. Patient completed the amiodarone drip as per protocol and recommend to changed to amiodarone 200 mg p.o. twice daily for now WBC increased to 17,000 and hemoglobin is stable around 9-10 after the 2 transfusions. BUN is 24 and creatinine is 1.4 and improved than before. Patient overall improving and will be completed IV antibiotics as per the primary team and still on oral antibiotics. Insurance company ophthalmic medical assistant called me this a.m. and discussed with him in detail the need for transfer the patient for a higher level of care for evaluation of CABG by cardiothoracic surgery. And suspected previously left heart cardiac catheterization completed on 06/03/2024 showed severe multivessel disease as noted below and will need CABG evaluation. Discussed with cardiothoracic surgeon at [facility] Dr. Teodoro Gamboa who accepted patient to their service for CABG evaluation. Please see detailed cath report as noted below. Patient does have severe PAD for which vascular surgery was consulted over the phone and was recommended left leg angioplasty which can be performed after addressing his multivessel CAD. Please make sure to send this note, operative note, CD with both the echocardiogram as well as the cardiac catheterization images with the patient and transferred to [facility] or [facility]. Management of rest of the medical conditions as per primary team and other consultants. Thank you for the consult and allowing me to participate in the care of the patient. Cardiology will continue to follow. Jarad Majano M.D. Interventional Cardiology. Time Spent With Patient Time: Total time spent is greater than 50% in coordination of care (as documented) at patient's floor/unit and/or counseling patient:
[2024-06-05] VITALS (13 sets, daily range): BP systolic 103–138; BP diastolic 60–86; PULSE 82–98; RESP 18–97; TEMP 36.4–36.9; O2SAT 92–100
[2024-06-05] MEDS: HYDROcodone/APAP 5/325 TABLET 1 TAB PO ×5 (00:24→21:28)
[2024-06-05] MEDS: DiphenhydrAMINE 25 MG CAPSULE PO (00:45)
[2024-06-05] MEDS: BENZONATATE 100 MG CAPSULE PO ×3 (05:12→21:29)
[2024-06-05] MEDS: guaiFENesin SYRUP 200 MG/10 ML UDC PO ×2 (05:12→13:37)
[2024-06-05] MEDS: HEPARIN SOD INJ 5000 UNIT/ML VIAL SC ×3 (05:13→21:29)
[2024-06-05 05:49] LABS: Basophils % (Auto) 0 % (0-2.5); Eosinophils # (Auto) 1.4 Thou/mm3 (0.0-0.5); Eosinophils % (Auto) 10 % (0-10); Hematocrit 28.8 % (41.0-53.0); Hemoglobin 9.8 g/dL (13.5-16.0); Immature Granulocytes % (Auto) 2 % (0-0); Immature Granulocytes Auto 0.35 Thou/mm3 (0.00-0.00); Lymphocytes # (Auto) 1.1 Thou/mm3 (1.0-4.8); Lymphocytes % (Auto) 7 % (10-50); Mean Corpuscular Hemoglobin 31.1 pg (25.0-35.0); Mean Corpuscular Volume 91 fL (80-100); Monocytes # (Auto) 1.1 Thou/mm3 (0.0-0.8); Monocytes % (Auto) 8 % (0-12); Neutrophils # (Auto) 10.4 Thou/mm3 (1.8-7.7); Neutrophils % (Auto) 72 % (37-80); Nucleated Red Blood Cell % 0 /100 WBC (0); Platelet Count 278 Thou/mm3 (140-440); RDW Standard Deviation 46.5 fL (35.1-43.9); Red Blood Count 3.15 Miln/mm3 (4.50-5.90); White Blood Count 14.4 Thou/mm3 (3.8-10.6)
[2024-06-05 06:21] LABS: Alanine Aminotransferase 34 U/L (10-49); Albumin/Globulin Ratio 1.3 (1.2-2.2); Alkaline Phosphatase 94 U/L (46-116); Anion Gap 7 (7-16); Aspartate Amino Transferase 76 U/L (0-34); BUN/Creatinine Ratio 14 Ratio (12-20); Bilirubin,Total 0.3 mg/dL (0.3-1.2); Blood Urea Nitrogen 20 mg/dL (9-23); Calcium 8.6 mg/dL (8.3-10.6); Calcium (Corrected) 9.4 mg/dL (8.5-10.1); Carbon Dioxide 26.6 mMol/L (20.0-31.0); Chloride 100 mMol/L (98-107); Creatinine (Component) 1.4 mg/dL (0.6-1.3); Estimated Creatinine Clearance 39.9 mL/min (>60); Globulin 2.4 gm/dL (2.3-3.5); Glucose 122 mg/dL (74-106); Magnesium 1.8 mg/dL (1.6-2.6); Osmolality,Calculated 271 (275-295); Phosphorous 2.7 mg/dL (2.4-5.1); Potassium 4.4 mMol/L (3.4-5.1); Sodium 134 mMol/L (136-145); Total Protein 5.4 gm/dL (5.7-8.2); eGFR 53 See Note
[2024-06-05] MEDS: MORPHINE SULF INJ 10 MG/ML VIAL 2 MG IVP (07:28)
--- NOTE | 2024-06-05 08:00 | PD.IMPROG ---
Documentation for date of: 06/05/24 Subjective Subjective Interval history: Interval history: Patient seen and examined at the bedside. Patient still denies any Chest pain or chest pressure. Patient cardiac attrition completed on 06/03/2024 showed severe multivessel disease and is awaiting CABG evaluation. Patient was accepted by cardiothoracic surgery at [facility] Dr. Valerio but is still pending the transfer. Patient recently had left foot pain for which she had the left foot abscess and had incision and drainage completed on 06/02/2024 and completed his IV antibiotic course. Still on oral antibiotics. Insurance company certified medical assistant called again this a.m. and had questions regarding the infection and the timing of the cardiothoracic surgery. But discussed with the primary team to talk to infectious disease doctors regarding the ID clearance prior to the surgery CABG. Primary to discuss with cardiothoracic surgery regarding the timing of the surgery given the recent infection. Patient is cleared to have the surgery. Patient completed the amiodarone drip as per protocol and recommend to changed to amiodarone 200 mg p.o. twice daily for now WBC decreased to 15,900 and hemoglobin is stable around 9-10 after the 2 transfusions. BUN is 21 and creatinine is 1.3 and have continued to improved. Please see detailed cath report as noted below. Patient does have severe PAD for which vascular surgery was consulted over the phone and was recommended left leg angioplasty which can be performed after addressing his multivessel CAD. Please make sure to send this note, operative note, CD with both the echocardiogram as well as the cardiac catheterization images with the patient and transferred to [facility] or [facility]. Exam Vital Signs Temp Pulse Resp BP Pulse Ox O2 Del Method O2 Flow Rate 98.5 F 88 17 115/57 L 99 Room Air 2 06/06/24 16:06/06/24 16:06/06/24 16:06/06/24 16:06/06/24 16:06/06/24 16:06/06/24 06:18 Narrative Exam General: Alert and oriented x3. In mild acute distress secondary to pain in the left foot Eyes: Pupils are equal and reactive to light bilaterally. HEENT: Atraumatic, normocephalic. No JVD noted. Mucosa moist. Cardiovascular: Normal S1 and S2. Irregularly irregular.. 3/6 systolic murmur appreciated at the apex, left leg 2+ edema and right foot 1+ Respiratory: No respiratory distress. Bilateral air entry present with occasional crackles as well as rhonchi Abdomen: Soft, nontender, nondistended. Skin: No rash. Warm to touch. Musculoskeletal: Left foot wound in dressing, cellulitis extending to the lower leg and 2+ edema. Able to move all 4 extremities. Neuro: Alert and oriented x3. No focal neuro deficits. Psych: Normal affect and mood Objective Labs 06/06/24 05:15 06/06/24 05:15 Labs: Laboratory Results - last 24 hr 06/06/24 06/06/24 05:15 11:44 WBC 15.9 H RBC 2.98 L Hgb 9.2 L Hct 27.6 L MCV 93 MCH 30.9 MCHC 33.3 RDW Std Deviation 47.0 H Plt Count 315 D Neut % (Auto) 77 Lymph % (Auto) 6 L [place] % (Auto) 7 Eos % (Auto) 8 Baso % (Auto) 0 Neut # (Auto) 12.3 H Lymph # (Auto) 0.9 L [place] # (Auto) 1.1 H Eos # (Auto) 1.3 H Baso # (Auto) 0.0 Immature Gran # (Auto) 0.28 H Absolute Nucleated RBC 0.00 Immature Gran % 2 H Nucleated RBC % 0 Sodium 132 L Potassium 4.4 Chloride 96 L Carbon Dioxide 28.6 Anion Gap 7 BUN 21 Creatinine 1.3 Estim Creat Clear Calc 43.0 L eGFR 58 L BUN/Creatinine Ratio [address] Glu mg/dL 128 Hemoglobin A1c 6.1 H Calculated Osmolality 270 L Calcium 8.6 Corrected Calcium 9.5 Phosphorus 3.3 Magnesium 1.8 Total Bilirubin 0.3 AST 64 H ALT 32 Alkaline Phosphatase 85 Troponin I 8.534 H* Total Protein 5.4 L Albumin 2.9 L Globulin 2.5 Albumin/Globulin Ratio 1.2 Hepatitis A IgM Ab Non Reactive Hep Bs Antigen Non Reactive Hep B Core IgM Ab Non Reactive Hepatitis C Antibody Non Reactive HIV 1&2 Antibody Rapid Non-Reactive Assessment & Plan A&P Narrative A 73-year-old male with a past medical history of type 2 diabetes mellitus, hyperlipidemia, hypertension, CKD stage III, HFpEF, last EF of 55 to 60%, normocytic normochromic anemia, initially presented to the hospital for left foot swelling pain and erythema. 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 This morning the troponins were elevated 12.0 and I was consulted again. Patient is well-known to me as outpatient and he follows up with me in the clinic. 1. NSTEMI-mostly type I versus type II given supply/demand mismatch. 2. Abnormal EKG with severe ST depressions in the the leads and minimal ST elevation in the aVR indicating possible multivessel disease. 3. New onset atrial fibrillation with RVR 4. Left foot abscess and left leg cellulitis 5. Sepsis secondary to the left foot abscess as well as the cellulitis. 6. 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 Severe PAD as noted on CTA with left greater than right lower extremity disease-mostly below the knee 8. Acute on chronic kidney disease stage III 9. Severe anemia with hemoglobin of 7.1-unclear etiology-acute on chronic anemia 10. HFrEF last EF of 55 to 60% 11. Diabetes mellitus type 2 12. Hyperlipidemia 13. Essential hypertension 14. Mild cognitive deficiency Apparently patient and has been having worsening left foot wound with discharge and is admitted to the hospital for the same foot infection. Patient was started on IV antibiotic with no significant improvement in continue to worsen with significant amount of pus in the wound. General surgery was consulted and incision and drainage was planned on 06/01/2024 and prior to the operation patient went into atrial fibrillation with RVR. Patient was started on amiodarone drip and after which she converted to normal sinus rhythm Cardiology was consulted for further evaluation and the surgery was canceled. An EKG was performed which showed significant diffuse ST depressions in all the leads with minimal ST elevation < 1mm in aVR during the A-fib with RVR episode suggesting possible multivessel disease versus left main disease. Troponins were elevated 12.0 next morning. Cardiac catheterization was considered but patient appeared to be severely septic with increasing WBC count at around 20K. His hemoglobin was low at 7.1 and patient also had GORDON since admission with a creatinine ranging between 1.5-1.9. Patient also denied any Chest pain or chest pressure except for some shortness of breath. 04/01/25 Recommend to do stat transfuse the patient with 2 unit PRBC as the anemia in addition to the A-fib with RVR because infiltrative demand ischemia for the heart. Recommended stat chest x-ray and a BNP to rule out any kind of significant. Which she does not appear to be in at the present point of time during my clinical exam. Stat echocardiogram was ordered and did not show any significant change from outpatient echo done 6 months ago for the patient with normal LVEF at 55 to 60%. Normal LV size, RV size and function. Mild TR. Mild to moderate PAH with estimated RVSP 45 mmHg. Mild biatrial dilatation. Mild MAC, moderate MR, mild AI and mild TR. EF on his outpatient nuclear stress test was also normal at around 60% and was negative at that point of time in 2023 which could be false positive stress test for balanced ischemia from multivessel disease. Surgical team and anesthesia team contacted me again this afternoon and patient infection is apparently severe and he will not do well without the I&D significant debridement and would require urgent surgery Discussed with surgical team, anesthesia that patient is definitely highly elevated cardiac risk for the surgery. Given the urgent surgery, recommended to proceed if patient and the family understand the risks and benefits for it and recommended regional block rather than general anesthesia for the patient. Will plan to do the cardiac catheterization tomorrow or day after when the patient improves from the present sepsis and his kidney function is more stable as he does not have any chest pain and chest pressure and see how he recovers from the surgery today. Recommend aspirin 325 mg x 1 and start aspirin 81 mg once daily. High intensity statin Patient will need heparin drip but he is severely anemic and recommended primary team to stop the anemia workup for now and transfuse 2 units PRBC. Plan to do FOBT also as there is no clear cause of the anemia and the patient did not have surgery and before that his hemoglobin dropped to 7.1. Will need to workup the severe anemia to the present point of time as pt needs catheterization, further interventions and he will need to be on dual antiplatelets. Heparin drip can then be started at later point of time when the workup completed and hemoglobin is stable Left heart cardiac catheterization: 06/03/2024 1. Left main artery is a medium to large size artery with 50% ostial stenosis and 40% distal left main stenosis LAD 2. LAD is a medium to large size artery with severe 90% stenosis in the mid LAD at the bifurcation of D1. LAD does wrap around the apex. D1 is a small to medium with severe 90% stenosis in the proximal portion. 3. LCx is a large size artery with severe 90% stenosis in the proximal LCx and also severe 80% stenosis in the proximal small OM1 as well as severe 80% stenosis of proximal OM 2 is occluded 4. RCA is 100% occluded at the ostium. Excellent collaterals noted from the left to right filling up to the proximal RCA but patient has severe 80 to 90% stenosis in the mid RPDA. 5. LVEDP is elevated at 22 mmHg. There was no significant transvalvular aortic gradient. Left ventriculogram not performed as the patient already had an echo which showed an EF of 55 to 60%. Summary/findings: 1. NSTEMI with elevated troponin at 12.0: LHC performed showed severe calcified multivessel disease with 100% occluded ostial RCA, 90% stenosis of the mid LAD, 90% stenosis of the D1, 80% stenosis of the proximal OM1, OM 2, severe 80% stenosis of the proximal LCx , 40-50% ostial left main stenosis and excellent [id number] collaterals extending up to the proximal RCA. LVEDP mildly elevated 20 mmHg. 06/04/24 No new cardiac complaints including any chest pain or chest pressure this morning. Still has left foot pain. Surgery successfully completed the left foot I&D abscess on 06/02/2024. No cardiac complications. Patient completed the amiodarone drip as per protocol and recommend to changed to amiodarone 200 mg p.o. twice daily for now WBC increased to 17,000 and hemoglobin is stable around 9-10 after the 2 transfusions. BUN is 24 and creatinine is 1.4 and improved than before. Patient overall improving and will be completed IV antibiotics as per the primary team and still on oral antibiotics. [employer] certified medical assistant called me this a.m. and discussed with him in detail the need for transfer the patient for a higher level of care for evaluation of CABG by cardiothoracic surgery. 06/06/2024: Patient seen and examined at the bedside. Patient still denies any Chest pain or chest pressure. Patient cardiac attrition completed on 06/03/2024 showed severe multivessel disease and is awaiting CABG evaluation. Patient was accepted by cardiothoracic surgery at [facility] Dr. Valerio but is still pending the transfer. Patient recently had left foot pain for which she had the left foot abscess and had incision and drainage completed on 06/02/2024 and completed his IV antibiotic course. Still on oral antibiotics. Insurance company certified medical assistant called again this a.m. and had questions regarding the infection and the timing of the cardiothoracic surgery. But discussed with the primary team to talk to infectious disease doctors regarding the ID clearance prior to the surgery CABG. Primary to discuss with cardiothoracic surgery regarding the timing of the surgery given the recent infection. Patient is cleared to have the surgery. Patient completed the amiodarone drip as per protocol and recommend to changed to amiodarone 200 mg p.o. twice daily for now WBC decreased to 15,900 and hemoglobin is stable around 9-10 after the 2 transfusions. BUN is 21 and creatinine is 1.3 and have continued to improved. Please see detailed cath report as noted below. Patient does have severe PAD for which vascular surgery was consulted over the phone and was recommended left leg angioplasty which can be performed after addressing his multivessel CAD. Please make sure to send this note, operative note, CD with both the echocardiogram as well as the cardiac catheterization images with the patient and transferred to [facility] or [facility]. And suspected previously left heart cardiac catheterization completed on 06/03/2024 showed severe multivessel disease as noted below and will need CABG evaluation. Discussed with cardiothoracic surgeon at [facility] Dr. Teodoro Gamboa who accepted patient to their service for CABG evaluation. Please see detailed cath report as noted below. Patient does have severe PAD for which vascular surgery was consulted over the phone and was recommended left leg angioplasty which can be performed after addressing his multivessel CAD. Please make sure to send this note, operative note, CD with both the echocardiogram as well as the cardiac catheterization images with the patient and transferred to [facility] or [facility]. Management of rest of the medical conditions as per primary team and other consultants. Thank you for the consult and allowing me to participate in the care of the patient. Cardiology will continue to follow. Jarad Majnao M.D. Interventional Cardiology. Time Spent With Patient Total time spent is greater than 50% in coordination of care (as documented) at patient's floor/unit and/or counseling patient:
[2024-06-05] MEDS: PANTOPRAZOLE INJ 40 MG VIAL IVP (08:55)
[2024-06-05] MEDS: DOXYCYCLINE INJ 100 MG in SODIUM CHLORIDE 0.9% (P) 100 ML IV ×2 (08:55→21:29)
[2024-06-05] MEDS: CITRIC ACID/SODIUM CITR 15 ML UDC (BICITRA) 30 ML PO (08:55)
[2024-06-05] MEDS: ASPIRIN EC 81 MG TABEC PO (08:56)
[2024-06-05] MEDS: FLUCONAZOLE 100 MG TABLET 200 MG PO (08:56)
[2024-06-05] MEDS: SENNA/DOCUSATE SOD 1 TAB TABLET PO (08:56)
[2024-06-05] MEDS: Lisinopril 2.5 MG TABLET 5 MG PO ×2 (08:58→11:01)
[2024-06-05] MEDS: Silvasorb Gel 45 ML TUBE TOP (08:58)
[2024-06-05] MEDS: AMIODARONE HCL 200 MG TABLET PO ×2 (08:58→21:28)
--- NOTE | 2024-06-05 10:16 | PD.NEPHPROG ---
Documentation for date of: 06/05/24 Subjective Subjective Interval history: patient is a 73 year old male with PMH significant for Hypertension, hyperlipidemia and type 2 diabetes mellitus presented with chief complaint of left foot swelling that gradually worsened in last 1 month. He reported that, there could have been some foot injury or insect bite that he is not aware of. He went to see his PCP yesterday who recommended him to visit emergency department. He denied any fever or chills, headache, nausea or vomiting, chest pain or SOB, any changes in bowel or bladder habit. During evaluation, his vitals were stable, white count 23.1, hemoglobin 9.8, ESR 57, sodium level during presentation was 122 that slowly increased to 127 on IV normal saline 75 cc/h. Potassium initially was 5.2, that increased to 6.0 and trended down to 5.2. BUN 69, creatinine 2.6 which appears to be his baseline, and phosphorus 5.4. Left foot x-ray revealed no anjelica cortical bone destruction. Duplex scan lower extremity revealed severe bilateral obstructive arterial disease. Renal ultrasound revealed small kidneys with bilateral renal cortical thinning, moderate bilateral renal parenchymal scar formation. Urine electrolytes revealed creatinine 43, sodium 46, potassium 14, and chloride 24. Nephrology consultation was done for further management of moderate hypovolemic normal osmolar hyponatremia, hyperkalemia and CKD. 05/28/2024: The patient was interviewed and examined at the bedside this morning. He reported pain over his left foot. Vitals were stable with soft blood pressure. Labs were significant for white count 22.0, hemoglobin 9.6. Sodium 130, potassium 4.9, BUN 63, creatinine 2.4, EGFR 28, phosphorus 5.1. We will continue with maintenance normal saline fluid 70 cc/h as patient seemed to be mildly dehydrated, and his sodium correction is at goal levels. 05/29/2024 patient currently seen in medical floor. Resting comfortably. Labs, medications reviewed. Creatinine improving. Continue with current management. Left foot cellulitis/ulcers, severe peripheral vascular disease. 06/05/2024 Exam Vital Signs Temp Pulse Resp BP Pulse Ox O2 Del Method O2 Flow Rate 36.4 C 88 18 138/67 H 92 L Room Air 3 06/05/24 08:00 06/05/24 08:58 06/05/24 08:00 06/05/24 08:58 06/05/24 08:00 06/05/24 08:00 06/03/24 17:03 Objective Labs 06/05/24 05:08 06/05/24 05:08 Labs: Laboratory Results - last 24 hr 06/05/24 05:08 WBC 14.4 H RBC 3.15 L Hgb 9.8 L Hct 28.8 L MCV 91 MCH 31.1 MCHC 34.0 RDW Std Deviation 46.5 H Plt Count 278 Neut % (Auto) 72 Lymph % (Auto) 7 L [place] % (Auto) 8 Eos % (Auto) 10 Baso % (Auto) 0 Neut # (Auto) 10.4 H Lymph # (Auto) 1.1 [place] # (Auto) 1.1 H Eos # (Auto) 1.4 H Baso # (Auto) 0.0 Immature Gran # (Auto) 0.35 H Absolute Nucleated RBC 0.00 Immature Gran % 2 H Nucleated RBC % 0 Sodium 134 L Potassium 4.4 Chloride 100 Carbon Dioxide 26.6 Anion Gap 7 BUN 20 Creatinine 1.4 H Estim Creat Clear Calc 39.9 L eGFR 53 L BUN/Creatinine Ratio 14 Glucose 122 H Calculated Osmolality 271 L Calcium 8.6 Corrected Calcium 9.4 Phosphorus 2.7 Magnesium 1.8 Total Bilirubin 0.3 AST 76 H ALT 34 Alkaline Phosphatase 94 Total Protein 5.4 L Albumin 3.0 L Globulin 2.4 Albumin/Globulin Ratio 1.3 Assessment & Plan Additional Assessment & Plan Additional Plan: The patient is a 73 year old male with PMH significant for Hypertension, hyperlipidemia and type 2 diabetes mellitus presented with chief complaint of left foot swelling that gradually worsened in last 1 month was found to have left foot cellulitis, and nephrology consultation was done for the mangement of hyperkalemia, hyponatremia and GORDON on CKD. #Moderate hypovolemic hypoosmolar hyponatremia Patient's sodium was as low as 122 Sodium markedly improved. 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 Creatinine stable at 1.4 Renal ultrasound revealed small kidneys with bilateral renal cortical thinning, moderate bilateral renal parenchymal scar formation. Urine electrolytes revealed creatinine 43, sodium 46, potassium 14, and chloride 24 consistent with prerenal GORDON with BUN/Cr ration 25 -Continue with NS 70cc/hr -Monitor BMP daily am -Avoid nephrotoxic drugs #HTN Currently stable On lisinopril Left foot cellulitis//left toe gangrene/severe peripheral vascular disease-on antibiotics, surgery on the case Leukocytosis= HLD [id number], sliding scale CAD-pending transfer to [facility] -Management deferred to primary team
--- NOTE | 2024-06-05 10:18 | PD.NEPHPROG ---
Documentation for date of: 06/05/24 Subjective Subjective Interval history: patient is a 73 year old male with PMH significant for Hypertension, hyperlipidemia and type 2 diabetes mellitus presented with chief complaint of left foot swelling that gradually worsened in last 1 month. He reported that, there could have been some foot injury or insect bite that he is not aware of. He went to see his PCP yesterday who recommended him to visit emergency department. He denied any fever or chills, headache, nausea or vomiting, chest pain or SOB, any changes in bowel or bladder habit. During evaluation, his vitals were stable, white count 23.1, hemoglobin 9.8, ESR 57, sodium level during presentation was 122 that slowly increased to 127 on IV normal saline 75 cc/h. Potassium initially was 5.2, that increased to 6.0 and trended down to 5.2. BUN 69, creatinine 2.6 which appears to be his baseline, and phosphorus 5.4. Left foot x-ray revealed no anjelica cortical bone destruction. Duplex scan lower extremity revealed severe bilateral obstructive arterial disease. Renal ultrasound revealed small kidneys with bilateral renal cortical thinning, moderate bilateral renal parenchymal scar formation. Urine electrolytes revealed creatinine 43, sodium 46, potassium 14, and chloride 24. Nephrology consultation was done for further management of moderate hypovolemic normal osmolar hyponatremia, hyperkalemia and CKD. 05/28/2024: The patient was interviewed and examined at the bedside this morning. He reported pain over his left foot. Vitals were stable with soft blood pressure. Labs were significant for white count 22.0, hemoglobin 9.6. Sodium 130, potassium 4.9, BUN 63, creatinine 2.4, EGFR 28, phosphorus 5.1. We will continue with maintenance normal saline fluid 70 cc/h as patient seemed to be mildly dehydrated, and his sodium correction is at goal levels. 05/29/2024 patient currently seen in medical floor. Resting comfortably. Labs, medications reviewed. Creatinine improving. Continue with current management. Left foot cellulitis/ulcers, severe peripheral vascular disease. 06/05/2024patient currently seen in medical floor. Resting comfortably. Labs, medications reviewed. Creatinine stable. Continue with current management. Left foot cellulitis/ulcers, severe peripheral vascular disease. Going for CABG. However dx with [facility]- transfer held. Dr. Overton was consulted Review of Systems Review of Systems Narrative Review of Systems: denies CP, SOB. c/o pain in left leg Exam Vital Signs Temp Pulse Resp BP Pulse Ox O2 Del Method O2 Flow Rate 36.4 C 88 18 138/67 H 92 L Room Air 3 06/05/24 08:00 06/05/24 08:58 06/05/24 08:00 06/05/24 08:58 06/05/24 08:00 06/05/24 08:00 06/03/24 17:03 Narrative Exam General: Elderly, cooperative gentleman, no acute distress, Alert and Oriented x 3 HEENT: Moist mucous membranes, oropharynx clear Neck: Supple, No masses, No JVD CVS: S1S2 Regular rate and rhythm, No murmurs, rubs or gallops Lungs: Mild bibasilar crackles, no wheeze no rhonchi Abd: Soft, NT/ND, +BS, no organomegaly Ext: Left foot swollen, covered under clean dressing, peripheral pulse unable to appreciate Psych: Appropriate mood and affect Objective Labs 06/05/24 05:08 06/05/24 05:08 Labs: Laboratory Results - last 24 hr 06/05/24 05:08 WBC 14.4 H RBC 3.15 L Hgb 9.8 L Hct 28.8 L MCV 91 MCH 31.1 MCHC 34.0 RDW Std Deviation 46.5 H Plt Count 278 Neut % (Auto) 72 Lymph % (Auto) 7 L [place] % (Auto) 8 Eos % (Auto) 10 Baso % (Auto) 0 Neut # (Auto) 10.4 H Lymph # (Auto) 1.1 Roberts # (Auto) 1.1 H Eos # (Auto) 1.4 H Baso # (Auto) 0.0 Immature Gran # (Auto) 0.35 H Absolute Nucleated RBC 0.00 Immature Gran % 2 H Nucleated RBC % 0 Sodium 134 L Potassium 4.4 Chloride 100 Carbon Dioxide 26.6 Anion Gap 7 BUN 20 Creatinine 1.4 H Estim Creat Clear Calc 39.9 L eGFR 53 L BUN/Creatinine Ratio 14 Glucose 122 H Calculated Osmolality 271 L Calcium 8.6 Corrected Calcium 9.4 Phosphorus 2.7 Magnesium 1.8 Total Bilirubin 0.3 AST 76 H ALT 34 Alkaline Phosphatase 94 Total Protein 5.4 L Albumin 3.0 L Globulin 2.4 Albumin/Globulin Ratio 1.3 Assessment & Plan Additional Assessment & Plan Additional Plan: The patient is a 73 year old male with PMH significant for Hypertension, hyperlipidemia and type 2 diabetes mellitus presented with chief complaint of left foot swelling that gradually worsened in last 1 month was found to have left foot cellulitis, and nephrology consultation was done for the mangement of hyperkalemia, hyponatremia and GORDON on CKD. 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 Creatinine stable at 1.4 Renal ultrasound revealed small kidneys with bilateral renal cortical thinning, moderate bilateral renal parenchymal scar formation. Urine electrolytes revealed creatinine 43, sodium 46, potassium 14, and chloride 24 consistent with prerenal GORDON with BUN/Cr ration 25 -Monitor BMP daily am -Avoid nephrotoxic drugs #Moderate hypovolemic hypoosmolar hyponatremia Patient's sodium was as low as 122 Sodium markedly improved. #HTN Currently stable On lisinopril Left foot cellulitis//left toe gangrene/severe peripheral vascular disease-on antibiotics, surgery on the case Leukocytosis= HLD [id number], sliding scale CAD-pending transfer to [facility] ++ -Management deferred to primary team
[2024-06-05] MEDS: ALBUTEROL/IPRATROPIUM (Duoneb) RT SOL 3 ML NEBU INH ×4 (10:38→23:32)
--- NOTE | 2024-06-05 10:38 | ESPR_ITS ---
<Statement entered by Hipolito Carbajal MD - 06/06/24 07:02> I discussed with and supervised the editorial intern physician involved in the care of this patient. Patient assessment and plan was discussed with entire medicine team, including my attending. I agree with the assessment and plan as documented by editorial intern doctor. Patient care was discussed with my attending physician Dr. Teresa Carbajal, PGY-2 Documentation for date of: 06/05/24 Subjective Subjective Interval history: Patient is [place] speaking and interaction facilitated by registered healthcare breaker mechanic Patient was seen and examined at bedside this AM. No acute exents overnight. Patient tolerating diet, adequate urine output and mentation is at baseline. Patient complains of nonproductive cough and shortness of breath at rest. Day 6 doxycycline 100 Mg IV twice daily. WBC decreased to 14.4 from 17. Will increase DuoNebs frequency to every 4 hourly. Blood pressure 138/67. Will increase lisinopril to 10 Mg p.o. daily for blood pressure control and nephro protection. Infectious disease, Dr Overton consulted. Patient currently pending transfer to tertiary center for evaluation by cardiothoracic surgeon, Dr. Teodoro Gamboa who accepted the patient for CABG evaluation. Patient was also assessed by vascular surgeon, Dr. Greer who recommended left leg angioplasty. Exam Vital Signs Temp Pulse Resp BP Pulse Ox O2 Del Method O2 Flow Rate 97.5 F 88 18 138/67 H 92 L Room Air 3 06/05/24 08:00 06/05/24 08:58 06/05/24 08:00 06/05/24 08:58 06/05/24 08:00 06/05/24 08:00 06/03/24 17:03 Narrative Exam General: Elderly, cooperative gentleman, no acute distress, Alert and Oriented x 3 HEENT: Moist mucous membranes, oropharynx clear Neck: Supple, No masses, No JVD CVS: S1S2 Regular rate and rhythm, 3/6 systolic murmur at apex, rubs or gallops Lungs: Decreased AE in all lung haile Abd: Soft, NT/ND, +BS, no organomegaly Ext: Left foot swollen, covered under clean dressing Psych: Appropriate mood and affect Objective Labs 06/07/24 08:09 06/07/24 08:09 Labs: Laboratory Results - last 24 hr 06/05/24 05:08 WBC 14.4 H RBC 3.15 L Hgb 9.8 L Hct 28.8 L MCV 91 MCH 31.1 MCHC 34.0 RDW Std Deviation 46.5 H Plt Count 278 Neut % (Auto) 72 Lymph % (Auto) 7 L [place] % (Auto) 8 Eos % (Auto) 10 Baso % (Auto) 0 Neut # (Auto) 10.4 H Lymph # (Auto) 1.1 [place] # (Auto) 1.1 H Eos # (Auto) 1.4 H Baso # (Auto) 0.0 Immature Gran # (Auto) 0.35 H Absolute Nucleated RBC 0.00 Immature Gran % 2 H Nucleated RBC % 0 Sodium 134 L Potassium 4.4 Chloride 100 Carbon Dioxide 26.6 Anion Gap 7 BUN 20 Creatinine 1.4 H Estim Creat Clear Calc 39.9 L eGFR 53 L BUN/Creatinine Ratio 14 Glucose 122 H Calculated Osmolality 271 L Calcium 8.6 Corrected Calcium 9.4 Phosphorus 2.7 Magnesium 1.8 Total Bilirubin 0.3 AST 76 H ALT 34 Alkaline Phosphatase 94 Total Protein 5.4 L Albumin 3.0 L Globulin 2.4 Albumin/Globulin Ratio 1.3 Quality Measures Quality Measures VTE prophylaxis Advance care planning discussed with:: patient Assessment & Plan Assessment Current Active Medications: Generic Name Dose Route Start Last Admin Trade Name Freq PRN Reason Stop Dose Admin Acetaminophen 650 mg 05/26/24 20:03 Acetaminophen 325 Mg Tablet PO 06/25/24 20:02 Q6H PRN PAIN SCALE 1-3 (mild Hydrocodone Bitart/Acetaminophen 1 tab 05/31/24 20:40 06/05/24 10:18 Hydrocodone/Apap 5/325 Tablet PO 06/05/24 20:39 1 tab Q4HR PRN Administration PAIN SCALE 4-6 Albuterol/Ipratropium 3 ml 06/05/24 11:00 06/05/24 10:38 Albuterol/Ipratropium (Duoneb) Rt Marjorie 3 Ml Nebu INH 07/05/24 10:59 3 ml Q4HRRT LEXI Administration Amiodarone HCl 200 mg 06/04/24 06:00 06/05/24 08:58 Amiodarone Hcl 200 Mg Tablet PO 07/04/24 05:59 200 mg BID LEXI Administration Aspirin 81 mg 06/03/24 09:00 06/05/24 08:56 Aspirin Ec 81 Mg Tabec PO 07/03/24 08:59 81 mg QDAY LEXI Administration Atorvastatin Calcium 80 mg 05/26/24 21:00 06/04/24 21:18 Atorvastatin Calcium 20 Mg Tablet PO 06/25/24 20:59 80 mg HS LEXI Administration Benzonatate 100 mg 06/02/24 14:00 06/05/24 05:12 Benzonatate 100 Mg Capsule PO 07/02/24 13:59 100 mg Q8HR LEXI Administration Protocol Dextrose 25 ml 05/26/24 20:10 Dextrose 50%-Water Inj 50 Ml Syringe IV 06/25/24 20:09 Q15MIN PRN BG 50-70 responsive npo pt Dextrose 50 ml 05/26/24 20:10 Dextrose 50%-Water Inj 50 Ml Syringe IV 06/25/24 20:09 Q15MIN PRN BG <50 OR BG <70 & pt unresponsive Fluconazole 200 mg 06/02/24 09:00 06/05/24 08:56 Fluconazole 100 Mg Tablet PO 06/09/24 08:59 200 mg QDAY LEXI Administration Glucagon 1 mg 05/26/24 20:10 Glucagon Inj 1 Mg Vial IM Q15MIN PRN BG <70, and no IV access Guaifenesin 200 mg 06/01/24 10:00 06/05/24 05:12 Guaifenesin Syrup 200 Mg/10 Ml Udc PO 07/01/24 09:59 200 mg TID LEXI Administration Protocol Heparin Sodium (Porcine) 5,000 unit 05/27/24 06:00 06/05/24 05:13 Heparin Sod Inj 5000 Unit/Ml Vial SC 06/10/24 05:59 5,000 unit Q8HR LEXI Administration Doxycycline Hyclate 100 mg/ 100 mls @ 100 mls/hr 05/31/24 21:00 06/05/24 08:55 Sodium Chloride IV 06/07/24 20:59 100 mls/hr BID LEXI Administration Insulin Human Lispro 0 unit 05/26/24 21:00 06/05/24 07:13 Insulin Lispro (Admelog) 1 Unit/0.01 Ml Unit SC 06/25/24 20:59 Not Given ACHS LEXI Protocol Lisinopril 5 mg 06/05/24 10:33 Lisinopril 2.5 Mg Tablet PO 06/05/24 10:34 X1 ONE Lisinopril 10 mg 06/06/24 09:00 Lisinopril 2.5 Mg Tablet PO 07/06/24 08:59 QDAY LEXI Morphine Sulfate 2 mg 05/28/24 12:27 06/05/24 07:28 Morphine Sulf Inj 10 Mg/Ml Vial IVP 06/05/24 12:26 2 mg Q4HR PRN Administration Pain-breakthrough Ondansetron HCl 4 mg 05/26/24 20:03 Ondansetron Inj 2 Mg/Ml Inj 2 Ml IV 06/25/24 20:02 Q6H PRN NAUSEA OR VOMITING Protocol Pantoprazole Sodium 40 mg 05/27/24 09:00 06/05/24 08:55 Pantoprazole Inj 40 Mg Vial IVP 06/26/24 08:59 40 mg QDAY LEXI Administration Plan 73-year-old male PMHx of T2DM, HLD, HTN admitted for left foot cellulitis. Started on ANTIBIOTICS. Additionally, he is being managed for GORDON, hyperkalemia, and hyponatremia. ACS Multivessel CAD NSTEMI type I Chronic diastolic congestive heart failure with preserved ejection fraction [EF 55-60%] Patient developed shortness of breath and nonproductive cough. [06/01] EKG showed A-fib with RVR, along with ST depressions in leads V3, V4, V5, V6, and ST elevation in aVR indicating ischemia/coronary artery disease. [06/02] EKG showed sinus rhythm. ST elevations in aVR and V1 not NSTEMI range. ST depressions in V4?V6. Q waves in V3. Rate 88 Troponin I 12.412 BNP 564 Left heart cardiac catheterization: 06/03/2024 1. Left main artery is a medium to large size artery with 50% ostial stenosis and 40% distal left main stenosis LAD 2. LAD is a medium to large size artery with severe 90% stenosis in the mid LAD at the bifurcation of D1. LAD does wrap around the apex. D1 is a small to medium with severe 90% stenosis in the proximal portion. 3. LCx is a large size artery with severe 90% stenosis in the proximal LCx and also severe 80% stenosis in the proximal small OM1 as well as severe 80% stenosis of proximal OM 2 is occluded 4. RCA is 100% occluded at the ostium. Excellent collaterals noted from the left to right filling up to the proximal RCA but patient has severe 80 to 90% stenosis in the mid RPDA. 5. LVEDP is elevated at 22 mmHg. There was no significant transvalvular aortic gradient. Left ventriculogram not performed as the patient already had an echo which showed an EF of 55 to 60%. Summary/findings: 1. NSTEMI with elevated troponin at 12.0: LHC performed showed severe calcified multivessel disease with 100% occluded ostial RCA, 90% stenosis of the mid LAD, 90% stenosis of the D1, 80% stenosis of the proximal OM1, OM 2, severe 80% stenosis of the proximal LCx , 40-50% ostial left main stenosis and excellent [id number] collaterals extending up to the proximal RCA. LVEDP mildly elevated 20 mmHg. Plan: ? Continue aspirin 81 Mg p.o. daily - Continue atorvastatin 80 Mg p.o. at bedtime ? Cardiology, Dr. Majano consulted and closely following the case. Appreciate recommendations. ? Dr. Andersen, CT surgeon requested clearance by infectious disease for surgery prior to continuing with transfer. ? Patient to be transferred to [facility] for CABG evaluation by Dr. Ganesh Gamboa Atrial fibrillation with RVR?new onset Patient will schedule for I&D today. After administration of anesthesia he went into A-fib with RVR. [06/01] EKG showed A-fib with RVR, along with ST depressions in leads V3, V4, V5, V6, and ST elevation in aVR indicating ischemia/coronary artery disease. [06/02] EKG showed sinus rhythm. ST elevations in aVR and V1 not NSTEMI range. ST depressions in V4?V6. Q waves in V3. Rate 88 [id number]: 3 points [age, HTN, DM] Patient completed amiodarone infusion Plan: ? Continue amiodarone 200 Mg p.o. twice daily ? May need anticoagulation in future ? Cardiology, Dr. Majano on board. Appreciate recommendations. Left foot cellulitis Bilateral peripheral arterial disease Leukocytosis Presenting with 1 month of left foot swelling, erythema and pain. On exam Left foot swollen, erythematous, 3 x 3 cm eschar noted on dorsal aspect of foot. Right fifth toe has 1x1cm area of necrosis He also had small skin lesion of fifth digit of right foot. Pulses diminished in left foot compared to right. Bilateral lower limb duplex arterial ultrasound completed and significant for bilateral peripheral arterial disease with left SOILA 0.7 X-ray was negative for bony destruction. Abdomen CTA completed on 05/30/2024: 50-70% stenosis right superficial femoral artery. 50% stenosis left superficial femoral artery. Left foot ultrasound revealed 3.6 x 0.5 x 1.9 cm abscess adjacent to the fifth digit. WBC 23.1 ---> 14.4 CRP 2.6 Blood culture NBG x 48 hours preliminary Urine culture no growth. Patient received 1 day of ceftriaxone 1 g IV daily and doxycycline 100 Mg IV twice daily from [05/26 - 05/27] Received Vancomycin 1 G IV tid for 5 days from [05/27 - 05/31] Received cefepime 1 g IV daily for 10 days from [05/28 - 06/04] Received metronidazole 500 Mg IV Q8 hourly from [05/27 - 06/03] Patient underwent I&D by Dr. Navarro on 06/02/2024 Plan: ? Continue aspirin 81 Mg po daily - Continue Doxycycline 100mg IV BID [05/31 - Pending Transfer to tertiary centre for vascular surgery - Vascular surgeon, Dr. Greer consulted and assessed the patient. He recommended for decompression of the left foot followed by left lower extremity angioplasty. Lower extremity angioplasty currently unavailable at [facility] and patient will need to be transferred to a tertiary center for treatment. Pulmonary coccidiomycosis Epistaxis - resolved Nonproductive cough Pulmonary edema?resolving Patient complains of shortness of breath and a nonproductive cough with mild epistaxis. Chest x-ray showed increased vascular markings and pulmonary edema Cocci IgM positive Received loading dose of Fluconazole 400mg po x 1 Plan: ? Continue Fluconazole 200 Mg p.o. daily from [06/02- ?consulted ID. Prerenal GORDON on CKD stage IIIA - improving Hyperkalemia - resolved Hypoosmolar hyponatremia - resolved Non-anion gap metabolic acidosis - resolved Likely dehydrational. Sodium 124 ---> 132 , potassium 5.2---> 4.8 CR 3 ---> 1.4 (baseline 1.6), BUN 52 ---> 34 DDx: RTA type IV, medication induced Plan: ? Renally dose medication ? Avoid nephrotoxic agents ? Nephrology, Dr Malhotra consulted. Appreciate recommendations Primary HTN Hypotension Hyperlipidemia BP 138/67 Plan: ? Increased lisinopril to 10 Mg p.o. daily from 5 Mg p.o. daily. ? Continue home ATORVASTATIN 80 mg HS Insulin-dependent diabetes mellitus type 2 [6.9%] Fasting blood glucose 122 Plan: ? Sliding scale insulin to cover for blood glucose spikes ? Hypoglycemic procedures in place Health maintenance: Disposition: Patient pending transfer to [facility] for CABG and LE arterial stent. Pending ID recommendations prior to transfer for CABG. Diet: Cardiac Lines: pIVs GI Prophylaxis: Pantoprazole Thrombo Prophylaxis: Heparin 5000 units SC every 8 hours Code status: FULL CODE Plan of care discussed with Attending Dr. Moore and PGY2 Dr. Raven Rios MD PGY 1 Attending Provider Attestation/Addendum I attest that I was physically present for the evaluation, physical examination, lab and imaging review of the patient with the residents. I discussed the case with the residents and agree with the findings and plans of care as documented above. At bedside today, patient continues to appear comfortable. Denies any new complaints. Continues to be on aspirin, atorvastatin. Had a discussion with cardiology and Dr. Conner from [facility], informed him about patient's condition including multivessel disease and need for transfer to [facility] for evaluation for CABG. Also discussed with Dr. Valerio, cardiothoracic surgeon, explained about patient's condition, completion of antibiotic for his foot cellulitis and gangrene, positivity of cocci IgM. She recommended getting ID consult to clear for surgery. We will obtain ID consult. Patient continues to be on oral fluconazole, renally dosed. Wound care following. Pending transfer for evaluation for CABG and vasular surgery of left leg. Evelyn Moore MD
[2024-06-05] MEDS: INSULIN LISPRO (AdmeLOG) 1 UNIT/0.01 ML UNIT SC ×3 (11:24→21:29)
--- NOTE | 2024-06-05 12:19 | PC.CC ---
Addendum entered by Noel Rogers RN 06/05/24 15:07: 1500-Spoke with Dr. Moore who informed TC RN that he spoke to Dr. Conner and conference called Dr. Castañeda to discuss patient's case. Dr. Moore will contact Dr. Allen at [facility] to review plan of care for patient moving forward. We have not received auth at this time. Awaiting response at this time. Original Note: 1215- Spoke with Dr. Conner from [facility], he stated that he spoke with CT surgeon at [facility] and he was informed that they would not be moving forward with CABG until patient's leg infection was cleared. He asked for the name and number for attending physician today so that he may speak with him for an update. I provided him with the phone number for Dr. Moore who is caring for patient today.
[2024-06-05] MEDS: guaiFENesin SYRUP 200 MG/10 ML UDC 300 MG PO ×2 (16:09→21:28)
[2024-06-05] MEDS: ATORVASTATIN CALCIUM 20 MG TABLET 80 MG PO (21:28)
[2024-06-06] VITALS (16 sets, daily range): BP systolic 104–135; BP diastolic 57–71; PULSE 82–98; RESP 16–99; TEMP 36.5–37.8; O2SAT 95–100; BMI 22.6
[2024-06-06] MEDS: ALBUTEROL/IPRATROPIUM (Duoneb) RT SOL 3 ML NEBU INH ×6 (03:23→22:30)
[2024-06-06] MEDS: HYDROcodone/APAP 5/325 TABLET 1 TAB PO (05:15)
[2024-06-06] MEDS: BENZONATATE 100 MG CAPSULE PO ×3 (05:15→21:13)
[2024-06-06] MEDS: HEPARIN SOD INJ 5000 UNIT/ML VIAL SC ×3 (05:15→21:13)
[2024-06-06] MEDS: guaiFENesin SYRUP 200 MG/10 ML UDC 300 MG PO ×4 (05:15→21:12)
[2024-06-06 06:53] LABS: Basophils % (Auto) 0 % (0-2.5); Eosinophils # (Auto) 1.3 Thou/mm3 (0.0-0.5); Eosinophils % (Auto) 8 % (0-10); Hematocrit 27.6 % (41.0-53.0); Hemoglobin 9.2 g/dL (13.5-16.0); Immature Granulocytes % (Auto) 2 % (0-0); Immature Granulocytes Auto 0.28 Thou/mm3 (0.00-0.00); Lymphocytes # (Auto) 0.9 Thou/mm3 (1.0-4.8); Lymphocytes % (Auto) 6 % (10-50); Mean Corpuscular HGB Conc 33.3 g/dl (31.0-37.0); Mean Corpuscular Hemoglobin 30.9 pg (25.0-35.0); Mean Corpuscular Volume 93 fL (80-100); Monocytes # (Auto) 1.1 Thou/mm3 (0.0-0.8); Monocytes % (Auto) 7 % (0-12); Neutrophils # (Auto) 12.3 Thou/mm3 (1.8-7.7); Neutrophils % (Auto) 77 % (37-80); Nucleated Red Blood Cell % 0 /100 WBC (0); Platelet Count 315 Thou/mm3 (140-440); Red Blood Count 2.98 Miln/mm3 (4.50-5.90); White Blood Count 15.9 Thou/mm3 (3.8-10.6)
[2024-06-06 07:07] LABS: Alanine Aminotransferase 32 U/L (10-49); Albumin, Serum 2.9 gm/dL (3.4-4.8); Albumin/Globulin Ratio 1.2 (1.2-2.2); Alkaline Phosphatase 85 U/L (46-116); Anion Gap 7 (7-16); Aspartate Amino Transferase 64 U/L (0-34); BUN/Creatinine Ratio 16 Ratio (12-20); Bilirubin,Total 0.3 mg/dL (0.3-1.2); Blood Urea Nitrogen 21 mg/dL (9-23); Calcium 8.6 mg/dL (8.3-10.6); Calcium (Corrected) 9.5 mg/dL (8.5-10.1); Carbon Dioxide 28.6 mMol/L (20.0-31.0); Chloride 96 mMol/L (98-107); Creatinine (Component) 1.3 mg/dL (0.6-1.3); Globulin 2.5 gm/dL (2.3-3.5); Glucose 161 mg/dL (74-106); Magnesium 1.8 mg/dL (1.6-2.6); Osmolality,Calculated 270 (275-295); Phosphorous 3.3 mg/dL (2.4-5.1); Potassium 4.4 mMol/L (3.4-5.1); Sodium 132 mMol/L (136-145); Total Protein 5.4 gm/dL (5.7-8.2); eGFR 58 See Note
[2024-06-06] MEDS: FLUCONAZOLE 100 MG TABLET 200 MG PO (08:35)
[2024-06-06] MEDS: PANTOPRAZOLE INJ 40 MG VIAL IVP (08:35)
[2024-06-06] MEDS: Lisinopril 2.5 MG TABLET 10 MG PO (08:36)
[2024-06-06] MEDS: AMIODARONE HCL 200 MG TABLET PO ×2 (08:36→21:12)
[2024-06-06] MEDS: ASPIRIN EC 81 MG TABEC PO (08:37)
--- NOTE | 2024-06-06 08:59 | PC.CC ---
Addendum entered by Tamara Ornelas RN 06/06/24 18:13: 1624 Dr. Moore called back and stated he called but unable to reach Dr. Conner. Addendum entered by Tamara Ornelas RN 06/06/24 15:17: [address] Moore and gave update regarding conversation with Dr. Conner. Dr. Moore stated pt has foot infection and it has been treated with abx. Dr. Moore stated he is going to call Dr. Conner and call me back. Addendum entered by Tamara Ornelas RN 06/06/24 15:09: [address] call from [address] with financial clearance dept at [facility]. Pending ref # provided. Addendum entered by Tamara Ornelas RN 06/06/24 15:08: [address] Conner with [facility] insurance. I had a detailed conversation with him. I informed him that per Dr. Israel resident notes Patient was also assessed by vascular surgeon, Dr. Greer who recommended left leg angioplasty once cardiac problems are addressed. I asked if the pt needs CABG first before any vascular surgeon procedure. Dr. Conner clarified that he spoke to Dr. Greer yesterday when Dr. Greer told him, he assessed the pt last week and pt leg didn't look good, pt. might need amputation and he is going to assess the pt tomorrow. Dr. Conner also clarified that he spoke to Dr. Cooper Valerio cardio-thoracic surgeon at [facility] and Dr. Valerio clearly stated he is accepting the pt but he is not going to touch the pt with an infected leg. I also informed Dr. Conner regarding my conversation with Roxann at [facility] health insurance that [facility] is not contracted with [facility]. Since it is out of [facility], I have to get auth from [facility]. I asked if he will be the same drAna working on insurance auth with [facility] and he stated yes. I informed Dr. Conner that clinicals were faxed to [facility]. He stated he will wait for Dr. Greer to see the pt tomorrow. Addendum entered by Tamara Ornelas RN 06/06/24 14:45: 1427 received call from Virginia at [facility]. She stated she spoke to the cardio-thoracic surgeon casino operations supervisor. He wasn't aware about the case but she read him the operative report. Per Virginia, he accepted the pt but he stated since pt is at [facility] from many days and seems stable. He is going to wait until insurance auth is received. Banpranavjanelle also stated to reach back if any changes in pt condition. Addendum entered by Tamara Ornelas RN 06/06/24 14:15: 1410 operative notes faxed to [facility]. 1407 received call from Virginia from [facility]. She stated she doesn't have operative notes for angiogram. [address] Moore and informed the progress so far. Addendum entered by Tamara Ornelas RN 06/06/24 14:12: 1353 received call from Virginia at [facility]. I updated her that per [facility] [employer] insurance that they are not contracted with [facility]. Since it is out of [facility], I have to get auth from [facility]. I informed her I called [facility], per Rama Mensah pt can be transferred without approval. Pending Ref# [id number]. Virginia stated she will try to escalate the transfer. Addendum entered by Tamara Ornelas RN 06/06/24 13:16: 1315 clinicals faxed to [facility] at [phone]. Addendum entered by Tamara Ornelas RN 06/06/24 13:05: 1215 called [facility] at [phone], spoke to Rama Mensah regarding transfer auth. Gave her the info of accepting hospital which is [facility], address [address] [place] [address]. , Tax [place] [id number]. Accepting Dr.?Omid Valerio. and informed it's emergent transfer, pt needs CABG. She stated to fax clinicals to [phone] for review and clinicals needs to be faxed everyday until pt is transferred. Pending Ref# [id number]. She also stated pt can be transferred without approval. Total call time is 40min. Addendum entered by Tamara Ornelas RN 06/06/24 12:14: 1203 received call from Roxann with [facility] insurance that they are not contracted with [facility]. Since it is out of [facility], I have to get auth from [facility] and the number to call is [phone]. Addendum entered by Tamara Ornelas RN 06/06/24 12:11: [address] Conner with [facility] insurance. He stated Dr. Greer vascular surgeon told him that when he assessed the pt. Pt leg didn't look good, pt. might need amputation. Dr. Conner stated Dr. Greer is going to see the pt tomorrow and then they will have better picture on what to do next. Addendum entered by Tamara Ornelas RN 06/06/24 11:48: 1147 updated clinicals faxed to [facility] at [phone]. Addendum entered by Tamara Ornelas RN 06/06/24 11:40: 1134 I called the [facility] [phone], spoke to [facility] and informed about Dr. Overton's consultation notes. She stated she is going to email Dr. Conner. She also stated to fax updated clinicals to [phone]. Addendum entered by Tamara Ornelas RN 06/06/24 11:34: [address] Overton's consultation notes to [facility]. [phone] called [facility] to update about Dr. Overton's consultation notes, left VM. Addendum entered by Tamara Ornelas RN 06/06/24 11:29: [address] Overton's notes if pt needs heart procedure, it should be done. I called and checked with Dr. Carbajal and he stated per Dr. Overton it is OK to do CABG and need to contact [facility] cardio-thoracic surgeon Dr. Valerio and insurance Dr. Conner. Addendum entered by Tamara Ornelas RN 06/06/24 09:02: [address] Malhotra notes dx with [facility]- transfer held. Dr. Overton was consulted. Original Note: 0730 Per [facility] transfer center nurse handoff patient needs ID clearance prior to acceptance, ID consult ordered per Dr. Moore, Dr. Overton to see patient today.
--- NOTE | 2024-06-06 09:18 | ESPR_ITS ---
Subjective Subjective Interval history: called [facility]. no data yet Exam Vital Signs Temp Pulse Resp BP Pulse Ox O2 Del Method O2 Flow Rate 100.0 F 94 16 114/64 95 Room Air 2 06/06/24 08:00 06/06/24 08:36 06/06/24 08:00 06/06/24 08:36 06/06/24 08:00 06/06/24 08:00 06/06/24 06:18 Narrative Exam see dictation Objective - Internal Medicine Labs 06/06/24 05:15 06/06/24 05:15 Labs: Laboratory Results - last 24 hr 06/06/24 05:15 WBC 15.9 H RBC 2.98 L Hgb 9.2 L Hct 27.6 L MCV 93 MCH 30.9 MCHC 33.3 RDW Std Deviation 47.0 H Plt Count 315 D Neut % (Auto) 77 Lymph % (Auto) 6 L [place] % (Auto) 7 Eos % (Auto) 8 Baso % (Auto) 0 Neut # (Auto) 12.3 H Lymph # (Auto) 0.9 L [place] # (Auto) 1.1 H Eos # (Auto) 1.3 H Baso # (Auto) 0.0 Immature Gran # (Auto) 0.28 H Absolute Nucleated RBC 0.00 Immature Gran % 2 H Nucleated RBC % 0 Sodium 132 L Potassium 4.4 Chloride 96 L Carbon Dioxide 28.6 Anion Gap 7 BUN 21 Creatinine 1.3 Estim Creat Clear Calc 43.0 L eGFR 58 L BUN/Creatinine Ratio 16 Glucose 161 H Calculated Osmolality 270 L Calcium 8.6 Corrected Calcium 9.5 Phosphorus 3.3 Magnesium 1.8 Total Bilirubin 0.3 AST 64 H ALT 32 Alkaline Phosphatase 85 Total Protein 5.4 L Albumin 2.9 L Globulin 2.5 Albumin/Globulin Ratio 1.2 Assessment & Plan A&P Narrative pos cocci serology pt here for cad issues if pt needs heart procedure, it should be done. eso noted. not dramatic. will call [facility] again on thu if pt remains here. Time Spent With Patient Time: Total time spent is greater than 50% in coordination of care (as documented) at patient's floor/unit and/or counseling patient:
--- NOTE | 2024-06-06 09:26 | ESPR_ITS ---
Subjective Subjective Interval history: ok to give flucon 400/day po. po is same as iv. d/w primary team Exam Vital Signs Temp Pulse Resp BP Pulse Ox O2 Del Method O2 Flow Rate 100.0 F 94 16 114/64 95 Room Air 2 06/06/24 08:00 06/06/24 08:36 06/06/24 08:00 06/06/24 08:36 06/06/24 08:00 06/06/24 08:00 06/06/24 06:18 Narrative Exam see dictation Objective - Internal Medicine Labs 06/06/24 05:15 06/06/24 05:15 Labs: Laboratory Results - last 24 hr 06/06/24 05:15 WBC 15.9 H RBC 2.98 L Hgb 9.2 L Hct 27.6 L MCV 93 MCH 30.9 MCHC 33.3 RDW Std Deviation 47.0 H Plt Count 315 D Neut % (Auto) 77 Lymph % (Auto) 6 L [place] % (Auto) 7 Eos % (Auto) 8 Baso % (Auto) 0 Neut # (Auto) 12.3 H Lymph # (Auto) 0.9 L [place] # (Auto) 1.1 H Eos # (Auto) 1.3 H Baso # (Auto) 0.0 Immature Gran # (Auto) 0.28 H Absolute Nucleated RBC 0.00 Immature Gran % 2 H Nucleated RBC % 0 Sodium 132 L Potassium 4.4 Chloride 96 L Carbon Dioxide 28.6 Anion Gap 7 BUN 21 Creatinine 1.3 Estim Creat Clear Calc 43.0 L eGFR 58 L BUN/Creatinine Ratio 16 Glucose 161 H Calculated Osmolality 270 L Calcium 8.6 Corrected Calcium 9.5 Phosphorus 3.3 Magnesium 1.8 Total Bilirubin 0.3 AST 64 H ALT 32 Alkaline Phosphatase 85 Total Protein 5.4 L Albumin 2.9 L Globulin 2.5 Albumin/Globulin Ratio 1.2 Assessment & Plan A&P Narrative pos cocci serology pt here for cad issues if pt needs heart procedure, it should be done. eso noted. not dramatic. will call [facility] again on thu if pt remains here. Time Spent With Patient Time: Total time spent is greater than 50% in coordination of care (as documented) at patient's floor/unit and/or counseling patient:
--- NOTE | 2024-06-06 09:49 | ESCONSULT_ITS ---
<Statement entered by Asa Overton MD - 06/08/24 17:48> pt seen with resident all findings confirmed. HPI Data of Consult Consult date: 06/06/24 Requesting Physician: Delia Leal MD Admitting Provider: Todd Real MD Attending Provider: Delia Leal MD Primary Care Provider: Olivia Zuniga PA-C Consult Narrative Reason for consult: Positive cocci serology History of present illness: This is a 73-year-old male PMHx of T2DM, HLD, HTN, presenting with left foot swelling and pain x 1 month. He is [place]-speaking, at bedside assisted with interpretation. Foot pain has been worsening over the last month. Does not recall specific foot injury, isnet bite, or wound. He was seen by PCP today who recommended hospital admission given severe cellulitis, GORDON and leukocytosis. PCP also started oral ABX today. Denies previous similar symptoms, fever, chills, weight loss, headache, fall, trauma, chest pain, sob, cough, GI or urinary symptoms. No history of renal, liver or cardiovascular disease other than above mentioned.Patient is [place] speaking. He completed course of doxycycline 100 Mg IV twice daily for left foot cellulitis. WBC decreased to 14.4 from 17.Patient currently pending transfer to tertiary center for evaluation by cardiothoracic surgeon, Dr. Teodoro Gamboa who accepted the patient for CABG evaluation.Patient was also assessed by vascular surgeon, Dr. Greer who recommended left leg angioplasty once cardiac problems are addressed. ED COURSE: Complaining of left foot pain. Had significant cellulitis of left foot extending below the ankle in addition to several superficial skin lesions as prescribed and physical exam below. Afebrile, BP 135/81, HR 76, RR 18, satting 100% on room air. WBC 26.4, Hgb 11.5 around baseline. Odium 122, potassium 5.2, CR 2.5 (baseline 1.6), BUN 68, GFR 27 (baseline 46), GLUCOSE 120, AST 76 and ALT 77. Left foot x-ray showed no anjelica cortical bone destruction. PMHx: HLD, HTN, T2DM PSHx: Septoplasty MEDS: Pending med rec ALLERGIES: NKA SH: Former history of smoking 1 pack per day for about 50 years, quit about 10 years ago, denies current alcohol use, denies recreational drug use 06/06/24: ID team was consulted for positive cocci serology. Patient was seen and examined at the bedside this morning. Patient is laos speaking. Patient reported that he did not had any cough or shortness of breath. He was complaining of pain in his left foot. Vitals were stable this morning. Patient was saturating well on room air. Labs showed uptrending white count, hemoglobin stable. Chemistry panel showed electrolytes within normal limits. Improving kidney functions showed BUN 21 and creatinine 1.3. Blood glucose under control. A1c pending. Hep panel pending.Echocardiogram showed EF 55 to 60% with estimated RVSP 45 mmHg with mild to moderate PAH. Moderate MR. Chest x-ray showed bronchitis pattern. Extremity ultrasound showed abscess in the soft tissue involving fifth digit. Blood culture showed no growth and wound cultures pending anaerobic cultures negative. Patient completed course of doxycycline for cellulitis. Patient is currently awaiting transfer to tertiary care facility for CABG and is under evaluation of Dr. Majano, obstetrical anesthesiologist. Left heart cardiac catheterization: 06/03/2024 showed 40% distal left main stenosis 90% stenosis in mid LAD 90% stenosis in LCx and 100% occlusion of RCA. LHC performed showed severe calcified multivessel disease with 100% occluded ostial RCA, 90% stenosis of the mid LAD, 90% stenosis of the D1, 80% stenosis of the proximal OM1, OM 2, severe 80% stenosis of the proximal LCx , 40-50% ostial left main stenosis and excellent Oygy-md-eioce collaterals extending up to the proximal RCA. LVEDP mildly elevated [address]Javadi gamboa is following the case. Vascular surgeon, Dr. Greer recommended left leg angioplasty once cardiac problems are addressed. --> Recommendations are to continue fluconazole 400 mg once daily and will wait on final cocci serology from [facility]. Agreeable to proceed with heart surgery given less likely suspicious for complication involved with cocci. Benefits for heart surgery outweighs compared to risk. Rest of the management as per primary care team. cc:: cc: Delia Leal MD Review of Systems Review of Systems Systems Reviewed: All systems reviewed, normal except as documented Past Medical History Past Medical History NEUROLOGIC: Negative Neurological Disorders CARDIAC: Positive Hypercholesterolemia and Hypertension; Negative Cardiac Disorders, Myocardial Infarction, Atrial Fibrillation, Angina, Heart Murmur, Coronary Artery Disease, Atherosclerotic Heart Disease, Peripheral Vascular Disease, Aneurysm, Congestive Heart Failure, Congenital Heart Disease, Rheumatic Fever, Cardiomyopathy, Edema, Pericarditis, Cellulitis, Deep Vein Thrombosis, Hypotension or Varicose Veins RESPIRATORY: Positive Respiratory Disorders (PNA), Asthma and Emphysema; Negative Chronic Obstructive Pulmonary Disease (COPD), Bronchitis, Pneumonia, Pulmonary Fibrosis, Tuberculosis, Pulmonary Embolism, Pulmonary Edema or Sleep Apnea GASTROINTESTINAL: Negative Gastrointestinal Disorders, Hepatitis or Colorectal Cancer GENITOURINARY: Positive Genitourinary Disorders; Negative Renal Disease, Kidney Stones, Neurogenic Bladder, Inguinal Hernia, Dialysis, Prostate Cancer or Benign Prostatic Hyperplasia REPRODUCTIVE: Negative Breast Cancer or Testicular Cancer MUSCULOSKELETAL: Positive Musculoskeletal Disorders; Negative Muscular Dystrophy, Myasthenia Gravis, Marfan's Syndrome, Bone Cancer, Arthritis, Rheumatoid Arthritis, Osteoporosis, Degenerative Disk Disease, Gout, Scoliosis, Carpal Tunnel Syndrome, Fibromyalgia, Fractures, Osteomyelitis or Poliovirus ENT: Negative Cataracts ENDOCRINE: Positive Endocrine Disorders and Diabetes Mellitus Type 2; Negative Diabetes Mellitus Type 1, Hypoglycemia, [place]cher's Syndrome, Bertram's Disease, Hyperthyroidism, Hypothyroidism, Parathyroid Disease, Pituitary Disease, Systemic Lupus Erythematosus, Syndrome of Inappropriate Antidiuretic Hormone (SIADH), Adrenal Disease or Graves' Disease HEMATOLOGIC: Positive Blood Disorders and Anemia; Negative Leukemia, Hemophilia, Thalassemia, Sickle Cell Disease or Clotting Problems OTHER HISTORY: Positive Hospitalization; Negative Autoimmune Disease, Down Syndrome, Developmental Delay, Shingles, Falls, Blood Transfusions, Blood Transfusion Reaction, Anesthesia Reactions, Organ Transplant, Chemotherapy, Radiation Therapy, Hyperbaric Therapy, MRSA, VRSA, Vancomycin-Resistant Enterococci, Human Immunodeficiency Virus (HIV), Chicken Pox, Measles, Mumps, Rubella (Prydeinig Measles), Pertussis, Clostridium Difficile, Cancer, Breast Cancer, Cervical Cancer, Colorectal Cancer, Lung Cancer, Ovarian Cancer, Prostate Cancer or Testicular Cancer Family History FAMILY HISTORY: Negative Family Psychiatric Problems, Family Respiratory Disorders, Family Cardiac Disorders, Family Gastrointestinal Problems, Family Cancer, Family Surgery or Family Anesthesia Reaction Surgical History SURGICAL: Positive Nose Surgery (deviated septum repair) and Vasectomy; Negative Cardiac Surgery, Pacemaker, Endocrine Surgery, Ear Surgery, Tympanostomy Tube, Eye Surgery, Oral Surgery, Tonsillectomy, Adenoidectomy, Cochlear Implant, Corneal Transplant, Throat Surgery, Abdominal Surgery, Tracheostomy, Nephrectomy, Transurethral Resection, Joint Replacement, Amputation, Open Reduction Internal Fixation, Arthroscopy, Neurologic Surgery, Brain Shunt or Organ Transplant Social History SMOKING STATUS: Former smoker SECOND HAND EXPOSURE: No Past Medical History Comments PMH COMMENT: Past Medical History: Type 2 diabetes, hypertension, and hyperlipidemia Family History: No known family history of diabetes or heart diseases Surgical History: Cholecystectomy, sinus surgery Social History: Former history of smoking 1 pack per day for about 50 years, quit about 10 years ago, denies current alcohol use, denies recreational drug use Current Medications: Patient does not remember his home medications but reports he takes an antihypertensive, cholesterol pill, and [id number] PPI Allergies: No known drug allergies Exam Vital Signs Temp Pulse Resp BP Pulse Ox O2 Del Method O2 Flow Rate 100.0 F 94 16 114/64 95 Room Air 2 06/06/24 08:00 06/06/24 08:36 06/06/24 08:00 06/06/24 08:36 06/06/24 08:00 06/06/24 08:00 06/06/24 06:18 Narrative Exam GENERAL APPEARANCE: AxOx4, Elderly male no acute distress. HEENT: NC, AT. MMM. EOMI, clear conjunctiva, oropharynx clear. NECK: Supple without lymphadenopathy. No stiffness or restricted ROM. HEART: Regular rate and regular rhythm, normal S1/S2, Murmur heard on apex LUNGS: CTAB, moving air well. No crackles or wheezes are heard. ABDOMEN: Soft, nontender, nondistended with good bowel sounds heard. BACK: No CVAT, no obvious deformity. EXTREMITIES: Left foot covered in surgical dressing NEUROLOGICAL: Grossly nonfocal. Alert and oriented, moving all 4 extremities. CN not formally tested but appear grossly intact. Skin: Warm and dry without any rash. Psych: appropriate mood and affect Results Labs 06/06/24 05:15 06/06/24 05:15 Labs: Short CBC 06/06/24 Range/Units 05:15 WBC 15.9 H (3.8-10.6) Thou/mm3 Hgb 9.2 L (13.5-16.0) g/dL Hct 27.6 L (41.0-53.0) % Plt Count 315 D (140-440) Thou/mm3 BMP 06/06/24 05:15 Sodium 132 L Potassium 4.4 Chloride 96 L Carbon Dioxide 28.6 BUN 21 Creatinine 1.3 Glucose 161 H Calcium 8.6 Liver Function 06/06/24 Range/Units 05:15 Total Bilirubin 0.3 (0.3-1.2) mg/dL AST 64 H (0-34) U/L ALT 32 (10-49) U/L Alkaline Phosphatase 85 (46-116) U/L Albumin 2.9 L (3.4-4.8) gm/dL Quality Measures Quality Measures VTE prophylaxis Advance care planning discussed with:: other Medications Home Medications and Allergies Allergies Allergy/AdvReac Type Severity Reaction Status Date / Time No Known Allergies Allergy Unverified 06/07/23 18:57 Visit Medications Acetaminophen (Acetaminophen 325 Mg Tablet) 650 mg PO Q6H PRN PRN Reason: PAIN SCALE 1-3 (mild Stop: 06/25/24 20:02 Hydrocodone Bitart/Acetaminophen (Hydrocodone/Apap 5/325 Tablet) 1 tab PO Q4HR PRN PRN Reason: PAIN SCALE 4-10(Mod-Sev Stop: 06/10/24 20:42 Last Admin: 06/06/24 05:15 Dose: 1 tab Albuterol/Ipratropium (Albuterol/Ipratropium (Duoneb) Rt Marjorie 3 Ml Nebu) 3 ml INH Q4HRRT LEXI Stop: 07/05/24 10:59 Last Admin: 06/06/24 06:16 Dose: 3 ml Amiodarone HCl (Amiodarone Hcl 200 Mg Tablet) 200 mg PO BID LEXI Stop: 07/04/24 05:59 Last Admin: 06/06/24 08:36 Dose: 200 mg Aspirin (Aspirin Ec 81 Mg Tabec) 81 mg PO QDAY LEXI Stop: 07/03/24 08:59 Last Admin: 06/06/24 08:37 Dose: 81 mg Atorvastatin Calcium (Atorvastatin Calcium 20 Mg Tablet) 80 mg PO HS LEXI Stop: 06/25/24 20:59 Last Admin: 06/05/24 21:28 Dose: 80 mg Benzonatate (Benzonatate 100 Mg Capsule) 100 mg PO Q8HR [facility]; Protocol Stop: 07/02/24 13:59 Last Admin: 06/06/24 05:15 Dose: 100 mg Dextrose (Dextrose 50%-Water Inj 50 Ml Syringe) 25 ml IV Q15MIN PRN PRN Reason: BG 50-70 responsive npo pt Stop: 06/25/24 20:09 Dextrose (Dextrose 50%-Water Inj 50 Ml Syringe) 50 ml IV Q15MIN PRN PRN Reason: BG <50 OR BG <70 & pt unresponsive Stop: 06/25/24 20:09 Fluconazole (Fluconazole 100 Mg Tablet) 400 mg PO QDAY [facility] Stop: 09/13/24 12:00 Glucagon (Glucagon Inj 1 Mg Vial) 1 mg IM Q15MIN PRN PRN Reason: BG <70, and no IV access Guaifenesin (Guaifenesin Syrup 200 Mg/10 Ml Udc) 300 mg PO QID [facility]; Protocol Stop: 07/05/24 16:59 Last Admin: 06/06/24 05:15 Dose: 300 mg Heparin Sodium (Porcine) (Heparin Sod Inj 5000 Unit/Ml Vial) 5,000 unit SC Q8HR [facility] Stop: 06/10/24 05:59 Last Admin: 06/06/24 05:15 Dose: 5,000 unit Insulin Human Lispro (Insulin Lispro (Admelog) 1 Unit/0.01 Ml Unit) 0 unit SC [facility]; Protocol Stop: 06/25/24 20:59 Last Admin: 06/06/24 08:38 Dose: Not Given Lisinopril (Lisinopril 2.5 Mg Tablet) 10 mg PO QDAY [facility] Stop: 07/06/24 08:59 Last Admin: 06/06/24 08:36 Dose: 10 mg Ondansetron HCl (Ondansetron Inj 2 Mg/Ml Inj 2 Ml) 4 mg IV Q6H PRN; Protocol PRN Reason: NAUSEA OR VOMITING Stop: 06/25/24 20:02 Pantoprazole Sodium (Pantoprazole 40 Mg Tablet) 40 mg PO QDAY [facility] Stop: 07/07/24 08:59 Discontinued Medications Acetaminophen (Acetaminophen 325 Mg Tablet) 650 mg PO Q6H PRN PRN Reason: Fever >100 Stop: 06/25/24 20:02 Hydrocodone Bitart/Acetaminophen (Hydrocodone/Apap 10/325 Tab) 1 tab PO Q4HR PRN PRN Reason: PAIN SCALE 7-10 (Severe Stop: 05/31/24 20:02 Last Admin: 05/27/24 09:28 Dose: 1 tab Hydrocodone Bitart/Acetaminophen (Hydrocodone/Apap 10/325 Tab) 1 tab PO Q4HR PRN PRN Reason: PAIN SCALE 4-10(Mod-Sev Stop: 05/31/24 20:02 Last Admin: 05/31/24 08:22 Dose: 1 tab Hydrocodone Bitart/Acetaminophen (Hydrocodone/Apap 5/325 Tablet) 1 tab PO Q4HR PRN PRN Reason: PAIN SCALE 4-6 Stop: 06/05/24 20:39 Last Admin: 06/05/24 16:47 Dose: 1 tab Albuterol/Ipratropium (Albuterol/Ipratropium (Duoneb) Rt Marjorie 3 Ml Nebu) 3 ml INH Q6HRRT PRN PRN Reason: SHORTNESS OF BREATH OR WHEEZE Stop: 06/27/24 21:01 Last Admin: 05/31/24 12:26 Dose: 3 ml Albuterol/Ipratropium (Albuterol/Ipratropium (Duoneb) Rt Marjorie 3 Ml Nebu) 3 ml INH X1 ONE Stop: 05/31/24 12:19 Last Admin: 05/31/24 15:31 Dose: Not Given Albuterol/Ipratropium (Albuterol/Ipratropium (Duoneb) Rt Marjorie 3 Ml Nebu) 3 ml INH X1 ONE Stop: 06/01/24 09:50 Last Admin: 06/01/24 10:00 Dose: 3 ml Albuterol/Ipratropium (Albuterol/Ipratropium (Duoneb) Rt Marjorie 3 Ml Nebu) 3 ml INH Q6HRRT LEXI Stop: 07/02/24 12:59 Last Admin: 06/04/24 19:15 Dose: 3 ml Albuterol/Ipratropium (Albuterol/Ipratropium (Duoneb) Rt Marjorie 3 Ml Nebu) 3 ml INH Q6HRRT PRN PRN Reason: Shortness Of Breath Or Wheeze Stop: 07/02/24 12:59 Aspirin (Aspirin Ec 81 Mg Tabec) 81 mg PO X1 ONE Stop: 05/26/24 20:11 Last Admin: 05/26/24 20:56 Dose: 81 mg Aspirin (Aspirin 325 Mg Tablet) 325 mg PO X1 ONE Stop: 06/02/24 10:09 Last Admin: 06/02/24 12:07 Dose: 325 mg Benzonatate (Benzonatate 100 Mg Capsule) 100 mg PO Q8HR PRN; Protocol PRN Reason: COUGH OR CONGESTION Stop: 06/29/24 09:27 Last Admin: 06/01/24 17:45 Dose: 100 mg Calcium Gluconate (Calcium Gluconate 10% Inj 1 Gm/10 Ml Vial) 1 gm IV X1 ONE Stop: 05/26/24 22:06 Last Admin: 05/26/24 22:59 Dose: 1 gm Citric Acid/Sodium Citrate (Citric Acid/Sodium Citr 15 Ml Udc (Bicitra)) 30 ml PO BID LEXI Stop: 06/30/24 08:59 Last Admin: 06/05/24 08:55 Dose: 30 ml Dextrose (Dextrose 50%-Water Inj 50 Ml Syringe) 50 ml IV X1 ONE Stop: 05/26/24 22:10 Last Admin: 05/26/24 22:59 Dose: 50 ml Diphenhydramine HCl (Diphenhydramine 25 Mg Capsule) 25 mg PO X1 ONE Stop: 06/05/24 00:36 Last Admin: 06/05/24 00:45 Dose: 25 mg Epoetin Nicolás (Epoetin Nicolás-Epbx Inj 10,000 Unit/Ml Vial (Esrd)) 10,000 unit SC X1 ONE Stop: 05/29/24 08:58 Last Admin: 05/29/24 10:23 Dose: 10,000 unit Fentanyl Citrate (Fentanyl Cit Inj 50 Mcg/Ml Amp 2ml) 25 mcg IV Q5MIN PRN PRN Reason: PAIN SCALE 4-10(Mod-Sev Stop: 06/02/24 16:10 Fluconazole (Fluconazole 100 Mg Tablet) 400 mg PO X1 ONE Stop: 06/01/24 14:22 Last Admin: 06/01/24 17:44 Dose: 400 mg Fluconazole (Fluconazole 100 Mg Tablet) 200 mg PO QDAY LEXI Stop: 06/09/24 08:59 Last Admin: 06/06/24 08:35 Dose: 200 mg Furosemide (Furosemide 20 Mg Tablet) 20 mg PO X1 ONE Stop: 05/31/24 09:59 Last Admin: 05/31/24 11:13 Dose: 20 mg Furosemide (Furosemide Inj 10 Mg/Ml 4ml Vial) 40 mg IVP X1 ONE Stop: 05/31/24 14:00 Last Admin: 05/31/24 15:19 Dose: 40 mg Furosemide (Furosemide Inj 10 Mg/Ml 4ml Vial) 40 mg IVP X1 ONE Stop: 06/03/24 08:26 Last Admin: 06/03/24 09:36 Dose: 40 mg Furosemide (Furosemide Inj 10 Mg/Ml Vial 2 Ml) 20 mg IVP X1 ONE Stop: 06/06/24 09:33 Guaifenesin (Guaifenesin Syrup 200 Mg/10 Ml Udc) 200 mg PO X1 ONE; Protocol Stop: 05/28/24 21:03 Last Admin: 05/28/24 22:26 Dose: 200 mg Guaifenesin (Guaifenesin Syrup 200 Mg/10 Ml Udc) 200 mg PO TID LEXI; Protocol Stop: 07/01/24 09:59 Last Admin: 06/05/24 13:37 Dose: 200 mg Hydromorphone HCl (Hydromorphone Inj 2 Mg/Ml Vial) 0.25 mg IVP X1 ONE Stop: 05/27/24 02:02 Last Admin: 05/27/24 02:16 Dose: 0.25 mg Hydromorphone HCl (Hydromorphone Inj 2 Mg/Ml Vial) 0.5 mg IVP X1 ONE Stop: 06/01/24 06:04 Last Admin: 06/01/24 06:15 Dose: 0.5 mg Sodium Chloride (Ns) 1,000 mls @ 75 mls/hr IV .[id number] LEXI Stop: 06/25/24 20:05 Last Admin: 05/27/24 21:36 Dose: 75 mls/hr Doxycycline Hyclate 100 mg/ (Sodium Chloride) 100 mls @ 100 mls/hr IV BID LEXI Stop: 06/02/24 20:59 Last Admin: 05/26/24 22:59 Dose: 100 mls/hr Ceftriaxone Sodium/Dextrose (Rocephin/D5w 1gm Iv Premix) 50 mls @ 100 mls/hr IV QDAY [facility]I Stop: 06/02/24 20:14 Last Admin: 05/27/24 09:14 Dose: 100 mls/hr Vancomycin/Sodium Chloride (Vancomycin/Ns 1 Gm Ivpb) 200 mls @ 120 mls/hr IV X1 ONE Stop: 05/27/24 10:39 Last Admin: 05/27/24 10:26 Dose: 120 mls/hr Sodium Chloride (Ns) 1,000 mls @ 999 mls/hr IV .Q1H1M ONE Stop: 05/27/24 10:26 Last Admin: 05/27/24 09:33 Dose: 999 mls/hr Metronidazole (Flagyl 500 Mg Iv) 500 mg in 100 mls @ 200 mls/hr IV Q8HR LEXI Stop: 06/03/24 15:04 Last Admin: 06/03/24 17:06 Dose: Not Given Cefepime HCl 2 gm/ Sodium (Chloride) 50 mls @ 100 mls/hr IV X1 ONE Stop: 05/27/24 15:33 Last Admin: 05/27/24 15:23 Dose: 100 mls/hr Cefepime HCl 1 gm/ Sodium (Chloride) 50 mls @ 100 mls/hr IV DAILY LEXI Stop: 06/04/24 08:59 Last Admin: 06/01/24 10:15 Dose: 100 mls/hr Vancomycin/Sodium Chloride (Vancomycin/Ns 500 Mg Ivpb) 100 mls @ 120 mls/hr IV X1 ONE Stop: 05/28/24 10:49 Last Admin: 05/28/24 11:15 Dose: 120 mls/hr Sodium Chloride (Ns) 1,000 mls @ 70 mls/hr IV .[id number] LEXI Stop: 06/27/24 10:26 Last Admin: 06/02/24 08:02 Dose: Not Given Vancomycin/Sodium Chloride (Vancomycin/Ns 1 Gm Ivpb) 200 mls @ 120 mls/hr IV QDAY@1000 [facility] Stop: 06/05/24 09:59 Last Admin: 05/31/24 11:34 Dose: Not Given Ferumoxytol 510 mg/ Sodium (Chloride) 117 mls @ 234 mls/hr IV X1 ONE Stop: 05/29/24 09:29 Last Admin: 05/29/24 10:25 Dose: 234 mls/hr Sodium Chloride (Ns) 1,000 mls @ 70 mls/hr IV .[id number] LEXI Stop: 06/27/24 16:00 Last Admin: 06/02/24 08:02 Dose: Not Given Doxycycline Hyclate 100 mg/ (Sodium Chloride) 100 mls @ 100 mls/hr IV BID LEXI Stop: 06/07/24 20:59 Last Infusion: 06/05/24 23:00 Dose: Infused Sodium Chloride (Ns) 250 mls @ 999 mls/hr IV .Q16M ONE Stop: 05/31/24 12:35 Last Admin: 05/31/24 12:45 Dose: 999 mls/hr Albumin Human (Albuminar-25 Ivpb) 12.5 gm in 50 mls @ 50 mls/hr IV X1 ONE Stop: 05/31/24 14:58 Last Admin: 05/31/24 15:00 Dose: 50 mls/hr Amiodarone HCl/Dextrose (Nexterone Ivpb) 150 mg in 100 mls @ 600 mls/hr IV .Q10M ONE Stop: 06/01/24 13:08 Last Infusion: 06/01/24 13:30 Dose: Infused Amiodarone HCl/Dextrose (Nexterone Ivpb) 360 mg in 200 mls @ 33.333 mls/hr IV .Q6H ONE Stop: 06/01/24 18:59 Last Infusion: 06/01/24 19:56 Dose: Infused Cefepime HCl 2 gm/ Sodium (Chloride) 50 mls @ 100 mls/hr IV Q12HR LEXI Stop: 06/04/24 08:59 Last Admin: 06/03/24 20:08 Dose: 100 mls/hr Amiodarone HCl/Dextrose (Nexterone Ivpb) 360 mg in 200 mls @ 16.667 mls/hr IV .Q12H LEXI Stop: 06/02/24 20:15 Last Admin: 06/02/24 09:58 Dose: 16.667 mls/hr Magnesium Sulfate (Magnesium Sulfate Ivpb) 4 gm in 50 mls @ 12.5 mls/hr IV X1 ONE Stop: 06/02/24 12:05 Last Admin: 06/02/24 09:59 Dose: 12.5 mls/hr Amiodarone HCl/Dextrose (Nexterone Ivpb) 360 mg in 200 mls @ 16.667 mls/hr IV .Q12H LEXI Stop: 06/03/24 12:55 Last Admin: 06/03/24 01:17 Dose: 16.667 mls/hr Insulin Human Regular (Insulin Hum Regular 1 Unit/0.01 Ml (Per Unit)) 5 unit IV X1 ONE Stop: 05/26/24 22:10 Last Admin: 05/26/24 23:00 Dose: 5 unit Ketorolac Tromethamine (Ketorolac Inj 30 Mg/Ml Vial) 30 mg IVP X1 ONE Stop: 05/26/24 18:35 Last Admin: 05/26/24 19:20 Dose: 30 mg Lisinopril (Lisinopril 2.5 Mg Tablet) 5 mg PO QDAY [facility] Stop: 07/03/24 10:29 Last Admin: 06/05/24 08:58 Dose: 5 mg Lisinopril (Lisinopril 2.5 Mg Tablet) 5 mg PO X1 ONE Stop: 06/05/24 10:34 Last Admin: 06/05/24 11:01 Dose: 5 mg Losartan Potassium (Losartan Potassium 25 Mg Tablet) 25 mg PO QDAY [facility] Stop: 06/30/24 08:59 Last Admin: 05/31/24 08:23 Dose: 25 mg Midazolam HCl (Midazolam Inj 1 Mg/Ml Vial 2 Ml) 1 mg IV Q5MIN PRN PRN Reason: ANXIETY Stop: 06/02/24 16:10 Midodrine (Midodrine 5 Mg Tablet) 10 mg PO X1 ONE Stop: 05/31/24 14:00 Last Admin: 05/31/24 15:18 Dose: 10 mg Morphine Sulfate (Morphine Sulf Inj 10 Mg/Ml Vial) 2 mg IVP Q4HR PRN PRN Reason: Pain-breakthrough Stop: 06/05/24 12:26 Last Admin: 06/05/24 07:28 Dose: 2 mg Oxycodone/Acetaminophen (Oxycodone/Apap 5/325 Tablet) 1 tab PO Q6H PRN PRN Reason: PAIN SCALE 4-6 (Moderate Stop: 05/31/24 20:02 Last Admin: 05/27/24 03:13 Dose: 1 tab Pantoprazole Sodium (Pantoprazole Inj 40 Mg Vial) 40 mg IVP QDAY [facility] Stop: 06/26/24 08:59 Last Admin: 06/06/24 08:35 Dose: 40 mg Pharmacy Consult (Vancomycin Pharmacy To Dose 1 Each Each) 1 each IV QDAY PRN PRN Reason: CONSULT Stop: 06/26/24 08:59 Sennosides (Senna/Docusate Sod 1 Tab Tablet) 1 tab PO X1 ONE; Protocol Stop: 06/05/24 08:49 Last Admin: 06/05/24 08:56 Dose: 1 tab Sodium Chloride (Saline Nasal 45 Ml Btl) 1 spray NASAL X1 ONE Stop: 06/01/24 09:50 Last Admin: 06/02/24 08:03 Dose: Not Given Sodium Polystyrene Sulfonate (Sod Polystyrene Sulfon Susp 15 Gm/60 Ml Btl) 30 gm PO X1 ONE Stop: 05/26/24 22:10 Last Admin: 05/26/24 23:00 Dose: 30 gm Sodium Polystyrene Sulfonate (Sod Polystyrene Sulfon Susp 15 Gm/60 Ml Btl) 30 gm PO X1 ONE Stop: 05/27/24 15:00 Last Admin: 05/27/24 15:35 Dose: 30 gm Sodium Polystyrene Sulfonate (Sod Polystyrene Sulfon Susp 15 Gm/60 Ml Btl) 15 gm PO X1 ONE Stop: 05/28/24 18:53 Last Admin: 05/28/24 20:07 Dose: 15 gm Tramadol HCl (Tramadol Hcl 50 Mg Tablet) 50 mg PO X1 ONE Stop: 05/27/24 10:49 Last Admin: 05/27/24 11:10 Dose: 50 mg Assessment & Plan Plan Summary: This 73-year-old male PMHx of T2DM, HLD, HTN admitted for left foot cellulitis. Started on ANTIBIOTICS. Additionally, he is being managed for GORDON, hyperkalemia, and hyponatremia. Pending transfer to [facility] for CABG. #Pulmonary coccidiomycosis #Nonproductive cough #Pulmonary edema?resolving On admission, patient complains of shortness of breath and a nonproductive cough with mild epistaxis. Chest x-ray showed increased vascular markings and pulmonary edema Cocci IgM positive Received loading dose of Fluconazole 400mg po x 1 Plan: ? Recommended to switch to fluconazole 400 mg once daily ? Agreeable to proceed with CABG ? Pending cocci serology from [facility] ? Daily labs ? Monitor for fever spike, shortness of breath and worsening of symptoms #ACS #Multivessel CAD #NSTEMI type I #Chronic diastolic congestive heart failure with preserved ejection fraction [EF 55-60%] On admission, patient developed shortness of breath and nonproductive cough. [06/02] EKG showed sinus rhythm. ST elevations in aVR and V1 not NSTEMI range. ST depressions in V4?V6. Q waves in V3. Rate 88 Troponin I 12.412 BNP 564 Left heart cardiac catheterization: 06/03/2024 showed 40% distal left main stenosis 90% stenosis in mid LAD 90% stenosis in LCx and 100% occlusion of RCA. LHC performed showed severe calcified multivessel disease with 100% occluded ostial RCA, 90% stenosis of the mid LAD, 90% stenosis of the D1, 80% stenosis of the proximal OM1, OM 2, severe 80% stenosis of the proximal LCx , 40-50% ostial left main stenosis and excellent [id number] collaterals extending up to the proximal RCA. LVEDP mildly elevated 20 mmHg. Plan: ? Agreeable to continue with surgery and will await for cocci serology results from [facility] ? Continue aspirin 81 Mg p.o. daily ?Continue atorvastatin 80 Mg p.o. at bedtime ?Cardiology is following the case ?Pending transfer to [facility] for CABG evaluation by Dr. Ganesh Gamboa Other active problems: #Atrial fibrillation with RVR?new onset #Left foot cellulitis #Bilateral peripheral arterial disease #Leukocytosis #Prerenal GORDON on CKD stage IIIA - improving #Hyperkalemia - resolved #Hypoosmolar hyponatremia - resolved #Non-anion gap metabolic acidosis - resolved #Primary HTN #Hypotension #Hyperlipidemia #Insulin-dependent diabetes mellitus type 2 [6.9%] Rest of the management as per primary care team. Thank you very much for consulting ID specialist team. Patient was seen and discussed with ID specialist, Dr Tian Israel MD, PGY 2
--- NOTE | 2024-06-06 09:54 | PD.NEPHPROG ---
Documentation for date of: 06/06/24 Subjective Subjective Interval history: patient is a 73 year old male with PMH significant for Hypertension, hyperlipidemia and type 2 diabetes mellitus presented with chief complaint of left foot swelling that gradually worsened in last 1 month. He reported that, there could have been some foot injury or insect bite that he is not aware of. He went to see his PCP yesterday who recommended him to visit emergency department. He denied any fever or chills, headache, nausea or vomiting, chest pain or SOB, any changes in bowel or bladder habit. During evaluation, his vitals were stable, white count 23.1, hemoglobin 9.8, ESR 57, sodium level during presentation was 122 that slowly increased to 127 on IV normal saline 75 cc/h. Potassium initially was 5.2, that increased to 6.0 and trended down to 5.2. BUN 69, creatinine 2.6 which appears to be his baseline, and phosphorus 5.4. Left foot x-ray revealed no anjelica cortical bone destruction. Duplex scan lower extremity revealed severe bilateral obstructive arterial disease. Renal ultrasound revealed small kidneys with bilateral renal cortical thinning, moderate bilateral renal parenchymal scar formation. Urine electrolytes revealed creatinine 43, sodium 46, potassium 14, and chloride 24. Nephrology consultation was done for further management of moderate hypovolemic normal osmolar hyponatremia, hyperkalemia and CKD. 05/28/2024: The patient was interviewed and examined at the bedside this morning. He reported pain over his left foot. Vitals were stable with soft blood pressure. Labs were significant for white count 22.0, hemoglobin 9.6. Sodium 130, potassium 4.9, BUN 63, creatinine 2.4, EGFR 28, phosphorus 5.1. We will continue with maintenance normal saline fluid 70 cc/h as patient seemed to be mildly dehydrated, and his sodium correction is at goal levels. 05/29/2024 patient currently seen in medical floor. Resting comfortably. Labs, medications reviewed. Creatinine improving. Continue with current management. Left foot cellulitis/ulcers, severe peripheral vascular disease. 06/06/2024patient currently seen in medical floor. Resting comfortably. Labs, medications reviewed. Creatinine stable. Continue with current management. Hemoglobin 9.2, creatinine 1.3. A1c 6.1. Troponin 7.8 Left foot cellulitis/ulcers, severe peripheral vascular disease. Going for CABG. However dx with [facility]- transfer held. Dr. Overton was consulted Review of Systems Review of Systems Narrative Review of Systems: denies CP, SOB. c/o pain in left leg Exam Vital Signs Temp Pulse Resp BP Pulse Ox O2 Del Method O2 Flow Rate 37.8 C 94 16 114/64 95 Room Air 2 06/06/24 08:00 06/06/24 08:36 06/06/24 08:00 06/06/24 08:36 06/06/24 08:00 06/06/24 08:00 06/06/24 06:18 Narrative Exam General: Elderly, cooperative gentleman, no acute distress, Alert and Oriented x 3 HEENT: Moist mucous membranes, oropharynx clear Neck: Supple, No masses, No JVD CVS: S1S2 Regular rate and rhythm, No murmurs, rubs or gallops Lungs: Mild bibasilar crackles, no wheeze no rhonchi Abd: Soft, NT/ND, +BS, no organomegaly Ext: Left foot swollen, covered under clean dressing, peripheral pulse unable to appreciate Psych: Appropriate mood and affect Objective Labs 06/06/24 05:15 06/06/24 05:15 Labs: Laboratory Results - last 24 hr 06/06/24 05:15 WBC 15.9 H RBC 2.98 L Hgb 9.2 L Hct 27.6 L MCV 93 MCH 30.9 MCHC 33.3 RDW Std Deviation 47.0 H Plt Count 315 D Neut % (Auto) 77 Lymph % (Auto) 6 L [place] % (Auto) 7 Eos % (Auto) 8 Baso % (Auto) 0 Neut # (Auto) 12.3 H Lymph # (Auto) 0.9 L [place] # (Auto) 1.1 H Eos # (Auto) 1.3 H Baso # (Auto) 0.0 Immature Gran # (Auto) 0.28 H Absolute Nucleated RBC 0.00 Immature Gran % 2 H Nucleated RBC % 0 Sodium 132 L Potassium 4.4 Chloride 96 L Carbon Dioxide 28.6 Anion Gap 7 BUN 21 Creatinine 1.3 Estim Creat Clear Calc 43.0 L eGFR 58 L BUN/Creatinine Ratio 16 Glucose 161 H Calculated Osmolality 270 L Calcium 8.6 Corrected Calcium 9.5 Phosphorus 3.3 Magnesium 1.8 Total Bilirubin 0.3 AST 64 H ALT 32 Alkaline Phosphatase 85 Total Protein 5.4 L Albumin 2.9 L Globulin 2.5 Albumin/Globulin Ratio 1.2 Assessment & Plan Additional Assessment & Plan Additional Plan: The patient is a 73 year old male with PMH significant for Hypertension, hyperlipidemia and type 2 diabetes mellitus presented with chief complaint of left foot swelling that gradually worsened in last 1 month was found to have left foot cellulitis, and nephrology consultation was done for the mangement of hyperkalemia, hyponatremia and GORDON on CKD. 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 Creatinine stable at 1.3 Renal ultrasound revealed small kidneys with bilateral renal cortical thinning, moderate bilateral renal parenchymal scar formation. Urine electrolytes revealed creatinine 43, sodium 46, potassium 14, and chloride 24 consistent with prerenal GORDON with BUN/Cr ration 25 -Monitor BMP daily am -Avoid nephrotoxic drugs #Moderate hypovolemic hypoosmolar hyponatremia Patient's sodium was as low as 122 Sodium markedly improved. #HTN Currently stable On lisinopril Left foot cellulitis//left toe gangrene/severe peripheral vascular disease-on antibiotics, surgery on the case Leukocytosis= HLD [id number], sliding scale CAD-pending transfer to [facility] ++ -Management deferred to primary team Quality - progress note Quality Measures Quality Measures: VTE prophylaxis Reason for Continued Stay Reason for Continued Stay: further monitoring
[2024-06-06] MEDS: FUROSEMIDE INJ 10 MG/ML VIAL 2 ML 20 MG IVP (10:07)
[2024-06-06 10:18] LABS: Glucose Estimated Average 128 mg/dL (80-131); Hemoglobin A1C 6.1 % Hgb (4.8-6.0)
[2024-06-06] MEDS: Silvasorb Gel 45 ML TUBE TOP (10:21)
--- NOTE | 2024-06-06 10:30 | PC.NURSE ---
found pt. sitting on floor by tahira rn,pt. stated he needed to go to bathroom.help pt. back to bed.denies pain or discomfort.VS 96.6,P 93,R 21,B/P 114/63,96 % on room air.Call light within reach,bed alarm on.will continue to monitor.
--- NOTE | 2024-06-06 10:37 | EKG_ITS ---
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
[2024-06-06 10:50] LABS: Hepatitis A Antibody IgM Non Reactive (Non React); Hepatitis B Core Antibody IgM Non Reactive (Non React); Hepatitis B Surface Antigen Non Reactive (Non React); Hepatitis C Antibody Non Reactive (Non React)
[2024-06-06 11:15] LABS: HIV (1&2) Antibody Rapid Non-Reactive
[2024-06-06] MEDS: DiphenhydrAMINE ELIX 25 MG/10 ML UDC 12.5 MG PO (11:46)
[2024-06-06] MEDS: INSULIN LISPRO (AdmeLOG) 1 UNIT/0.01 ML UNIT SC ×2 (11:47→21:56)
[2024-06-06] MEDS: DiphenhydrAMINE/ZN ACET 2% CR 30 GM TUBE TOP (11:47)
[2024-06-06 12:32] LABS: Troponin I 8.534 ng/mL (0.0-0.045)
--- NOTE | 2024-06-06 13:14 | ESPR_ITS ---
<Statement entered by Volodymyr Mendes MD - 06/08/24 16:07> Agree with plan and examination finding on the note below. Patient seen and examined at bedside today. Labs and imaging reviewed. Patient care discussed with my attending Dr. Moore and co-resident Dr. Rios. Documentation for date of: 06/06/24 Subjective Subjective Interval history: Patient is [place] speaking and interaction facilitated by registered healthcare veneer jointer helper Patient was seen and examined at bedside this AM. No acute exents overnight. Patient tolerating diet, adequate urine output and mentation is at baseline. Patient complains of nonproductive cough and shortness of breath at rest. On exam patient had crackles and Lower extremity edema. Will start on scheduled Lasix 20mg IV daily. Day 7 doxycycline 100 Mg IV twice daily. WBC increased to 15.9 from 14.4. Patient had a ground-level fall in his room today after he tripped. No head trauma was noted. EKG, troponin and orthostatic vitals were ordered. Infectious disease, Dr Overton consulted and closely following the case. Recommended to continue with fluconazole and patient is clear for CABG. Patient currently pending transfer to tertiary center for evaluation by cardiothoracic surgeon, Dr. Teodoro Gamboa who accepted the patient for CABG evaluation. Patient was also assessed by vascular surgeon, Dr. Greer who recommended left leg angioplasty once cardiac problems are addressed. Exam Vital Signs Temp Pulse Resp BP Pulse Ox O2 Del Method O2 Flow Rate 99.1 F 87 16 127/59 L 99 Room Air 2 06/06/24 12:06/06/24 12:06/06/24 12:06/06/24 12:06/06/24 12:06/06/24 12:06/06/24 06:18 Narrative Exam Constitutional Alert, oriented x 3 and mild distress. Elderly male HEENT Vision grossly intact. Patent nares. Trachea midline Respiratory Chest normal on inspection and decreased air entry and crackles from mid to lower zone bilaterally Cardiovascular S1 and S2 audible, RRR. No murmurs carotid bruit. No gross JVD. Abdominal Soft and non tender to palpation in all quadrants. BS + Genitourinary No bladder tenderness, no flank pain. Normal to palpation Musculoskeletal Extremities tone within normal limits. 2+ pitting edema in bilateral lower limbs up to knees. Neurological CN II - XII grossly intact. Extremity motor and sensation grossly intact. Skin Warm, dry and intact. Left foot wrapped in bandage, clean Psychiatric Patient has good affect, is cooperative Objective Labs 06/07/24 08:09 06/07/24 08:09 Labs: Laboratory Results - last 24 hr 06/06/24 06/06/24 05:15 11:44 WBC 15.9 H RBC 2.98 L Hgb 9.2 L Hct 27.6 L MCV 93 MCH 30.9 MCHC 33.3 RDW Std Deviation 47.0 H Plt Count 315 D Neut % (Auto) 77 Lymph % (Auto) 6 L [place] % (Auto) 7 Eos % (Auto) 8 Baso % (Auto) 0 Neut # (Auto) 12.3 H Lymph # (Auto) 0.9 L [place] # (Auto) 1.1 H Eos # (Auto) 1.3 H Baso # (Auto) 0.0 Immature Gran # (Auto) 0.28 H Absolute Nucleated RBC 0.00 Immature Gran % 2 H Nucleated RBC % 0 Sodium 132 L Potassium 4.4 Chloride 96 L Carbon Dioxide 28.6 Anion Gap 7 BUN 21 Creatinine 1.3 Estim Creat Clear Calc 43.0 L eGFR 58 L BUN/Creatinine Ratio [address] Glu mg/dL 128 Hemoglobin A1c 6.1 H Calculated Osmolality 270 L Calcium 8.6 Corrected Calcium 9.5 Phosphorus 3.3 Magnesium 1.8 Total Bilirubin 0.3 AST 64 H ALT 32 Alkaline Phosphatase 85 Troponin I 8.534 H* Total Protein 5.4 L Albumin 2.9 L Globulin 2.5 Albumin/Globulin Ratio 1.2 Hepatitis A IgM Ab Non Reactive Hep Bs Antigen Non Reactive Hep B Core IgM Ab Non Reactive Hepatitis C Antibody Non Reactive HIV 1&2 Antibody Rapid Non-Reactive Quality Measures Quality Measures VTE prophylaxis Advance care planning discussed with:: patient and spouse Assessment & Plan Assessment Current Active Medications: Generic Name Dose Route Start Last Admin Trade Name Freq PRN Reason Stop Dose Admin Acetaminophen 650 mg 05/26/24 20:03 Acetaminophen 325 Mg Tablet PO 06/25/24 20:02 Q6H PRN PAIN SCALE 1-3 (mild Hydrocodone Bitart/Acetaminophen 1 tab 06/05/24 20:43 06/06/24 05:15 Hydrocodone/Apap 5/325 Tablet PO 06/10/24 20:42 1 tab Q4HR PRN Administration PAIN SCALE 4-10(Mod-Sev Albuterol/Ipratropium 3 ml 06/05/24 11:00 06/06/24 11:11 Albuterol/Ipratropium (Duoneb) Rt Marjorie 3 Ml Nebu INH 07/05/24 10:59 3 ml Q4HRRT LEXI Administration Amiodarone HCl 200 mg 06/04/24 06:00 06/06/24 08:36 Amiodarone Hcl 200 Mg Tablet PO 07/04/24 05:59 200 mg BID LEXI Administration Aspirin 81 mg 06/03/24 09:00 06/06/24 08:37 Aspirin Ec 81 Mg Tabec PO 07/03/24 08:59 81 mg QDAY LEXI Administration Atorvastatin Calcium 80 mg 05/26/24 21:00 06/05/24 21:28 Atorvastatin Calcium 20 Mg Tablet PO 06/25/24 20:59 80 mg HS LEXI Administration Benzonatate 100 mg 06/02/24 14:00 06/06/24 05:15 Benzonatate 100 Mg Capsule PO 07/02/24 13:59 100 mg Q8HR LEXI Administration Protocol Dextrose 25 ml 05/26/24 20:10 Dextrose 50%-Water Inj 50 Ml Syringe IV 06/25/24 20:09 Q15MIN PRN BG 50-70 responsive npo pt Dextrose 50 ml 05/26/24 20:10 Dextrose 50%-Water Inj 50 Ml Syringe IV 06/25/24 20:09 Q15MIN PRN BG <50 OR BG <70 & pt unresponsive Fluconazole 400 mg 06/07/24 09:00 Fluconazole 100 Mg Tablet PO 09/13/24 12:00 QDAY LEXI Furosemide 20 mg 06/07/24 09:00 Furosemide Inj 10 Mg/Ml Vial 2 Ml IVP 07/07/24 08:59 QDAY LEXI Glucagon 1 mg 05/26/24 20:10 Glucagon Inj 1 Mg Vial IM Q15MIN PRN BG <70, and no IV access Guaifenesin 300 mg 06/05/24 17:00 06/06/24 11:46 Guaifenesin Syrup 200 Mg/10 Ml Udc PO 07/05/24 16:59 300 mg QID LEXI Administration Protocol Heparin Sodium (Porcine) 5,000 unit 05/27/24 06:00 06/06/24 05:15 Heparin Sod Inj 5000 Unit/Ml Vial SC 06/10/24 05:59 5,000 unit Q8HR LEXI Administration Insulin Human Lispro 0 unit 05/26/24 21:00 06/06/24 11:47 Insulin Lispro (Admelog) 1 Unit/0.01 Ml Unit SC 06/25/24 20:59 1 unit ACHS LEXI Administration Protocol Lisinopril 10 mg 06/06/24 09:00 06/06/24 08:36 Lisinopril 2.5 Mg Tablet PO 07/06/24 08:59 10 mg QDAY LEXI Administration Ondansetron HCl 4 mg 05/26/24 20:03 Ondansetron Inj 2 Mg/Ml Inj 2 Ml IV 06/25/24 20:02 Q6H PRN NAUSEA OR VOMITING Protocol Pantoprazole Sodium 40 mg 06/07/24 09:00 Pantoprazole 40 Mg Tablet PO 07/07/24 08:59 QDAY LEXI Zinc Acetate/Diphenhydramine 0 gm 06/06/24 10:42 06/06/24 11:47 Diphenhydramine/Zn Acet 2% Cr 30 Gm Tube TOP 07/06/24 10:41 1 applicatio Q6HR PRN Administration ITCHING Plan 73-year-old male PMHx of T2DM, HLD, HTN admitted for left foot cellulitis. Started on ANTIBIOTICS. Additionally, he is being managed for GORDON, hyperkalemia, and hyponatremia. ACS?resolving Multivessel CAD NSTEMI type I Chronic diastolic congestive heart failure with preserved ejection fraction [EF 55-60%] Patient developed shortness of breath and nonproductive cough. Troponin I 12.412 BNP 564 Left heart cardiac catheterization: 06/03/2024 1. Left main artery is a medium to large size artery with 50% ostial stenosis and 40% distal left main stenosis LAD 2. LAD is a medium to large size artery with severe 90% stenosis in the mid LAD at the bifurcation of D1. LAD does wrap around the apex. D1 is a small to medium with severe 90% stenosis in the proximal portion. 3. LCx is a large size artery with severe 90% stenosis in the proximal LCx and also severe 80% stenosis in the proximal small OM1 as well as severe 80% stenosis of proximal OM 2 is occluded 4. RCA is 100% occluded at the ostium. Excellent collaterals noted from the left to right filling up to the proximal RCA but patient has severe 80 to 90% stenosis in the mid RPDA. 5. LVEDP is elevated at 22 mmHg. There was no significant transvalvular aortic gradient. Left ventriculogram not performed as the patient already had an echo which showed an EF of 55 to 60%. Summary/findings: 1. NSTEMI with elevated troponin at 12.0: LHC performed showed severe calcified multivessel disease with 100% occluded ostial RCA, 90% stenosis of the mid LAD, 90% stenosis of the D1, 80% stenosis of the proximal OM1, OM 2, severe 80% stenosis of the proximal LCx , 40-50% ostial left main stenosis and excellent [id number] collaterals extending up to the proximal RCA. LVEDP mildly elevated 20 mmHg. Plan: ? Continue aspirin 81 Mg p.o. daily - Continue atorvastatin 80 Mg p.o. at bedtime ? Cardiology, Dr. Majano consulted and closely following the case. Appreciate recommendations. ? Infectious disease, Dr Overton was consulted. Recommended to continue with fluconazole treatment and patient is clear for transfer for CABG. ? Patient to be transferred to [facility] for CABG evaluation by Dr. Ganesh Gamboa Atrial fibrillation with RVR?new onset Patient will schedule for I&D today. After administration of anesthesia he went into A-fib with RVR. [06/01] EKG showed A-fib with RVR, along with ST depressions in leads V3, V4, V5, V6, and ST elevation in aVR indicating ischemia/coronary artery disease. [06/02] EKG showed sinus rhythm. ST elevations in aVR and V1 not NSTEMI range. ST depressions in V4?V6. Q waves in V3. Rate 88 [id number]: 3 points [age, HTN, DM] Patient completed amiodarone infusion Plan: ? Continue amiodarone 200 Mg p.o. twice daily ? May need anticoagulation in future ? Cardiology, Dr. Majano on board. Appreciate recommendations. Left foot cellulitis Bilateral peripheral arterial disease Leukocytosis Presenting with 1 month of left foot swelling, erythema and pain. On exam Left foot swollen, erythematous, 3 x 3 cm eschar noted on dorsal aspect of foot. Right fifth toe has 1x1cm area of necrosis He also had small skin lesion of fifth digit of right foot. Pulses diminished in left foot compared to right. Bilateral lower limb duplex arterial ultrasound completed and significant for bilateral peripheral arterial disease with left SOILA 0.7 X-ray was negative for bony destruction. Abdomen CTA completed on 05/30/2024: 50-70% stenosis right superficial femoral artery. 50% stenosis left superficial femoral artery. Left foot ultrasound revealed 3.6 x 0.5 x 1.9 cm abscess adjacent to the fifth digit. WBC 23.1 ---> 14.4 CRP 2.6 Blood culture NBG x 48 hours preliminary Urine culture no growth. Patient received 1 day of ceftriaxone 1 g IV daily and doxycycline 100 Mg IV twice daily from [05/26 - 05/27] Received Vancomycin 1 G IV tid for 5 days from [05/27 - 05/31] Received cefepime 1 g IV daily for 10 days from [05/28 - 06/04] Received metronidazole 500 Mg IV Q8 hourly from [05/27 - 06/03] Patient underwent I&D by Dr. Navarro on 06/02/2024 Plan: ? Continue aspirin 81 Mg po daily - Completed 7 days Doxycycline 100mg IV BID [05/31-06/05] - Pending Transfer to tertiary centre for vascular surgery - Vascular surgeon, Dr. Greer consulted and assessed the patient. He recommended for decompression of the left foot followed by left lower extremity angioplasty. Lower extremity angioplasty currently unavailable at [facility] and patient will need to be transferred to a tertiary center for treatment. Pulmonary coccidiomycosis Epistaxis - resolved Nonproductive cough Pulmonary edema?resolving Patient complains of shortness of breath and a nonproductive cough with mild epistaxis. Chest x-ray showed increased vascular markings and pulmonary edema Cocci IgM positive Received loading dose of Fluconazole 400mg po x 1 Plan: ? Continue Fluconazole 200 Mg p.o. daily from [06/02- ? Infectious disease, Dr Overton consulted and closely following the case. Recommended to continue with fluconazole treatment and patient is clear for transfer for CABG. Prerenal GORDON on CKD stage IIIA - improving Hyperkalemia - resolved Hypoosmolar hyponatremia - resolved Non-anion gap metabolic acidosis - resolved Likely dehydrational. Sodium 124 ---> 132 , potassium 5.2---> 4.8 CR 3 ---> 1.3 (baseline 1.6), BUN 52 ---> 34 DDx: RTA type IV, medication induced Plan: ? Renally dose medication ? Avoid nephrotoxic agents ? Nephrology, Dr Malhotra consulted. Appreciate recommendations Primary HTN Hypotension Hyperlipidemia BP 138/67 Plan: ? Continue lisinopril 10 Mg p.o. daily ? Continue home ATORVASTATIN 80 mg HS Insulin-dependent diabetes mellitus type 2 [6.9%] Fasting blood glucose 122 Plan: ? Sliding scale insulin to cover for blood glucose spikes ? Hypoglycemic procedures in place Health maintenance: Disposition: Patient pending transfer to [facility] for CABG and LE arterial stent. Cleared from ID for CABG Diet: Cardiac Lines: pIVs GI Prophylaxis: Pantoprazole Thrombo Prophylaxis: Heparin 5000 units SC every 8 hours Code status: FULL CODE Plan of care discussed with Attending Dr. Moore and PGY3 Dr. Vaughn Rios MD PGY 1 Attending Provider Attestation/Addendum I attest that I was physically present for the evaluation, physical examination, lab and imaging review of the patient with the residents. I discussed the case with the residents and agree with the findings and plans of care as documented above. At bedside today, patient states he is feeling well and does not have new complaints. Left foot continues to have swelling, wrapped in clean bandage. Infectious disease following, recommended continuation of fluconazole. Cleared for surgery. Completed his antibiotics. Continues to be on aspirin and statin. Had a long discussion with Dr. Conner, explained to him about cardiology recommendation regarding need for CABG evaluation needing precedence over angioplasty evaluation. Awaiting transfer to higher center. Evelyn Moore MD
[2024-06-06 17:22] LABS: Troponin I 7.892 ng/mL (0.0-0.045)
--- NOTE | 2024-06-06 17:25 | ESPR_ITS ---
Documentation for date of: 06/06/24 Subjective Subjective Interval history: Patient seen and examined at the bedside. Patient still denies any Chest pain or chest pressure. Patient cardiac attrition completed on 06/03/2024 showed severe multivessel disease and is awaiting CABG evaluation. Patient was accepted by cardiothoracic surgery at [facility] Dr. Valerio but is still pending the transfer. Patient recently had left foot pain for which she had the left foot abscess and had incision and drainage completed on 06/02/2024 and completed his IV antibiotic course. Still on oral antibiotics. Insurance company medical billing coder called on thursday and had questions regarding the infection and the timing of the cardiothoracic surgery Given the new diagnosis of pulmonary coccidiomycosis, with positive IgM. Patient started on treatment for coccidiomycosis. Discussed with the primary team to talk to infectious disease doctors regarding the ID clearance prior to the surgery CABG. ID consulted today and ok for CABG. Primary discussed with cardiothoracic surgery at [facility] and patient will be transfered now once the bed is available for CABG evaluation. Patient completed the amiodarone drip as per protocol and recommend to changed to amiodarone 200 mg p.o. twice daily for now WBC decreased to 15,900 from peak of 22k and hemoglobin is stable around 9-10 after the 2 transfusions. BUN is 21 and creatinine is 1.3 and have continued to improved. Exam Vital Signs Temp Pulse Resp BP Pulse Ox O2 Del Method O2 Flow Rate 98.5 F 88 17 115/57 L 99 Room Air 2 06/06/24 16:00 06/06/24 16:00 06/06/24 16:06/06/24 16:06/06/24 16:06/06/24 16:06/06/24 06:18 Narrative Exam General: Alert and oriented x3. In mild acute distress secondary to pain in the left foot Eyes: Pupils are equal and reactive to light bilaterally. HEENT: Atraumatic, normocephalic. No JVD noted. Mucosa moist. Cardiovascular: Normal S1 and S2. Irregularly irregular.. 3/6 systolic murmur appreciated at the apex, left leg 2+ edema and right foot 1+ Respiratory: No respiratory distress. Bilateral air entry present with occasional crackles as well as rhonchi Abdomen: Soft, nontender, nondistended. Skin: No rash. Warm to touch. Musculoskeletal: Left foot wound in dressing, cellulitis extending to the lower leg and 2+ edema. Able to move all 4 extremities. Neuro: Alert and oriented x3. No focal neuro deficits. Psych: Normal affect and mood Objective Labs 06/06/24 05:15 06/06/24 05:15 Labs: Laboratory Results - last 24 hr 06/06/24 06/06/24 06/06/24 05:15 11:44 16:23 WBC 15.9 H RBC 2.98 L Hgb 9.2 L Hct 27.6 L MCV 93 MCH 30.9 MCHC 33.3 RDW Std Deviation 47.0 H Plt Count 315 D Neut % (Auto) 77 Lymph % (Auto) 6 L [place] % (Auto) 7 Eos % (Auto) 8 Baso % (Auto) 0 Neut # (Auto) 12.3 H Lymph # (Auto) 0.9 L [place] # (Auto) 1.1 H Eos # (Auto) 1.3 H Baso # (Auto) 0.0 Immature Gran # (Auto) 0.28 H Absolute Nucleated RBC 0.00 Immature Gran % 2 H Nucleated RBC % 0 Sodium 132 L Potassium 4.4 Chloride 96 L Carbon Dioxide 28.6 Anion Gap 7 BUN 21 Creatinine 1.3 Estim Creat Clear Calc 43.0 L eGFR 58 L BUN/Creatinine Ratio [address] Glu mg/dL 128 Hemoglobin A1c 6.1 H Calculated Osmolality 270 L Calcium 8.6 Corrected Calcium 9.5 Phosphorus 3.3 Magnesium 1.8 Total Bilirubin 0.3 AST 64 H ALT 32 Alkaline Phosphatase 85 Troponin I 8.534 H* 7.892 H* D Total Protein 5.4 L Albumin 2.9 L Globulin 2.5 Albumin/Globulin Ratio 1.2 Hepatitis A IgM Ab Non Reactive Hep Bs Antigen Non Reactive Hep B Core IgM Ab Non Reactive Hepatitis C Antibody Non Reactive HIV 1&2 Antibody Rapid Non-Reactive Assessment & Plan A&P Narrative A 73-year-old male with a past medical history of type 2 diabetes mellitus, hyperlipidemia, hypertension, CKD stage III, HFpEF, last EF of 55 to 60%, normocytic normochromic anemia, initially presented to the hospital for left foot swelling pain and erythema. 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 This morning the troponins were elevated 12.0 and I was consulted again. Patient is well-known to me as outpatient and he follows up with me in the clinic. 1. NSTEMI-mostly type I versus type II given supply/demand mismatch. 2. Abnormal EKG with severe ST depressions in the the leads and minimal ST elevation in the aVR indicating possible multivessel disease. 3. New onset atrial fibrillation with RVR 4. Left foot abscess and left leg cellulitis 5. Sepsis secondary to the left foot abscess as well as the cellulitis. 6. 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 Severe PAD as noted on CTA with left greater than right lower extremity disease-mostly below the knee 8. Acute on chronic kidney disease stage III 9. Severe anemia with hemoglobin of 7.1-unclear etiology-acute on chronic anemia 10. HFrEF last EF of 55 to 60% 11. Diabetes mellitus type 2 12. Hyperlipidemia 13. Essential hypertension 14. Mild cognitive deficiency Apparently patient and has been having worsening left foot wound with discharge and is admitted to the hospital for the same foot infection. Patient was started on IV antibiotic with no significant improvement in continue to worsen with significant amount of pus in the wound. General surgery was consulted and incision and drainage was planned on 06/01/2024 and prior to the operation patient went into atrial fibrillation with RVR. Patient was started on amiodarone drip and after which she converted to normal sinus rhythm Cardiology was consulted for further evaluation and the surgery was canceled. An EKG was performed which showed significant diffuse ST depressions in all the leads with minimal ST elevation < 1mm in aVR during the A-fib with RVR episode suggesting possible multivessel disease versus left main disease. Troponins were elevated 12.0 next morning. Cardiac catheterization was considered but patient appeared to be severely septic with increasing WBC count at around 20K. His hemoglobin was low at 7.1 and patient also had GORDON since admission with a creatinine ranging between 1.5-1.9. Patient also denied any Chest pain or chest pressure except for some shortness of breath. 04/01/25 Recommend to do stat transfuse the patient with 2 unit PRBC as the anemia in addition to the A-fib with RVR because infiltrative demand ischemia for the heart. Recommended stat chest x-ray and a BNP to rule out any kind of significant. Which she does not appear to be in at the present point of time during my clinical exam. Stat echocardiogram was ordered and did not show any significant change from outpatient echo done 6 months ago for the patient with normal LVEF at 55 to 60%. Normal LV size, RV size and function. Mild TR. Mild to moderate PAH with estimated RVSP 45 mmHg. Mild biatrial dilatation. Mild MAC, moderate MR, mild AI and mild TR. EF on his outpatient nuclear stress test was also normal at around 60% and was negative at that point of time in 2023 which could be false positive stress test for balanced ischemia from multivessel disease. Surgical team and anesthesia team contacted me again this afternoon and patient infection is apparently severe and he will not do well without the I&D significant debridement and would require urgent surgery Discussed with surgical team, anesthesia that patient is definitely highly elevated cardiac risk for the surgery. Given the urgent surgery, recommended to proceed if patient and the family understand the risks and benefits for it and recommended regional block rather than general anesthesia for the patient. Will plan to do the cardiac catheterization tomorrow or day after when the patient improves from the present sepsis and his kidney function is more stable as he does not have any chest pain and chest pressure and see how he recovers from the surgery today. Recommend aspirin 325 mg x 1 and start aspirin 81 mg once daily. High intensity statin Patient will need heparin drip but he is severely anemic and recommended primary team to stop the anemia workup for now and transfuse 2 units PRBC. Plan to do FOBT also as there is no clear cause of the anemia and the patient did not have surgery and before that his hemoglobin dropped to 7.1. Will need to workup the severe anemia to the present point of time as pt needs catheterization, further interventions and he will need to be on dual antiplatelets. Heparin drip can then be started at later point of time when the workup completed and hemoglobin is stable Left heart cardiac catheterization: 06/03/2024 1. Left main artery is a medium to large size artery with 50% ostial stenosis and 40% distal left main stenosis LAD 2. LAD is a medium to large size artery with severe 90% stenosis in the mid LAD at the bifurcation of D1. LAD does wrap around the apex. D1 is a small to medium with severe 90% stenosis in the proximal portion. 3. LCx is a large size artery with severe 90% stenosis in the proximal LCx and also severe 80% stenosis in the proximal small OM1 as well as severe 80% stenosis of proximal OM 2 is occluded 4. RCA is 100% occluded at the ostium. Excellent collaterals noted from the left to right filling up to the proximal RCA but patient has severe 80 to 90% stenosis in the mid RPDA. 5. LVEDP is elevated at 22 mmHg. There was no significant transvalvular aortic gradient. Left ventriculogram not performed as the patient already had an echo which showed an EF of 55 to 60%. Summary/findings: 1. NSTEMI with elevated troponin at 12.0: LHC performed showed severe calcified multivessel disease with 100% occluded ostial RCA, 90% stenosis of the mid LAD, 90% stenosis of the D1, 80% stenosis of the proximal OM1, OM 2, severe 80% stenosis of the proximal LCx , 40-50% ostial left main stenosis and excellent [id number] collaterals extending up to the proximal RCA. LVEDP mildly elevated 20 mmHg. 06/04/24 No new cardiac complaints including any chest pain or chest pressure this morning. Still has left foot pain. Surgery successfully completed the left foot I&D abscess on 06/02/2024. No cardiac complications. Patient completed the amiodarone drip as per protocol and recommend to changed to amiodarone 200 mg p.o. twice daily for now WBC increased to 17,000 and hemoglobin is stable around 9-10 after the 2 transfusions. BUN is 24 and creatinine is 1.4 and improved than before. Patient overall improving and will be completed IV antibiotics as per the primary team and still on oral antibiotics. Insurance company medical billing coder called me this a.m. and discussed with him in detail the need for transfer the patient for a higher level of care for evaluation of CABG by cardiothoracic surgery. 06/05/2024: Patient seen and examined at the bedside. Patient still denies any Chest pain or chest pressure. Patient cardiac attrition completed on 06/03/2024 showed severe multivessel disease and is awaiting CABG evaluation. Patient was accepted by cardiothoracic surgery at [facility] Dr. Valerio but is still pending the transfer. Patient recently had left foot pain for which she had the left foot abscess and had incision and drainage completed on 06/02/2024 and completed his IV antibiotic course. Still on oral antibiotics. [facility] [employer] medical billing coder called again this a.m. and had questions regarding the infection and the timing of the cardiothoracic surgery. But discussed with the primary team to talk to infectious disease doctors regarding the ID clearance prior to the surgery CABG. Primary to discuss with cardiothoracic surgery regarding the timing of the surgery given the recent infection. Patient is cleared to have the surgery. Patient completed the amiodarone drip as per protocol and recommend to changed to amiodarone 200 mg p.o. twice daily for now WBC decreased to 15,900 and hemoglobin is stable around 9-10 after the 2 transfusions. BUN is 21 and creatinine is 1.3 and have continued to improved. Please see detailed cath report as noted below. Patient does have severe PAD for which vascular surgery was consulted over the phone and was recommended left leg angioplasty which can be performed after addressing his multivessel CAD. Please make sure to send this note, operative note, CD with both the echocardiogram as well as the cardiac catheterization images with the patient and transferred to [facility] or [facility]. 06/06/24: Patient seen and examined at the bedside. Patient still denies any Chest pain or chest pressure. Patient cardiac attrition completed on 06/03/2024 showed severe multivessel disease and is awaiting CABG evaluation. Patient was accepted by cardiothoracic surgery at [facility] Dr. Valerio but is still pending the transfer. Patient recently had left foot pain for which she had the left foot abscess and had incision and drainage completed on 06/02/2024 and completed his IV antibiotic course. Still on oral antibiotics. [facility] [employer] medical billing coder called on thursday and had questions regarding the infection and the timing of the cardiothoracic surgery Given the new diagnosis of pulmonary coccidiomycosis, with positive IgM. Patient started on treatment for coccidiomycosis. Discussed with the primary team to talk to infectious disease doctors regarding the ID clearance prior to the surgery CABG. ID consulted today and ok for CABG. Primary discussed with cardiothoracic surgery at [facility] and patient will be transfered now once the bed is available for CABG evaluation. Patient completed the amiodarone drip as per protocol and recommend to changed to amiodarone 200 mg p.o. twice daily for now WBC decreased to 15,900 from peak of 22k and hemoglobin is stable around 9-10 after the 2 transfusions. BUN is 21 and creatinine is 1.3 and have continued to improved. And suspected previously left heart cardiac catheterization completed on 06/03/2024 showed severe multivessel disease as noted below and will need CABG evaluation. Discussed with cardiothoracic surgeon at [facility] Dr. Teodoro Gamboa who accepted patient to their service for CABG evaluation. Please see detailed cath report as noted below. Patient does have severe PAD for which vascular surgery was consulted over the phone and was recommended left leg angioplasty which can be performed after addressing his multivessel CAD. Please make sure to send this note, operative note, CD with both the echocardiogram as well as the cardiac catheterization images with the patient and transferred to [facility] or [facility]. Management of rest of the medical conditions as per primary team and other consultants. Thank you for the consult and allowing me to participate in the care of the patient. Cardiology will continue to follow. Jarad Majano M.D. Interventional Cardiology. Time Spent With Patient Total time spent is greater than 50% in coordination of care (as documented) at patient's floor/unit and/or counseling patient: Time Spent With Patient Time: Total time spent is greater than 50% in coordination of care (as documented) at patient's floor/unit and/or counseling patient:
[2024-06-06] MEDS: ATORVASTATIN CALCIUM 20 MG TABLET 80 MG PO (21:13)
[2024-06-07] VITALS (17 sets, daily range): BP systolic 94–114; BP diastolic 53–73; PULSE 69–123; RESP 12–23; TEMP 36.2–37; O2SAT 93–100
[2024-06-07] MEDS: ALBUTEROL/IPRATROPIUM (Duoneb) RT SOL 3 ML NEBU INH ×6 (03:18→22:31)
[2024-06-07] MEDS: BENZONATATE 100 MG CAPSULE PO ×3 (05:27→21:11)
[2024-06-07] MEDS: HEPARIN SOD INJ 5000 UNIT/ML VIAL SC ×3 (05:27→21:11)
[2024-06-07] MEDS: guaiFENesin SYRUP 200 MG/10 ML UDC 300 MG PO ×4 (05:27→21:10)
--- NOTE | 2024-06-07 07:23 | ESCONSULT_ITS ---
RE: FOZIA RODRIGUEZ : 1950 DATE OF CONSULTATION: 06/06/2024 REFERRING PHYSICIAN: Delia Leal MD REASON FOR CONSULTATION: Cellulitis of the left foot, coronary artery disease, and diabetes and a positive cocci test of uncertain significance. HISTORY OF PRESENT ILLNESS: The patient is here mostly for diabetic foot infection. He has known coronary artery disease and is to be referred out. He has some mild renal insufficiency that is improved. He was given fluconazole and dose was adjusted because his creatinine was 1.4, but it is down to 1.3, technically normal. Procalcitonin is usually not done in acute kidney injury or chronic kidney disease because it is a chemical that is renally cleared, so I do not recommend it in this setting. Thankfully, it was not done. The patient does not appear to have had much in the way of fever. He is a poor historian. He speaks primarily his [place] language. His medical problems include hyperlipidemia, peripheral vascular disease, and diabetes. He may also have CAD. Flucon is the same po as IV so dose can be adjusted to 400 mg daily and that would be fine. The drug can be stopped as the test is negative at [facility]. The patient has several other health problems, so he is on other medications. I have no objection to those. He apparently finished his doxycycline course, but if he has cellulitis residual, you can give him an oral agent such as Keflex or doxy for a few more days for cellulitis. DT: 09:45:54 TT: 10:39:00 Ref: [id number] - TID: [id number] MTDD
[2024-06-07 08:40] LABS: Basophils # (Auto) 0.1 Thou/mm3 (0.0-0.2); Basophils % (Auto) 0 % (0-2.5); Eosinophils # (Auto) 1.1 Thou/mm3 (0.0-0.5); Eosinophils % (Auto) 7 % (0-10); Immature Granulocytes % (Auto) 1 % (0-0); Immature Granulocytes Auto 0.17 Thou/mm3 (0.00-0.00); Lymphocytes # (Auto) 0.8 Thou/mm3 (1.0-4.8); Lymphocytes % (Auto) 5 % (10-50); Mean Corpuscular HGB Conc 33.3 g/dl (31.0-37.0); Mean Corpuscular Hemoglobin 31.2 pg (25.0-35.0); Mean Corpuscular Volume 94 fL (80-100); Monocytes # (Auto) 0.9 Thou/mm3 (0.0-0.8); Monocytes % (Auto) 6 % (0-12); Neutrophils % (Auto) 81 % (37-80); Nucleated Red Blood Cell % 0 /100 WBC (0); Platelet Count 347 Thou/mm3 (140-440); RDW Standard Deviation 46.7 fL (35.1-43.9); Red Blood Count 3.21 Miln/mm3 (4.50-5.90)
[2024-06-07] MEDS: FUROSEMIDE INJ 10 MG/ML VIAL 2 ML 20 MG IVP (08:49)
[2024-06-07] MEDS: AMIODARONE HCL 200 MG TABLET PO ×2 (08:50→21:11)
[2024-06-07] MEDS: HYDROcodone/APAP 5/325 TABLET 1 TAB PO ×2 (08:50→12:49)
[2024-06-07] MEDS: FLUCONAZOLE 100 MG TABLET 400 MG PO (08:50)
[2024-06-07] MEDS: ASPIRIN EC 81 MG TABEC PO (08:51)
[2024-06-07] MEDS: Lisinopril 2.5 MG TABLET 10 MG PO (08:51)
[2024-06-07] MEDS: PANTOPRAZOLE 40 MG TABLET PO (08:51)
[2024-06-07] MEDS: Silvasorb Gel 45 ML TUBE TOP (08:52)
--- NOTE | 2024-06-07 09:10 | PC.CM ---
Addendum entered by Lucy Dalton RN 06/07/24 20:07: I spoke to [facility] transfer center earlier today and they do not have any beds available. I handed packet to night charge nurse and gave report. Addendum entered by Lucy Dalton RN 06/07/24 15:08: 1210 I received a call from Madhuri with the transfer center at [facility]. She states they do have patient on a wait list but they do not have bed open at this time. I will follow up later today. Packet started and ready for transfer. Original Note: I called and left a message with [facility] transfer center. I asked them to call me back concerning transfer request.
[2024-06-07 09:17] LABS: Alanine Aminotransferase 38 U/L (10-49); Albumin, Serum 3.4 gm/dL (3.4-4.8); Albumin/Globulin Ratio 1.1 (1.2-2.2); Alkaline Phosphatase 92 U/L (46-116); Anion Gap 7 (7-16); Aspartate Amino Transferase 91 U/L (0-34); BUN/Creatinine Ratio 16 Ratio (12-20); Bilirubin,Total 0.5 mg/dL (0.3-1.2); Blood Urea Nitrogen 21 mg/dL (9-23); Calcium 9.3 mg/dL (8.3-10.6); Calcium (Corrected) 9.8 mg/dL (8.5-10.1); Carbon Dioxide 27.7 mMol/L (20.0-31.0); Chloride 96 mMol/L (98-107); Creatinine (Component) 1.3 mg/dL (0.6-1.3); Glucose 145 mg/dL (74-106); Magnesium 1.6 mg/dL (1.6-2.6); Osmolality,Calculated 268 (275-295); Phosphorous 3.1 mg/dL (2.4-5.1); Sodium 131 mMol/L (136-145); Total Protein 6.4 gm/dL (5.7-8.2); eGFR 58 See Note
--- NOTE | 2024-06-07 10:23 | ESPR_ITS ---
Documentation for date of: 06/07/24 Subjective Subjective Interval history: patient is a 73 year old male with PMH significant for Hypertension, hyperlipidemia and type 2 diabetes mellitus presented with chief complaint of left foot swelling that gradually worsened in last 1 month. He reported that, there could have been some foot injury or insect bite that he is not aware of. He went to see his PCP yesterday who recommended him to visit emergency department. He denied any fever or chills, headache, nausea or vomiting, chest pain or SOB, any changes in bowel or bladder habit. During evaluation, his vitals were stable, white count 23.1, hemoglobin 9.8, ESR 57, sodium level during presentation was 122 that slowly increased to 127 on IV normal saline 75 cc/h. Potassium initially was 5.2, that increased to 6.0 and trended down to 5.2. BUN 69, creatinine 2.6 which appears to be his baseline, and phosphorus 5.4. Left foot x-ray revealed no anjelica cortical bone destruction. Duplex scan lower extremity revealed severe bilateral obstructive arterial disease. Renal ultrasound revealed small kidneys with bilateral renal cortical thinning, moderate bilateral renal parenchymal scar formation. Urine electrolytes revealed creatinine 43, sodium 46, potassium 14, and chloride 24. Nephrology consultation was done for further management of moderate hypovolemic normal osmolar hyponatremia, hyperkalemia and CKD. 05/28/2024: The patient was interviewed and examined at the bedside this morning. He reported pain over his left foot. Vitals were stable with soft blood pressure. Labs were significant for white count 22.0, hemoglobin 9.6. Sodium 130, potassium 4.9, BUN 63, creatinine 2.4, EGFR 28, phosphorus 5.1. We will continue with maintenance normal saline fluid 70 cc/h as patient seemed to be mildly dehydrated, and his sodium correction is at goal levels. 05/29/2024 patient currently seen in medical floor. Resting comfortably. Labs, medications reviewed. Creatinine improving. Continue with current management. Left foot cellulitis/ulcers, severe peripheral vascular disease. 06/06/2024patient currently seen in medical floor. Resting comfortably. Labs, medications reviewed. Creatinine stable. Continue with current management. Hemoglobin 9.2, creatinine 1.3. A1c 6.1. Troponin 7.8 Left foot cellulitis/ulcers, severe peripheral vascular disease. Going for CABG. However dx with Cocci- transfer held. Dr. Overton was consulted 06/07/2024 patient currently seen in telemetry. Complaining of left foot pain. Seen by Dr. Overton for positive cocci-recommended antibiotics, fluconazole pending [facility] confirmation. Patient seen by Dr. Greer-recommended left small toe amputation and will need revascularization and HBO therapy to salvage the foot. Blood pressure 97/55, heart rate 72. Hemoglobin 10, WBC 16, platelets 347. Creatinine improved to 1.3. Sodium 131 phosphorus 3.1, magnesium 1.6, AST 91, alk phos 92 Review of Systems Review of Systems Narrative Review of Systems: denies CP, SOB. c/o pain in left leg Exam Vital Signs Temp Pulse Resp BP Pulse Ox O2 Del Method O2 Flow Rate 37.0 C 91 20 109/73 100 Room Air 2 06/07/24 08:00 06/07/24 10:12 06/07/24 10:12 06/07/24 08:51 06/07/24 10:12 06/07/24 08:00 06/07/24 10:12 Narrative Exam General: Elderly, cooperative gentleman, no acute distress, Alert and Oriented x 3 HEENT: Moist mucous membranes, oropharynx clear Neck: Supple, No masses, No JVD CVS: S1S2 Regular rate and rhythm, No murmurs, rubs or gallops Lungs: Mild bibasilar crackles, no wheeze no rhonchi Abd: Soft, NT/ND, +BS, no organomegaly Ext: Left foot swollen, covered under clean dressing, peripheral pulse unable to appreciate. S/p debridement left little toe seems to be discolored with gangrene Psych: Appropriate mood and affect Objective Labs 06/07/24 08:09 06/07/24 08:09 Labs: Laboratory Results - last 24 hr 06/06/24 06/06/24 06/06/24 05:15 11:44 16:23 WBC RBC Hgb Hct MCV MCH MCHC RDW Std Deviation Plt Count Neut % (Auto) Lymph % (Auto) [place] % (Auto) Eos % (Auto) Baso % (Auto) Neut # (Auto) Lymph # (Auto) [place] # (Auto) Eos # (Auto) Baso # (Auto) Immature Gran # (Auto) Absolute Nucleated RBC Immature Gran % Nucleated RBC % Sodium Potassium Chloride Carbon Dioxide Anion Gap BUN Creatinine Estim Creat Clear Calc eGFR BUN/Creatinine Ratio Glucose Calculated Osmolality Calcium Corrected Calcium Phosphorus Magnesium Total Bilirubin AST ALT Alkaline Phosphatase Troponin I 8.534 H* 7.892 H* D Total Protein Albumin Globulin Albumin/Globulin Ratio Hepatitis A IgM Ab Non Reactive Hep Bs Antigen Non Reactive Hep B Core IgM Ab Non Reactive Hepatitis C Antibody Non Reactive HIV 1&2 Antibody Rapid Non-Reactive 06/07/24 08:09 WBC 16.0 H RBC 3.21 L Hgb 10.0 L Hct 30.0 L MCV 94 MCH 31.2 MCHC 33.3 RDW Std Deviation 46.7 H Plt Count 347 D Neut % (Auto) 81 H Lymph % (Auto) 5 L [place] % (Auto) 6 Eos % (Auto) 7 Baso % (Auto) 0 Neut # (Auto) 13.0 H Lymph # (Auto) 0.8 L [place] # (Auto) 0.9 H Eos # (Auto) 1.1 H Baso # (Auto) 0.1 Immature Gran # (Auto) 0.17 H Absolute Nucleated RBC 0.00 Immature Gran % 1 H Nucleated RBC % 0 Sodium 131 L Potassium 4.0 Chloride 96 L Carbon Dioxide 27.7 Anion Gap 7 BUN 21 Creatinine 1.3 Estim Creat Clear Calc 43.0 L eGFR 58 L BUN/Creatinine Ratio 16 Glucose 145 H Calculated Osmolality 268 L Calcium 9.3 Corrected Calcium 9.8 Phosphorus 3.1 Magnesium 1.6 Total Bilirubin 0.5 AST 91 H ALT 38 Alkaline Phosphatase 92 Troponin I Total Protein 6.4 Albumin 3.4 D Globulin 3.0 Albumin/Globulin Ratio 1.1 L Hepatitis A IgM Ab Hep Bs Antigen Hep B Core IgM Ab Hepatitis C Antibody HIV 1&2 Antibody Rapid Assessment & Plan Additional Assessment & Plan Additional Plan: The patient is a 73 year old male with PMH significant for Hypertension, hyperlipidemia and type 2 diabetes mellitus presented with chief complaint of left foot swelling that gradually worsened in last 1 month was found to have left foot cellulitis, and nephrology consultation was done for the mangement of hyperkalemia, hyponatremia and GORDON on CKD. 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 Creatinine stable at 1.3 Renal ultrasound revealed small kidneys with bilateral renal cortical thinning, moderate bilateral renal parenchymal scar formation. Urine electrolytes revealed creatinine 43, sodium 46, potassium 14, and chloride 24 consistent with prerenal GORDON with BUN/Cr ration 25 -Monitor BMP daily am -Avoid nephrotoxic drugs #Moderate hypovolemic hypoosmolar hyponatremia Patient's sodium was as low as 122 Sodium markedly improved. Today 131 #HTN Currently stable On lisinopril Left foot cellulitis//left toe gangrene/severe peripheral vascular disease-on antibiotics, surgery/Dr. Greer on the case Leukocytosis= HLD [id number], sliding scale CAD-pending transfer to [facility]-held due to cocci positive. Cocci ++-on fluconazole. -Management deferred to primary team Quality - progress note Quality Measures Quality Measures: VTE prophylaxis Reason for Continued Stay Reason for Continued Stay: further monitoring
[2024-06-07] MEDS: METOPROLOL SUCCINATE XL 25 MG TABCR 50 MG PO (10:36)
[2024-06-07] MEDS: Magnesium Sulfate 4 GM Ivpb 4 GM/50 ML BAG IV (10:37)
--- NOTE | 2024-06-07 12:01 | ESPR_ITS ---
<Statement entered by Hipolito Carbajal MD - 06/08/24 13:45> I discussed with and supervised the international specialist physician involved in the care of this patient. Patient assessment and plan was discussed with entire medicine team, including my attending. I agree with the assessment and plan as documented by international specialist doctor. Patient care was discussed with my attending physician Dr. Teresa Carbajal, PGY-2 Documentation for date of: 06/07/24 Subjective Subjective Interval history: Patient is [place] speaking and interaction facilitated by registered healthcare highway administrative engineer Patient was seen and examined at bedside this AM. No acute exents overnight. Patient tolerating diet, adequate urine output and mentation is at baseline. Patient complains of nonproductive cough and shortness of breath at rest. WBC increased to 16 from 15.9 Decreased lisinopril to 5 Mg p.o. daily from 10 Mg p.o. daily From telemetry review patient's heart rate in the 110s?130s overnight. Started on metoprolol XL 50 Mg p.o. daily K4, Mg 1.6. Repleted with KCL 20meg po x1 and Magnesium sulphate 4G IV x 1. Infectious disease, Dr Overton consulted and closely following the case. Recommended to continue with fluconazole and patient is clear for CABG. Patient currently pending transfer to tertiary center for evaluation by cardiothoracic surgeon, Dr. Teodoro Gamboa who accepted the patient for CABG evaluation. Patient was also assessed by vascular surgeon, Dr. Greer who recommended left leg angioplasty once cardiac problems are addressed. Exam Vital Signs Temp Pulse Resp BP Pulse Ox O2 Del Method O2 Flow Rate 98.6 F 86 20 114/72 100 Room Air 2 06/07/24 08:00 06/07/24 10:36 06/07/24 10:12 06/07/24 10:36 06/07/24 10:12 06/07/24 08:00 06/07/24 10:12 Narrative Exam Constitutional Alert, oriented x 3 and mild distress. Elderly male HEENT Vision grossly intact. Patent nares. Trachea midline Respiratory Chest normal on inspection and lungs clear to auscultation bilaterally Cardiovascular S1 and S2 audible, RRR. No murmurs carotid bruit. No gross JVD. Abdominal Soft and non tender to palpation in all quadrants. BS + Genitourinary No bladder tenderness, no flank pain. Normal to palpation Musculoskeletal Extremities tone within normal limits. No LE edema Neurological CN II - XII grossly intact. Extremity motor and sensation grossly intact. Skin Warm, dry and intact. Left foot wrapped in bandage, clean. left foot fifth digit necrotic Psychiatric Patient has good affect, is cooperative Objective Labs 06/07/24 08:09 06/07/24 08:09 Labs: Laboratory Results - last 24 hr 06/06/24 06/06/24 06/07/24 11:44 16:23 08:09 WBC 16.0 H RBC 3.21 L Hgb 10.0 L Hct 30.0 L MCV 94 MCH 31.2 MCHC 33.3 RDW Std Deviation 46.7 H Plt Count 347 D Neut % (Auto) 81 H Lymph % (Auto) 5 L [place] % (Auto) 6 Eos % (Auto) 7 Baso % (Auto) 0 Neut # (Auto) 13.0 H Lymph # (Auto) 0.8 L [place] # (Auto) 0.9 H Eos # (Auto) 1.1 H Baso # (Auto) 0.1 Immature Gran # (Auto) 0.17 H Absolute Nucleated RBC 0.00 Immature Gran % 1 H Nucleated RBC % 0 Sodium 131 L Potassium 4.0 Chloride 96 L Carbon Dioxide 27.7 Anion Gap 7 BUN 21 Creatinine 1.3 Estim Creat Clear Calc 43.0 L eGFR 58 L BUN/Creatinine Ratio 16 Glucose 145 H Calculated Osmolality 268 L Calcium 9.3 Corrected Calcium 9.8 Phosphorus 3.1 Magnesium 1.6 Total Bilirubin 0.5 AST 91 H ALT 38 Alkaline Phosphatase 92 Troponin I 8.534 H* 7.892 H* D Total Protein 6.4 Albumin 3.4 D Globulin 3.0 Albumin/Globulin Ratio 1.1 L Quality Measures Quality Measures VTE prophylaxis Advance care planning discussed with:: patient and spouse Assessment & Plan Assessment Current Active Medications: Generic Name Dose Route Start Last Admin Trade Name Freq PRN Reason Stop Dose Admin Acetaminophen 650 mg 05/26/24 20:03 Acetaminophen 325 Mg Tablet PO 06/25/24 20:02 Q6H PRN PAIN SCALE 1-3 (mild Hydrocodone Bitart/Acetaminophen 1 tab 06/05/24 20:43 06/07/24 08:50 Hydrocodone/Apap 5/325 Tablet PO 06/10/24 20:42 1 tab Q4HR PRN Administration PAIN SCALE 4-10(Mod-Sev Albuterol/Ipratropium 3 ml 06/05/24 11:00 06/07/24 10:10 Albuterol/Ipratropium (Duoneb) Rt Marjorie 3 Ml Nebu INH 07/05/24 10:59 3 ml Q4HRRT LEXI Administration Amiodarone HCl 200 mg 06/04/24 06:00 06/07/24 08:50 Amiodarone Hcl 200 Mg Tablet PO 07/04/24 05:59 200 mg BID LEXI Administration Aspirin 81 mg 06/03/24 09:00 06/07/24 08:51 Aspirin Ec 81 Mg Tabec PO 07/03/24 08:59 81 mg QDAY LEXI Administration Atorvastatin Calcium 80 mg 05/26/24 21:00 06/06/24 21:13 Atorvastatin Calcium 20 Mg Tablet PO 06/25/24 20:59 80 mg HS LEXI Administration Benzonatate 100 mg 06/02/24 14:00 06/07/24 05:27 Benzonatate 100 Mg Capsule PO 07/02/24 13:59 100 mg Q8HR LEXI Administration Protocol Dextrose 25 ml 05/26/24 20:10 Dextrose 50%-Water Inj 50 Ml Syringe IV 06/25/24 20:09 Q15MIN PRN BG 50-70 responsive npo pt Dextrose 50 ml 05/26/24 20:10 Dextrose 50%-Water Inj 50 Ml Syringe IV 06/25/24 20:09 Q15MIN PRN BG <50 OR BG <70 & pt unresponsive Fluconazole 400 mg 06/07/24 09:00 06/07/24 08:50 Fluconazole 100 Mg Tablet PO 09/13/24 12:00 400 mg QDAY LEXI Administration Glucagon 1 mg 05/26/24 20:10 Glucagon Inj 1 Mg Vial IM Q15MIN PRN BG <70, and no IV access Guaifenesin 300 mg 06/05/24 17:00 06/07/24 05:27 Guaifenesin Syrup 200 Mg/10 Ml Udc PO 07/05/24 16:59 300 mg QID LEXI Administration Protocol Heparin Sodium (Porcine) 5,000 unit 05/27/24 06:00 06/07/24 05:27 Heparin Sod Inj 5000 Unit/Ml Vial SC 06/10/24 05:59 5,000 unit Q8HR LEXI Administration Magnesium Sulfate 4 gm in 50 mls @ 12.5 mls/hr 06/07/24 09:59 06/07/24 10:37 Magnesium Sulfate Ivpb IV 06/07/24 13:58 12.5 mls/hr X1 ONE Administration Insulin Human Lispro 0 unit 05/26/24 21:00 06/07/24 07:46 Insulin Lispro (Admelog) 1 Unit/0.01 Ml Unit SC 06/25/24 20:59 Not Given ACHS LEXI Protocol Lisinopril 5 mg 06/08/24 09:00 Lisinopril 2.5 Mg Tablet PO 07/08/24 08:59 QDAY LEXI Metoprolol Succinate 50 mg 06/07/24 09:45 06/07/24 10:36 Metoprolol Succinate Xl 25 Mg Tabcr PO 07/07/24 09:44 50 mg QDAY LEXI Administration Ondansetron HCl 4 mg 05/26/24 20:03 Ondansetron Inj 2 Mg/Ml Inj 2 Ml IV 06/25/24 20:02 Q6H PRN NAUSEA OR VOMITING Protocol Pantoprazole Sodium 40 mg 06/07/24 09:00 06/07/24 08:51 Pantoprazole 40 Mg Tablet PO 07/07/24 08:59 40 mg QDAY LEXI Administration Zinc Acetate/Diphenhydramine 0 gm 06/06/24 10:42 06/06/24 11:47 Diphenhydramine/Zn Acet 2% Cr 30 Gm Tube TOP 07/06/24 10:41 1 applicatio Q6HR PRN Administration ITCHING Plan 73-year-old male PMHx of T2DM, HLD, HTN admitted for left foot cellulitis. Started on ANTIBIOTICS. Additionally, he is being managed for GORDON, hyperkalemia, and hyponatremia. ACS?resolving Multivessel CAD NSTEMI type I Chronic diastolic congestive heart failure with preserved ejection fraction [EF 55-60%] Patient developed shortness of breath and nonproductive cough. Troponin I 12.412 BNP 564 Left heart cardiac catheterization: 06/03/2024 1. Left main artery is a medium to large size artery with 50% ostial stenosis and 40% distal left main stenosis LAD 2. LAD is a medium to large size artery with severe 90% stenosis in the mid LAD at the bifurcation of D1. LAD does wrap around the apex. D1 is a small to medium with severe 90% stenosis in the proximal portion. 3. LCx is a large size artery with severe 90% stenosis in the proximal LCx and also severe 80% stenosis in the proximal small OM1 as well as severe 80% stenosis of proximal OM 2 is occluded 4. RCA is 100% occluded at the ostium. Excellent collaterals noted from the left to right filling up to the proximal RCA but patient has severe 80 to 90% stenosis in the mid RPDA. 5. LVEDP is elevated at 22 mmHg. There was no significant transvalvular aortic gradient. Left ventriculogram not performed as the patient already had an echo which showed an EF of 55 to 60%. Summary/findings: 1. NSTEMI with elevated troponin at 12.0: LHC performed showed severe calcified multivessel disease with 100% occluded ostial RCA, 90% stenosis of the mid LAD, 90% stenosis of the D1, 80% stenosis of the proximal OM1, OM 2, severe 80% stenosis of the proximal LCx , 40-50% ostial left main stenosis and excellent [id number] collaterals extending up to the proximal RCA. LVEDP mildly elevated 20 mmHg. Plan: ? Continue aspirin 81 Mg p.o. daily - Continue atorvastatin 80 Mg p.o. at bedtime ? Cardiology, Dr. Majano consulted and closely following the case. Appreciate recommendations. ? Infectious disease, Dr Overton was consulted. Recommended to continue with fluconazole treatment and patient is clear for transfer for CABG. ? Patient to be transferred to [facility] for CABG evaluation by Dr. Ganesh Gamboa Atrial fibrillation with RVR?new onset Patient will schedule for I&D today. After administration of anesthesia he went into A-fib with RVR. [2] EKG showed A-fib with RVR, along with ST depressions in leads V3, V4, V5, V6, and ST elevation in aVR indicating ischemia/coronary artery disease. [06/02] EKG showed sinus rhythm. ST elevations in aVR and V1 not NSTEMI range. ST depressions in V4?V6. Q waves in V3. Rate 88 [id number]: 3 points [age, HTN, DM] Patient completed amiodarone infusion From telemetry review patient's heart rate in the 110s?130s overnight. Started on metoprolol XL 50 Mg p.o. daily K4, Mg 1.6. Repleted with KCL 20meg po x1 and Magnesium sulphate 4G IV x 1. Plan: - Started on metoprolol XL 50 Mg p.o. daily ? Continue amiodarone 200 Mg p.o. twice daily ? May need anticoagulation in future ? Cardiology, Dr. Majano on board. Appreciate recommendations. Left foot cellulitis Bilateral peripheral arterial disease Leukocytosis Presenting with 1 month of left foot swelling, erythema and pain. On exam Left foot swollen, erythematous, 3 x 3 cm eschar noted on dorsal aspect of foot. Right fifth toe has 1x1cm area of necrosis He also had small skin lesion of fifth digit of right foot. Pulses diminished in left foot compared to right. Bilateral lower limb duplex arterial ultrasound completed and significant for bilateral peripheral arterial disease with left SOILA 0.7 X-ray was negative for bony destruction. Abdomen CTA completed on 05/30/2024: 50-70% stenosis right superficial femoral artery. 50% stenosis left superficial femoral artery. Left foot ultrasound revealed 3.6 x 0.5 x 1.9 cm abscess adjacent to the fifth digit. WBC 23.1 ---> 16 CRP 2.6 Blood culture NBG x 48 hours preliminary Urine culture no growth. Patient received 1 day of ceftriaxone 1 g IV daily and doxycycline 100 Mg IV twice daily from [05/26 - 05/27] Received Vancomycin 1 G IV tid for 5 days from [05/27 - 05/31] Received cefepime 1 g IV daily for 10 days from [05/28 - 06/04] Received metronidazole 500 Mg IV Q8 hourly from [05/27 - 06/03] Completed 7 days Doxycycline 100mg IV BID [05/31-06/05] Patient underwent I&D by Dr. Hutton on 06/02/2024 Plan: ? Continue aspirin 81 Mg po daily - Pending Transfer to tertiary centre for vascular surgery - Vascular surgeon, Dr. Greer consulted and assessed the patient. He recommended for decompression of the left foot followed by left lower extremity angioplasty. Lower extremity angioplasty currently unavailable at [facility] and patient will need to be transferred to a tertiary center for treatment. Pulmonary coccidiomycosis Epistaxis - resolved Nonproductive cough Pulmonary edema?resolving Patient complains of shortness of breath and a nonproductive cough with mild epistaxis. Patient had history of Valley Fever in 1993 Chest x-ray showed increased vascular markings and pulmonary edema Cocci IgM positive Received loading dose of Fluconazole 400mg po x 1 Plan: ? Continue Fluconazole 400 Mg p.o. daily as per ID recommendations ? Infectious disease, Dr Overton consulted and closely following the case. Recommended to continue with fluconazole treatment and patient is clear for transfer for CABG. Prerenal GORDON on CKD stage IIIA - improving Hyperkalemia - resolved Hypoosmolar hyponatremia - resolved Non-anion gap metabolic acidosis - resolved Likely dehydrational. Sodium 124 ---> 132 , potassium 5.2---> 4.8 CR 3 ---> 1.3 (baseline 1.6), BUN 52 ---> 34 DDx: RTA type IV, medication induced Plan: ? Renally dose medication ? Avoid nephrotoxic agents ? Nephrology, Dr Malhotra consulted. Appreciate recommendations Primary HTN Hypotension Hyperlipidemia BP 109/73 Plan: ? Decreased lisinopril to 5 Mg p.o. daily from 10 Mg p.o. daily ? Continue home ATORVASTATIN 80 mg HS Insulin-dependent diabetes mellitus type 2 [6.9%] Fasting blood glucose 122 Plan: ? Sliding scale insulin to cover for blood glucose spikes ? Hypoglycemic procedures in place Health maintenance: Disposition: Patient pending transfer to [facility] for CABG and LE arterial stent. Cleared from ID for CABG Diet: Cardiac Lines: pIVs GI Prophylaxis: Pantoprazole Thrombo Prophylaxis: Heparin 5000 units SC every 8 hours Code status: FULL CODE Plan of care discussed with Attending Dr. Moore and PGY2 Dr. Raven Rios MD PGY 1 Attending Provider Attestation/Addendum I attest that I was physically present for the evaluation, physical examination, lab and imaging review of the patient with the residents. I discussed the case with the residents and agree with the findings and plans of care as documented above. Patient appears comfortable at bedside. Vitals remained stable. Left foot covered in dressing with fifth toe gangrene and swelling of rest of the toes. Dressing is clean. Pending transfer to [facility] for evaluation for CABG and vascular surgery for left lower limb. Evelyn Moore MD
[2024-06-07] MEDS: POTASSIUM CHLORIDE 10% 20 MEQ/15 ML UDC PO (12:42)
--- NOTE | 2024-06-07 12:58 | PD.RESPRO ---
Documentation for date of: 06/07/24 Subjective Subjective Interval history: 06/07: no acute overnight events reported. Pt is seen and examined at bedside, Pts and daughter are at bedside. Per primary hospital team informed that insurance company will not approved Pts CABG before BKA. Therefore transfer for CABG is pending. Per vascular surgery Exam Vital Signs Temp Pulse Resp BP Pulse Ox O2 Del Method O2 Flow Rate 98.0 F 86 19 99/58 L 99 Room Air 2 06/07/24 12:00 06/07/24 12:00 06/07/24 12:00 06/07/24 12:06/07/24 12:06/07/24 12:06/07/24 10:12 Narrative Exam GENERAL: A&Ox3 . Awake, Not in acute distress NEURO: no focal neurological deficits HEENT: Atraumatic, Normocephalic. mucous membranes moist. Eyes open, symmetrical, & clear HEART: Normal Heart Sounds LUNGS: Clear to auscultation with no wheezing or crackles. ABDOMEN: soft, non-distended, non-tender, bowel sounds heard, no guarding or rebound tenderness SKIN: No Rash or ecchymoses, hypo EXTREMITIES: No edema, tenderness, able to move all 4 extremities, pedal pulses palpated Objective Labs 06/07/24 08:09 06/07/24 08:09 Labs: Laboratory Results - last 24 hr 06/06/24 06/07/24 16:23 08:09 WBC 16.0 H RBC 3.21 L Hgb 10.0 L Hct 30.0 L MCV 94 MCH 31.2 MCHC 33.3 RDW Std Deviation 46.7 H Plt Count 347 D Neut % (Auto) 81 H Lymph % (Auto) 5 L [place] % (Auto) 6 Eos % (Auto) 7 Baso % (Auto) 0 Neut # (Auto) 13.0 H Lymph # (Auto) 0.8 L [place] # (Auto) 0.9 H Eos # (Auto) 1.1 H Baso # (Auto) 0.1 Immature Gran # (Auto) 0.17 H Absolute Nucleated RBC 0.00 Immature Gran % 1 H Nucleated RBC % 0 Sodium 131 L Potassium 4.0 Chloride 96 L Carbon Dioxide 27.7 Anion Gap 7 BUN 21 Creatinine 1.3 Estim Creat Clear Calc 43.0 L eGFR 58 L BUN/Creatinine Ratio 16 Glucose 145 H Calculated Osmolality 268 L Calcium 9.3 Corrected Calcium 9.8 Phosphorus 3.1 Magnesium 1.6 Total Bilirubin 0.5 AST 91 H ALT 38 Alkaline Phosphatase 92 Troponin I 7.892 H* D Total Protein 6.4 Albumin 3.4 D Globulin 3.0 Albumin/Globulin Ratio 1.1 L Quality Measures Quality Measures VTE prophylaxis Assessment & Plan Assessment Current Active Medications: Generic Name Dose Route Start Last Admin Trade Name Freq PRN Reason Stop Dose Admin Acetaminophen 650 mg 05/26/24 20:03 Acetaminophen 325 Mg Tablet PO 06/25/24 20:02 Q6H PRN PAIN SCALE 1-3 (mild Hydrocodone Bitart/Acetaminophen 1 tab 06/05/24 20:43 06/07/24 12:49 Hydrocodone/Apap 5/325 Tablet PO 06/10/24 20:42 1 tab Q4HR PRN Administration PAIN SCALE 4-10(Mod-Sev Albuterol/Ipratropium 3 ml 06/05/24 11:00 06/07/24 10:10 Albuterol/Ipratropium (Duoneb) Rt Marjorie 3 Ml Nebu INH 07/05/24 10:59 3 ml Q4HRRT LEXI Administration Amiodarone HCl 200 mg 06/04/24 06:00 06/07/24 08:50 Amiodarone Hcl 200 Mg Tablet PO 07/04/24 05:59 200 mg BID LEXI Administration Aspirin 81 mg 06/03/24 09:00 06/07/24 08:51 Aspirin Ec 81 Mg Tabec PO 07/03/24 08:59 81 mg QDAY LEXI Administration Atorvastatin Calcium 80 mg 05/26/24 21:00 06/06/24 21:13 Atorvastatin Calcium 20 Mg Tablet PO 06/25/24 20:59 80 mg HS LEXI Administration Benzonatate 100 mg 06/02/24 14:00 06/07/24 05:27 Benzonatate 100 Mg Capsule PO 07/02/24 13:59 100 mg Q8HR LEXI Administration Protocol Dextrose 25 ml 05/26/24 20:10 Dextrose 50%-Water Inj 50 Ml Syringe IV 06/25/24 20:09 Q15MIN PRN BG 50-70 responsive npo pt Dextrose 50 ml 05/26/24 20:10 Dextrose 50%-Water Inj 50 Ml Syringe IV 06/25/24 20:09 Q15MIN PRN BG <50 OR BG <70 & pt unresponsive Fluconazole 400 mg 06/07/24 09:00 06/07/24 08:50 Fluconazole 100 Mg Tablet PO 09/13/24 12:00 400 mg QDAY LEXI Administration Glucagon 1 mg 05/26/24 20:10 Glucagon Inj 1 Mg Vial IM Q15MIN PRN BG <70, and no IV access Guaifenesin 300 mg 06/05/24 17:00 06/07/24 12:42 Guaifenesin Syrup 200 Mg/10 Ml Udc PO 07/05/24 16:59 300 mg QID LEXI Administration Protocol Heparin Sodium (Porcine) 5,000 unit 05/27/24 06:00 06/07/24 05:27 Heparin Sod Inj 5000 Unit/Ml Vial SC 06/10/24 05:59 5,000 unit Q8HR LEXI Administration Magnesium Sulfate 4 gm in 50 mls @ 12.5 mls/hr 06/07/24 09:59 06/07/24 10:37 Magnesium Sulfate Ivpb IV 06/07/24 13:58 12.5 mls/hr X1 ONE Administration Insulin Human Lispro 0 unit 05/26/24 21:00 06/07/24 12:13 Insulin Lispro (Admelog) 1 Unit/0.01 Ml Unit SC 06/25/24 20:59 Not Given ACHS [facility] Protocol Lisinopril 5 mg 06/08/24 09:00 Lisinopril 2.5 Mg Tablet PO 07/08/24 08:59 QDAY [facility] Metoprolol Succinate 50 mg 06/07/24 09:45 06/07/24 10:36 Metoprolol Succinate Xl 25 Mg Tabcr PO 07/07/24 09:44 50 mg QDAY LEXI Administration Ondansetron HCl 4 mg 05/26/24 20:03 Ondansetron Inj 2 Mg/Ml Inj 2 Ml IV 06/25/24 20:02 Q6H PRN NAUSEA OR VOMITING Protocol Pantoprazole Sodium 40 mg 06/07/24 09:00 06/07/24 08:51 Pantoprazole 40 Mg Tablet PO 07/07/24 08:59 40 mg QDAY LEXI Administration Zinc Acetate/Diphenhydramine 0 gm 06/06/24 10:42 06/06/24 11:47 Diphenhydramine/Zn Acet 2% Cr 30 Gm Tube TOP 07/06/24 10:41 1 applicatio Q6HR PRN Administration ITCHING
--- NOTE | 2024-06-07 16:14 | PD.SURPROG ---
Documentation for date of: 06/07/24 Subjective Subjective Brief History: Patient is a 73-year-old male who has been complaining of swelling and pain in the left foot progressive over the last week. He presented to the hospital and was found to have what appears to be a deep space infection in the left foot. His arterial Doppler examination was abnormal and the CTA was lower extremity runoff was performed today that shows severe peripheral vascular disease especially below the knee on both sides. I did review the images myself and there appears to be fairly continuous flow in the arterial system left leg with several focal areas especially in the popliteal artery of short segment occlusions. The patient had left foot debridemnt last week Exam Vital Signs Temp Pulse Resp BP Pulse Ox O2 Del Method O2 Flow Rate 98.0 F 69 18 99/58 L 100 Room Air 2 06/07/24 12:00 06/07/24 14:03 06/07/24 14:03 06/07/24 12:00 06/07/24 14:03 06/07/24 12:00 06/07/24 14:03 Routine Extremities Exam Comments: Examination of the left leg shows resolved cellulitis. There is an open foot wound with exposed tendon, tissue looks viable. The left 5th toe is gangrenous and will need amputation at some point. Assessment & Plan Assessment Additional comments: I feel that with timely revascularization and wound care, including possible HBO therapy as an out patient, the foot is still salvageable Plan As above Procedures Procedures Excisional debridement of left foot necrotic tissue, incision and drainage of left foot abscess
--- NOTE | 2024-06-07 20:37 | PD.IMPROG ---
Documentation for date of: 06/07/24 Subjective Subjective Interval history: Patient seen and examined at the bedside. No new cardiac complaints including any chest pain or chest pressure. Shortness of breath is much better. Patient has been diuresing well with Lasix 20 mg once daily Total output was 2.1 L and is net negative around 300 to 400 mL yesterday. Patient kidney function continues to improve and BUN is 21 and 1.3. His peak creatinine was 3.0 and has improved significantly. Telemetry reviewed and heart rate is between 70 to 80 bpm and well-controlled on amiodarone and metoprolol XL 50 mg once daily. Blood pressure and rest of the vitals appear to be stable. And he is on intermittent nasal cannula 2 L otherwise on room air. Patient cardiac cathterization completed on 06/03/2024 showed severe multivessel disease and is awaiting CABG evaluation. Patient was accepted by cardiothoracic surgery at [facility] Valeroi but is still pending the transfer. Patient recently had left foot pain for which she had the left foot abscess and had incision and drainage completed on 06/02/2024 and completed his IV antibiotic course. Still on oral antifngals Insurance company faculty i on call medical assistant had questions regarding the infection and the timing of the cardiothoracic surgery Given the new diagnosis of pulmonary coccidiomycosis, with positive IgM. Patient started on treatment for coccidiomycosis. Discussed with the primary team to talk to infectious disease doctors regarding the ID clearance prior to the surgery CABG. ID consulted and cleared for CABG. Primary discussed with cardiothoracic surgery at [facility] and patient will be transfered now once the bed is available for CABG evaluation or other tertiary care hospital where CABG can be performed. Exam Vital Signs Temp Pulse Resp BP Pulse Ox O2 Del Method O2 Flow Rate 97.1 F 77 20 97/55 L 100 Nasal Cannula 1 06/07/24 16:00 06/07/24 19:30 06/07/24 19:30 06/07/24 16:00 06/07/24 19:30 06/07/24 16:06/07/24 19:30 Narrative Exam General: Alert and oriented x3. In mild acute distress secondary to pain in the left foot Eyes: Pupils are equal and reactive to light bilaterally. HEENT: Atraumatic, normocephalic. No JVD noted. Mucosa moist. Cardiovascular: Normal S1 and S2. Irregularly irregular.. 3/6 systolic murmur appreciated at the apex, left leg 2+ edema and right foot 1+ Respiratory: No respiratory distress. Bilateral air entry present with occasional crackles as well as rhonchi Abdomen: Soft, nontender, nondistended. Skin: No rash. Warm to touch. Musculoskeletal: Left foot wound in dressing, cellulitis extending to the lower leg and 2+ edema. Able to move all 4 extremities. Neuro: Alert and oriented x3. No focal neuro deficits. Psych: Normal affect and mood Objective Labs 06/07/24 08:09 06/07/24 08:09 Labs: Laboratory Results - last 24 hr 06/07/24 08:09 WBC 16.0 H RBC 3.21 L Hgb 10.0 L Hct 30.0 L MCV 94 MCH 31.2 MCHC 33.3 RDW Std Deviation 46.7 H Plt Count 347 D Neut % (Auto) 81 H Lymph % (Auto) 5 L [place] % (Auto) 6 Eos % (Auto) 7 Baso % (Auto) 0 Neut # (Auto) 13.0 H Lymph # (Auto) 0.8 L [place] # (Auto) 0.9 H Eos # (Auto) 1.1 H Baso # (Auto) 0.1 Immature Gran # (Auto) 0.17 H Absolute Nucleated RBC 0.00 Immature Gran % 1 H Nucleated RBC % 0 Sodium 131 L Potassium 4.0 Chloride 96 L Carbon Dioxide 27.7 Anion Gap 7 BUN 21 Creatinine 1.3 Estim Creat Clear Calc 43.0 L eGFR 58 L BUN/Creatinine Ratio 16 Glucose 145 H Calculated Osmolality 268 L Calcium 9.3 Corrected Calcium 9.8 Phosphorus 3.1 Magnesium 1.6 Total Bilirubin 0.5 AST 91 H ALT 38 Alkaline Phosphatase 92 Total Protein 6.4 Albumin 3.4 D Globulin 3.0 Albumin/Globulin Ratio 1.1 L Assessment & Plan A&P Narrative A 73-year-old male with a past medical history of type 2 diabetes mellitus, hyperlipidemia, hypertension, CKD stage III, HFpEF, last EF of 55 to 60%, normocytic normochromic anemia, initially presented to the hospital for left foot swelling pain and erythema. 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 This morning the troponins were elevated 12.0 and I was consulted again. Patient is well-known to me as outpatient and he follows up with me in the clinic. 1. NSTEMI-mostly type I versus type II given supply/demand mismatch. 2. Abnormal EKG with severe ST depressions in the the leads and minimal ST elevation in the aVR indicating possible multivessel disease. 3. New onset atrial fibrillation with RVR 4. Left foot abscess and left leg cellulitis 5. Sepsis secondary to the left foot abscess as well as the cellulitis. 6. 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 Severe PAD as noted on CTA with left greater than right lower extremity disease-mostly below the knee 8. Acute on chronic kidney disease stage III 9. Severe anemia with hemoglobin of 7.1-unclear etiology-acute on chronic anemia 10. HFrEF last EF of 55 to 60% 11. Diabetes mellitus type 2 12. Hyperlipidemia 13. Essential hypertension 14. Mild cognitive deficiency Apparently patient and has been having worsening left foot wound with discharge and is admitted to the hospital for the same foot infection. Patient was started on IV antibiotic with no significant improvement in continue to worsen with significant amount of pus in the wound. General surgery was consulted and incision and drainage was planned on 06/01/2024 and prior to the operation patient went into atrial fibrillation with RVR. Patient was started on amiodarone drip and after which she converted to normal sinus rhythm Cardiology was consulted for further evaluation and the surgery was canceled. An EKG was performed which showed significant diffuse ST depressions in all the leads with minimal ST elevation < 1mm in aVR during the A-fib with RVR episode suggesting possible multivessel disease versus left main disease. Troponins were elevated 12.0 next morning. Cardiac catheterization was considered but patient appeared to be severely septic with increasing WBC count at around 20K. His hemoglobin was low at 7.1 and patient also had GORDON since admission with a creatinine ranging between 1.5-1.9. Patient also denied any Chest pain or chest pressure except for some shortness of breath. 04/01/25 Recommend to do stat transfuse the patient with 2 unit PRBC as the anemia in addition to the A-fib with RVR because infiltrative demand ischemia for the heart. Recommended stat chest x-ray and a BNP to rule out any kind of significant. Which she does not appear to be in at the present point of time during my clinical exam. Stat echocardiogram was ordered and did not show any significant change from outpatient echo done 6 months ago for the patient with normal LVEF at 55 to 60%. Normal LV size, RV size and function. Mild TR. Mild to moderate PAH with estimated RVSP 45 mmHg. Mild biatrial dilatation. Mild MAC, moderate MR, mild AI and mild TR. EF on his outpatient nuclear stress test was also normal at around 60% and was negative at that point of time in 2023 which could be false positive stress test for balanced ischemia from multivessel disease. Surgical team and anesthesia team contacted me again this afternoon and patient infection is apparently severe and he will not do well without the I&D significant debridement and would require urgent surgery Discussed with surgical team, anesthesia that patient is definitely highly elevated cardiac risk for the surgery. Given the urgent surgery, recommended to proceed if patient and the family understand the risks and benefits for it and recommended regional block rather than general anesthesia for the patient. Will plan to do the cardiac catheterization tomorrow or day after when the patient improves from the present sepsis and his kidney function is more stable as he does not have any chest pain and chest pressure and see how he recovers from the surgery today. Recommend aspirin 325 mg x 1 and start aspirin 81 mg once daily. High intensity statin Patient will need heparin drip but he is severely anemic and recommended primary team to stop the anemia workup for now and transfuse 2 units PRBC. Plan to do FOBT also as there is no clear cause of the anemia and the patient did not have surgery and before that his hemoglobin dropped to 7.1. Will need to workup the severe anemia to the present point of time as pt needs catheterization, further interventions and he will need to be on dual antiplatelets. Heparin drip can then be started at later point of time when the workup completed and hemoglobin is stable Left heart cardiac catheterization: 06/03/2024 1. Left main artery is a medium to large size artery with 50% ostial stenosis and 40% distal left main stenosis LAD 2. LAD is a medium to large size artery with severe 90% stenosis in the mid LAD at the bifurcation of D1. LAD does wrap around the apex. D1 is a small to medium with severe 90% stenosis in the proximal portion. 3. LCx is a large size artery with severe 90% stenosis in the proximal LCx and also severe 80% stenosis in the proximal small OM1 as well as severe 80% stenosis of proximal OM 2 is occluded 4. RCA is 100% occluded at the ostium. Excellent collaterals noted from the left to right filling up to the proximal RCA but patient has severe 80 to 90% stenosis in the mid RPDA. 5. LVEDP is elevated at 22 mmHg. There was no significant transvalvular aortic gradient. Left ventriculogram not performed as the patient already had an echo which showed an EF of 55 to 60%. Summary/findings: 1. NSTEMI with elevated troponin at 12.0: LHC performed showed severe calcified multivessel disease with 100% occluded ostial RCA, 90% stenosis of the mid LAD, 90% stenosis of the D1, 80% stenosis of the proximal OM1, OM 2, severe 80% stenosis of the proximal LCx , 40-50% ostial left main stenosis and excellent [id number] collaterals extending up to the proximal RCA. LVEDP mildly elevated 20 mmHg. 06/07/2024 Shortness of breath is much better. Patient has been diuresing well with Lasix 20 mg once daily Total output was 2.1 L and is net negative around 300 to 400 mL yesterday. Patient kidney function continues to improve and BUN is 21 and 1.3. His peak creatinine was 3.0 and has improved significantly. Telemetry reviewed and heart rate is between 70 to 80 bpm and well-controlled on amiodarone and metoprolol XL 50 mg once daily. Blood pressure and rest of the vitals appear to be stable. And he is on intermittent nasal cannula 2 L otherwise on room air. Patient cardiac cathterization completed on 06/03/2024 showed severe multivessel disease and is awaiting CABG evaluation. Patient was accepted by cardiothoracic surgery at [facility] Dr. Valerio but is still pending the transfer. Patient recently had left foot pain for which she had the left foot abscess and had incision and drainage completed on 06/02/2024 and completed his IV antibiotic course. Still on oral antifngals Insurance company faculty i on call medical assistant had questions regarding the infection and the timing of the cardiothoracic surgery Given the new diagnosis of pulmonary coccidiomycosis, with positive IgM. Patient started on treatment for coccidiomycosis. Discussed with the primary team to talk to infectious disease doctors regarding the ID clearance prior to the surgery CABG. ID consulted and cleared for CABG. Primary discussed with cardiothoracic surgery at [facility] and patient will be transfered now once the bed is available for CABG evaluation or other tertiary care hospital where CABG can be performed. Patient does have severe PAD for which vascular surgery was consulted over the phone and was recommended left leg angioplasty which can be performed after addressing his multivessel CAD. Please make sure to send this note, operative note, CD with both the echocardiogram as well as the cardiac catheterization images with the patient and transferred to [facility] or [facility]. Management of rest of the medical conditions as per primary team and other consultants. Thank you for the consult and allowing me to participate in the care of the patient. Cardiology will continue to follow. Jarad Majano M.D. Interventional Cardiology. Time Spent With Patient Time: Total time spent is greater than 50% in coordination of care (as documented) at patient's floor/unit and/or counseling patient:
[2024-06-07] MEDS: ATORVASTATIN CALCIUM 20 MG TABLET 80 MG PO (21:10)
[2024-06-07] MEDS: INSULIN LISPRO (AdmeLOG) 1 UNIT/0.01 ML UNIT SC (21:41)
[2024-06-08] VITALS (15 sets, daily range): BP systolic 102–128; BP diastolic 49–75; PULSE 66–87; RESP 14–98; TEMP 36.4–37; O2SAT 93–100
[2024-06-08] MEDS: MELATONIN 3 MG TABLET 6 MG PO (01:05)
[2024-06-08] MEDS: ALBUTEROL/IPRATROPIUM (Duoneb) RT SOL 3 ML NEBU INH ×5 (02:49→19:36)
[2024-06-08] MEDS: BENZONATATE 100 MG CAPSULE PO ×2 (05:04→14:37)
[2024-06-08] MEDS: guaiFENesin SYRUP 200 MG/10 ML UDC 300 MG PO ×4 (05:05→20:21)
[2024-06-08] MEDS: HEPARIN SOD INJ 5000 UNIT/ML VIAL SC (05:05)
[2024-06-08 05:49] LABS: Basophils % (Auto) 0 % (0-2.5); Eosinophils # (Auto) 1.6 Thou/mm3 (0.0-0.5); Eosinophils % (Auto) 11 % (0-10); Hematocrit 27.7 % (41.0-53.0); Hemoglobin 9.1 g/dL (13.5-16.0); Immature Granulocytes % (Auto) 1 % (0-0); Immature Granulocytes Auto 0.21 Thou/mm3 (0.00-0.00); Lymphocytes # (Auto) 1.1 Thou/mm3 (1.0-4.8); Lymphocytes % (Auto) 7 % (10-50); Mean Corpuscular HGB Conc 32.9 g/dl (31.0-37.0); Mean Corpuscular Hemoglobin 30.8 pg (25.0-35.0); Mean Corpuscular Volume 94 fL (80-100); Monocytes # (Auto) 1.2 Thou/mm3 (0.0-0.8); Monocytes % (Auto) 8 % (0-12); Neutrophils # (Auto) 10.7 Thou/mm3 (1.8-7.7); Neutrophils % (Auto) 72 % (37-80); Nucleated Red Blood Cell % 0 /100 WBC (0); Platelet Count 392 Thou/mm3 (140-440); RDW Standard Deviation 47.5 fL (35.1-43.9); Red Blood Count 2.95 Miln/mm3 (4.50-5.90); White Blood Count 14.8 Thou/mm3 (3.8-10.6)
[2024-06-08 06:13] LABS: Alanine Aminotransferase 35 U/L (10-49); Albumin, Serum 3.2 gm/dL (3.4-4.8); Albumin/Globulin Ratio 1.2 (1.2-2.2); Alkaline Phosphatase 88 U/L (46-116); Anion Gap 9 (7-16); Aspartate Amino Transferase 80 U/L (0-34); BUN/Creatinine Ratio 16 Ratio (12-20); Bilirubin,Total 0.3 mg/dL (0.3-1.2); Blood Urea Nitrogen 23 mg/dL (9-23); Calcium 8.5 mg/dL (8.3-10.6); Calcium (Corrected) 9.1 mg/dL (8.5-10.1); Chloride 91 mMol/L (98-107); Creatinine (Component) 1.4 mg/dL (0.6-1.3); Estimated Creatinine Clearance 39.9 mL/min (>60); Globulin 2.7 gm/dL (2.3-3.5); Glucose 127 mg/dL (74-106); Magnesium 2.2 mg/dL (1.6-2.6); Osmolality,Calculated 260 (275-295); Phosphorous 3.2 mg/dL (2.4-5.1); Potassium 4.1 mMol/L (3.4-5.1); Sodium 127 mMol/L (136-145); Total Protein 5.9 gm/dL (5.7-8.2); eGFR 53 See Note
--- NOTE | 2024-06-08 07:15 | PD.NEPHPROG ---
Documentation for date of: 06/08/24 Subjective Subjective Interval history: patient is a 73 year old male with PMH significant for Hypertension, hyperlipidemia and type 2 diabetes mellitus presented with chief complaint of left foot swelling that gradually worsened in last 1 month. He reported that, there could have been some foot injury or insect bite that he is not aware of. He went to see his PCP yesterday who recommended him to visit emergency department. He denied any fever or chills, headache, nausea or vomiting, chest pain or SOB, any changes in bowel or bladder habit. During evaluation, his vitals were stable, white count 23.1, hemoglobin 9.8, ESR 57, sodium level during presentation was 122 that slowly increased to 127 on IV normal saline 75 cc/h. Potassium initially was 5.2, that increased to 6.0 and trended down to 5.2. BUN 69, creatinine 2.6 which appears to be his baseline, and phosphorus 5.4. Left foot x-ray revealed no anjelica cortical bone destruction. Duplex scan lower extremity revealed severe bilateral obstructive arterial disease. Renal ultrasound revealed small kidneys with bilateral renal cortical thinning, moderate bilateral renal parenchymal scar formation. Urine electrolytes revealed creatinine 43, sodium 46, potassium 14, and chloride 24. Nephrology consultation was done for further management of moderate hypovolemic normal osmolar hyponatremia, hyperkalemia and CKD. 06/06/2024patient currently seen in medical floor. Resting comfortably. Labs, medications reviewed. Creatinine stable. Continue with current management. Hemoglobin 9.2, creatinine 1.3. A1c 6.1. Troponin 7.8 Left foot cellulitis/ulcers, severe peripheral vascular disease. Going for CABG. However dx with Cocci- transfer held. Dr. Overton was consulted 06/07/2024 patient currently seen in telemetry. Complaining of left foot pain. Seen by Dr. Overton for positive cocci-recommended antibiotics, fluconazole pending [facility] confirmation. Patient seen by Dr. Greer-recommended left small toe amputation and will need revascularization and HBO therapy to salvage the foot. Blood pressure 97/55, heart rate 72. Hemoglobin 10, WBC 16, platelets 347. Creatinine improved to 1.3. Sodium 131 phosphorus 3.1, magnesium 1.6, AST 91, alk phos 92. 06/08/2024 patient currently seen in telemetry. Resting comfortably. Appetite seems to be very poor. Having breakfast. Blood sugar 124. Blood pressure 106/57, heart rate 72. Marked improvement in edema. WBC 14.8, hemoglobin 9.1, platelets 392. 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 Review of Systems Review of Systems Narrative Review of Systems: denies CP, SOB. c/o pain in left leg Exam Vital Signs Temp Pulse Resp BP Pulse Ox O2 Del Method O2 Flow Rate 36.6 C 72 21 H 128/75 100 Nasal Cannula 1 06/08/24 04:00 06/08/24 06:18 06/08/24 06:18 06/08/24 04:00 06/08/24 06:18 06/08/24 04:00 06/08/24 06:18 Narrative Exam General: Elderly, cooperative gentleman, no acute distress, Alert and Oriented x 3 HEENT: Moist mucous membranes, oropharynx clear Neck: Supple, No masses, No JVD CVS: S1S2 Regular rate and rhythm, No murmurs, rubs or gallops Lungs: Mild bibasilar crackles, no wheeze no rhonchi Abd: Soft, NT/ND, +BS, no organomegaly Ext: Left foot swollen, covered under clean dressing, peripheral pulse unable to appreciate. S/p debridement left little toe seems to be discolored with gangrene Psych: Appropriate mood and affect Objective Labs 06/08/24 05:10 06/08/24 05:10 Labs: Laboratory Results - last 24 hr 06/07/24 06/08/24 08:09 05:10 WBC 16.0 H 14.8 H RBC 3.21 L 2.95 L Hgb 10.0 L 9.1 L Hct 30.0 L 27.7 L MCV 94 94 MCH 31.2 30.8 MCHC 33.3 32.9 RDW Std Deviation 46.7 H 47.5 H Plt Count 347 D 392 D Neut % (Auto) 81 H 72 Lymph % (Auto) 5 L 7 L Braxton % (Auto) 6 8 Eos % (Auto) 7 11 H Baso % (Auto) 0 0 Neut # (Auto) 13.0 H 10.7 H Lymph # (Auto) 0.8 L 1.1 Braxton # (Auto) 0.9 H 1.2 H Eos # (Auto) 1.1 H 1.6 H Baso # (Auto) 0.1 0.0 Immature Gran # (Auto) 0.17 H 0.21 H Absolute Nucleated RBC 0.00 0.00 Immature Gran % 1 H 1 H Nucleated RBC % 0 0 Sodium 131 L 127 L Potassium 4.0 4.1 Chloride 96 L 91 L Carbon Dioxide 27.7 27.0 Anion Gap 7 9 BUN 21 23 Creatinine 1.3 1.4 H Estim Creat Clear Calc 43.0 L 39.9 L eGFR 58 L 53 L BUN/Creatinine Ratio 16 16 Glucose 145 H 127 H Calculated Osmolality 268 L 260 L Calcium 9.3 8.5 Corrected Calcium 9.8 9.1 Phosphorus 3.1 3.2 Magnesium 1.6 2.2 Total Bilirubin 0.5 0.3 AST 91 H 80 H ALT 38 35 Alkaline Phosphatase 92 88 Total Protein 6.4 5.9 Albumin 3.4 D 3.2 L Globulin 3.0 2.7 Albumin/Globulin Ratio 1.1 L 1.2 Assessment & Plan Additional Assessment & Plan Additional Plan: The patient is a 73 year old male with PMH significant for Hypertension, hyperlipidemia and type 2 diabetes mellitus presented with chief complaint of left foot swelling that gradually worsened in last 1 month was found to have left foot cellulitis, and nephrology consultation was done for the mangement of hyperkalemia, hyponatremia and GORDON on CKD. 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 Creatinine stable at 1.3 Edema markedly improved. Renal ultrasound revealed small kidneys with bilateral renal cortical thinning, moderate bilateral renal parenchymal scar formation. Urine electrolytes revealed creatinine 43, sodium 46, potassium 14, and chloride 24 consistent with prerenal GORDON with BUN/Cr ration 25 -Monitor BMP daily am -Avoid nephrotoxic drugs #Moderate hypovolemic hypoosmolar hyponatremia Patient's sodium was as low as 122 Sodium markedly improved, started to trend down-today 127-questions for the diuretics vs pain mediated increased ADH response #HTN Currently stable On lisinopril Left foot cellulitis//left toe gangrene/severe peripheral vascular disease-on antibiotics, surgery/Dr. Greer on the case Leukocytosis= HLD [id number], sliding scale CAD-pending transfer to [facility]-held due to cocci positive. Cocci ++-on fluconazole. -Management deferred to primary team Quality - progress note Quality Measures Quality Measures: VTE prophylaxis Reason for Continued Stay Reason for Continued Stay: further monitoring
[2024-06-08] MEDS: INSULIN LISPRO (AdmeLOG) 1 UNIT/0.01 ML UNIT SC ×2 (07:41→17:25)
[2024-06-08] MEDS: METOPROLOL SUCCINATE XL 25 MG TABCR 50 MG PO (08:55)
[2024-06-08] MEDS: ASPIRIN EC 81 MG TABEC PO (08:55)
[2024-06-08] MEDS: Silvasorb Gel 45 ML TUBE TOP (08:55)
[2024-06-08] MEDS: AMIODARONE HCL 200 MG TABLET PO ×2 (08:55→20:21)
[2024-06-08] MEDS: FLUCONAZOLE 100 MG TABLET 400 MG PO (08:56)
[2024-06-08] MEDS: PANTOPRAZOLE 40 MG TABLET PO (08:57)
--- NOTE | 2024-06-08 09:15 | PD.RESPRO ---
Documentation for date of: 06/08/24 Exam Vital Signs Temp Pulse Resp BP Pulse Ox O2 Del Method O2 Flow Rate 98.6 F 75 28 H 106/51 L 98 Nasal Cannula 1 06/08/24 08:00 06/08/24 08:57 06/08/24 08:00 06/08/24 08:57 06/08/24 08:00 06/08/24 08:00 06/08/24 08:00 Objective Labs 06/08/24 05:10 06/08/24 05:10 Labs: Laboratory Results - last 24 hr 06/07/24 06/08/24 08:09 05:10 WBC 14.8 H RBC 2.95 L Hgb 9.1 L Hct 27.7 L MCV 94 MCH 30.8 MCHC 32.9 RDW Std Deviation 47.5 H Plt Count 392 D Neut % (Auto) 72 Lymph % (Auto) 7 L Nash % (Auto) 8 Eos % (Auto) 11 H Baso % (Auto) 0 Neut # (Auto) 10.7 H Lymph # (Auto) 1.1 Nash # (Auto) 1.2 H Eos # (Auto) 1.6 H Baso # (Auto) 0.0 Immature Gran # (Auto) 0.21 H Absolute Nucleated RBC 0.00 Immature Gran % 1 H Nucleated RBC % 0 Sodium 131 L 127 L Potassium 4.0 4.1 Chloride 96 L 91 L Carbon Dioxide 27.7 27.0 Anion Gap 7 9 BUN 21 23 Creatinine 1.3 1.4 H Estim Creat Clear Calc 43.0 L 39.9 L eGFR 58 L 53 L BUN/Creatinine Ratio 16 16 Glucose 145 H 127 H Calculated Osmolality 268 L 260 L Calcium 9.3 8.5 Corrected Calcium 9.8 9.1 Phosphorus 3.1 3.2 Magnesium 1.6 2.2 Total Bilirubin 0.5 0.3 AST 91 H 80 H ALT 38 35 Alkaline Phosphatase 92 88 Total Protein 6.4 5.9 Albumin 3.4 D 3.2 L Globulin 3.0 2.7 Albumin/Globulin Ratio 1.1 L 1.2 Quality Measures Quality Measures VTE prophylaxis Assessment & Plan Assessment Current Active Medications: Generic Name Dose Route Start Last Admin Trade Name Freq PRN Reason Stop Dose Admin Acetaminophen 650 mg 05/26/24 20:03 Acetaminophen 325 Mg Tablet PO 06/25/24 20:02 Q6H PRN PAIN SCALE 1-3 (mild Hydrocodone Bitart/Acetaminophen 1 tab 06/05/24 20:43 06/07/24 12:49 Hydrocodone/Apap 5/325 Tablet PO 06/10/24 20:42 1 tab Q4HR PRN Administration PAIN SCALE 4-10(Mod-Sev Albuterol/Ipratropium 3 ml 06/05/24 11:00 06/08/24 06:16 Albuterol/Ipratropium (Duoneb) Rt Marjorie 3 Ml Nebu INH 07/05/24 10:59 3 ml Q4HRRT LEXI Administration Amiodarone HCl 200 mg 06/04/24 06:00 06/08/24 08:55 Amiodarone Hcl 200 Mg Tablet PO 07/04/24 05:59 200 mg BID LEXI Administration Aspirin 81 mg 06/03/24 09:00 06/08/24 08:55 Aspirin Ec 81 Mg Tabec PO 07/03/24 08:59 81 mg QDAY LEXI Administration Atorvastatin Calcium 80 mg 05/26/24 21:00 06/07/24 21:10 Atorvastatin Calcium 20 Mg Tablet PO 06/25/24 20:59 80 mg HS LEXI Administration Benzonatate 100 mg 06/02/24 14:00 06/08/24 05:04 Benzonatate 100 Mg Capsule PO 07/02/24 13:59 100 mg Q8HR LEXI Administration Protocol Dextrose 25 ml 05/26/24 20:10 Dextrose 50%-Water Inj 50 Ml Syringe IV 06/25/24 20:09 Q15MIN PRN BG 50-70 responsive npo pt Dextrose 50 ml 05/26/24 20:10 Dextrose 50%-Water Inj 50 Ml Syringe IV 06/25/24 20:09 Q15MIN PRN BG <50 OR BG <70 & pt unresponsive Fluconazole 400 mg 06/07/24 09:00 06/08/24 08:56 Fluconazole 100 Mg Tablet PO 09/13/24 12:00 400 mg QDAY LEXI Administration Glucagon 1 mg 05/26/24 20:10 Glucagon Inj 1 Mg Vial IM Q15MIN PRN BG <70, and no IV access Guaifenesin 300 mg 06/05/24 17:00 06/08/24 05:05 Guaifenesin Syrup 200 Mg/10 Ml Udc PO 07/05/24 16:59 300 mg QID LEXI Administration Protocol Heparin Sodium (Porcine) 5,000 unit 05/27/24 06:00 06/08/24 05:05 Heparin Sod Inj 5000 Unit/Ml Vial SC 06/10/24 05:59 5,000 unit Q8HR LEXI Administration Insulin Human Lispro 0 unit 05/26/24 21:00 06/08/24 07:41 Insulin Lispro (Admelog) 1 Unit/0.01 Ml Unit SC 06/25/24 20:59 1 unit ACHS [facility] Administration Protocol Lisinopril 5 mg 06/08/24 09:00 06/08/24 08:57 Lisinopril 2.5 Mg Tablet PO 07/08/24 08:59 Not Given QDAY [facility] Metoprolol Succinate 50 mg 06/07/24 09:45 06/08/24 08:55 Metoprolol Succinate Xl 25 Mg Tabcr PO 07/07/24 09:44 50 mg QDAY [facility] Administration Ondansetron HCl 4 mg 05/26/24 20:03 Ondansetron Inj 2 Mg/Ml Inj 2 Ml IV 06/25/24 20:02 Q6H PRN NAUSEA OR VOMITING Protocol Pantoprazole Sodium 40 mg 06/07/24 09:00 06/08/24 08:57 Pantoprazole 40 Mg Tablet PO 07/07/24 08:59 40 mg QDAY [facility] Administration Zinc Acetate/Diphenhydramine 0 gm 06/06/24 10:42 06/06/24 11:47 Diphenhydramine/Zn Acet 2% Cr 30 Gm Tube TOP 07/06/24 10:41 1 applicatio Q6HR PRN Administration ITCHING
--- NOTE | 2024-06-08 09:15 | PD.RESPRO ---
Documentation for date of: 06/08/24 Subjective Subjective Interval history: No acute overnight events reported patient seen and examined at bedside this morning. Patient was initially on 1 L of oxygen saturating 99% therefore patient is placed on room air. Patient denies chest pain, pressure or palpitations however patient states that last night he was unable to sleep get much sleep because of feeling uncomfortable and was having some shortness of breath and dry cough was making it worse. Patient's blood pressure has been running between 90s systolic to 109 with heart rate between 75-78 and telemetry is reviewed patient is in sinus rhythm. Labs are reviewed CBC is stable CMP showed sodium 127, potassium 4.1, BUN 23, creatinine 1.4, GFR 53 and elevation in the AST to 80. Patient is net negative 1138 Maintain potassium above 4 and magnesium above 2 at all times Due to soft blood pressure recommend discontinuing lisinopril as patient is also having dry cough. Recommend continue amiodarone and metoprolol as well as aspirin and statin. Vascular surgeon recommends patient will likely need amputation of the fifth digit however the remainder of the foot is salvageable with revascularization. Patient's transfer for CABG is pending aceptance at a tertiary center Exam Vital Signs Temp Pulse Resp BP Pulse Ox O2 Del Method O2 Flow Rate 98.6 F 75 28 H 106/51 L 98 Nasal Cannula 1 06/08/24 08:00 06/08/24 08:57 06/08/24 08:00 06/08/24 08:57 06/08/24 08:00 06/08/24 08:00 06/08/24 08:00 Narrative Exam GENERAL: A&Ox3 . Awake, Not in acute distress, appears lethargic NEURO: no focal neurological deficits HEENT: Atraumatic, Normocephalic. mucous membranes moist. Eyes open, symmetrical, & clear HEART: Normal Heart Sounds LUNGS: Clear to auscultation with no wheezing or crackles. ABDOMEN: soft, non-distended, non-tender, bowel sounds heard, no guarding or rebound tenderness SKIN: No Rash or ecchymoses, hypopigmented spots on back, chest and abdomen. EXTREMITIES: No edema, tenderness, able to move all 4 extremities, dressing over left foot appears to be clean and dry Objective Labs 06/08/24 05:10 06/08/24 05:10 Labs: Laboratory Results - last 24 hr 06/07/24 06/08/24 08:09 05:10 WBC 14.8 H RBC 2.95 L Hgb 9.1 L Hct 27.7 L MCV 94 MCH 30.8 MCHC 32.9 RDW Std Deviation 47.5 H Plt Count 392 D Neut % (Auto) 72 Lymph % (Auto) 7 L Pickett % (Auto) 8 Eos % (Auto) 11 H Baso % (Auto) 0 Neut # (Auto) 10.7 H Lymph # (Auto) 1.1 Pickett # (Auto) 1.2 H Eos # (Auto) 1.6 H Baso # (Auto) 0.0 Immature Gran # (Auto) 0.21 H Absolute Nucleated RBC 0.00 Immature Gran % 1 H Nucleated RBC % 0 Sodium 131 L 127 L Potassium 4.0 4.1 Chloride 96 L 91 L Carbon Dioxide 27.7 27.0 Anion Gap 7 9 BUN 21 23 Creatinine 1.3 1.4 H Estim Creat Clear Calc 43.0 L 39.9 L eGFR 58 L 53 L BUN/Creatinine Ratio 16 16 Glucose 145 H 127 H Calculated Osmolality 268 L 260 L Calcium 9.3 8.5 Corrected Calcium 9.8 9.1 Phosphorus 3.1 3.2 Magnesium 1.6 2.2 Total Bilirubin 0.5 0.3 AST 91 H 80 H ALT 38 35 Alkaline Phosphatase 92 88 Total Protein 6.4 5.9 Albumin 3.4 D 3.2 L Globulin 3.0 2.7 Albumin/Globulin Ratio 1.1 L 1.2 Quality Measures Quality Measures VTE prophylaxis Advance care planning discussed with:: patient Assessment & Plan Assessment Current Active Medications: Generic Name Dose Route Start Last Admin Trade Name Jan PRN Reason Stop Dose Admin Acetaminophen 650 mg 05/26/24 20:03 Acetaminophen 325 Mg Tablet PO 06/25/24 20:02 Q6H PRN PAIN SCALE 1-3 (mild Hydrocodone Bitart/Acetaminophen 1 tab 06/05/24 20:43 06/07/24 12:49 Hydrocodone/Apap 5/325 Tablet PO 06/10/24 20:42 1 tab Q4HR PRN Administration PAIN SCALE 4-10(Mod-Sev Albuterol/Ipratropium 3 ml 06/05/24 11:00 06/08/24 06:16 Albuterol/Ipratropium (Duoneb) Rt Marjorie 3 Ml Nebu INH 07/05/24 10:59 3 ml Q4HRRT LEXI Administration Amiodarone HCl 200 mg 06/04/24 06:00 06/08/24 08:55 Amiodarone Hcl 200 Mg Tablet PO 07/04/24 05:59 200 mg BID LEXI Administration Aspirin 81 mg 06/03/24 09:00 06/08/24 08:55 Aspirin Ec 81 Mg Tabec PO 07/03/24 08:59 81 mg QDAY LEXI Administration Atorvastatin Calcium 80 mg 05/26/24 21:00 06/07/24 21:10 Atorvastatin Calcium 20 Mg Tablet PO 06/25/24 20:59 80 mg HS LEXI Administration Benzonatate 100 mg 06/02/24 14:00 06/08/24 05:04 Benzonatate 100 Mg Capsule PO 07/02/24 13:59 100 mg Q8HR LEXI Administration Protocol Dextrose 25 ml 05/26/24 20:10 Dextrose 50%-Water Inj 50 Ml Syringe IV 06/25/24 20:09 Q15MIN PRN BG 50-70 responsive npo pt Dextrose 50 ml 05/26/24 20:10 Dextrose 50%-Water Inj 50 Ml Syringe IV 06/25/24 20:09 Q15MIN PRN BG <50 OR BG <70 & pt unresponsive Fluconazole 400 mg 06/07/24 09:00 06/08/24 08:56 Fluconazole 100 Mg Tablet PO 09/13/24 12:00 400 mg QDAY LEXI Administration Glucagon 1 mg 05/26/24 20:10 Glucagon Inj 1 Mg Vial IM Q15MIN PRN BG <70, and no IV access Guaifenesin 300 mg 06/05/24 17:00 06/08/24 05:05 Guaifenesin Syrup 200 Mg/10 Ml Udc PO 07/05/24 16:59 300 mg QID LEXI Administration Protocol Heparin Sodium (Porcine) 5,000 unit 05/27/24 06:00 06/08/24 05:05 Heparin Sod Inj 5000 Unit/Ml Vial SC 06/10/24 05:59 5,000 unit Q8HR LEXI Administration Insulin Human Lispro 0 unit 05/26/24 21:00 06/08/24 07:41 Insulin Lispro (Admelog) 1 Unit/0.01 Ml Unit SC 06/25/24 20:59 1 unit ACHS LEXI Administration Protocol Lisinopril 5 mg 06/08/24 09:00 06/08/24 08:57 Lisinopril 2.5 Mg Tablet PO 07/08/24 08:59 Not Given QDAY LEXI Metoprolol Succinate 50 mg 06/07/24 09:45 06/08/24 08:55 Metoprolol Succinate Xl 25 Mg Tabcr PO 07/07/24 09:44 50 mg QDAY LEXI Administration Ondansetron HCl 4 mg 05/26/24 20:03 Ondansetron Inj 2 Mg/Ml Inj 2 Ml IV 06/25/24 20:02 Q6H PRN NAUSEA OR VOMITING Protocol Pantoprazole Sodium 40 mg 06/07/24 09:00 06/08/24 08:57 Pantoprazole 40 Mg Tablet PO 07/07/24 08:59 40 mg QDAY LEXI Administration Zinc Acetate/Diphenhydramine 0 gm 06/06/24 10:42 06/06/24 11:47 Diphenhydramine/Zn Acet 2% Cr 30 Gm Tube TOP 07/06/24 10:41 1 applicatio Q6HR PRN Administration ITCHING Plan Mr. Beckham is 73-year-old male with past medical history significant for hypertension, hyperlipidemia, type 2 diabetes, CKD stage III, HFpEF 55 to 60%, normocytic anemia and PAD presented to ED on 05/26/24 due to left foot cellulitis. During hospitalization patient underwent incision and draining and developed new onset of A-fib as well as NSTEMI type I with peak troponins of 12.0 #Cellulitis of left foot #Left foot abscess s/p I&D -Pt complaine dof left foot sweling, erythema and pain for 1 month. -X-ray was negative for bony destruction. -Left foot ultrasound revealed 3.6 x 0.5 x 1.9 cm abscess adjacent to the fifth digit. -Pt underwent Incision adn drainage and wound care. -Pt completed course of antibiotics #NSTEMI type I #Multivessel CAD #HFrEF last EF of 55 to 60% -Pt complained of worsening SOB, orthopnea and non productive cough -BNP 564, troponin peaked at 12.4 -echo done on 06/02/24- Normal LV size and function. Estimated LVEF 55 to 60%. Normal RV size and function. Mild TR. Estimated RVSP 45 mmHg. mild to moderate PAH. Mild biatrial dilatation. Mild MAC. Moderate MR. Mild AI. Mild TR Left heart cardiac catheterization: 06/03/2024 1. Left main artery is a medium to large size artery with 50% ostial stenosis and 40% distal left main stenosis LAD 2. LAD is a medium to large size artery with severe 90% stenosis in the mid LAD at the bifurcation of D1. LAD does wrap around the apex. D1 is a small to medium with severe 90% stenosis in the proximal portion. 3. LCx is a large size artery with severe 90% stenosis in the proximal LCx and also severe 80% stenosis in the proximal small OM1 as well as severe 80% stenosis of proximal OM 2 is occluded 4. RCA is 100% occluded at the ostium. Excellent collaterals noted from the left to right filling up to the proximal RCA but patient has severe 80 to 90% stenosis in the mid RPDA. 5. LVEDP is elevated at 22 mmHg. There was no significant transvalvular aortic gradient. Left ventriculogram not performed as the patient already had an echo which showed an EF of 55 to 60%. -continue aspirin, statin, beta heather - Lisinopril was discotninued due to soft BP -Primary team discussed with cardiothoracic surgery at [facility] and patient will be transfered now once the bed is available for CABG evaluation or other tertiary care hospital where CABG can be performed. #Atrial fibrillation with RVR-new onset EKG showed A-fib with RVR, along with ST depressions in leads V3, V4, V5, V6, and ST elevation in aVR indicating ischemia/coronary artery disease [id number]: 5 points HASBLED score- 4 points- based on score alternatives to anticoagulation should be considered due to high risk of major bleeding, as well as Pt has normocytic anemia -Pt was initially started on amio drip now had transitioned to Amiodarone 200mg PO daily and metoprol xl 50mg daily -telemonitoring -keep potassium above 4 and magnesium above 2 at all times #PAD -Severe PAD as noted on CTA with left greater than right lower extremity disease-mostly below the knee -vascular surgeron is consulted- recommends amputation of the fifth digit and recommends revascularization attempts with wound care ad HBO outpatient. 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 Gretel Delong (PGY-[id number])- Internal medicine resident Attending Provider Attestation/Addendum I have personally seen and examined the patient separately on the above date of service and discussed the plan of care with the resident. I reviewed the resident Dr. Justice Delong consultation progress note and agree with the resident findings and plan in the note above and have also edited the documentation to reflect my findings and plan. Jarad Majano M.D. Interventional Cardiology
--- NOTE | 2024-06-08 10:45 | PC.CC ---
Addendum entered by Tamara Ornelas RN 06/08/24 17:40: 1735 received call from charge nurse that Dr. Hills stated pt heparin drip can be paused during transport and pt doesn't need RN rider for ambulance. Addendum entered by Tamara Ornelas RN 06/08/24 17:30: 1729 called [facility], spoke to [facility] and informed earliest fish bait picker time is 2200. Addendum entered by Tamara Ornelas RN 06/08/24 17:28: 1725 transfer packet is complete with 2 CD's inside including all signatures. Transfer packet and number to call for report given to spray unit feederclerk Evans. Addendum entered by Tamara Ornelas RN 06/08/24 17:26: 1650 sent paperwork to [facility]. Called [facility], spoke to [facility] and set up the transport. The earliest fish bait picker time is 2200. Addendum entered by Tamara Ornelas RN 06/08/24 15:26: 1520 received call from Darling at [facility]. Pt will be going to [facility]. Room [address] Dr. Thompson. Call report at [phone]. Addendum entered by Tamara Ornelas RN 06/08/24 15:01: 1500 dc summary sent to [facility]. Addendum entered by Tamara Ornelas RN 06/08/24 14:20: [address] Hills need dc summary. Addendum entered by Tamara Ornelas RN 06/08/24 14:18: 1405 received call from Darling at [facility] that she has the bed but need dc summary before releasing the bed. Addendum entered by Tamara Ornelas RN 06/08/24 14:02: 1400 called [facility], spoke to [facility] for update. She confirmed she received the TBA. She wants DC summary. I informed her I will reach out to my team to do dc summary. Once available I will fax it. Addendum entered by Tamara Ornelas RN 06/08/24 12:38: 1235 TBA completed and faxed back to [facility]. Original Note: 1022 received call from Solo at [facility]. She wants TBA completed and faxed over. Pt might get a bed today.
[2024-06-08] MEDS: SENNA/DOCUSATE SOD 1 TAB TABLET PO (11:39)
[2024-06-08] MEDS: HYDROcodone/APAP 5/325 TABLET 1 TAB PO ×2 (11:39→20:21)
[2024-06-08 12:29] LABS: Partial Thromboplastin Time 49.8 Seconds (22.0-36.0)
[2024-06-08] MEDS: HEPARIN SOD INJ 5000 UNIT/ML VIAL 2000 UNIT IV (13:08)
[2024-06-08] MEDS: Heparin/D5w 25K 250 ML Ivpb 25,000 UNIT/250 ML BAG 7.239 UNIT IV (13:10)
--- NOTE | 2024-06-08 13:48 | PD.IDPROG ---
Subjective Subjective Interval history: cocci pos locally, no data from [facility] yet.I called them.WBC notably down Exam Vital Signs Temp Pulse Resp BP Pulse Ox O2 Del Method O2 Flow Rate 98.1 F 72 28 H 106/57 L 96 Nasal Cannula 1 06/08/24 12:00 06/08/24 12:00 06/08/24 12:00 06/08/24 12:00 06/08/24 12:00 06/08/24 12:00 06/08/24 12:00 Narrative Exam limited visit. Objective - Internal Medicine Labs 06/08/24 05:10 06/08/24 05:10 Labs: Laboratory Results - last 24 hr 06/08/24 06/08/24 05:10 11:53 WBC 14.8 H RBC 2.95 L Hgb 9.1 L Hct 27.7 L MCV 94 MCH 30.8 MCHC 32.9 RDW Std Deviation 47.5 H Plt Count 392 D Neut % (Auto) 72 Lymph % (Auto) 7 L Hardeman % (Auto) 8 Eos % (Auto) 11 H Baso % (Auto) 0 Neut # (Auto) 10.7 H Lymph # (Auto) 1.1 Hardeman # (Auto) 1.2 H Eos # (Auto) 1.6 H Baso # (Auto) 0.0 Immature Gran # (Auto) 0.21 H Absolute Nucleated RBC 0.00 Immature Gran % 1 H Nucleated RBC % 0 APTT 49.8 H Sodium 127 L Potassium 4.1 Chloride 91 L Carbon Dioxide 27.0 Anion Gap 9 BUN 23 Creatinine 1.4 H Estim Creat Clear Calc 39.9 L eGFR 53 L BUN/Creatinine Ratio 16 Glucose 127 H Calculated Osmolality 260 L Calcium 8.5 Corrected Calcium 9.1 Phosphorus 3.2 Magnesium 2.2 Total Bilirubin 0.3 AST 80 H ALT 35 Alkaline Phosphatase 88 Total Protein 5.9 Albumin 3.2 L Globulin 2.7 Albumin/Globulin Ratio 1.2 Assessment & Plan A&P Narrative cocci pos. here for cad issues await data from [facility]. if home, I can see if referred with pos cocci from [facility] and cxr flucon alone ok as prior rx for pneumonia completed already Time Spent With Patient Time: Total time spent is greater than 50% in coordination of care (as documented) at patient's floor/unit and/or counseling patient:
--- NOTE | 2024-06-08 14:26 | ESDS_ITS ---
<Statement entered by Silvana Hills DO - 06/08/24 15:41> I, Silvana Hills DO, attest that I was physically present for the enamorado portions of the service and evaluated the patient with the resident and I reviewed and discussed the case with the resident and agree with the resident's findings and plans of care as documented above Planned Discharge Date 06/08/24 DS: Providers Provider Date of admission: 05/26/24 20:03 Primary care physician: Olivia Zuniga PA-C Admitting Provider: Todd Real MD Attending Provider on Admission: Silvana Hills DO Consults: 05/26/24 21:12 Referral Physical Therapy Routine Comment: Physician Instructions: 05/27/24 02:30 Referral Wound Care Routine Comment: 05/27/24 10:03 Referral OP Wound Healing Dept Routine Comment: Arterial ulcers left and right feet 05/27/24 11:35 Consult to Nephrology Routine Comment: Consulting Provider: Yunier Malhotra 05/29/24 10:16 Consult to General Surgery Routine Comment: Severe PAD, Worsening LLE cellulitis Consulting Provider: Angelika Hutton 05/30/24 15:29 Consult to General Surgery Routine Comment: PAD Consulting Provider: Osmany Greer 06/01/24 12:16 Consult to Cardiology Stat Comment: SVT in OT Consulting Provider: Jarad Majano 06/05/24 14:00 Consult to Infectious Diseases Routine Comment: Positive cocci IgM, Pending CABG Consulting Provider: Asa Overton Attending Provider on DC: Hipolito Carbajal MD Discharging Provider: Hipolito Carbajal MD DS: Diagnosis Problem List Completed Was Problem List Reviewed/Reconciled?: Yes Hospital Course Hospital Course Hospital course: Mr. Beckham a 73-year-old male PMHx of T2DM, HLD, HTN, presenting with left foot swelling and pain x 1 month. He is [place]-speaking, at bedside assisted with interpretation. Foot pain has been worsening over the last month. Does not recall specific foot injury, insect bite, or wound. US of left foot showed abscess in the soft tissue adjacent to the fifth digit 3.6 x 0.5 x 1.9 cm. Duplex scan of LE indicated: Severe bilateral obstructive arterial disease. Abdomen CTA indicated: Severe trifurcation arterial obstructive disease below t he knees bilaterally. Patient was admitted on 06/01/24 for cellulitis with abscess management requiring I & D and IV antibiotics. Prior to I&D by Dr. Hutton, patient had episode of arrhythmia, further testing showed new onset Afib w/ RVR. Labs and EKG indicated NSTEMI, branner machine tender Dr. Majano was consulted. Patient underwent angiogram that showed multi-vessel arterial occlusion of the heart requiring CABG. While in hospital patient completed course of antibiotics with Vanc, Cefepim and Metronidazole. Blood cultures were negative for growth for x5 days. Patient currently on Diflucan for cocci with +IgM (pending [facility] confirmation). Infectious disease Dr. Overton cleared patient for CABG procedure. Missile Tr[employer] Technician Dr. Malhotra treated patient for moderate hypovolemic normal osmolar hyponatremia, hyperkalemia and CKD. Vascular specialist Dr. Greer will follow up patient with HBO in outpatient setting. Patient is safe to be transferred for CABG 2/2 severe CAD Multivessel CAD NSTEMI type I Left foot cellulitis Cocci IgM positive Prerenal GORDON on CKD stage IIIA Hyperkalemia - resolved Hypoosmolar hyponatremia - resolved Non-anion gap metabolic acidosis - resolved Primary HTN Hypotension Hyperlipidemia Insulin-dependent diabetes mellitus type 2 [6.9%] Discharge summary was reviewed with my attending Dr. Jeana Carbajal, PGY-2 Status at Discharge Overall status at discharge: patient is progressing back to baseline Time Spent with Patient Time attestation: Total time spent providing and/or coordinating discharge services: Time spent: Greater than 30 minutes Exam Vital Signs Temp Pulse Resp BP Pulse Ox O2 Del Method O2 Flow Rate 98.1 F 66 23 H 106/57 L 100 Nasal Cannula 1 06/08/24 12:00 06/08/24 14:10 06/08/24 14:10 06/08/24 12:00 06/08/24 14:10 06/08/24 12:00 06/08/24 12:00 Narrative Exam General: Alert and oriented x3. In mild acute distress secondary to pain in the left foot Eyes: Pupils are equal and reactive to light bilaterally. HEENT: Atraumatic, normocephalic. No JVD noted. Mucosa moist. Cardiovascular: Normal S1 and S2. Irregularly irregular.. 3/6 systolic murmur appreciated at the apex, left leg 2+ edema and right foot 1+ Respiratory: No respiratory distress. Bilateral air entry present with occasional crackles as well as rhonchi Abdomen: Soft, nontender, nondistended. Skin: No rash. Warm to touch. Musculoskeletal: Left foot wound in dressing, cellulitis extending to the lower leg and 2+ edema. Able to move all 4 extremities. Neuro: Alert and oriented x3. No focal neuro deficits. Psych: Normal affect and mood Discharge Plan Plan Patient Disposition: Xfer Other Facility Pt Being Transferred to: [facility] Service Needed for Transfer: Vascular Surgery Disposition Comment: Patient needs CABG for multivessel occlusion and LE arterial stent Patient condition on transfer: Stable Prescriptions/Referrals Prescriptions/Med Rec: New fluconazole 100 mg Tablet 400 mg PO QDAY 30 Days Qty: 120 1RF amiodarone 200 mg Tablet 200 mg PO BID 30 Days Qty: 60 0RF pantoprazole 40 mg Tablet,Delayed Release (Dr/Ec) 40 mg PO QDAY 15 Days Qty: 15 0RF metoprolol succinate 25 mg Tablet Extended Release 24 Hr 50 mg PO QDAY 30 Days Qty: 60 0RF lisinopril 2.5 mg Tablet 10 mg PO QDAY 30 Days Qty: 120 0RF Continued aspirin 81 mg Tablet,Delayed Release (Dr/Ec) 81 mg PO QDAY Qty: 30 0RF (DME) FreeBoxer Gian 3 Sensor Device See Rx Instructions .Route Qty: 1 0RF Rx Instructions: As directed Januvia 100 mg tablet 100 mg PO QDAY Qty: 30 0RF atorvastatin 80 mg tablet 80 mg PO QPM Qty: 30 0RF Referrals: Olivia Zuniga PA-C [Primary Care Provider] - Patient/Caregiver Discharge Instructions Other Discharge Activity Instructions:: 1) Follow up with [facility], [address] [place] [address]. Call [phone] for appointment. 2) Follow up with Primary MD to obtain consult for Vascular Surgery. 3) Wound care: May shower than perform wound care. - Right outer 5th toe and left outer 5th toe ulcers: swab with betadine BID (goal to keep clean and dry) - Left outer top of foot: Wash hands with soap and water, Remove old dressing. Cleanse wound site with Normal Saline, pat dry with gauze. Wash hands again, apply thin layer of silvasorb gel to wound bed and cover with foam dressing one a day. Avoid wearing tight fitting shoes over wound site. If active bleeding occurs, apply tight dressing and return to MD or ER. ?Notify primary doctor or return to Emergency Room if any of the following: ?Fever above 100.6? F. ?Increased pain ?Increase swelling ?Red streaks around your wound ?Drainage becomes foul smelling or changes color ?The wound is larger or deeper ?The wound looks dried out or dark ?Bleeding that does not stop with holding pressure Education Materials: Nutrition for Wound Healing, Changing Dressing Dc, Wound Care Dc Print Language: Liberian Stand Alone Forms: Yessi Award Info., Patient Portal Info Letter Discharge Order Discharge Orders: Discharge (Routine); Ordered 06/08/24 Ordered By: Hipolito Carbajal Quality Discharge Quality Measures VTE prophylaxis
[2024-06-08] MEDS: DiphenhydrAMINE/ZN ACET 2% CR 30 GM TUBE TOP (15:10)
--- NOTE | 2024-06-08 15:30 | PC.SS ---
Follow up note: Pt is waiting for higher level of care transfer.
[2024-06-08 19:57] LABS: Partial Thromboplastin Time > 139.0 Seconds (22.0-36.0)
[2024-06-08] MEDS: ATORVASTATIN CALCIUM 20 MG TABLET 80 MG PO (20:21)
--- NOTE | 2024-06-08 21:09 | PC.NURSE ---
PT LEFT FOR FLO WITH AMBULANCE STAFF AT 2047 WITH [facility]ONGINGS. . SBAR REPORT GIVEN TO RADU CORREA, QUESTIONS ANSWERED.
== END 2024-06-08 20:48 | disposition other institution (70) | DRG 579 ==
LOC: SERX 20:10 → SERHOLD 20:58 → S3SX 23:29 → S2NX 06-01 21:01
PROVIDERS: Internal Medicine; Internal Medicine Cardiovascular Disease; Internal Medicine Infectious Disease; Nurse Practitioner Family; Student in an Organized Health Care Education/Training Program; Surgery; Admitting Provider Student in an Organized Health Care Education/Training Program; Emergency Provider Student in an Organized Health Care Education/Training Program; PCP Physician Assistant; Visit Provider Internal Medicine
PROC: 0J9R0ZZ Drainage of Left Foot Subcutaneous Tissue and Fascia, Open Approach (ICD-10-PCS; principal; 2024-06-02 13:00)
DX: L02.612 Cutaneous abscess of left foot (principal); A41.9 Sepsis, unspecified organism; I21.4 Non-ST elevation (NSTEMI) myocardial infarction; E11.52 Type 2 diabetes mellitus with diabetic peripheral angiopathy with gangrene; L03.116 Cellulitis of left lower limb; E87.1 Hypo-osmolality and hyponatremia; I13.0 Hypertensive heart and chronic kidney disease with heart failure and stage 1 through stage 4 chronic kidney disease, or unspecified chronic kidney disease; I50.42 Chronic combined systolic (congestive) and diastolic (congestive) heart failure; I47.10 Supraventricular tachycardia, unspecified; E87.20 Acidosis, unspecified; B38.0 Acute pulmonary coccidioidomycosis; N17.9 Acute kidney failure, unspecified; E11.628 Type 2 diabetes mellitus with other skin complications; N18.31 Chronic kidney disease, stage 3a; E78.5 Hyperlipidemia, unspecified; E86.0 Dehydration; I48.91 Unspecified atrial fibrillation; E87.5 Hyperkalemia; E11.22 Type 2 diabetes mellitus with diabetic chronic kidney disease; I25.10 Atherosclerotic heart disease of native coronary artery without angina pectoris; N27.1 Small kidney, bilateral; E86.1 Hypovolemia; D63.1 Anemia in chronic kidney disease; I95.9 Hypotension, unspecified; R04.0 Epistaxis; F09 Unspecified mental disorder due to known physiological condition; Z79.4 Long term (current) use of insulin; Z87.891 Personal history of nicotine dependence; Z79.899 Other long term (current) drug therapy; Z79.82 Long term (current) use of aspirin; W01.0XXA Fall on same level from slipping, tripping and stumbling without subsequent striking against object, initial encounter; Y92.230 Patient room in hospital as the place of occurrence of the external cause; Z53.9 Procedure and treatment not carried out, unspecified reason
CPT/HCPCS: 36415; 71045; 73630; 73718; 75635; 76770; 76882; 80048; 80053; 80069; 80074; 80202; 81001; 82436; 82550; 82570; 82728; 83036; 83540; 83550; 83605; 83690; 83735; 83880; 83935; 84100; 84132; 84133; 84300; 84443; 84484; 85014; 85018; 85025; 85610; 85652; 85730; 86140; 86635; 86703; 86850; 86900; 86901; 86923; 87040; 87070; 87075; 87081; 87086; 87106; 87205; 87634; 92526; 92610; 93005; 93306; 93925; 94640; 94664; 96365; 96372; 96375; 97161; 99152; 99153; 99285; A4217; A4649; A9270; C1769; C1887; C1894; J0131; J0171; J0283; J0461; J0612; J0692; J0696; J1643; J1644; J1815; J1885; J1940; J2250; J2270; J2310; J2371; J2470; J2704; J2795; J3010; J3370; J3475; J3490; J7030; J7050; P9016; P9047; Q0139; Q5105; Q9967; J1805; J1836; J2305

== ENCOUNTER 2024-06-22 17:07 | Observation (INO) | payer MEDICARE, SELFPAY ==
[2024-06-22] VITALS (7 sets, daily range): BP systolic 134–139; BP diastolic 73–81; PULSE 75–78; RESP 16–98; TEMP 36.2–36.3; O2SAT 98–99; BMI 18.5
--- NOTE | 2024-06-22 17:59 | ESHP_ITS ---
<Statement entered by Jack Israel MD - 06/22/24 21:27> This patient is a 74-year-old male with past medical history of multivessel CAD status post PCI at [facility] on 06/10, new onset A-fib, type 2 diabetes was transferred back from [facility] after placement of stents in his heart as patient was not successful candidate for CABG. Left heart cath showed multivessel disease on 06/03. Initial EKG showed diffuse ST-T depression. Additionally, patient was found to have left foot wound with drainage managed with IV antibiotics however was amputated at [facility] due to formation of abscess in the left lower extremity.CTA also showed severe arterial disease below the knees bilaterally and vascular surgery consulted who n recommended podiatry consult for TMA with eventual BKA. Patient underwent successful TMA on 06/13. Family opted for placement of patient to SNF for short-term rehab. PT evaluation has been placed. Patient will be continued on aspirin 81 mg, Plavix 75 mg, atorvastatin for CAD. Patient is currently on Keflex and doxycycline for cellulitis of left lower extremity post amputation. Medications were reconciled for A-fib including amiodarone and Eliquis with metoprolol tartrate. Patient was also diagnosed with cocci and will be continued on fluconazole. Will follow-up on morning labs. All labs and orders were reviewed. I saw and examined the patient, and I agree with current management stated by Dr Casey MD,PGY1. Plan of care was discussed with the attending physician and resident physician. Disclaimer: Despite multiple revisions, due to the dictation software being used, the document bellow may not be free of grammatical errors including phonetic/typographic errors. However, this does not deter from our commitment to providing health care in the patient's best interest in mind. Dr. Casey MD, PGY 2 Documentation for date of: 06/22/24 HPI History of Present Illness History of present illness: Christoph Beckham is a 74-year-old male with a past medical history of multivessel CAD s/p PCI at [facility] on 06/10, new onset a-fib on eliquis, HFpEF (55-60%), severe PAD causing LLE cellulitis s/p TMA at [facility] on 06/13, pulmonary coccidiomycosis, CKD stage III, hypertension, hyperlipidemia, and type 2 diabetes mellitus who comes back to [facility] from [facility] after being transferred for evaluation for CABG after [facility] on 06/03 showed multivessel disease. Initially presented at [facility] on 05/26 for worsening left foot wound with discharge. He was treated with an IV antibiotics for a week and developed an abscess in left lower extremity. General surgery consulted and planned for I&D on 06/01 but developed A-fib with RVR prior to procedure but eventually underwent successful I&D. However, cardiology consulted as EKG showed significant and diffuse ST depressions in multiple leads. Troponins peaked at 12 but given severe anemia of 7.1, heparin drip was not started. Underwent C on 06/03 that showed severe multivessel disease and eventually transferred to [facility] on 06/08. There, preoperative cardiac workup completed but patient was not a candidate for CABG and instead underwent high risk PCI on 06/10 s/p placement of two stents in LAD. CTA also showed severe arterial disease below the knees bilaterally and vascular surgery consulted who n recommended podiatry consult for TMA with eventual BKA. Underwent successful TMA on 06/13 but noted to require blood transfusions for hemoglobin 5.9. Otherwise, surgical site was without signs of active infection and per podiatry, patient will require BKA at a later time. Given that he is now s/p PCI and TMA, patient transferred back to [facility] for further management. Review of Systems Review of Systems Systems Reviewed: All systems reviewed, normal except as documented Exam Vital Signs Temp Pulse Resp BP Pulse Ox O2 Del Method 97.2 F 75 28 H 134/81 H 99 Room Air 06/22/24 17:06/22/24 17:06/22/24 17:06/22/24 17:06/22/24 17:06/22/24 17:00 Narrative Exam General: AOx3, no acute distress, able to speak full sentences HEENT: NC/AT, mucous membranes moist, bilateral sclera anicteric Cardiovascular: regular rate and rhythm, S1/S2 present, no murmurs appreciated Pulmonary: clear to auscultation bilaterally, no rales/rhonchi/wheezes Abdominal: soft, non-tender, non-distended, no rebound/guarding, normal bowel sounds present Musculoskeletal: LLE bandaged status post TMA, fifth digit of right lower extremity with wound on lateral aspect Neuro: CN II-XII intact, no focal deficits Results: Labs 06/23/24 04:24 06/22/24 18:11 Quality Measures Quality Measures VTE prophylaxis Advance care planning discussed with:: patient, spouse and child Medications Home Medications and Allergies Allergies Allergy/AdvReac Type Severity Reaction Status Date / Time No Known Allergies Allergy Unverified 06/07/23 18:57 Visit Medications Acetaminophen (Acetaminophen 325 Mg Tablet) 650 mg PO Q6H PRN PRN Reason: PAIN OR FEVER > 100.4 Stop: 07/22/24 17:33 Hydrocodone Bitart/Acetaminophen (Hydrocodone/Apap 5/325 Tablet) 1 tab PO Q6HR PRN PRN Reason: PAIN SCALE 4-6 (Moderate) Stop: 06/27/24 17:52 Amiodarone HCl (Amiodarone Hcl 200 Mg Tablet) 200 mg PO BID [facility] Stop: 07/22/24 20:59 Apixaban (Apixaban 2.5 Mg Tablet) 5 mg PO BID LEXI Stop: 07/22/24 20:59 Aspirin (Aspirin Ec 81 Mg Tabec) 81 mg PO QDAY LEXI Stop: 07/23/24 08:59 Atorvastatin Calcium (Atorvastatin Calcium 20 Mg Tablet) 40 mg PO HS LEXI Stop: 07/22/24 20:59 Bisacodyl (Bisacodyl 10 Mg Supp) 10 mg IN QDAY PRN; Protocol PRN Reason: CONSTIPATION Stop: 07/22/24 17:41 Cephalexin HCl (Cephalexin 250 Mg Capsule) 500 mg PO QID LEXI Stop: 06/28/24 20:59 Clopidogrel Bisulfate (Clopidogrel Bisulfate 75 Mg Tablet) 75 mg PO QDAY LEXI Stop: 08/05/24 08:59 Clotrimazole (Clotrimazole 10 Mg Alyson) 10 mg PO 5 TIMES DAILY LEXI Stop: 07/22/24 17:59 Diphenhydramine HCl (Diphenhydramine 25 Mg Capsule) 25 mg PO Q6HR PRN PRN Reason: ITCHING Stop: 07/22/24 17:52 Doxycycline Hyclate (Doxycycline 100 Mg Tablet) 100 mg PO BID LEXI Stop: 06/28/24 20:59 Fluconazole (Fluconazole 100 Mg Tablet) 400 mg PO QDAY LEXI Stop: 06/30/24 08:59 Levalbuterol HCl (Levalbuterol Rt 1.25 Mg/0.5 Ml Nebu) 1.25 mg INH Q8HR PRN PRN Reason: WHEEZING Stop: 07/22/24 17:52 Magnesium Hydroxide (Milk Of Magnesia Susp 30 Ml Udc) 30 ml PO QDAY PRN; Protocol PRN Reason: CONSTIPATION Stop: 07/22/24 17:47 Magnesium Oxide (Magnesium Oxide 400 Mg Tablet) 400 mg PO BID LEXI Stop: 07/22/24 20:59 Metoprolol Tartrate (Metoprolol Tartrate 25 Mg Tablet) 25 mg PO BID LEXI Stop: 07/22/24 20:59 Multivitamins (Multivitamins Tablet) 1 tab PO QDAY LEXI Stop: 07/23/24 08:59 Nitroglycerin (Nitroglycerin 0.4 Mg Subl Btl #25) 0.4 mg SL Q5MIN PRN PRN Reason: CHEST PAIN Ondansetron HCl (Ondansetron Inj 2 Mg/Ml Inj 2 Ml) 4 mg IV Q6H PRN; Protocol PRN Reason: NAUSEA OR VOMITING Stop: 07/22/24 17:33 Oxycodone/Acetaminophen (Oxycodone/Apap 5/325 Tablet) 1 tab PO Q6HR PRN PRN Reason: BREAKTHROUGH PAIN Stop: 06/27/24 17:52 Pantoprazole Sodium (Pantoprazole 40 Mg Tablet) 40 mg PO QDAY LEXI Stop: 07/23/24 08:59 Polyethylene Glycol (Polyethylene Glycol 17 Gm Packet) 17 gm PO QDAY LEXI Stop: 07/23/24 08:59 Sennosides (Senna/Docusate Sod 1 Tab Tablet) 1 tab PO BID LEXI; Protocol Stop: 07/22/24 20:59 Sodium Chloride (Sodium Chloride Rt Marjorie 0.9% 3 Ml Nebu) 3 ml INH PRN PRN PRN Reason: SOLN Stop: 07/22/24 17:52 Assessment & Plan Plan Christoph Beckham is a 74-year-old male with a past medical history of multivessel CAD s/p PCI at [facility] on 06/10, new onset a-fib on eliquis, HFpEF (55-60%), severe PAD causing LLE cellulitis s/p TMA at [facility] on 06/13, pulmonary coccidiomycosis, CKD stage III, hypertension, hyperlipidemia, and type 2 diabetes mellitus who comes back to [facility] from [facility] after being transferred for evaluation for CABG after [facility] on 06/03 showed multivessel disease. Status post PCI on 06/10 with placement of 2 stents in LAD and left lower extremity TMA on 06/13. #NSTEMI type I #Multivessel CAD #Status post PCI on 06/10 with 2 stents in LAD C on 06/03 showed severe disease in LAD, LCx, and RCA. Underwent successful high risk PCI on 06/10 with 2 stents placed in LAD. Echo 06/02: EF 55 to 60%, no diastolic dysfunction. ? Cardiology consulted ? Clopidogrel 75 mg p.o. daily ? Aspirin 81 mg p.o. daily ? Atorvastatin 40 mg p.o. at bedtime #Cellulitis of left lower extremity #Abscess of left lower extremity, status post I&D #Gangrene of left lower extremity, status post TMA Presented at [facility] with left lower extremity cellulitis and found to have abscess adjacent to the fifth digit and underwent I&D but progressed to gangrene and is now status post TMA on 06/13 at [facility]. ? Cephalexin 500 mg p.o. 4 times daily (finishes on 06/28) ? Doxycycline 100 mg p.o. twice daily (finishes on 06/28) ? Wound care ? Physical therapy #Atrial fibrillation with RVR, new onset [id number]: 5 points HASBLED score- 4 points, alternatives to AC should be considered due to high risk of major bleeding ? Eliquis 5 mg p.o. twice daily ? Amiodarone 200 mg p.o. twice daily ? Metoprolol tartrate 25 mg p.o. twice daily #Peripheral artery disease Severe PAD noted on CTA with left greater than right lower extremity disease, mostly below knee Per vascular surgery, recommend BKA status post TMA and patient stable after PCI. #Pulmonary coccidiomycosis Diagnosed in the 90s ? Fluconazole 400 mg p.o. daily #Type 2 diabetes mellitus A1c 6.1 on 06/06 ? SSI ACHS #Chronic kidney disease stage III ? Avoid nephrotoxic agents, renally dose medications #Hypertension ? Metoprolol as above #Hyperlipidemia ? Atorvastatin as above Hospital management: Disposition: Transferred back status post PCI and TMA Fluids: None Diet: Cardiac Lines: IVF DVT prophylaxis: On Eliquis and Plavix GI prophylaxis: Pantoprazole CODE STATUS: full code ----- Plan discussed with attending physician Dr. Quintana and senior resident physician Dr. Casey Martínez MD PGY-1 Internal Medicine Attending Provider Attestation/Addendum I have discussed and was present for the essential components of the history, physical examination, diagnosis, and treatment plan with the resident. I agree with the patient's care as documented by the resident and amended herein by me. Jaylen Quintana, DO. Although this document has been carefully reviewed, there may still be some phonetic and other typographical errors. These errors are purely grammatical due to imperfections in the software program and should not be construed in any way to compromise the substance of the patient's medical care during this visit.
[2024-06-22] MEDS: CLOTRIMAZOLE 10 MG TROCHE PO ×2 (18:22→21:43)
[2024-06-22 18:50] LABS: Basophils # (Auto) 0.1 Thou/mm3 (0.0-0.2); Basophils % (Auto) 1 % (0-2.5); Eosinophils # (Auto) 2.5 Thou/mm3 (0.0-0.5); Eosinophils % (Auto) 14 % (0-10); Hematocrit 32.7 % (41.0-53.0); Hemoglobin 10.7 g/dL (13.5-16.0); Immature Granulocytes % (Auto) 6 % (0-0); Immature Granulocytes Auto 1.01 Thou/mm3 (0.00-0.00); Lymphocytes # (Auto) 1.7 Thou/mm3 (1.0-4.8); Lymphocytes % (Auto) 9 % (10-50); Mean Corpuscular HGB Conc 32.7 g/dl (31.0-37.0); Mean Corpuscular Hemoglobin 30.9 pg (25.0-35.0); Mean Corpuscular Volume 95 fL (80-100); Monocytes # (Auto) 1.6 Thou/mm3 (0.0-0.8); Monocytes % (Auto) 9 % (0-12); Neutrophils # (Auto) 11.3 Thou/mm3 (1.8-7.7); Neutrophils % (Auto) 62 % (37-80); Nucleated Red Blood Cell % 0 /100 WBC (0); Platelet Count 618 Thou/mm3 (140-440); RDW Standard Deviation 53.2 fL (35.1-43.9); Red Blood Count 3.46 Miln/mm3 (4.50-5.90); White Blood Count 18.2 Thou/mm3 (3.8-10.6)
[2024-06-22 19:02] LABS: Alanine Aminotransferase 39 U/L (10-49); Albumin, Serum 3.8 gm/dL (3.4-4.8); Albumin/Globulin Ratio 1.1 (1.2-2.2); Alkaline Phosphatase 114 U/L (46-116); Anion Gap 10 (7-16); Aspartate Amino Transferase 45 U/L (0-34); BUN/Creatinine Ratio 14 Ratio (12-20); Bilirubin,Total 0.2 mg/dL (0.3-1.2); Blood Urea Nitrogen 19 mg/dL (9-23); Calcium 9.5 mg/dL (8.3-10.6); Calcium (Corrected) 9.7 mg/dL (8.5-10.1); Chloride 103 mMol/L (98-107); Creatinine (Component) 1.4 mg/dL (0.6-1.3); Estimated Creatinine Clearance 32.6 mL/min (>60); Globulin 3.4 gm/dL (2.3-3.5); Glucose 102 mg/dL (74-106); Osmolality,Calculated 276 (275-295); Potassium 4.9 mMol/L (3.4-5.1); Sodium 137 mMol/L (136-145); Total Protein 7.2 gm/dL (5.7-8.2); eGFR 53 See Note
[2024-06-22] MEDS: APIXABAN 2.5 MG TABLET 5 MG PO (21:41)
[2024-06-22] MEDS: cephALEXin 250 MG CAPSULE 500 MG PO (21:42)
[2024-06-22] MEDS: METOPROLOL TARTRATE 25 MG TABLET PO (21:42)
[2024-06-22] MEDS: SENNA/DOCUSATE SOD 1 TAB TABLET PO (21:43)
[2024-06-22] MEDS: DOXYCYCLINE 100 MG TABLET PO (21:44)
[2024-06-22] MEDS: MAGNESIUM OXIDE 400 MG TABLET PO (21:44)
[2024-06-22] MEDS: AMIODARONE HCL 200 MG TABLET PO (21:44)
[2024-06-22] MEDS: ATORVASTATIN CALCIUM 20 MG TABLET 40 MG PO (21:45)
[2024-06-23] VITALS (14 sets, daily range): BP systolic 108–149; BP diastolic 66–83; PULSE 62–74; RESP 16–100; TEMP 36.1–36.6; O2SAT 97–100
[2024-06-23 00:58] LABS: Path Review Blood Smear Sent to Pathologist
[2024-06-23 05:58] LABS: Basophils # (Auto) 0.2 Thou/mm3 (0.0-0.2); Basophils % (Auto) 1 % (0-2.5); Eosinophils % (Auto) 13 % (0-10); Hematocrit 29.4 % (41.0-53.0); Hemoglobin 9.8 g/dL (13.5-16.0); Immature Granulocytes % (Auto) 5 % (0-0); Immature Granulocytes Auto 1.17 Thou/mm3 (0.00-0.00); Lymphocytes # (Auto) 1.7 Thou/mm3 (1.0-4.8); Lymphocytes % (Auto) 7 % (10-50); Mean Corpuscular HGB Conc 33.3 g/dl (31.0-37.0); Mean Corpuscular Hemoglobin 31.8 pg (25.0-35.0); Mean Corpuscular Volume 96 fL (80-100); Monocytes # (Auto) 1.9 Thou/mm3 (0.0-0.8); Monocytes % (Auto) 8 % (0-12); Neutrophils # (Auto) 15.5 Thou/mm3 (1.8-7.7); Neutrophils % (Auto) 66 % (37-80); Nucleated Red Blood Cell % 0 /100 WBC (0); Platelet Count 647 Thou/mm3 (140-440); RDW Standard Deviation 53.4 fL (35.1-43.9); Red Blood Count 3.08 Miln/mm3 (4.50-5.90); White Blood Count 23.4 Thou/mm3 (3.8-10.6)
[2024-06-23] MEDS: cephALEXin 250 MG CAPSULE 500 MG PO ×4 (06:13→20:30)
[2024-06-23] MEDS: CLOTRIMAZOLE 10 MG TROCHE PO ×5 (06:13→21:30)
--- NOTE | 2024-06-23 06:21 | PC.NURSE ---
pt has not voided all night x 12 hrs. Bladder ooml=[id number].
[2024-06-23 08:11] LABS: Alanine Aminotransferase 31 U/L (10-49); Albumin, Serum 3.6 gm/dL (3.4-4.8); Albumin/Globulin Ratio 1.1 (1.2-2.2); Alkaline Phosphatase 108 U/L (46-116); Anion Gap 12 (7-16); Aspartate Amino Transferase 37 U/L (0-34); BUN/Creatinine Ratio 16 Ratio (12-20); Bilirubin,Total 0.2 mg/dL (0.3-1.2); Blood Urea Nitrogen 22 mg/dL (9-23); Calcium 9.2 mg/dL (8.3-10.6); Calcium (Corrected) 9.5 mg/dL (8.5-10.1); Carbon Dioxide 21.7 mMol/L (20.0-31.0); Chloride 102 mMol/L (98-107); Creatinine (Component) 1.4 mg/dL (0.6-1.3); Estimated Creatinine Clearance 32.6 mL/min (>60); Globulin 3.3 gm/dL (2.3-3.5); Glucose 107 mg/dL (74-106); Magnesium 2.4 mg/dL (1.6-2.6); Osmolality,Calculated 275 (275-295); Phosphorous 3.6 mg/dL (2.4-5.1); Potassium 4.5 mMol/L (3.4-5.1); Sodium 136 mMol/L (136-145); Total Protein 6.9 gm/dL (5.7-8.2); eGFR 53 See Note
[2024-06-23] MEDS: MAGNESIUM OXIDE 400 MG TABLET PO ×2 (08:23→20:31)
[2024-06-23] MEDS: POLYETHYLENE GLYCOL 17 GM PACKET PO (08:23)
[2024-06-23] MEDS: METOPROLOL TARTRATE 25 MG TABLET PO ×2 (08:23→20:32)
[2024-06-23] MEDS: APIXABAN 2.5 MG TABLET 5 MG PO ×2 (08:23→20:31)
[2024-06-23] MEDS: SENNA/DOCUSATE SOD 1 TAB TABLET PO ×2 (08:23→20:30)
[2024-06-23] MEDS: FLUCONAZOLE 100 MG TABLET 400 MG PO (08:23)
[2024-06-23] MEDS: ASPIRIN EC 81 MG TABEC PO (08:24)
[2024-06-23] MEDS: DOXYCYCLINE 100 MG TABLET PO ×2 (08:24→20:33)
[2024-06-23] MEDS: MULTIVITAMINS TABLET 1 TAB PO (08:24)
[2024-06-23] MEDS: PANTOPRAZOLE 40 MG TABLET PO (08:24)
[2024-06-23] MEDS: AMIODARONE HCL 200 MG TABLET PO ×2 (08:24→20:30)
[2024-06-23] MEDS: CLOPIDOGREL BISULFATE 75 MG TABLET PO (08:24)
--- NOTE | 2024-06-23 08:28 | ESCONSULT_ITS ---
HPI Data of Consult Requesting Physician: Nato Quintana DO Admitting Provider: Mike Gallegos MD Attending Provider: Nato Quintana DO Primary Care Provider: Mkie Gallegos MD Consult Narrative History of present illness: Mr. Beckham is a 74-year-old male with past medical history of multivessel coronary artery disease status post PCI at [facility] on 06/10/2024, new onset atrial fibrillation (06/01/2024) on Eliquis, heart failure with preserved ejection fraction (55 to 60%), severe PAD below knees causing LLE cellulitis status post TMA at [facility] on 06/13/2024, pulmonary coccidiomycosis, CKD stage III, hypertension, hyperlipidemia and type 2 diabetes mellitus who was transferred back from [facility] to [facility] on 06/22/2024 after being initially transferred for CABG evaluation post left heart cath showing multivessel disease. Patient was initially admitted to [facility] on 05/26/2024 for worsening of left foot wound with discharge and was treated with IV antibiotics for a week, patient developed an abscess of the left foot and general surgery was consulted. Patient was planned for incision and drainage on 06/01/2024 but prior to the surgery patient developed atrial fibrillation with rapid ventricular response. Patient successfully completed left foot I&D with local anesthesia, cardiology was consulted as EKG showed significant diffuse ST depressions in all leads and minimal ST elevation less than 1 mm in aVR during the A-fib with RVR episode suggesting possible left main disease versus multivessel disease. Troponin increased to 12.0, patient also had severe anemia at 7.1 with unclear cause and heparin drip was not given. Patient was transfused 2 unit PRBC and workup was started for anemia. Eventually cardiac catheterization was performed on 06/03/2024 which showed the following findings Left main artery is a medium to large size artery with 50% ostial stenosis and 40% distal left main stenosis LAD, LAD is a medium to large size artery with severe 90% stenosis in the mid LAD at the bifurcation of D1. LAD does wrap around the apex. D1 is a small with severe 90% stenosis in the proximal portion. LCx is a large size artery with severe 90% stenosis in the proximal LCx and also severe 80% stenosis in the proximal small OM1 as well as severe 80% stenosis of proximal OM 2, RCA is 100% occluded at the ostium. Excellent collaterals noted from the left to right filling up to the proximal RCA. LVEDP is elevated at 22 mmHg. There was no significant transvalvular aortic gradient. Left ventriculogram not performed as the patient already had an echo which showed an EF of 55 to 60% Codominant circulation Patient was recommended cardiothoracic surgery evaluation given the multivessel disease and history of diabetes and good distal targets. Was treated with IV antibiotics for left foot infection in the meantime was found to have pulmonary coccidiomycosis as well was started on antifungal therapy. Patient's WBC count, sepsis improved, patient also had an GORDON which improved, was diuresed with IV Lasix with noted improvement in shortness of breath, patient denied any chest pain at rest infectious disease was consulted and patient was cleared for further cardiothoracic surgery from ID standpoint and patient was transferred to [facility] for further evaluation. Patient also had a CT of the bilateral lower extremity performed which showed severe diffuse disease bilaterally below the knee left greater than right otherwise mild disease to moderate disease in proximal LAD arteries. Vascular surgery was consulted for the patient, recommended left BKA by surgery and possible vascular intervention by vascular surgery. Patient transferred to [facility], patient's family is requesting retirement facility placement, patient will be seen by general surgery for possible BKA in 1 month as patient will need to be on antiplatelets for at least a month prior to any surgery. Patient is currently on antibiotic therapy, was followed by Dr. Overton in during the last hospitalization. cc:: cc: Nato Quintana DO Review of Systems Review of Systems Narrative Review of Systems: ROS: -CONSTITUTIONAL: Denies weight loss, fever and chills. -HEENT: Denies changes in vision and hearing. -RESPIRATORY: Denies SOB and cough. -CV: Denies palpitations and Chest Pain. -GI: Denies abdominal pain, nausea, vomiting,constipation and diarrhea. -: Denies dysuria and urinary frequency. -MSK: Denies myalgia and joint pain. -SKIN: Denies rash and pruritus. -NEUROLOGICAL: Denies headache and syncope. -PSYCHIATRIC: Denies recent changes in mood. Denies anxiety and depression. Past Medical History Past Medical History Comments PMH COMMENT: PMH: Positive for multivessel coronary artery disease status post PCI at [facility] on 06/10/2024, new onset atrial fibrillation (06/01/2024) on Eliquis, heart failure with preserved ejection fraction (55 to 60%), severe PAD below knees causing LLE cellulitis status post TMA at [facility] on 06/13/2024, pulmonary coccidiomycosis, CKD stage III, hypertension, hyperlipidemia and type 2 diabetes mellitus PSHx: Cholecystectomy, sinus surgery, status post PCI 05/2024, status post TMA 05/2024 Allergies: No known allergies Social history: -Smoking: Former smoker, 50 pack years, quit about 10 years ago -Alcohol Use: Denies -Illicit Drug Use: Denies Family History: Denies family history of diabetes or heart disease Exam Vital Signs Temp Pulse Resp BP Pulse Ox O2 Del Method 97.6 F 69 20 140/71 H 97 Room Air 06/23/24 07:12 06/23/24 08:24 06/23/24 07:12 06/23/24 08:24 06/23/24 07:12 06/23/24 04:00 Narrative Exam General: AOx3, no acute distress, able to speak full sentences HEENT: NC/AT, mucous membranes moist, bilateral sclera anicteric Cardiovascular: Regular rate and rhythm, S1/S2 present, no murmurs appreciated Pulmonary: clear to auscultation bilaterally, no rales/rhonchi/wheezes Abdominal: soft, non-tender, non-distended, no rebound/guarding, normal bowel sounds present Musculoskeletal: LLE bandaged status post TMA, fifth digit of right lower extremity with wound on lateral aspect Neuro: CN II-XII intact, no focal deficits Results Labs 06/24/24 04:45 06/24/24 04:45 Labs: Short CBC 06/22/24 06/23/24 Range/Units 18:11 04:24 WBC 18.2 H 23.4 H D (3.8-10.6) Thou/mm3 Hgb 10.7 L 9.8 L (13.5-16.0) g/dL Hct 32.7 L 29.4 L (41.0-53.0) % Plt Count 618 H D 647 H (140-440) Thou/mm3 BMP 06/22/24 06/23/24 18:11 07:30 Sodium 137 136 Potassium 4.9 4.5 Chloride 103 102 Carbon Dioxide 24.0 21.7 BUN 19 22 Creatinine 1.4 H 1.4 H Glucose 102 107 H Calcium 9.5 9.2 Liver Function 06/22/24 06/23/24 Range/Units 18:11 07:30 Total Bilirubin 0.2 L 0.2 L (0.3-1.2) mg/dL AST 45 H 37 H (0-34) U/L ALT 39 31 (10-49) U/L Alkaline Phosphatase 114 108 (46-116) U/L Albumin 3.8 3.6 (3.4-4.8) gm/dL Quality Measures Quality Measures VTE prophylaxis Advance care planning discussed with:: patient Medications Home Medications and Allergies Allergies Allergy/AdvReac Type Severity Reaction Status Date / Time No Known Allergies Allergy Unverified 06/07/23 18:57 Visit Medications Acetaminophen (Acetaminophen 325 Mg Tablet) 650 mg PO Q6H PRN; Protocol PRN Reason: PAIN OR FEVER > 100.4 Stop: 07/22/24 17:33 Hydrocodone Bitart/Acetaminophen (Hydrocodone/Apap 5/325 Tablet) 1 tab PO Q6HR PRN PRN Reason: PAIN SCALE 4-6 (Moderate) Stop: 06/27/24 17:52 Amiodarone HCl (Amiodarone Hcl 200 Mg Tablet) 200 mg PO BID [facility] Stop: 07/22/24 20:59 Last Admin: 06/23/24 08:24 Dose: 200 mg Apixaban (Apixaban 2.5 Mg Tablet) 5 mg PO BID [facility] Stop: 07/22/24 20:59 Last Admin: 06/23/24 08:23 Dose: 5 mg Aspirin (Aspirin Ec 81 Mg Tabec) 81 mg PO QDAY [facility] Stop: 07/23/24 08:59 Last Admin: 06/23/24 08:24 Dose: 81 mg Atorvastatin Calcium (Atorvastatin Calcium 20 Mg Tablet) 40 mg PO HS [facility] Stop: 07/22/24 20:59 Last Admin: 06/22/24 21:45 Dose: 40 mg Bisacodyl (Bisacodyl 10 Mg Supp) 10 mg [place] QDAY PRN; Protocol PRN Reason: CONSTIPATION Stop: 07/22/24 17:41 Cephalexin HCl (Cephalexin 250 Mg Capsule) 500 mg PO QID [facility] Stop: 06/28/24 20:59 Last Admin: 06/23/24 06:13 Dose: 500 mg Clopidogrel Bisulfate (Clopidogrel Bisulfate 75 Mg Tablet) 75 mg PO QDAY [facility] Stop: 08/05/24 08:59 Last Admin: 06/23/24 08:24 Dose: 75 mg Clotrimazole (Clotrimazole 10 Mg Alyson) 10 mg PO 5 TIMES DAILY [facility] Stop: 07/22/24 17:59 Last Admin: 06/23/24 06:13 Dose: 10 mg Dextrose (Dextrose 50%-Water Inj 50 Ml Syringe) 25 ml IV Q15MIN PRN PRN Reason: BG 50-70 responsive npo pt Stop: 07/22/24 18:25 Dextrose (Dextrose 50%-Water Inj 50 Ml Syringe) 50 ml IV Q15MIN PRN PRN Reason: BG <50 OR BG <70 & pt unresponsive Stop: 07/22/24 18:25 Diphenhydramine HCl (Diphenhydramine 25 Mg Capsule) 25 mg PO Q6HR PRN PRN Reason: ITCHING Stop: 07/22/24 17:52 Doxycycline Hyclate (Doxycycline 100 Mg Tablet) 100 mg PO BID [facility] Stop: 06/28/24 20:59 Last Admin: 06/23/24 08:24 Dose: 100 mg Fluconazole (Fluconazole 100 Mg Tablet) 400 mg PO QDAY [facility] Stop: 06/30/24 08:59 Last Admin: 06/23/24 08:23 Dose: 400 mg Glucagon (Glucagon Inj 1 Mg Vial) 1 mg IM Q15MIN PRN PRN Reason: BG <70, and no IV access Insulin Human Lispro (Insulin Lispro (Admelog) 1 Unit/0.01 Ml Unit) 0 unit SC [facility]; Protocol Stop: 07/23/24 07:29 Last Admin: 06/23/24 07:43 Dose: Not Given Levalbuterol HCl (Levalbuterol Rt 1.25 Mg/0.5 Ml Nebu) 1.25 mg INH Q8HR PRN PRN Reason: WHEEZING Stop: 07/22/24 17:52 Magnesium Hydroxide (Milk Of Magnesia Susp 30 Ml Udc) 30 ml PO QDAY PRN; Protocol PRN Reason: CONSTIPATION Stop: 07/22/24 17:47 Magnesium Oxide (Magnesium Oxide 400 Mg Tablet) 400 mg PO BID [facility] Stop: 07/22/24 20:59 Last Admin: 06/23/24 08:23 Dose: 400 mg Metoprolol Tartrate (Metoprolol Tartrate 25 Mg Tablet) 25 mg PO BID [facility] Stop: 07/22/24 20:59 Last Admin: 06/23/24 08:23 Dose: 25 mg Multivitamins (Multivitamins Tablet) 1 tab PO QDAY [facility] Stop: 07/23/24 08:59 Last Admin: 06/23/24 08:24 Dose: 1 tab Nitroglycerin (Nitroglycerin 0.4 Mg Subl Btl #25) 0.4 mg SL Q5MIN PRN PRN Reason: CHEST PAIN Ondansetron HCl (Ondansetron Inj 2 Mg/Ml Inj 2 Ml) 4 mg IV Q6H PRN; Protocol PRN Reason: NAUSEA OR VOMITING Stop: 07/22/24 17:33 Pantoprazole Sodium (Pantoprazole 40 Mg Tablet) 40 mg PO QDAY [facility] Stop: 07/23/24 08:59 Last Admin: 06/23/24 08:24 Dose: 40 mg Polyethylene Glycol (Polyethylene Glycol 17 Gm Packet) 17 gm PO QDAY [facility] Stop: 07/23/24 08:59 Last Admin: 06/23/24 08:23 Dose: 17 gm Sennosides (Senna/Docusate Sod 1 Tab Tablet) 1 tab PO BID [facility]; Protocol Stop: 07/22/24 20:59 Last Admin: 06/23/24 08:23 Dose: 1 tab Sodium Chloride (Sodium Chloride Rt Marjorie 0.9% 3 Ml Nebu) 3 ml INH PRN PRN PRN Reason: SOLN Stop: 07/22/24 17:52 Discontinued Medications Oxycodone/Acetaminophen (Oxycodone/Apap 5/325 Tablet) 1 tab PO Q6HR PRN PRN Reason: BREAKTHROUGH PAIN 7-10 Stop: 06/27/24 17:52 Assessment & Plan Plan Assessment and plan: Summary: Mr. Beckham is a 74-year-old male with past medical history of multivessel coronary artery disease status post PCI at [facility] on 06/10/2024, new onset atrial fibrillation (06/01/2024) on Eliquis, heart failure with preserved ejection fraction (55 to 60%), severe PAD below knees causing LLE cellulitis status post TMA at [facility] on 06/13/2024, pulmonary coccidiomycosis, CKD stage III, hypertension, hyperlipidemia and type 2 diabetes mellitus who was transferred back from [facility] to [facility] on 06/22/2024 after being initially transferred for CABG evaluation post left heart cath showing multivessel disease. #Atherosclerotic coronary artery disease with multivessel disease status post complex PCI of the LAD with ELISABETH stents 2.75x28 mm and 3.0x20 mm overlapping ELISABETH stents on 06/20/2024 Atherosclerotic CAD with multivessel disease?LHC performed by Dr. Majano on 06/03/2024 showed 100% occluded ostial RCA, [id number] collaterals, 90% mid LAD, 90% proximal LCx, 90% small to medium D1 and OM 2, LVEF normal at 50 to 60% on echo with no major regional wall abnormalities. Given his history of diabetes mellitus, multivessel disease was recommended CABG. Bilateral carotid duplex shows mild to moderate carotid disease in the bifurcation areas bilaterally right greater than left. ID cleared the patient for surgery given his recent sepsis and left foot abscess as well as possible bony coccidiomycosis Had a detailed conversation with Dr. Haney on 06/13/2024 from cardiothoracic surgery to coordinate the care of the patient. Patient was cleared by ID at [facility] and was transferred to [facility]. ID was reconsulted at [facility] Regarding his active left foot infection patient was seen by vascular surgery and left leg angiogram performed on 05/2021 showed only mild disease above the knee but below the knee had only peroneal artery and severe distal and AT and PT which is not amenable to intervention. Vascular surgery recommended podiatry consult for TMA followed by CABG and then eventually patient will be needing a left BKA. TMA was done by podiatry on 06/13/2024, foot without sent for further evaluation as per podiatry. Cardiothoracic surgery was on board in [facility] and preoperative cardiac workup was completed but patient was not a candidate for CABG and recommended high risk PCI. Case was discussed with patient about being high risk multivessel PCI and increased risk given his overall comorbidities including [employer], multivessel severe disease, PAD, sepsis, poor nutritional status, limited mobility, high syntax score?overall very high risk PCI and might need additional circulatory support. Explained the increased risk of AK, stroke and more than regular PCI. Patient discussed with family and decided to proceed with the procedure which was performed successfully of the proximal and mid LAD with 3.0x20 mm and 2.75x28 mm respectively. Post dilated with 3.0 NC. No complications. Hemodynamically stable, patient required almost 800 to 1000 mcg of Wade- Synephrine during the procedure patient received only 60 cc of contrast for the entire complex PCI and renal function was stable. Post surgery patient had no evidence of bleeding or hematoma at right femoral or right radial access. Patient was actively ischemic for past few weeks with additional ischemia during recent procedure, patient has no symptoms currently, patient will be followed closely outpatient with plan to do PCI of LCx if patient continues to have symptoms at a later point. Left circumflex PCI will also be a complex PCI as there is severe disease noted in OM 2 as well as moderate disease in distal LCx as well as proximal OM1 and are at risk of closure which would make the patient more ischemic given it gives extensive collaterals to RCA. Recommendations: -Continue aspirin, Plavix, Eliquis -Patient will need left below-knee amputation, will continue antiplatelet therapy for at least a month, obtain general surgery consult -Consult infectious disease -Monitor renal function #Paroxysmal atrial fibrillation with RVR now in NSR Paroxysmal A-fib with RVR?new onset 06/01/2024, converted to sinus rhythm with amnio drip now on oral amiodarone and metoprolol for rate control [id number]: 5 points HASBLED score: 4 points, alternatives to AC should be considered due to high risk of major bleeding -Continue amiodarone, metoprolol and Eliquis # Heart failure with preserved ejection fraction, EF 55 to 60% ECHO 06/02/2024: Normal LV size and function. Estimated LVEF 55 to 60%. Normal RV size and function. Mild TR. Estimated RVSP 45 mmHg. mild to moderate PAH. Mild biatrial dilatation. Mild MAC. Moderate MR. Mild AI. Mild TR Recommendations: -Strict intake and output, daily weight, fluid restriction 1500 cc -Currently stable on room air, continue to monitor #Severe peripheral arterial disease bilateral lower extremities, below knees #Chronic smoker, 50 pack years, quit 10 years ago #History of left foot abscess status post I&D status post TMA 06/13/2024 Patient was treated with IV antibiotics for 10 days, currently on p.o. antibiotics Vascular surgery recommended TMA followed by CABG and eventually patient will need BKA General Surgery consulted Continue antiplatelet therapy for 1 month, consider surgery after if patient stable #Pulmonary coccidiomycosis Patient was positive for cocci IgM, currently on fluconazole #CKD stage III Renal function stable BUN 23, creatinine 1.4, GFR 53 Monitor renal function, avoid nephrotoxic agents #Acute on chronic anemia, resolved Hemoglobin 9.8, currently stable, continue to monitor #Type 2 diabetes mellitus A1c 6.1 on 06/06/2024. Management as per primary team #Hypertension #Hyperlipidemia Patient on atorvastatin 40 mg at bedtime, metoprolol tartrate 25 p.o. twice daily continue #Mild cognitive deficits Consider neurology workup outpatient Case discussed with Attending Dr. Majano. Noreen Zuñiga PGY1 Disclaimer: This note was dictated by speech recognition. Minor errors in assistant therapy aide may be present due to voice recognition software. Attending Provider Attestation/Addendum I have personally seen and examined the patient separately on the above date of service and discussed the plan of care with the resident. I reviewed the resident Dr. Noreen Zuñiga consultation note and agree with the resident findings and plan in the note above and have also edited the documentation to reflect my findings and plan. A 73-year-old male with past medical history of severe multivessel disease by [facility] on 06/03/2024, non surgical candidate s/p complex PCI of the LAD with ELISABETH stents 2.75x28 mm and 3.0x20 mm overlapping ELISABETH stents on 06/20/2024, paroxysmal atrial fibrillation 06/01/2024, HFpEF with an EF of 55 to 60%, history of left foot abscess status post left foot TMA amputation 06/13/2024, left leg cellulitis, pulmonary coccidiomycosis on fluconazole, severe PAD bilaterally below the knees by CT and Angio, chronic kidney disease stage III, acute on chronic anemia, hypertension, hyperlipidemia, type 2 diabetes mellitus, mild cognitive deficiency transferred back to [facility] from [facility] for further care. 1. Atherosclerotic CAD with multivessel disease - s/p complex PCI of the LAD with ELISABETH stents 2.75x28 mm and 3.0x20 mm overlapping ELISABETH stents on 06/20/2024. 2. Paroxysmal atrial fibrillation with RVR now in NSR 3. HFpEF exacerbation with an EF of 55 to 60% 4. History of left foot abscess status post I&D 06/01/2024 and left foot TMA 06/13/2024 - will need eventually left BKA 5. Severe PAD bilateral lower extremities below the knees by CTA and angio. Chronic smoker quit 10 years ago 6. 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 Acute on chronic kidney disease stage III. baseline cr 1.3 to 1.5 8. Acute on chronic anemia status post 5 PRBC transfusions 9. Type 2 diabetes mellitus 10. Hypertension 11. Hyperlipidemia 12. Mild cognitive deficits Atherosclerotic CAD with multivessel disease-LHC performed by me on 06/03/2024 showed severe 100% occluded ostial RCA with excellent [id number] collaterals, 90% proximal and mid LAD, 90% proximal LCx, 90% small OM 2 and D1. LVEF normal at 55 to 60% on echo with no major regional wall motion abnormalities. Given his history of diabetes mellitus, multivessel disease was recommended CAB Cardiothoracic surgery was consulted [facility] and patient was deemed to be not to be candidate for CABG and recommended high risk PCI. Discussed with patient about the high risk complex PCI and the increased risk given his overall comorbidities including [employer], multivessel severe disease, PAD, sepsis, poor nutritional status. limited mobility, high syntax score - overall very high risk PCI and might need additional circulatory support. Explained the increased the risk of AK, stroke and more than the regular PCI. After discussion with his family, patient finally agreed for the complex PCI 06/20/2024-successful complex high risk PCI performed of the proximal and mid LAD with 3.0x20 mm and 2.75x28 mm respectively. Post dilated with 3.0 NC with no complications. Patient required almost 800 to 1000 mcg of Wade-Synephrine during the procedure. Received only 60 cc of contrast for the entire complex PCI and the renal function continues to be stable with creatinine around 1.5 Patient has been asked ischemic for past few weeks and additional ischemia during the recent procedure of the LAD. Rest of the arteries including the small D1 as well as the small OM1 are not amenable to PCI. RCA has excellent [id number] collaterals filling up to the proximal portion. LCx has severe disease but would be a very high complex PCI with the risk of closing OM as well as the collaterals. Will plan to do the PCI of the LCx only if patient is symptomatic otherwise aggressive medical management recommended for now Recommend to discharge the patient on aspirin and, Plavix as well as Eliquis 2.5 mg twice daily for anticoagulation for now. Severe bilateral lower extremity PAD below the knees noted on CT in May 2024. Left greater than right with severe diffuse disease after the trifurcation. Patient lifelong smoker and quit 10 years ago. Vascular surgery consulted for the chronic left foot wound and PAD noted on the CT. Left leg angiogram on 06/11/24 which showed The left common femoral, deep femoral, superficial femoral and popliteal arteries are widely patent. The tibioperoneal trunk is widely patent and outflow to the left foot is especially by the peroneal artery which is heavily collateralized of the foot reconstituting the plantar arch with fairly good perfusion of the forefoot. Neither the posterior tibial artery and the artery anterior tibial artery were seen in any point Left foot abscess s/p I&D on 06/01/24 for left leg cellulitis with sepsis presentation 05/25/2024 to [facility]. Was treated with IV antibiotics for a total of 10 days. And general surgery did recommend below-knee amputation due to poor vascular supply and vascular surgery was consulted. Podiatry was consulted left foot TMA performed on 06/13/2024 and will eventually need BKA. Still WBC elevated to 19,000. Pulmonary coccidiomycosis diagnosed at [facility] recently as IgM was positive on antifungals. Plan for BKA after 1 or 2 months as patient need to be on antiplatelets for at least for a month prior to any surgery. Discussed with the primary team to make sure that the consult with BRITTANY Overton and have patient on some kind of antibiotic therapy for the 1-2 month. Recommend to call surgery consult Dr Lennon. I discussed with Dr Lennon and plan to do possible BKA with only regional block after 1 to 2 months as the patient needs to be on dual antiplatelet for at least a month. Paroxysmal atrial fibrillation with RVR-new onset 06/01/2024. Converted to sinus rhythm with amiodarone drip now on amiodarone oral and metoprolol for rate control. Eliquis 2.5 mg bid for AC. HFpEF-bedside CHF exacerbation. Echo showed normal LVEF at 55 to 60%, moderate MR, moderate TR, biatrial dilatation and diastolic dysfunction. Was diuresed with IV Lasix at [facility]. Possible cardiorenal syndrome. Which improved kidney function improved from 2.6-1.4. Strict input output Daily weights and 2 g sodium diet. Patient also had hypervolemic hyponatremia upto 122 which improved back to 137. Acute on chronic kidney disease stage III-creatinine was 2.6 which improved to 1.3 after diuresis possible cardiorenal and also is mostly secondary to sepsis from ATN. Continue to monitor renal function. Avoid nephrotoxic's Renal function improving and is between 1.3 and 1.4 Patient also complaining of some difficulty swallowing and started on pur?ed diet. Slowly improving Surgical team did request for an MRI was normal without any acute infarct. Acute on chronic anemia - s/p 5 PRBC transfusions. Now stable between 9-10. Continue to monitor hemoglobin. Continue anemia workup. Thrombocytopenia now improved and normal Hyperlipidemia on statin. HTN controlled with present regimen, diabetes uncontrolled Management of rest of the medical conditions as per primary team. Thank you for the consult and allowing me to participate in the care of the patient. Cardiology continue to follow. Jarad Majano MD Interventional cardiology
[2024-06-23] MEDS: ACETAMINOPHEN 325 MG TABLET 650 MG PO (08:40)
[2024-06-23] MEDS: DiphenhydrAMINE 25 MG CAPSULE PO (08:40)
--- NOTE | 2024-06-23 10:40 | PC.SS ---
Initial assessment: this is 74 year old male. Patient's daughter, Whit assisted with providing information. She reports patient living at home with spouse, Paula and son. Whit confirmed demographic information. She was assigned as his emergency contact. Patient requires some assistance with ADL's. Patient has rollator walker to assist with ambulation at home, per daughter. Patient's PCP is Olivia Zuniga. Family is requesting SNF placement. No preferred SNF, just local. D/c plan: SNF Next of kin: daughterWhit [phone]
--- NOTE | 2024-06-23 10:55 | PC.SS ---
Addendum entered by PARKER Benavides 06/23/24 16:29: Faxed clinicals to [facility]. . Updated Olivia at [facility] for follow up. Addendum entered by PRAKER Benavides 06/23/24 11:46: SS update: SNF choices presented to family at bed side. [facility] was elected. Informed Olivia at [facility], and she is agreeable to accept the patient. Patient will require insurance authorization. Clinicals and PASRR sent to [facility] via [employer]. Pending PT note at this time. Original Note: SS follow up: SNF inquiry sent via [employer] and PASRR was completed.
[2024-06-23 11:01] LABS: Band Neutrophils (Manual) 1 % (0-6); Basophils (Manual) 1 % (0-2); Eosinophils (Manual) 13 % (0-4); Lymphocytes (Manual) 7 % (20-44); Metamyelocytes (Manual) 2 % (0-0); Monocytes (Manual) 2 % (2-9); Myelocytes (Manual) 1 % (0-0); Neutrophils (Manual) 73 % (50-70)
--- NOTE | 2024-06-23 13:16 | ESPR_ITS ---
<Statement entered by Jack Israel MD - 06/23/24 14:23> Patient was seen and examined at the bedside. No acute overnight events were reported. Patient stated this morning that he has itching with no apparent rash. Cardiology recommended to have general surgery consultation in regards to patient below-knee amputation given history of severe PAD and gangrenous foot which was amputated at [facility]. Per surgery recommendations patient will benefit from surgery after 4 to 6 weeks given patient is on dual antiplatelet therapy post PCI. Cardiology will reevaluate the patient in 1 month after procedure to see if patient will be able to tolerate BKA. Patient is currently pending for insurance authorization and PT evaluation note for SNF placement. Morning labs revealed mildly elevated white count and stable hemoglobin. Kidney functions showed creatinine 1.4. Rest of the labs unremarkable. Will continue with current medications. All labs and orders were reviewed. I saw and examined the patient, and I agree with current management stated by Dr Mauricio MD,PGY1. Plan of care was discussed with the attending physician and resident physician. Disclaimer: Despite multiple revisions, due to the dictation software being used, the document bellow may not be free of grammatical errors including phonetic/typographic errors. However, this does not deter from our commitment to providing health care in the patient's best interest in mind. Dr. Jhonatan MD, PGY 2 Documentation for date of: 06/23/24 Subjective Subjective Interval history: Christoph Beckham is a 74-year-old male with a past medical history of multivessel CAD s/p PCI at [facility] on 06/10, new onset a-fib on eliquis, HFpEF (55-60%), severe PAD causing LLE cellulitis s/p TMA at [facility] on 06/13, pulmonary coccidiomycosis, CKD stage III, hypertension, hyperlipidemia, and type 2 diabetes mellitus who comes back to [facility] from [facility] after being transferred for evaluation for CABG after [facility] on 06/03 showed multivessel disease. Initially presented at [facility] on 05/26 for worsening left foot wound with discharge. He was treated with an IV antibiotics for a week and developed an abscess in left lower extremity. General surgery consulted and planned for I&D on 06/01 but developed A-fib with RVR prior to procedure but eventually underwent successful I&D. However, cardiology consulted as EKG showed significant and diffuse ST depressions in multiple leads. Troponins peaked at 12 but given severe anemia of 7.1, heparin drip was not started. Underwent C on 06/03 that showed severe multivessel disease and eventually transferred to [facility] on 06/08. There, preoperative cardiac workup completed but patient was not a candidate for CABG and instead underwent high risk PCI on 06/10 s/p placement of two stents in LAD. CTA also showed severe arterial disease below the knees bilaterally and vascular surgery consulted who n recommended podiatry consult for TMA with eventual BKA. Underwent successful TMA on 06/13 but noted to require blood transfusions for hemoglobin 5.9. Otherwise, surgical site was without signs of active infection and per podiatry, patient will require BKA at a later time. Given that he is now s/p PCI and TMA, patient transferred back to [facility] for further management. 06/23: Seen and examined at bedside on medical floors. No acute overnight events reported. Upon evaluation, noted to be scratching at arms with no apparent erythematous rash present but some discoloration and was given Benadryl for relief. Otherwise, consulted cardiology and general surgery regarding BKA in setting of recent PCI. Cardiology will reevaluate patient in 1 month after procedure (06/10) to see if patient will be able to tolerate BKA. If stable cardiac perspective, plan for BKA with regional nerve block in 4 to 6 weeks. Will stay 1 more night for pending insurance auth for SNF. Exam Vital Signs Temp Pulse Resp BP Pulse Ox O2 Del Method 97.3 F 62 20 127/69 97 Room Air 06/23/24 11:06/23/24 12:00 06/23/24 11:06/23/24 11:06/23/24 11:06/23/24 04:00 Narrative Exam General: AOx3, no acute distress, able to speak full sentences HEENT: NC/AT, mucous membranes moist, bilateral sclera anicteric Cardiovascular: regular rate and rhythm, S1/S2 present, no murmurs appreciated Pulmonary: clear to auscultation bilaterally, no rales/rhonchi/wheezes Abdominal: soft, non-tender, non-distended, no rebound/guarding, normal bowel sounds present Musculoskeletal: LLE bandaged status post TMA, fifth digit of right lower extremity with wound on lateral aspect Neuro: CN II-XII intact, no focal deficits Objective Labs 06/23/24 04:24 06/23/24 07:30 Labs: Laboratory Results - last 24 hr 06/22/24 06/23/24 06/23/24 18:11 04:24 07:30 WBC 18.2 H 23.4 H D RBC 3.46 L 3.08 L Hgb 10.7 L 9.8 L Hct 32.7 L 29.4 L MCV 95 96 MCH 30.9 31.8 MCHC 32.7 33.3 RDW Std Deviation 53.2 H 53.4 H Plt Count 618 H D 647 H Neut % (Auto) 62 66 Lymph % (Auto) 9 L 7 L [place] % (Auto) 9 8 Eos % (Auto) 14 H 13 H Baso % (Auto) 1 1 Neut # (Auto) 11.3 H 15.5 H Lymph # (Auto) 1.7 1.7 [place] # (Auto) 1.6 H 1.9 H Eos # (Auto) 2.5 H 3.0 H Baso # (Auto) 0.1 0.2 Immature Gran # (Auto) 1.01 H 1.17 H Absolute Nucleated RBC 0.00 0.00 Immature Gran % 6 H 5 H Neutrophils % (Manual) 73 H Monocytes % (Manual) 2 Eosinophils % (Manual) 13 H Basophils % (Manual) 1 Metamyelocytes % 2 H Myelocytes % 1 H Nucleated RBC % 0 0 Band Neutrophils 1 Lymphocytes (Manual) 7 L Smear Path Review Sent to Pathologist Sodium 137 136 Potassium 4.9 4.5 Chloride 103 102 Carbon Dioxide 24.0 21.7 Anion Gap 10 12 BUN 19 22 Creatinine 1.4 H 1.4 H Estim Creat Clear Calc 32.6 L 32.6 L eGFR 53 L 53 L BUN/Creatinine Ratio 14 16 Glucose 102 107 H Calculated Osmolality 276 275 Calcium 9.5 9.2 Corrected Calcium 9.7 9.5 Phosphorus 3.6 Magnesium 2.4 Total Bilirubin 0.2 L 0.2 L AST 45 H 37 H ALT 39 31 Alkaline Phosphatase 114 108 Total Protein 7.2 6.9 Albumin 3.8 3.6 Globulin 3.4 3.3 Albumin/Globulin Ratio 1.1 L 1.1 L Quality Measures Quality Measures VTE prophylaxis Advance care planning discussed with:: other Assessment & Plan Assessment Current Active Medications: Generic Name Dose Route Start Last Admin Trade Name Freq PRN Reason Stop Dose Admin Acetaminophen 650 mg 06/22/24 17:34 06/23/24 08:40 Acetaminophen 325 Mg Tablet PO 07/22/24 17:33 650 mg Q6H PRN Administration PAIN OR FEVER > 100.4 Protocol Hydrocodone Bitart/Acetaminophen 1 tab 06/22/24 17:53 Hydrocodone/Apap 5/325 Tablet PO 06/27/24 17:52 Q6HR PRN PAIN SCALE 4-6 (Moderate) Amiodarone HCl 200 mg 06/22/24 21:00 06/23/24 08:24 Amiodarone Hcl 200 Mg Tablet PO 07/22/24 20:59 200 mg BID LEXI Administration Apixaban 5 mg 06/22/24 21:00 06/23/24 08:23 Apixaban 2.5 Mg Tablet PO 07/22/24 20:59 5 mg BID LEXI Administration Aspirin 81 mg 06/23/24 09:00 06/23/24 08:24 Aspirin Ec 81 Mg Tabec PO 07/23/24 08:59 81 mg QDAY LEXI Administration Atorvastatin Calcium 40 mg 06/22/24 21:00 06/22/24 21:45 Atorvastatin Calcium 20 Mg Tablet PO 07/22/24 20:59 40 mg HS LEXI Administration Bisacodyl 10 mg 06/22/24 17:42 Bisacodyl 10 Mg Supp ID 07/22/24 17:41 QDAY PRN CONSTIPATION Protocol Cephalexin HCl 500 mg 06/22/24 21:00 06/23/24 12:06 Cephalexin 250 Mg Capsule PO 06/28/24 20:59 500 mg QID LEXI Administration Clopidogrel Bisulfate 75 mg 06/23/24 09:00 06/23/24 08:24 Clopidogrel Bisulfate 75 Mg Tablet PO 08/05/24 08:59 75 mg QDAY LEXI Administration Clotrimazole 10 mg 06/22/24 18:00 06/23/24 10:44 Clotrimazole 10 Mg Alyson PO 07/22/24 17:59 10 mg 5 TIMES DAILY LEXI Administration Dextrose 25 ml 06/22/24 18:26 Dextrose 50%-Water Inj 50 Ml Syringe IV 07/22/24 18:25 Q15MIN PRN BG 50-70 responsive npo pt Dextrose 50 ml 06/22/24 18:26 Dextrose 50%-Water Inj 50 Ml Syringe IV 07/22/24 18:25 Q15MIN PRN BG <50 OR BG <70 & pt unresponsive Diphenhydramine HCl 25 mg 06/22/24 17:53 06/23/24 08:40 Diphenhydramine 25 Mg Capsule PO 07/22/24 17:52 25 mg Q6HR PRN Administration ITCHING Doxycycline Hyclate 100 mg 06/22/24 21:00 06/23/24 08:24 Doxycycline 100 Mg Tablet PO 06/28/24 20:59 100 mg BID LEXI Administration Fluconazole 400 mg 06/23/24 09:00 06/23/24 08:23 Fluconazole 100 Mg Tablet PO 06/30/24 08:59 400 mg QDAY LEXI Administration Glucagon 1 mg 06/22/24 18:26 Glucagon Inj 1 Mg Vial IM Q15MIN PRN BG <70, and no IV access Insulin Human Lispro 0 unit 06/23/24 07:30 06/23/24 12:05 Insulin Lispro (Admelog) 1 Unit/0.01 Ml Unit SC 07/23/24 07:29 Not Given AC LEXI Protocol Levalbuterol HCl 1.25 mg 06/22/24 17:53 Levalbuterol Rt 1.25 Mg/0.5 Ml Nebu INH 07/22/24 17:52 Q8HR PRN WHEEZING Magnesium Hydroxide 30 ml 06/22/24 17:48 Milk Of Magnesia Susp 30 Ml Udc PO 07/22/24 17:47 QDAY PRN CONSTIPATION Protocol Magnesium Oxide 400 mg 06/22/24 21:00 06/23/24 08:23 Magnesium Oxide 400 Mg Tablet PO 07/22/24 20:59 400 mg BID LEXI Administration Metoprolol Tartrate 25 mg 06/22/24 21:00 06/23/24 08:23 Metoprolol Tartrate 25 Mg Tablet PO 07/22/24 20:59 25 mg BID LEXI Administration Multivitamins 1 tab 06/23/24 09:00 06/23/24 08:24 Multivitamins Tablet PO 07/23/24 08:59 1 tab QDAY LEXI Administration Nitroglycerin 0.4 mg 06/22/24 17:53 Nitroglycerin 0.4 Mg Subl Btl #25 SL Q5MIN PRN CHEST PAIN Ondansetron HCl 4 mg 06/22/24 17:34 Ondansetron Inj 2 Mg/Ml Inj 2 Ml IV 07/22/24 17:33 Q6H PRN NAUSEA OR VOMITING Protocol Pantoprazole Sodium 40 mg 06/23/24 09:00 06/23/24 08:24 Pantoprazole 40 Mg Tablet PO 07/23/24 08:59 40 mg QDAY LEXI Administration Polyethylene Glycol 17 gm 06/23/24 09:00 06/23/24 08:23 Polyethylene Glycol 17 Gm Packet PO 07/23/24 08:59 17 gm QDAY LEXI Administration Sennosides 1 tab 06/22/24 21:00 06/23/24 08:23 Senna/Docusate Sod 1 Tab Tablet PO 07/22/24 20:59 1 tab BID LEXI Administration Protocol Sodium Chloride 3 ml 06/22/24 17:53 Sodium Chloride Rt Marjorie 0.9% 3 Ml Nebu INH 07/22/24 17:52 PRN PRN SOLN Plan Christoph Beckham is a 74-year-old male with a past medical history of multivessel CAD s/p PCI at [facility] on 06/10, new onset a-fib on eliquis, HFpEF (55-60%), severe PAD causing LLE cellulitis s/p TMA at [facility] on 06/13, pulmonary coccidiomycosis, CKD stage III, hypertension, hyperlipidemia, and type 2 diabetes mellitus who comes back to [facility] from [facility] after being transferred for evaluation for CABG after [facility] on 06/03 showed multivessel disease. Status post PCI on 06/10 with placement of 2 stents in LAD and left lower extremity TMA on 06/13. #NSTEMI type I, #Multivessel CAD #Status post PCI on 06/10 with 2 stents in LAD C on 06/03 showed severe disease in LAD, LCx, and RCA. Underwent successful high risk PCI on 06/10 with 2 stents placed in LAD. Echo 06/02: EF 55 to 60%, no diastolic dysfunction. ? Cardiology consulted ? Clopidogrel 75 mg p.o. daily ? Aspirin 81 mg p.o. daily ? Atorvastatin 40 mg p.o. at bedtime #Cellulitis of left lower extremity #Abscess of left lower extremity, status post I&D #Gangrene of left lower extremity, status post TMA Presented at [facility] with left lower extremity cellulitis and found to have abscess adjacent to the fifth digit and underwent I&D but progressed to gangrene and is now status post TMA on 06/13 at [facility]. ? Cephalexin 500 mg p.o. 4 times daily (finishes on 06/28) ? Doxycycline 100 mg p.o. twice daily (finishes on 06/28) ? Wound care, physical therapy #Atrial fibrillation with RVR, new onset [id number]: 5 points HASBLED score: 4 points, alternatives to AC should be considered due to high risk of major bleeding ? Eliquis 5 mg p.o. twice daily ? Amiodarone 200 mg p.o. twice daily ? Metoprolol tartrate 25 mg p.o. twice daily #Peripheral artery disease Severe PAD noted on CTA with left greater than right lower extremity disease, mostly below knee Per vascular surgery, recommend BKA status post TMA and patient stable after PCI. #Pulmonary coccidiomycosis Diagnosed in s ? Fluconazole 400 mg p.o. daily #Type 2 diabetes mellitus A1c 6.1 on 06/06 ? SSI ACHS #Chronic kidney disease stage III ? Avoid nephrotoxic agents, renally dose medications #Hypertension: metoprolol as above #Hyperlipidemia: atorvastatin as above Hospital management: Disposition: Transferred back status post PCI and TMA Fluids: None Diet: Cardiac Lines: IVF DVT prophylaxis: On Eliquis and Plavix GI prophylaxis: Pantoprazole CODE STATUS: full code ----- Plan discussed with attending physician Romel Martínez MD PGY-1 Internal Medicine Attending Provider Attestation/Addendum I have discussed and was present for the essential components of the history, physical examination, diagnosis, and treatment plan with the resident. I agree with the patient's care as documented by the resident and amended herein by me. Jaylen Quintana DO. Although this document has been carefully reviewed, there may still be some phonetic and other typographical errors. These errors are purely grammatical due to imperfections in the software program and should not be construed in any way to compromise the substance of the patient's medical care during this visit.
--- NOTE | 2024-06-23 13:35 | ESCONSULT_ITS ---
HPI Consult details Consult date: 06/23/24 Reason for consultation narrative: PAD with gangrene left foot Requesting physician: Jarad Majano History of present illness: 74-year-old male with history of diabetes, hypertension, hypercholesterolemia, coronary artery disease with recent cardiac catheterization with stent placement and significant peripheral artery disease. He underwent left forefoot amputati on that is nonhealing with gangrenous changes. He also has significant coronary artery disease with recent stent placement and antiplatelet therapy. Meds Home Medications and Allergies Allergies Allergy/AdvReac Type Severity Reaction Status Date / Time No Known Allergies Allergy Unverified 06/07/23 18:57 Exam Vital Signs Temp Pulse Resp BP Pulse Ox O2 Del Method 97.3 F 62 20 127/69 97 Room Air 06/23/24 11:21 06/23/24 12:00 06/23/24 11:21 06/23/24 11:21 06/23/24 11:21 06/23/24 04:00 Constitutional Constitutional: no acute distress Routine Extremities Exam Comments: He does not have palpable dorsalis pedis or posterior tibial pulses. He has evidence of forefoot amputation on the left side that is open with gangrenous changes Assessment & Plan Additional Assessment Additional comments: Significant PAD with gangrene left foot Plan Patient will require left BKA. However, with his recent stent placement he will need to be stabilized from a cardiac standpoint. He will require local wound care with wet-to-dry dressing changes to his left forefoot in the interim. Will plan for left BKA with regional nerve block in 4 to 6 weeks if his cardiac status is stable.
[2024-06-23] MEDS: MIRTAZAPINE 15 MG TABLET 7.5 MG PO (20:28)
[2024-06-23] MEDS: ATORVASTATIN CALCIUM 20 MG TABLET 40 MG PO (20:32)
[2024-06-24] VITALS (13 sets, daily range): BP systolic 114–152; BP diastolic 58–77; PULSE 65–72; RESP 14–100; TEMP 36.1–36.4; O2SAT 92–100; BMI 18.4
[2024-06-24] MEDS: CLOTRIMAZOLE 10 MG TROCHE PO ×5 (05:04→22:30)
[2024-06-24] MEDS: cephALEXin 250 MG CAPSULE 500 MG PO ×4 (05:04→20:23)
[2024-06-24 05:49] LABS: Basophils # (Auto) 0.2 Thou/mm3 (0.0-0.2); Basophils % (Auto) 1 % (0-2.5); Eosinophils # (Auto) 3.2 Thou/mm3 (0.0-0.5); Eosinophils % (Auto) 15 % (0-10); Hematocrit 30.9 % (41.0-53.0); Hemoglobin 10.3 g/dL (13.5-16.0); Immature Granulocytes % (Auto) 3 % (0-0); Immature Granulocytes Auto 0.71 Thou/mm3 (0.00-0.00); Lymphocytes # (Auto) 1.6 Thou/mm3 (1.0-4.8); Lymphocytes % (Auto) 8 % (10-50); Mean Corpuscular HGB Conc 33.3 g/dl (31.0-37.0); Mean Corpuscular Hemoglobin 30.9 pg (25.0-35.0); Mean Corpuscular Volume 93 fL (80-100); Monocytes # (Auto) 1.8 Thou/mm3 (0.0-0.8); Monocytes % (Auto) 9 % (0-12); Neutrophils # (Auto) 13.4 Thou/mm3 (1.8-7.7); Neutrophils % (Auto) 64 % (37-80); Nucleated Red Blood Cell % 0 /100 WBC (0); Platelet Count 608 Thou/mm3 (140-440); RDW Standard Deviation 51.3 fL (35.1-43.9); Red Blood Count 3.33 Miln/mm3 (4.50-5.90); White Blood Count 20.9 Thou/mm3 (3.8-10.6)
[2024-06-24 06:05] LABS: Alanine Aminotransferase 31 U/L (10-49); Albumin, Serum 3.9 gm/dL (3.4-4.8); Albumin/Globulin Ratio 1.2 (1.2-2.2); Alkaline Phosphatase 114 U/L (46-116); Anion Gap 12 (7-16); Aspartate Amino Transferase 42 U/L (0-34); BUN/Creatinine Ratio 15 Ratio (12-20); Bilirubin,Total 0.2 mg/dL (0.3-1.2); Blood Urea Nitrogen 22 mg/dL (9-23); Calcium 9.4 mg/dL (8.3-10.6); Calcium (Corrected) 9.5 mg/dL (8.5-10.1); Carbon Dioxide 23.5 mMol/L (20.0-31.0); Chloride 103 mMol/L (98-107); Creatinine (Component) 1.5 mg/dL (0.6-1.3); Estimated Creatinine Clearance 30.4 mL/min (>60); Globulin 3.2 gm/dL (2.3-3.5); Glucose 115 mg/dL (74-106); Magnesium 2.2 mg/dL (1.6-2.6); Osmolality,Calculated 279 (275-295); Potassium 4.2 mMol/L (3.4-5.1); Sodium 138 mMol/L (136-145); Total Protein 7.1 gm/dL (5.7-8.2); eGFR 49 See Note
[2024-06-24] MEDS: FLUCONAZOLE 100 MG TABLET 400 MG PO (09:02)
[2024-06-24] MEDS: POLYETHYLENE GLYCOL 17 GM PACKET PO (09:02)
[2024-06-24] MEDS: DOXYCYCLINE 100 MG TABLET PO ×2 (09:02→20:23)
[2024-06-24] MEDS: ASPIRIN EC 81 MG TABEC PO (09:03)
[2024-06-24] MEDS: MAGNESIUM OXIDE 400 MG TABLET PO ×2 (09:03→20:24)
[2024-06-24] MEDS: APIXABAN 2.5 MG TABLET 5 MG PO (09:03)
[2024-06-24] MEDS: METOPROLOL TARTRATE 25 MG TABLET PO ×2 (09:03→20:27)
[2024-06-24] MEDS: SENNA/DOCUSATE SOD 1 TAB TABLET PO ×2 (09:04→20:24)
[2024-06-24] MEDS: PANTOPRAZOLE 40 MG TABLET PO (09:04)
[2024-06-24] MEDS: MULTIVITAMINS TABLET 1 TAB PO (09:04)
[2024-06-24] MEDS: MIRTAZAPINE 15 MG TABLET 7.5 MG PO (09:04)
[2024-06-24] MEDS: CLOPIDOGREL BISULFATE 75 MG TABLET PO (09:05)
[2024-06-24] MEDS: AMIODARONE HCL 200 MG TABLET PO ×2 (09:05→20:23)
--- NOTE | 2024-06-24 09:12 | ESPR_ITS ---
Documentation for date of: 06/24/24 Subjective Subjective Interval history: Patient seen and examined at bedside today, denies any chest pain currently. Reports mild pain/discomfort in the left leg; patient is status post TMA at [facility]. Patient was seen by general surgeon yesterday, patient will be scheduled for below-knee amputation 1 month post high risk PCI if cardiac status is stable. Currently on p.o. antibiotics no overnight fevers, patient continues to be in sinus rhythm. Exam Vital Signs Temp Pulse Resp BP Pulse Ox O2 Del Method 97.2 F 72 18 118/58 L 100 Room Air 06/24/24 04:00 06/24/24 09:05 06/24/24 07:40 06/24/24 09:05 06/24/24 07:40 06/24/24 04:00 Narrative Exam General: AOx3, no acute distress, able to speak full sentences HEENT: NC/AT, mucous membranes moist, bilateral sclera anicteric Cardiovascular: Regular rate and rhythm, S1/S2 present, no murmurs appreciated Pulmonary: clear to auscultation bilaterally, no rales/rhonchi/wheezes Abdominal: soft, non-tender, non-distended, no rebound/guarding, normal bowel sounds present Musculoskeletal: LLE bandaged status post TMA, fifth digit of right lower extremity with wound on lateral aspect Neuro: CN II-XII intact, no focal deficits Objective Labs 06/24/24 04:45 06/24/24 04:45 Labs: Laboratory Results - last 24 hr 06/23/24 06/24/24 04:24 04:45 WBC 20.9 H RBC 3.33 L Hgb 10.3 L Hct 30.9 L MCV 93 MCH 30.9 MCHC 33.3 RDW Std Deviation 51.3 H Plt Count 608 H D Neut % (Auto) 64 Lymph % (Auto) 8 L [place] % (Auto) 9 Eos % (Auto) 15 H Baso % (Auto) 1 Neut # (Auto) 13.4 H Lymph # (Auto) 1.6 [place] # (Auto) 1.8 H Eos # (Auto) 3.2 H Baso # (Auto) 0.2 Immature Gran # (Auto) 0.71 H Absolute Nucleated RBC 0.00 Immature Gran % 3 H Neutrophils % (Manual) 73 H Monocytes % (Manual) 2 Eosinophils % (Manual) 13 H Basophils % (Manual) 1 Metamyelocytes % 2 H Myelocytes % 1 H Nucleated RBC % 0 Band Neutrophils 1 Lymphocytes (Manual) 7 L Sodium 138 Potassium 4.2 Chloride 103 Carbon Dioxide 23.5 Anion Gap 12 BUN 22 Creatinine 1.5 H Estim Creat Clear Calc 30.4 L eGFR 49 L BUN/Creatinine Ratio 15 Glucose 115 H Calculated Osmolality 279 Calcium 9.4 Corrected Calcium 9.5 Phosphorus 3.0 Magnesium 2.2 Total Bilirubin 0.2 L AST 42 H ALT 31 Alkaline Phosphatase 114 Total Protein 7.1 Albumin 3.9 Globulin 3.2 Albumin/Globulin Ratio 1.2 Quality Measures Quality Measures VTE prophylaxis Advance care planning discussed with:: patient Assessment & Plan Assessment Current Active Medications: Generic Name Dose Route Start Last Admin Trade Name Freq PRN Reason Stop Dose Admin Acetaminophen 650 mg 06/22/24 17:34 06/23/24 08:40 Acetaminophen 325 Mg Tablet PO 07/22/24 17:33 650 mg Q6H PRN Administration PAIN OR FEVER > 100.4 Protocol Hydrocodone Bitart/Acetaminophen 1 tab 06/22/24 17:53 Hydrocodone/Apap 5/325 Tablet PO 06/27/24 17:52 Q6HR PRN PAIN SCALE 4-6 (Moderate) Amiodarone HCl 200 mg 06/22/24 21:00 06/24/24 09:05 Amiodarone Hcl 200 Mg Tablet PO 07/22/24 20:59 200 mg BID LEXI Administration Apixaban 5 mg 06/22/24 21:00 06/24/24 09:03 Apixaban 2.5 Mg Tablet PO 07/22/24 20:59 5 mg BID LEXI Administration Aspirin 81 mg 06/23/24 09:00 06/24/24 09:03 Aspirin Ec 81 Mg Tabec PO 07/23/24 08:59 81 mg QDAY LEXI Administration Atorvastatin Calcium 40 mg 06/22/24 21:00 06/23/24 20:32 Atorvastatin Calcium 20 Mg Tablet PO 07/22/24 20:59 40 mg HS LEXI Administration Bisacodyl 10 mg 06/22/24 17:42 Bisacodyl 10 Mg Supp GA 07/22/24 17:41 QDAY PRN CONSTIPATION Protocol Cephalexin HCl 500 mg 06/22/24 21:00 06/24/24 05:04 Cephalexin 250 Mg Capsule PO 06/28/24 20:59 500 mg QID LEXI Administration Clopidogrel Bisulfate 75 mg 06/23/24 09:00 06/24/24 09:05 Clopidogrel Bisulfate 75 Mg Tablet PO 08/05/24 08:59 75 mg QDAY LEXI Administration Clotrimazole 10 mg 06/22/24 18:00 06/24/24 05:04 Clotrimazole 10 Mg Alyson PO 07/22/24 17:59 10 mg 5 TIMES DAILY LEXI Administration Dextrose 25 ml 06/22/24 18:26 Dextrose 50%-Water Inj 50 Ml Syringe IV 07/22/24 18:25 Q15MIN PRN BG 50-70 responsive npo pt Dextrose 50 ml 06/22/24 18:26 Dextrose 50%-Water Inj 50 Ml Syringe IV 07/22/24 18:25 Q15MIN PRN BG <50 OR BG <70 & pt unresponsive Diphenhydramine HCl 25 mg 06/22/24 17:53 06/23/24 08:40 Diphenhydramine 25 Mg Capsule PO 07/22/24 17:52 25 mg Q6HR PRN Administration ITCHING Doxycycline Hyclate 100 mg 06/22/24 21:00 06/24/24 09:02 Doxycycline 100 Mg Tablet PO 06/28/24 20:59 100 mg BID LEXI Administration Fluconazole 400 mg 06/23/24 09:00 06/24/24 09:02 Fluconazole 100 Mg Tablet PO 06/30/24 08:59 400 mg QDAY LEXI Administration Glucagon 1 mg 06/22/24 18:26 Glucagon Inj 1 Mg Vial IM Q15MIN PRN BG <70, and no IV access Insulin Human Lispro 0 unit 06/23/24 07:30 06/24/24 07:41 Insulin Lispro (Admelog) 1 Unit/0.01 Ml Unit SC 07/23/24 07:29 Not Given AC LEXI Protocol Levalbuterol HCl 1.25 mg 06/22/24 17:53 Levalbuterol Rt 1.25 Mg/0.5 Ml Nebu INH 07/22/24 17:52 Q8HR PRN WHEEZING Magnesium Hydroxide 30 ml 06/22/24 17:48 Milk Of Magnesia Susp 30 Ml Udc PO 07/22/24 17:47 QDAY PRN CONSTIPATION Protocol Magnesium Oxide 400 mg 06/22/24 21:00 06/24/24 09:03 Magnesium Oxide 400 Mg Tablet PO 07/22/24 20:59 400 mg BID LEXI Administration Metoprolol Tartrate 25 mg 06/22/24 21:00 06/24/24 09:03 Metoprolol Tartrate 25 Mg Tablet PO 07/22/24 20:59 25 mg BID LEXI Administration Mirtazapine 7.5 mg 06/23/24 20:15 06/24/24 09:04 Mirtazapine 15 Mg Tablet PO 07/23/24 20:14 7.5 mg QDAY LEXI Administration Multivitamins 1 tab 06/23/24 09:00 06/24/24 09:04 Multivitamins Tablet PO 07/23/24 08:59 1 tab QDAY LEXI Administration Nitroglycerin 0.4 mg 06/22/24 17:53 Nitroglycerin 0.4 Mg Subl Btl #25 SL Q5MIN PRN CHEST PAIN Ondansetron HCl 4 mg 06/22/24 17:34 Ondansetron Inj 2 Mg/Ml Inj 2 Ml IV 07/22/24 17:33 Q6H PRN NAUSEA OR VOMITING Protocol Pantoprazole Sodium 40 mg 06/23/24 09:00 06/24/24 09:04 Pantoprazole 40 Mg Tablet PO 07/23/24 08:59 40 mg QDAY LEXI Administration Polyethylene Glycol 17 gm 06/23/24 09:00 06/24/24 09:02 Polyethylene Glycol 17 Gm Packet PO 07/23/24 08:59 17 gm QDAY LEXI Administration Sennosides 1 tab 06/22/24 21:00 06/24/24 09:04 Senna/Docusate Sod 1 Tab Tablet PO 07/22/24 20:59 1 tab BID LEXI Administration Protocol Sodium Chloride 3 ml 06/22/24 17:53 Sodium Chloride Rt Marjorie 0.9% 3 Ml Nebu INH 07/22/24 17:52 PRN PRN SOLN Plan Assessment and plan: Summary: Mr. Beckham is a 74-year-old male with past medical history of multivessel coronary artery disease status post PCI at [facility] on 06/10/2024, new onset atrial fibrillation (06/01/2024) on Eliquis, heart failure with preserved ejection fraction (55 to 60%), severe PAD below knees causing LLE cellulitis status post TMA at [facility] on 06/13/2024, pulmonary coccidiomycosis, CKD stage III, hypertension, hyperlipidemia and type 2 diabetes mellitus who was transferred back from [facility] to [facility] on 06/22/2024 after being initially transferred for CABG evaluation post left heart cath showing multivessel disease. #Atherosclerotic coronary artery disease with multivessel disease status post complex PCI of the LAD with ELISABETH stents 2.75x28 mm and 3.0x20 mm overlapping ELISABETH stents on 06/20/2024 Atherosclerotic CAD with multivessel disease?LHC performed by Dr. Majano on 06/03/2024 showed 100% occluded ostial RCA, [id number] collaterals, 90% mid LAD, 90% proximal LCx, 90% small to medium D1 and OM 2, LVEF normal at 50 to 60% on echo with no major regional wall abnormalities. Given his history of diabetes mellitus, multivessel disease was recommended CABG. Bilateral carotid duplex shows mild to moderate carotid disease in the bifurcation areas bilaterally right greater than left. ID cleared the patient for surgery given his recent sepsis and left foot abscess as well as possible bony coccidiomycosis Had a detailed conversation with Dr. Haney on 06/13/2024 from cardiothoracic surgery to coordinate the care of the patient. Patient was cleared by ID at [facility] and was transferred to [facility]. ID was reconsulted at [facility] Regarding his active left foot infection patient was seen by vascular surgery and left leg angiogram performed on 05/2021 showed only mild disease above the knee but below the knee had only peroneal artery and severe distal and AT and PT which is not amenable to intervention. Vascular surgery recommended podiatry consult for TMA followed by CABG and then eventually patient will be needing a left BKA. TMA was done by podiatry on 06/13/2024, foot without sent for further evaluation as per podiatry. Cardiothoracic surgery was on board in [facility] and preoperative cardiac workup was completed but patient was not a candidate for CABG and recommended high risk PCI. Case was discussed with patient about being high risk multivessel PCI and increased risk given his overall comorbidities including RIPRAP MAN, multivessel severe disease, PAD, sepsis, poor nutritional status, limited mobility, high syntax score?overall very high risk PCI and might need additional circulatory support. Explained the increased risk of DC, stroke and more than regular PCI. Patient discussed with family and decided to proceed with the procedure which was performed successfully of the proximal and mid LAD with 3.0x20 mm and 2.75x28 mm respectively. Post dilated with 3.0 NC. No complications. Hemodynamically stable, patient required almost 800 to 1000 mcg of Wade- Synephrine during the procedure patient received only 60 cc of contrast for the entire complex PCI and renal function was stable. Post surgery patient had no evidence of bleeding or hematoma at right femoral or right radial access. Patient was actively ischemic for past few weeks with additional ischemia during recent procedure, patient has no symptoms currently, patient will be followed closely outpatient with plan to do PCI of LCx if patient continues to have symptoms at a later point. Left circumflex PCI will also be a complex PCI as there is severe disease noted in OM 2 as well as moderate disease in distal LCx as well as proximal OM1 and are at risk of closure which would make the patient more ischemic given it gives extensive collaterals to RCA. Recommendations: -Continue aspirin 81 mg daily, Plavix 75 mg daily, Eliquis 2.5 mg twice daily -Patient will need left below-knee amputation, will continue antiplatelet therapy for at least a month, obtain general surgery consult -Consulted infectious disease during last hospitalization, follow ID recommendations for antibiotics -Monitor renal function #Paroxysmal atrial fibrillation with RVR now in NSR Paroxysmal A-fib with RVR?new onset 06/01/2024, converted to sinus rhythm with amnio drip now on oral amiodarone and metoprolol for rate control [id number]: 5 points HASBLED score: 4 points, alternatives to AC should be considered due to high risk of major bleeding -Continue amiodarone, metoprolol and Eliquis # Heart failure with preserved ejection fraction, EF 55 to 60% ECHO 06/02/2024: Normal LV size and function. Estimated LVEF 55 to 60%. Normal RV size and function. Mild TR. Estimated RVSP 45 mmHg. mild to moderate PAH. Mild biatrial dilatation. Mild MAC. Moderate MR. Mild AI. Mild TR Recommendations: -Strict intake and output, daily weight, fluid restriction 1500 cc -Currently stable on room air, continue to monitor #Severe peripheral arterial disease bilateral lower extremities, below knees #Chronic smoker, 50 pack years, quit 10 years ago #History of left foot abscess status post I&D status post TMA 06/13/2024 Patient was treated with IV antibiotics for 10 days, currently on p.o. antibiotics Vascular surgery recommended TMA followed by CABG and eventually patient will need BKA General Surgery consulted Continue antiplatelet therapy for 1 month, consider surgery after if patient stable #Pulmonary coccidiomycosis Patient was positive for cocci IgM, currently on fluconazole #CKD stage III Renal function stable BUN 23, creatinine 1.4, GFR 53 on admission Monitor renal function, avoid nephrotoxic agents #Acute on chronic anemia, resolved Hemoglobin 9.8, currently stable, continue to monitor #Type 2 diabetes mellitus A1c 6.1 on 06/06/2024. Management as per primary team #Hypertension #Hyperlipidemia Patient on atorvastatin 40 mg at bedtime, metoprolol tartrate 25 p.o. twice daily continue #Mild cognitive deficits Consider neurology workup outpatient Case discussed with Attending Dr. Majano. Noreen Zuñiga PGY1 Disclaimer: This note was dictated by speech recognition. Minor errors in surveyor helper rod may be present due to voice recognition software. Attending Provider Attestation/Addendum I have personally seen and examined the patient separately on the above date of service and discussed the plan of care with the resident. I reviewed the resident Dr. Noreen Zuñiga consultation note and agree with the resident findings and plan in the note above and have also edited the documentation to reflect my findings and plan. A 73-year-old male with past medical history of severe multivessel disease by [facility] on 06/03/2024, non surgical candidate s/p complex PCI of the LAD with ELISABETH stents 2.75x28 mm and 3.0x20 mm overlapping ELISABETH stents on 06/20/2024, paroxysmal atrial fibrillation 06/01/2024, HFpEF with an EF of 55 to 60%, history of left foot abscess status post left foot TMA amputation 06/13/2024, left leg cellulitis, pulmonary coccidiomycosis on fluconazole, severe PAD bilaterally below the knees by CT and Angio, chronic kidney disease stage III, acute on chronic anemia, hypertension, hyperlipidemia, type 2 diabetes mellitus, mild cognitive deficiency transferred back to [facility] from [facility] for further care. 1. Atherosclerotic CAD with multivessel disease - s/p complex PCI of the LAD with ELISABETH stents 2.75x28 mm and 3.0x20 mm overlapping ELISABETH stents on 06/20/2024. 2. Paroxysmal atrial fibrillation with RVR now in NSR 3. HFpEF exacerbation with an EF of 55 to 60% 4. History of left foot abscess status post I&D 06/01/2024 and left foot TMA 06/13/2024 - will need eventually left BKA 5. Severe PAD bilateral lower extremities below the knees by CTA and angio. Chronic smoker quit 10 years ago 6. 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 Acute on chronic kidney disease stage III. baseline cr 1.3 to 1.5 8. Acute on chronic anemia status post 5 PRBC transfusions 9. Type 2 diabetes mellitus 10. Hypertension 11. Hyperlipidemia 12. Mild cognitive deficits Atherosclerotic CAD with multivessel disease-LHC performed by me on 06/03/2024 showed severe 100% occluded ostial RCA with excellent [id number] collaterals, 90% proximal and mid LAD, 90% proximal LCx, 90% small OM 2 and D1. LVEF normal at 55 to 60% on echo with no major regional wall motion abnormalities. Given his history of diabetes mellitus, multivessel disease was recommended CAB Cardiothoracic surgery was consulted [facility] and patient was deemed to be not to be candidate for CABG and recommended high risk PCI. Discussed with patient about the high risk complex PCI and the increased risk given his overall comorbidities including RIPRAP MAN, multivessel severe disease, PAD, sepsis, poor nutritional status. limited mobility, high syntax score - overall very high risk PCI and might need additional circulatory support. Explained the increased the risk of DC, stroke and more than the regular PCI. After discussion with his family, patient finally agreed for the complex PCI 06/20/2024-successful complex high risk PCI performed of the proximal and mid LAD with 3.0x20 mm and 2.75x28 mm respectively. Post dilated with 3.0 NC with no complications. Patient required almost 800 to 1000 mcg of Wade-Synephrine during the procedure. Received only 60 cc of contrast for the entire complex PCI and the renal function continues to be stable with creatinine around 1.5 Patient has been asked ischemic for past few weeks and additional ischemia during the recent procedure of the LAD. Rest of the arteries including the small D1 as well as the small OM1 are not amenable to PCI. RCA has excellent [id number] collaterals filling up to the proximal portion. LCx has severe disease but would be a very high complex PCI with the risk of closing OM as well as the collaterals. Will plan to do the PCI of the LCx only if patient is symptomatic otherwise aggressive medical management recommended for now Recommend to discharge the patient on aspirin and, Plavix as well as Eliquis 2.5 mg twice daily for anticoagulation for now. Severe bilateral lower extremity PAD below the knees noted on CT in May 2024. Left greater than right with severe diffuse disease after the trifurcation. Patient lifelong smoker and quit 10 years ago. Vascular surgery consulted for the chronic left foot wound and PAD noted on the CT. Left leg angiogram on 06/11/24 which showed The left common femoral, deep femoral, superficial femoral and popliteal arteries are widely patent. The tibioperoneal trunk is widely patent and outflow to the left foot is especially by the peroneal artery which is heavily collateralized of the foot reconstituting the plantar arch with fairly good perfusion of the forefoot. Neither the posterior tibial artery and the artery anterior tibial artery were seen in any point Left foot abscess s/p I&D on 06/01/24 for left leg cellulitis with sepsis presentation 05/25/2024 to [facility]. Was treated with IV antibiotics for a total of 10 days. And general surgery did recommend below-knee amputation due to poor vascular supply and vascular surgery was consulted. Podiatry was consulted left foot TMA performed on 06/13/2024 and will eventually need BKA. Still WBC elevated to 19,000. Pulmonary coccidiomycosis diagnosed at [facility] recently as IgM was positive on antifungals. Plan for BKA after 1 or 2 months as patient need to be on antiplatelets for at least for a month prior to any surgery. Discussed with the primary team to make sure that the consult with [facility] Overton and have patient on some kind of antibiotic therapy for the 1-2 month. I discussed with Dr Lennon and plan to do possible BKA with only regional block after 1 to 2 months as the patient needs to be on dual antiplatelet for at least a month. Dr. Lennon consult appreciated. Paroxysmal atrial fibrillation with RVR-new onset 06/01/2024. Converted to sinus rhythm with amiodarone drip now on amiodarone oral and metoprolol for rate control. Eliquis 2.5 mg bid for AC. HFpEF-bedside CHF exacerbation. Echo showed normal LVEF at 55 to 60%, moderate MR, moderate TR, biatrial dilatation and diastolic dysfunction. Was diuresed with IV Lasix at [facility]. Possible cardiorenal syndrome. Which improved kidney function improved from 2.6-1.4. Strict input output Daily weights and 2 g sodium diet. Patient also had hypervolemic hyponatremia upto 122 which improved back to 137. Acute on chronic kidney disease stage III-creatinine was 2.6 which improved to 1.3 after diuresis possible cardiorenal and also is mostly secondary to sepsis from ATN. Continue to monitor renal function. Avoid nephrotoxic's Renal function improving and is between 1.3 and 1.4 Patient also complaining of some difficulty swallowing and started on pur?ed diet. Slowly improving Surgical team did request for an MRI was normal without any acute infarct. Acute on chronic anemia - s/p 5 PRBC transfusions. Now stable between 9-10. Continue to monitor hemoglobin. Continue anemia workup. Thrombocytopenia now improved and normal Hyperlipidemia on statin. HTN controlled with present regimen, diabetes uncontrolled Management of rest of the medical conditions as per primary team. Thank you for the consult and allowing me to participate in the care of the patient. Cardiology continue to follow. Jarad Majano MD Interventional cardiology
[2024-06-24] MEDS: ACETAMINOPHEN 325 MG TABLET 650 MG PO (12:25)
[2024-06-24] MEDS: INSULIN LISPRO (AdmeLOG) 1 UNIT/0.01 ML UNIT SC (12:30)
--- NOTE | 2024-06-24 14:02 | ESPR_ITS ---
<Statement entered by Jack Israel MD - 06/24/24 15:33> Patient was seen and examined at the bedside. Patient was doing well and had no active concerns. No acute overnight events were reported. Slightly uptrending white count and creatinine was 1.5. Arch Cushion Press Operator recommended to reduce the dose of Eliquis to 2.5 mg twice daily given patient's overweight and kidney functions. Currently we are waiting on insurance authorization for SNF placement. Rest of the management remains same. All labs and orders were reviewed. I saw and examined the patient, and I agree with current management stated by Dr Mauricio MD,PGY1. Plan of care was discussed with the attending physician and resident physician. Disclaimer: Despite multiple revisions, due to the dictation software being used, the document bellow may not be free of grammatical errors including phonetic/typographic errors. However, this does not deter from our commitment to providing health care in the patient's best interest in mind. Dr. Jhonatan MD, PGY 2 Documentation for date of: 06/24/24 Subjective Subjective Interval history: Christoph Beckham is a 74-year-old male with a past medical history of multivessel CAD s/p PCI at [facility] on 06/10, new onset a-fib on eliquis, HFpEF (55-60%), severe PAD causing LLE cellulitis s/p TMA at [facility] on 06/13, pulmonary coccidiomycosis, CKD stage III, hypertension, hyperlipidemia, and type 2 diabetes mellitus who comes back to [facility] from [facility] after being transferred for evaluation for CABG after LHC on 06/03 showed multivessel disease. Initially presented at [facility] on 05/26 for worsening left foot wound with discharge. He was treated with an IV antibiotics for a week and developed an abscess in left lower extremity. General surgery consulted and planned for I&D on 06/01 but developed A-fib with RVR prior to procedure but eventually underwent successful I&D. However, cardiology consulted as EKG showed significant and diffuse ST depressions in multiple leads. Troponins peaked at 12 but given severe anemia of 7.1, heparin drip was not started. Underwent LHC on 06/03 that showed severe multivessel disease and eventually transferred to [facility] on 06/08. There, preoperative cardiac workup completed but patient was not a candidate for CABG and instead underwent high risk PCI on 06/10 s/p placement of two stents in LAD. CTA also showed severe arterial disease below the knees bilaterally and vascular surgery consulted who thn recommended podiatry consult for TMA with eventual BKA. Underwent successful TMA on 06/13 but noted to require blood transfusions for hemoglobin 5.9. Otherwise, surgical site was without signs of active infection and per podiatry, patient will require BKA at a later time. Given that he is now s/p PCI and TMA, patient transferred back to [facility] for further management. 06/23: Seen and examined at bedside on medical floors. No acute overnight events reported. Upon evaluation, noted to be scratching at arms with no apparent erythematous rash present but some discoloration and was given Benadryl for relief. Otherwise, consulted cardiology and general surgery regarding BKA in setting of recent PCI. Cardiology will reevaluate patient in 1 month after procedure (06/10) to see if patient will be able to tolerate BKA. If stable cardiac perspective, plan for BKA with regional nerve block in 4 to 6 weeks. Will stay 1 more night for pending insurance auth for SNF. 06/24: Seen and examined at bedside on medical floors. No acute overnight events noted. Scratching improved and Eliquis decreased from 5 to 2.5 mg twice daily. Authorization for SNF still pending. Otherwise, WBC elevated but downtrending, no fevers, hemoglobin stable, and Cr noted to increase slightly from 1.4 to 1.5. Exam Vital Signs Temp Pulse Resp BP Pulse Ox O2 Del Method 96.9 F 66 18 114/68 100 Room Air 06/24/24 12:06/24/24 12:06/24/24 12:06/24/24 12:06/24/24 12:06/24/24 12:00 Narrative Exam General: AOx3, no acute distress, able to speak full sentences HEENT: NC/AT, mucous membranes moist, bilateral sclera anicteric Cardiovascular: regular rate and rhythm, S1/S2 present, no murmurs appreciated Pulmonary: clear to auscultation bilaterally, no rales/rhonchi/wheezes Abdominal: soft, non-tender, non-distended, no rebound/guarding, normal bowel sounds present Musculoskeletal: LLE bandaged status post TMA, fifth digit of right lower extremity with wound on lateral aspect Neuro: CN II-XII intact, no focal deficits Objective Labs 06/24/24 04:45 06/24/24 04:45 Labs: Laboratory Results - last 24 hr 06/24/24 04:45 WBC 20.9 H RBC 3.33 L Hgb 10.3 L Hct 30.9 L MCV 93 MCH 30.9 MCHC 33.3 RDW Std Deviation 51.3 H Plt Count 608 H D Neut % (Auto) 64 Lymph % (Auto) 8 L [place] % (Auto) 9 Eos % (Auto) 15 H Baso % (Auto) 1 Neut # (Auto) 13.4 H Lymph # (Auto) 1.6 [place] # (Auto) 1.8 H Eos # (Auto) 3.2 H Baso # (Auto) 0.2 Immature Gran # (Auto) 0.71 H Absolute Nucleated RBC 0.00 Immature Gran % 3 H Nucleated RBC % 0 Sodium 138 Potassium 4.2 Chloride 103 Carbon Dioxide 23.5 Anion Gap 12 BUN 22 Creatinine 1.5 H Estim Creat Clear Calc 30.4 L eGFR 49 L BUN/Creatinine Ratio 15 Glucose 115 H Calculated Osmolality 279 Calcium 9.4 Corrected Calcium 9.5 Phosphorus 3.0 Magnesium 2.2 Total Bilirubin 0.2 L AST 42 H ALT 31 Alkaline Phosphatase 114 Total Protein 7.1 Albumin 3.9 Globulin 3.2 Albumin/Globulin Ratio 1.2 Quality Measures Quality Measures VTE prophylaxis Advance care planning discussed with:: patient Assessment & Plan Assessment Current Active Medications: Generic Name Dose Route Start Last Admin Trade Name Freq PRN Reason Stop Dose Admin Acetaminophen 650 mg 06/22/24 17:34 06/24/24 12:25 Acetaminophen 325 Mg Tablet PO 07/22/24 17:33 650 mg Q6H PRN Administration PAIN OR FEVER > 100.4 Protocol Hydrocodone Bitart/Acetaminophen 1 tab 06/22/24 17:53 Hydrocodone/Apap 5/325 Tablet PO 06/27/24 17:52 Q6HR PRN PAIN SCALE 4-6 (Moderate) Amiodarone HCl 200 mg 06/22/24 21:00 06/24/24 09:05 Amiodarone Hcl 200 Mg Tablet PO 07/22/24 20:59 200 mg BID LEXI Administration Apixaban 2.5 mg 06/24/24 21:00 Apixaban 2.5 Mg Tablet PO 07/24/24 20:59 BID LEXI Aspirin 81 mg 06/23/24 09:00 06/24/24 09:03 Aspirin Ec 81 Mg Tabec PO 07/23/24 08:59 81 mg QDAY LEXI Administration Atorvastatin Calcium 40 mg 06/22/24 21:00 06/23/24 20:32 Atorvastatin Calcium 20 Mg Tablet PO 07/22/24 20:59 40 mg HS LEXI Administration Bisacodyl 10 mg 06/22/24 17:42 Bisacodyl 10 Mg Supp SC 07/22/24 17:41 QDAY PRN CONSTIPATION Protocol Cephalexin HCl 500 mg 06/22/24 21:00 06/24/24 12:26 Cephalexin 250 Mg Capsule PO 06/28/24 20:59 500 mg QID LEXI Administration Clopidogrel Bisulfate 75 mg 06/23/24 09:00 06/24/24 09:05 Clopidogrel Bisulfate 75 Mg Tablet PO 08/05/24 08:59 75 mg QDAY LEXI Administration Clotrimazole 10 mg 06/22/24 18:00 06/24/24 13:24 Clotrimazole 10 Mg Alyson PO 07/22/24 17:59 10 mg 5 TIMES DAILY LEXI Administration Dextrose 25 ml 06/22/24 18:26 Dextrose 50%-Water Inj 50 Ml Syringe IV 07/22/24 18:25 Q15MIN PRN BG 50-70 responsive npo pt Dextrose 50 ml 06/22/24 18:26 Dextrose 50%-Water Inj 50 Ml Syringe IV 07/22/24 18:25 Q15MIN PRN BG <50 OR BG <70 & pt unresponsive Diphenhydramine HCl 25 mg 06/22/24 17:53 06/23/24 08:40 Diphenhydramine 25 Mg Capsule PO 07/22/24 17:52 25 mg Q6HR PRN Administration ITCHING Doxycycline Hyclate 100 mg 06/22/24 21:00 06/24/24 09:02 Doxycycline 100 Mg Tablet PO 06/28/24 20:59 100 mg BID LEXI Administration Fluconazole 400 mg 06/23/24 09:00 06/24/24 09:02 Fluconazole 100 Mg Tablet PO 06/30/24 08:59 400 mg QDAY LEXI Administration Glucagon 1 mg 06/22/24 18:26 Glucagon Inj 1 Mg Vial IM Q15MIN PRN BG <70, and no IV access Insulin Human Lispro 0 unit 06/23/24 07:30 06/24/24 12:30 Insulin Lispro (Admelog) 1 Unit/0.01 Ml Unit SC 07/23/24 07:29 1 unit AC LEXI Administration Protocol Levalbuterol HCl 1.25 mg 06/22/24 17:53 Levalbuterol Rt 1.25 Mg/0.5 Ml Nebu INH 07/22/24 17:52 Q8HR PRN WHEEZING Magnesium Hydroxide 30 ml 06/22/24 17:48 Milk Of Magnesia Susp 30 Ml Udc PO 07/22/24 17:47 QDAY PRN CONSTIPATION Protocol Magnesium Oxide 400 mg 06/22/24 21:00 06/24/24 09:03 Magnesium Oxide 400 Mg Tablet PO 07/22/24 20:59 400 mg BID LEXI Administration Metoprolol Tartrate 25 mg 06/22/24 21:00 06/24/24 09:03 Metoprolol Tartrate 25 Mg Tablet PO 07/22/24 20:59 25 mg BID LEXI Administration Mirtazapine 7.5 mg 06/23/24 20:15 06/24/24 09:04 Mirtazapine 15 Mg Tablet PO 07/23/24 20:14 7.5 mg QDAY LEXI Administration Multivitamins 1 tab 06/23/24 09:00 06/24/24 09:04 Multivitamins Tablet PO 07/23/24 08:59 1 tab QDAY LEXI Administration Nitroglycerin 0.4 mg 06/22/24 17:53 Nitroglycerin 0.4 Mg Subl Btl #25 SL Q5MIN PRN CHEST PAIN Ondansetron HCl 4 mg 06/22/24 17:34 Ondansetron Inj 2 Mg/Ml Inj 2 Ml IV 07/22/24 17:33 Q6H PRN NAUSEA OR VOMITING Protocol Pantoprazole Sodium 40 mg 06/23/24 09:00 06/24/24 09:04 Pantoprazole 40 Mg Tablet PO 07/23/24 08:59 40 mg QDAY LEXI Administration Polyethylene Glycol 17 gm 06/23/24 09:00 06/24/24 09:02 Polyethylene Glycol 17 Gm Packet PO 07/23/24 08:59 17 gm QDAY LEXI Administration Sennosides 1 tab 06/22/24 21:00 06/24/24 09:04 Senna/Docusate Sod 1 Tab Tablet PO 07/22/24 20:59 1 tab BID LEXI Administration Protocol Sodium Chloride 3 ml 06/22/24 17:53 Sodium Chloride Rt Marjorie 0.9% 3 Ml Nebu INH 07/22/24 17:52 PRN PRN SOLN Plan Christoph Beckham is a 74-year-old male with a past medical history of multivessel CAD s/p PCI at [facility] on 06/10, new onset a-fib on eliquis, HFpEF (55-60%), severe PAD causing LLE cellulitis s/p TMA at [facility] on 06/13, pulmonary coccidiomycosis, CKD stage III, hypertension, hyperlipidemia, and type 2 diabetes mellitus who comes back to [facility] from [facility] after being transferred for evaluation for CABG after [facility] on 06/03 showed multivessel disease. Status post PCI on 06/10 with placement of 2 stents in LAD and left lower extremity TMA on 06/13. #NSTEMI type I, #Multivessel CAD #Status post PCI on 06/10 with 2 stents in LAD C on 06/03 showed severe disease in LAD, LCx, and RCA. Underwent successful high risk PCI on 06/10 with 2 stents placed in LAD. Echo 06/02: EF 55 to 60%, no diastolic dysfunction. ? Cardiology consulted ? Clopidogrel 75 mg p.o. daily ? Aspirin 81 mg p.o. daily ? Atorvastatin 40 mg p.o. at bedtime #Cellulitis of left lower extremity #Abscess of left lower extremity, status post I&D #Gangrene of left lower extremity, status post TMA Presented at [facility] with left lower extremity cellulitis and found to have abscess adjacent to the fifth digit and underwent I&D but progressed to gangrene and is now status post TMA on 06/13 at [facility]. ? Cephalexin 500 mg p.o. 4 times daily (finishes on 06/28) ? Doxycycline 100 mg p.o. twice daily (finishes on 06/28) ? Wound care, physical therapy #Atrial fibrillation with RVR, new onset [id number]: 5 points HASBLED score: 4 points, alternatives to AC should be considered due to high risk of major bleeding ? Eliquis 5 mg p.o. twice daily ? Amiodarone 200 mg p.o. twice daily ? Metoprolol tartrate 25 mg p.o. twice daily #Peripheral artery disease Severe PAD noted on CTA with left greater than right lower extremity disease, mostly below knee Per vascular surgery, recommend BKA status post TMA and patient stable after PCI. #HFpEF (EF 55 to 60% on 06/02/2024) ? Strict intake and output, daily weight, fluid restriction 1500 cc ? Currently stable on room air, continue to monitor #Pulmonary coccidiomycosis Diagnosed in 90s ? Fluconazole 400 mg p.o. daily #Type 2 diabetes mellitus A1c 6.1 on 06/06 ? SSI ACHS #Chronic kidney disease stage III ? Avoid nephrotoxic agents, renally dose medications #Hypertension: metoprolol as above #Hyperlipidemia: atorvastatin as above Hospital management: Disposition: Transferred back status post PCI and TMA Fluids: None Diet: Cardiac Lines: IVF DVT prophylaxis: On Eliquis and Plavix GI prophylaxis: Pantoprazole CODE STATUS: full code ----- Plan discussed with attending physician Dr. Quintana and senior resident physician Dr. Jhonatan Martínez MD PGY-1 Internal Medicine Attending Provider Attestation/Addendum I have discussed and was present for the essential components of the history, physical examination, diagnosis, and treatment plan with the resident. I agree with the patient's care as documented by the resident and amended herein by me. Jaylen Quintana DO. Although this document has been carefully reviewed, there may still be some phonetic and other typographical errors. These errors are purely grammatical due to imperfections in the software program and should not be construed in any way to compromise the substance of the patient's medical care during this visit.
[2024-06-24] MEDS: HYDROcodone/APAP 5/325 TABLET 1 TAB PO (16:55)
--- NOTE | 2024-06-24 17:10 | PC.SS ---
Ambulance transport scheduled for 7:00 pm tonight with [place]. CORDAGE SALES REPRESENTATIVE notified bedside nurse and SNF.
--- NOTE | 2024-06-24 17:20 | PC.SS ---
SLOT MACHINE MECHANIC informed by bedside nurse that discharge has been cancelled. SLOT MACHINE MECHANIC notified [place] transport and [facility] of cancellation.
[2024-06-24] MEDS: APIXABAN 2.5 MG TABLET PO (20:23)
[2024-06-24] MEDS: ATORVASTATIN CALCIUM 20 MG TABLET 40 MG PO (20:23)
[2024-06-25] VITALS (8 sets, daily range): BP systolic 123–139; BP diastolic 58–72; PULSE 68–89; RESP 16–99; TEMP 36.1–36.9; O2SAT 95–100
[2024-06-25] MEDS: HYDROcodone/APAP 5/325 TABLET 1 TAB PO ×2 (04:01→10:23)
[2024-06-25 05:46] LABS: Basophils # (Auto) 0.2 Thou/mm3 (0.0-0.2); Basophils % (Auto) 1 % (0-2.5); Eosinophils % (Auto) 14 % (0-10); Hematocrit 30.1 % (41.0-53.0); Hemoglobin 10.2 g/dL (13.5-16.0); Immature Granulocytes % (Auto) 2 % (0-0); Immature Granulocytes Auto 0.53 Thou/mm3 (0.00-0.00); Lymphocytes # (Auto) 1.5 Thou/mm3 (1.0-4.8); Lymphocytes % (Auto) 7 % (10-50); Mean Corpuscular HGB Conc 33.9 g/dl (31.0-37.0); Mean Corpuscular Hemoglobin 31.8 pg (25.0-35.0); Mean Corpuscular Volume 94 fL (80-100); Monocytes # (Auto) 1.9 Thou/mm3 (0.0-0.8); Monocytes % (Auto) 9 % (0-12); Neutrophils # (Auto) 14.8 Thou/mm3 (1.8-7.7); Neutrophils % (Auto) 67 % (37-80); Nucleated Red Blood Cell % 0 /100 WBC (0); Platelet Count 684 Thou/mm3 (140-440); RDW Standard Deviation 53.1 fL (35.1-43.9); Red Blood Count 3.21 Miln/mm3 (4.50-5.90); White Blood Count 22.1 Thou/mm3 (3.8-10.6)
[2024-06-25] MEDS: cephALEXin 250 MG CAPSULE 500 MG PO ×2 (05:47→11:40)
[2024-06-25] MEDS: CLOTRIMAZOLE 10 MG TROCHE PO ×3 (05:47→14:39)
[2024-06-25 06:28] LABS: Alanine Aminotransferase 35 U/L (10-49); Albumin, Serum 3.5 gm/dL (3.4-4.8); Alkaline Phosphatase 119 U/L (46-116); Anion Gap 9 (7-16); Aspartate Amino Transferase 50 U/L (0-34); BUN/Creatinine Ratio 16 Ratio (12-20); Bilirubin,Total 0.2 mg/dL (0.3-1.2); Blood Urea Nitrogen 26 mg/dL (9-23); Calcium 9.3 mg/dL (8.3-10.6); Calcium (Corrected) 9.7 mg/dL (8.5-10.1); Carbon Dioxide 25.9 mMol/L (20.0-31.0); Chloride 101 mMol/L (98-107); Creatinine (Component) 1.6 mg/dL (0.6-1.3); Estimated Creatinine Clearance 28.5 mL/min (>60); Globulin 3.4 gm/dL (2.3-3.5); Glucose 137 mg/dL (74-106); Magnesium 2.3 mg/dL (1.6-2.6); Osmolality,Calculated 278 (275-295); Phosphorous 3.3 mg/dL (2.4-5.1); Potassium 4.4 mMol/L (3.4-5.1); Sodium 136 mMol/L (136-145); Total Protein 6.9 gm/dL (5.7-8.2); eGFR 45 See Note
[2024-06-25] MEDS: MAGNESIUM OXIDE 400 MG TABLET PO (09:16)
[2024-06-25] MEDS: ASPIRIN EC 81 MG TABEC PO (09:16)
[2024-06-25] MEDS: FLUCONAZOLE 100 MG TABLET 400 MG PO (09:16)
[2024-06-25] MEDS: DOXYCYCLINE 100 MG TABLET PO (09:17)
[2024-06-25] MEDS: AMIODARONE HCL 200 MG TABLET PO (09:17)
[2024-06-25] MEDS: SENNA/DOCUSATE SOD 1 TAB TABLET PO (09:17)
[2024-06-25] MEDS: APIXABAN 2.5 MG TABLET PO (09:17)
[2024-06-25] MEDS: METOPROLOL TARTRATE 25 MG TABLET PO (09:18)
[2024-06-25] MEDS: PANTOPRAZOLE 40 MG TABLET PO (09:18)
[2024-06-25] MEDS: POLYETHYLENE GLYCOL 17 GM PACKET PO (09:18)
[2024-06-25] MEDS: MULTIVITAMINS TABLET 1 TAB PO (09:18)
[2024-06-25] MEDS: CLOPIDOGREL BISULFATE 75 MG TABLET PO (09:18)
[2024-06-25] MEDS: MIRTAZAPINE 15 MG TABLET 7.5 MG PO (09:18)
[2024-06-25] MEDS: INSULIN LISPRO (AdmeLOG) 1 UNIT/0.01 ML UNIT SC (11:46)
--- NOTE | 2024-06-25 13:29 | PD.VCONSULT1 ---
Telemedicine visit statement This visit was conducted with the use of interactive audio and video telecommunications system that permits real time communication between the patient and the provider. Patient's verbal consent for virtual visit was obtained on 06/25/24 at 1329. History of Present Illness History of Present Illness History of present illness: Meds Home Medications and Allergies Allergies Allergy/AdvReac Type Severity Reaction Status Date / Time No Known Allergies Allergy Unverified 06/07/23 18:57 Virtual exam Vital Signs Temp Pulse Resp BP Pulse Ox O2 Del Method 97.0 F 77 18 138/59 H 96 Room Air 06/25/24 12:00 06/25/24 12:00 06/25/24 12:00 06/25/24 12:00 06/25/24 12:00 06/25/24 12:00 Results Labs 06/25/24 04:36 06/25/24 04:36 Labs: Short CBC 06/25/24 Range/Units 04:36 WBC 22.1 H (3.8-10.6) Thou/mm3 Hgb 10.2 L (13.5-16.0) g/dL Hct 30.1 L (41.0-53.0) % Plt Count 684 H D (140-440) Thou/mm3 BMP 06/25/24 04:36 Sodium 136 Potassium 4.4 Chloride 101 Carbon Dioxide 25.9 BUN 26 H Creatinine 1.6 H Glucose 137 H Calcium 9.3 Liver Function 06/25/24 Range/Units 04:36 Total Bilirubin 0.2 L (0.3-1.2) mg/dL AST 50 H (0-34) U/L ALT 35 (10-49) U/L Alkaline Phosphatase 119 H (46-116) U/L Albumin 3.5 (3.4-4.8) gm/dL
--- NOTE | 2024-06-25 15:33 | ESDS_ITS ---
Planned Discharge Date 06/25/24 DS: Providers Provider Date of admission: 06/22/24 17:07 Primary care physician: Mike Gallegos MD Admitting Provider: Mike Gallegos MD Attending Provider on Admission: Nato Quintana DO Consults: 06/22/24 18:26 Referral Physical Therapy Routine Comment: Physician Instructions: 06/22/24 19:20 Consult to Cardiology Routine Comment: Consulting Provider: Jarad Majano 06/22/24 21:39 Referral Wound Care Routine Comment: 06/23/24 13:30 Consult to General Surgery Routine Comment: BKA assessment in setting of PCI on 06/10 Consulting Provider: Sissy Lennon 06/23/24 15:08 Referral Nutritional Services Routine Comment: Instructions: Left TMA, planned BKA approx 6-8 weeks Attending Provider on DC: Nato quintana DO Discharging Provider: Nato quintana DO DS: Diagnosis Problem List Completed Was Problem List Reviewed/Reconciled?: Yes Hospital Course Hospital Course Hospital course: DC summary: Christoph Beckham is a 74-year-old male with a past medical history of multivessel CAD s/p PCI at [facility] on 06/10, new onset a-fib on eliquis, HFpEF (55- 60%), severe PAD causing LLE cellulitis s/p TMA at [facility] on 06/13, pulmonary coccidiomycosis, CKD stage III, hypertension, hyperlipidemia, and type 2 diabetes mellitus who comes back to [facility] from [facility] after being transferred for evaluation for CABG after LHC on 06/03 showed multivessel disease.Initially presented at [facility] on 05/26 for worsening left foot wound with discharge. He was treated with an IV antibiotics for a week and developed an a bscess in left lower extremity. General surgery consulted and planned for I&D on 06/01 but developed A-fib with RVR prior to procedure but eventually underwent successful I&D. However, cardiology consulted as EKG showed significant and diffuse ST depressions in multiple leads. Troponins peaked at 12 but given severe anemia of 7.1, heparin drip was not started. Underwent LHC on 06/03 that showed severe multivessel disease and eventually transferred to [facility] on 06/08. There, preoperative cardiac workup completed but patient was not a candidate for CABG and instead underwent high risk PCI on 06/10 s/p placement of two stents in LAD. CTA also showed severe arterial disease below the knees bilaterally and vascular surgery consulted who thn recommended podiatry consult for TMA with eventual BKA which will happen 4 to 6 weeks from now per surgery recommendation. Underwent successful TMA on 06/13 but noted to require blood transfusions for hemoglobin 5.9. Otherwise, surgical site was without signs of active infection and per podiatry, patient will require BKA at a later time. Given that he is now s/p PCI and TMA, patient was back to [facility] for further management and rehab placement. Given new onset A-fib, [id number] was 5 and has bled was 4 points. Eliquis was reduced to 2.5 mg twice daily for weight and kidney injury. A1c was 6.1. Blood sugars were managed. PT recommended SNF placement. Patient was recommended to follow-up with [employer], surgeon and PCP as outpatient. Patient will need BKA in next 4 to 6 weeks. He was recommended to continue aspirin and Plavix along with Eliquis and be strictly compliant with it. Wound care was provided for chronic wounds. Of note, patient was cocci positive and was started on fluconazole. Patient was medically stable to be discharged to SNF. #Problem list #NSTEMI type I #Multivessel CAD #Status post PCI on 06/10 with 2 stents in LAD #Cellulitis of left lower extremity #Abscess of left lower extremity, status post I&D #Gangrene of left lower extremity, status post TMA #Atrial fibrillation with RVR, new onset #Peripheral artery disease #Pulmonary coccidiomycosis #Type 2 diabetes mellitus #Chronic kidney disease stage III #Hypertension #Hyperlipidemia DC instructions: Wound care to left TMA: cleanse with NS, pat dry, apply xeroform or adaptic gauze. Layer with fluffs, abd pad and secure with kerlix roll daily Take all medication as prescribed Take aspirin 81 mg once a day, Plavix 75 mg once daily and Eliquis 2.5 mg twice daily and do not stop your blood thinners as he recently received stents Take Keflex 5 mg 3 times daily doxycycline 100 mg twice for 2 more days to complete course Continue fluconazole 200 mg once daily renally dosed Follow-up with [employer] as outpatient within 2 weeks Follow-up with general surgery for BKA in next 4 to 6 weeks outpatient In case of emergency, call 911 or come back to the ED Patient was seen and discussed with attending physician, Dr. Lilian Israel MD, PGY 2 Time Spent with Patient Time attestation: Total time spent providing and/or coordinating discharge services: Exam Vital Signs Temp Pulse Resp BP Pulse Ox O2 Del Method 97.0 F 77 18 138/59 H 96 Room Air 06/25/24 12:06/25/24 12:06/25/24 12:06/25/24 12:06/25/24 12:06/25/24 12:00 Narrative Exam General: AOx3, no acute distress, able to speak full sentences HEENT: NC/AT, mucous membranes moist, bilateral sclera anicteric Cardiovascular: regular rate and rhythm, S1/S2 present, no murmurs appreciated Pulmonary: clear to auscultation bilaterally, no rales/rhonchi/wheezes Abdominal: soft, non-tender, non-distended, no rebound/guarding, normal bowel sounds present Musculoskeletal: LLE bandaged status post TMA, fifth digit of right lower extremity with wound on lateral aspect Neuro: CN II-XII intact, no focal deficits Discharge Plan Problem List Was Problem List Reviewed/Reconciled?: Yes Plan Patient Disposition: Xfer Skilled Nsg Fac (SNF) Disposition Comment: [facility] Patient condition on transfer: Stable Care Plan Goals: Wound care to left TMA: cleanse with NS, pat dry, apply xeroform or adaptic gauze. Layer with fluffs, abd pad and secure with kerlix roll daily Take all medication as prescribed Take aspirin 81 mg once a day, Plavix 75 mg once daily and Eliquis 2.5 mg twice daily and do not stop your blood thinners as he recently received stents Take Keflex 5 mg 3 times daily doxycycline 100 mg twice for 2 more days to complete course Follow-up with [employer] as outpatient within 2 weeks Follow-up with general surgery for BKA in next 4 to 6 weeks outpatient In case of emergency, call 911 or come back to the ED Prescriptions/Referrals Prescriptions/Med Rec: New metoprolol tartrate 25 mg Tablet 25 mg PO BID Qty: 90 0RF bisacodyl 10 mg Suppository 10 mg WI QDAY PRN (Reason: Constipation) Qty: 12 0RF clopidogrel 75 mg Tablet 75 mg PO QDAY Qty: 90 0RF diphenhydramine HCl [Banophen] 25 mg Capsule 25 mg PO Q6HR PRN (Reason: Itching) Qty: 20 0RF fluconazole 200 mg tablet 200 mg PO QDAY 90 Days Qty: 90 0RF magnesium hydroxide [Milk of Magnesia] 400 mg/5 mL Suspension 30 ml PO QDAY PRN (Reason: Constipation) Qty: 3780 0RF multivitamin with folic acid [Tab-A-Joann] 400 mcg Tablet 1 tab PO QDAY Qty: 30 0RF nitroglycerin 0.4 mg Tablet, Sublingual 0.4 mg buccal Q5MIN PRN (Reason: Chest Pain) Qty: 30 0RF polyethylene glycol 3350 [HealthyLax] 17 gram Powder In Packet 17 g PO QDAY Qty: 14 0RF Eliquis 2.5 mg Tablet 2.5 mg PO BID Qty: 90 0RF cephalexin 500 mg capsule 500 mg PO QID 2 Days Qty: 8 0RF clotrimazole 10 mg Alyson 10 mg PO 5 TIMES DAILY Qty: 60 0RF doxycycline hyclate 100 mg Tablet 100 mg PO BID 2 Days Qty: 4 0RF mirtazapine 7.5 mg tablet 7.5 mg PO QDAY Qty: 60 0RF Continued aspirin 81 mg Tablet,Delayed Release (Dr/Ec) 81 mg PO QDAY Qty: 30 0RF (DME) FreeStyle Gian 3 Sensor Device See Rx Instructions .Route Qty: 1 0RF Rx Instructions: As directed Januvia 100 mg tablet 100 mg PO QDAY Qty: 30 0RF atorvastatin 80 mg tablet 80 mg PO QPM Qty: 30 0RF amiodarone 200 mg Tablet 200 mg PO BID 30 Days Qty: 60 0RF Discontinued fluconazole 100 mg Tablet 400 mg PO QDAY 30 Days Qty: 120 1RF metoprolol succinate 25 mg Tablet Extended Release 24 Hr 50 mg PO QDAY 30 Days Qty: 60 0RF lisinopril 2.5 mg Tablet 10 mg PO QDAY 30 Days Qty: 120 0RF Referrals: Mike Gallegos MD [Primary Care Provider] - Patient/Caregiver Discharge Instructions Print Language: Sami Stand Alone Forms: [employer] Award Info., Patient Portal Info Letter Discharge Order Discharge Orders: Discharge (Routine); Ordered 06/25/24 Ordered By: Jack Israel Quality Discharge Quality Measures VTE prophylaxis Attestestation MD Attestation I have discussed and was present for the essential components of the discharge history, physical examination, diagnosis, and discharge treatment plan with the resident. I agree with the patient's discharge care as documented by the resident and amended herein by me. Jaylen Quintana, DO. The patient understood all discharge instructions, all questions were answered satisfactorily. The patient was instructed to return to the [facility] is symptoms worsened or persisted. Patient was stable, afebrile, tolerating p.o. intake and ambulatory at time of discharge. WBC still elevated at time of discharge, likely inflammatory response, patient has been on copious amounts of IV antibiotics and KD and will be discharged with oral antibiotics after this admission. Patient will need BKA of his left leg in 4 to 6 weeks when patient can safely be removed from Plavix for a short period of time, general surgery notified, recommendations given, cardiology also in agreement. All questions answered satisfactorily. Although this document has been carefully reviewed, there may still be some phonetic and other typographical errors. These errors are purely grammatical due to imperfections in the software program and should not be construed in any way to compromise the substance of the patient's medical care during this visit.
--- NOTE | 2024-06-25 16:26 | PC.SS ---
SS spoke with nurse providing discharge packet and transportation time of 1630 SS spoke with Lea Duncan; set up transportation time for pt 1630 SS uploaded paperwork via [employer] to set up transportation SS spoke with MARIANN Baker, confirmed pt is set up and able to discharge to facility today SS met pt and pt spouse at bedside;confirmed plan is to have pt go to SNF- [facility] today; SS will work with team to set up transporation
== END 2024-06-25 16:23 | disposition skilled nursing facility (03) ==
PROVIDERS: Admitting Provider Orthopaedic Surgery; PCP Orthopaedic Surgery; Visit Provider Student in an Organized Health Care Education/Training Program
DX: I48.91 Unspecified atrial fibrillation (principal); I25.10 Atherosclerotic heart disease of native coronary artery without angina pectoris; I25.2 Old myocardial infarction; I25.82 Chronic total occlusion of coronary artery; I50.32 Chronic diastolic (congestive) heart failure; K59.00 Constipation, unspecified; L02.416 Cutaneous abscess of left lower limb; L03.116 Cellulitis of left lower limb; N18.30 Chronic kidney disease, stage 3 unspecified; E78.00 Pure hypercholesterolemia, unspecified; I13.0 Hypertensive heart and chronic kidney disease with heart failure and stage 1 through stage 4 chronic kidney disease, or unspecified chronic kidney disease; E11.52 Type 2 diabetes mellitus with diabetic peripheral angiopathy with gangrene; E11.22 Type 2 diabetes mellitus with diabetic chronic kidney disease; D64.9 Anemia, unspecified; B38.2 Pulmonary coccidioidomycosis, unspecified
CPT/HCPCS: 36415; 80053; 83735; 84100; 85025; 87081; 97162; G0378; J1815; A9270

== ENCOUNTER 2024-07-24 17:57 | Emergency (ER) | payer MEDICARE, SELFPAY ==
[2024-07-24 18:18] VITALS: BMI 24.0
[2024-07-24 18:22] VITALS: BP 142/48; PULSE 69; RESP 19; TEMP 37; O2SAT 100
--- NOTE | 2024-07-24 18:41 | PD.EDADULT ---
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 Patient is known already to have CKD. Review of the paperwork show the patient is a full code. Related Data Previous Rx's ?Medication ?Instructions ?Recorded aspirin 81 mg tablet,delayed 81 mg PO QDAY #30 tabs 06/10/23 release atorvastatin 80 mg tablet 80 mg PO QPM #30 tabs 06/10/23 blood-glucose sensor (FreeStyle #1 ea 06/10/23 Gian 3 Sensor device) sitagliptin phosphate 100 mg 100 mg PO QDAY #30 tabs 06/10/23 tablet (Januvia) bisacodyl 10 mg rectal suppository 10 mg PA QDAY PRN Constipation #12 06/23/24 ea clopidogrel 75 mg tablet 75 mg PO QDAY #90 tabs 06/23/24 diphenhydramine HCl 25 mg capsule 25 mg PO Q6HR PRN Itching #20 caps 06/23/24 (Banophen) fluconazole 200 mg tablet 200 mg PO QDAY 3 months #90 tabs 06/23/24 magnesium hydroxide 400 mg/5 mL 30 ml PO QDAY PRN Constipation 06/23/24 oral suspension (Milk of Magnesia) #3,780 mL metoprolol tartrate 25 mg tablet 25 mg PO BID #90 tabs 06/23/24 multivitamin with folic acid 400 1 tab PO QDAY #30 tabs 06/23/24 mcg tablet (Tab-A-Joann) nitroglycerin 0.4 mg sublingual 0.4 mg buccal Q5MIN PRN Chest Pain 06/23/24 tablet #30 tabs polyethylene glycol 3350 17 gram 17 g PO QDAY #14 ea 06/23/24 oral powder packet (HealthyLax) apixaban 2.5 mg tablet (Eliquis) 2.5 mg PO BID #90 tabs 06/25/24 clotrimazole 10 mg kurt 10 mg PO 5 TIMES DAILY #60 tabs 06/25/24 mirtazapine 7.5 mg tablet 7.5 mg PO QDAY #60 tabs 06/25/24 Allergies Allergy/AdvReac Type Severity Reaction Status Date / Time No Known Allergies Allergy Unverified 06/07/23 18:57 Review of Systems Review of Systems Narrative Review of Systems: GEN: No fever, no chills, no weight loss EYES: No discharge, no visual changes, no pain HEENT: No ear pain, no congestion, no sore throat PULM: No shortness of breath, no cough, no congestion CV: No chest pain, no dyspnea on exertion, no palpitations GI: No nausea, no vomiting, no diarrhea, no pain, no constipation : No frequency, no urgency, no dysuria MUSC/SKEL: No joint pain, no back pain,+ left foot pain SKIN: No rash PSYCH: No hallucinations, no depression HEME/LYMPH: No easy bleeding or bruising tendencies NEURO: No weakness, no headache Past Medical History Past Medical History NEUROLOGIC: Negative Neurological Disorders or Seizures CARDIAC: Positive Cardiac Disorders (2 stents placed), Peripheral Vascular Disease, Hypercholesterolemia and Hypertension; Negative Myocardial Infarction, Atrial Fibrillation, Angina, Heart Murmur, Coronary Artery Disease, Atherosclerotic Heart Disease, Aneurysm, Congestive Heart Failure, Congenital Heart Disease, Rheumatic Fever, Cardiomyopathy, Edema, Pericarditis, Cellulitis, Deep Vein Thrombosis, Hypotension or Varicose Veins RESPIRATORY: Positive Asthma and Emphysema; Negative Chronic Obstructive Pulmonary Disease (COPD), Bronchitis, Pneumonia, Pulmonary Fibrosis, Tuberculosis, Pulmonary Embolism, Pulmonary Edema or Sleep Apnea GASTROINTESTINAL: Negative Gastrointestinal Disorders, Hepatitis or Colorectal Cancer GENITOURINARY: Positive Genitourinary Disorders; Negative Renal Disease, Kidney Stones, Neurogenic Bladder, Inguinal Hernia, Dialysis, Prostate Cancer or Benign Prostatic Hyperplasia REPRODUCTIVE: Negative Breast Cancer or Testicular Cancer MUSCULOSKELETAL: Positive Musculoskeletal Disorders; Negative Muscular Dystrophy, Myasthenia Gravis, Marfan's Syndrome, Bone Cancer, Arthritis, Rheumatoid Arthritis, Osteoporosis, Degenerative Disk Disease, Gout, Scoliosis, Carpal Tunnel Syndrome, Fibromyalgia, Fractures, Osteomyelitis or Poliovirus ENT: Negative Cataracts ENDOCRINE: Positive Endocrine Disorders and Diabetes Mellitus Type 2; Negative Diabetes Mellitus Type 1, Hypoglycemia, [place]'s Syndrome, [place]atte's Disease, Hyperthyroidism, Hypothyroidism, Parathyroid Disease, Pituitary Disease, Systemic Lupus Erythematosus, Syndrome of Inappropriate Antidiuretic Hormone (SIADH), Adrenal Disease or Graves' Disease HEMATOLOGIC: Positive Blood Disorders and Anemia; Negative Leukemia, Hemophilia, Thalassemia, Sickle Cell Disease or Clotting Problems OTHER HISTORY: Positive Hospitalization; Negative Autoimmune Disease, Down Syndrome, Developmental Delay, Shingles, Falls, Blood Transfusions, Blood Transfusion Reaction, Anesthesia Reactions, Organ Transplant, Chemotherapy, Radiation Therapy, Hyperbaric Therapy, MRSA, VRSA, Vancomycin-Resistant Enterococci, Human Immunodeficiency Virus (HIV), Chicken Pox, Measles, Mumps, Rubella ([place] Measles), Pertussis, Clostridium Difficile, Cancer, Breast Cancer, Cervical Cancer, Colorectal Cancer, Lung Cancer, Ovarian Cancer, Prostate Cancer or Testicular Cancer Family History FAMILY HISTORY: Negative Family Psychiatric Problems, Family Respiratory Disorders, Family Cardiac Disorders, Family Gastrointestinal Problems, Family Cancer, Family Surgery or Family Anesthesia Reaction Surgical History SURGICAL: Positive Cardiac Surgery, Coronary Stent (2 stents), Nose Surgery and Vasectomy; Negative Pacemaker, Endocrine Surgery, Ear Surgery, Tympanostomy Tube, Eye Surgery, Oral Surgery, Tonsillectomy, Adenoidectomy, Cochlear Implant, Corneal Transplant, Throat Surgery, Abdominal Surgery, Tracheostomy, Nephrectomy, Transurethral Resection, Joint Replacement, Amputation, Open Reduction Internal Fixation, Arthroscopy, Neurologic Surgery, Brain Shunt or Organ Transplant Social History SMOKING STATUS: Never smoker SECOND HAND EXPOSURE: No ED Exam Narrative Physical exam: [General: Not in any acute distress Head normocephalic HEENT: Within acceptable limits Neck is supple nontender Chest equal chest rise nontender to palpation Respiratory: Clear to auscultation no wheezes crackles or rubs CV: Rate rhythm is regular no murmurs rubs or clicks Abdomen is flat, soft nontender no masses positive bowel sounds all 4 quadrants Back: No CVA tenderness no spinous process tenderness from cervical spine thoracic and lumbar spine Skin: Open wound to the left foot, partial amputation, bony prominence appears of the proximal metacarpals, poor healing with area surrounded by eschar no exudate, erythema not warm to touch, no streaking into the dorsum of the foot or sole. Tender to palpation. Intact no petechiae rash induration ulceration or crepitus Extremities: Decreased range of motion secondary to deconditioning. Moving all extremities against resistance 2/5 strength. Cap refill less than 2 seconds. Upper and left lower extremity neurosensory intact. Neuro: Awake alert oriented x1, self, Glascow coma 15 no focal deficits] Course Course Course Narrative: Patient's case discussed with Dr. Mendez resident, for Dr. Yepez, was to try given the small bolus of fluids to see if there is an improvement in the renal impairment and they would reevaluate the patient for potential admission for [facility]. Patient is noted to have leukocytosis however all prior lab draws show a leukocytosis as well. Patient is afebrile via rectal temperature nontoxic-appearing and not in any acute distress with a negative Pro-Elliot. After 500 cc bolus the creatinine is improved from 1.7-1.5 comfortable discharging home with dehydration. Discussed with Dr. Mendez who is in agreement with this plan. Quality Measures none Orders Category Date Time Status BMP [Basic Metabolic Panel] Stat Lab 07/24/24 20:50 Completed CBC Stat Lab 07/24/24 19:00 Completed CMP [Comprehensive Metabolic Panel] Stat Lab 07/24/24 19:00 Completed Lactic Acid [Lactate (Lactic Acid)] Stat Lab 07/24/24 19:00 Completed PT [Prothrombin Time with INR] Stat Lab 07/24/24 19:00 Completed PTT [Partial Thromboplastin Time] Stat Lab 07/24/24 19:00 Completed Procalcitonin Stat Lab 07/24/24 19:00 Completed Sodium Chloride 0.9% 500 ml [Ns] 500 ml Med 07/24/24 19:53 Discontinued IV 999 mls/hr Sodium Chloride 0.9% 500 ml [Ns] 500 ml Med 07/24/24 20:46 Discontinued IV 999 mls/hr Vital Signs Vital signs: Vital Signs Temperature 98.6 F 07/24/24 18:22 Pulse Rate 69 07/24/24 18:22 Respiratory Rate 19 07/24/24 18:22 Blood Pressure 142/48 H 07/24/24 18:22 Pulse Oximetry (%) 100 07/24/24 18:22 Oxygen Delivery Method Room Air 07/24/24 18:22 [facility] Patient data External records reviewed:: [facility] previous records Clinical information provided by:: patient Social determinants that could affect healthcare access:: none Patient has the following chronic illnesses:: Recent partially foot amputation diabetes CKD hypertension NSTEMI A-fib CHF dysphagia coccidiomycosis How is presenting disease/condition affected by chronic disease/condition?: exacerbated by Evaluation data The following diagnostics were reviewed and interpreted by me:: lab results and radiology exam(s) Lab and/or radiology exams considered but not ordered:: CBC shows a leukocytosis of 15.7, and H&H of 9.8 and 30.0. No thrombocytopenia Coags show a PTT of 36.7 CMP shows a sodium 135 creatinine of 1.7 glucose of 216 lactic acid is negative no elevated T. bili, there is mild transaminitis. Procalcitonin is within acceptable limits. Interpretation Summary: Review the medical record show the patient has always had leukocytosis throughout his entire visit and prior admissions by him not sure if this is derived from the patient's condition prior to the amputation but certainly that would be contributory. Of more concern currently is the rising creatinine even though the BUN is normal. Medications Medications considered but not ordered:: None Medication administrations:: Medication Administration History Discontinued Medications Sodium Chloride (Ns) 500 mls @ 999 mls/hr IV .Q31M ONE Stop: 07/24/24 20:23 Last Infusion: 07/24/24 20:36 Dose: Infused Documented By: Admin: 07/24/24 20:01 Dose: 999 mls/hr Documented By: GRACIELA Sodium Chloride (Ns) 500 mls @ 999 mls/hr IV .Q31M ONE Stop: 07/24/24 21:16 Last Infusion: 07/24/24 22:12 Dose: Infused Documented By: Admin: 07/24/24 20:53 Dose: 999 mls/hr Documented By: ALEX None Consultations Consultation(s) initiated? (list below): No Diagnosis Differential Diagnosis ED Complaint MDM: Acute on chronic renal dysfunction, open wound, chronic leukocytosis Most likely diagnosis given after review of the tests above:: CKD, leukocytosis Admission Indicated Admission indicated?: not indicated Explain why admission is indicated or not indicated:: Stable for discharge Admission Request Was there a request for admission?: No Disposition Plan Disposition Plan: Discharge Discharge Attestation Discharge Attestation: The patient and all family members were given an opportunity to ask questions and understood the discharge instructions. Discharge instructions specifically effects, indications for sooner follow up or return to the emergency department, and the expected course of current diagnosis. Patient condition: Stable Medical Decision Making Differential Diagnosis Differential Diagnosis: Acute on chronic renal dysfunction, open wound, chronic leukocytosis Lab Data 07/24/24 19:00 07/24/24 20:50 Labs: Lab Results 07/24/24 07/24/24 Range/Units 19:00 20:50 WBC 15.7 H (3.8-10.6) Thou/mm3 RBC 3.09 L (4.50-5.90) Miln/mm3 Hgb 9.8 L (13.5-16.0) g/dL Hct 30.0 L (41.0-53.0) % MCV 97 (80-100) fL MCH 31.7 (25.0-35.0) pg MCHC 32.7 (31.0-37.0) g/dl RDW Std Deviation 55.0 H (35.1-43.9) fL Plt Count 348 D (140-440) Thou/mm3 Neut % (Auto) 35 L (37-80) % Lymph % (Auto) 11 (10-50) % Piatt % (Auto) 7 (0-12) % Eos % (Auto) 47 H (0-10) % Baso % (Auto) 0 (0-2.5) % Neut # (Auto) 5.5 (1.8-7.7) Thou/mm3 Lymph # (Auto) 1.7 (1.0-4.8) Thou/mm3 Piatt # (Auto) 1.0 H (0.0-0.8) Thou/mm3 Eos # (Auto) 7.4 H (0.0-0.5) Thou/mm3 Baso # (Auto) 0.1 (0.0-0.2) Thou/mm3 Immature Gran # (Auto) 0.04 H (0.00-0.00) Thou/mm3 Absolute Nucleated RBC 0.00 (0.00-0.00) Thou/mm3 Immature Gran % 0 (0-0) % Nucleated RBC % 0 (0) /100 WBC PT 11.6 (9.0-12.2) Seconds INR 1.1 (0.9-1.3) APTT 36.7 H (22.0-36.0) Seconds Sodium 135 L 137 (136-145) mMol/L Potassium 3.9 3.9 (3.4-5.1) mMol/L Chloride 101 106 (98-107) mMol/L Carbon Dioxide 24.9 23.2 (20.0-31.0) mMol/L Anion Gap 9 8 (7-16) BUN 18 17 (9-23) mg/dL Creatinine 1.7 H 1.5 H (0.6-1.3) mg/dL Estim Creat Clear Calc 32.4 L 36.7 L (>60) mL/min eGFR 42 L 49 L (60 - ) See Note BUN/Creatinine Ratio 11 L 11 L (12-20) Ratio Glucose 216 H 159 H D (74-106) mg/dL Calculated Osmolality 279 278 (275-295) Lactic Acid 2.0 (0.4-2.0) mMol/L Calcium 9.4 8.7 (8.3-10.6) mg/dL Corrected Calcium 9.6 (8.5-10.1) mg/dL Total Bilirubin 0.2 L (0.3-1.2) mg/dL AST 79 H (0-34) U/L ALT 65 H (10-49) U/L Alkaline Phosphatase 222 H (46-116) U/L Total Protein 7.7 (5.7-8.2) gm/dL Albumin 3.8 (3.4-4.8) gm/dL Globulin 3.9 H (2.3-3.5) gm/dL Albumin/Globulin Ratio 1.0 L (1.2-2.2) Procalcitonin 0.11 (0.0-0.49) ng/ml Discharge Plan Plan Patient Disposition: HOME (Self Care) Patient condition on transfer: Stable Prescriptions/Referrals Prescriptions/Med Rec: No Action aspirin 81 mg Tablet,Delayed Release (Dr/Ec) 81 mg PO QDAY Qty: 30 0RF (DME) FreeStyle Gian 3 Sensor Device See Rx Instructions .Route Qty: 1 0RF Rx Instructions: As directed Januvia 100 mg tablet 100 mg PO QDAY Qty: 30 0RF atorvastatin 80 mg tablet 80 mg PO QPM Qty: 30 0RF metoprolol tartrate 25 mg Tablet 25 mg PO BID Qty: 90 0RF bisacodyl 10 mg Suppository 10 mg PA QDAY PRN (Reason: Constipation) Qty: 12 0RF clopidogrel 75 mg Tablet 75 mg PO QDAY Qty: 90 0RF diphenhydramine HCl [Banophen] 25 mg Capsule 25 mg PO Q6HR PRN (Reason: Itching) Qty: 20 0RF fluconazole 200 mg tablet 200 mg PO QDAY 90 Days Qty: 90 0RF magnesium hydroxide [Milk of Magnesia] 400 mg/5 mL Suspension 30 ml PO QDAY PRN (Reason: Constipation) Qty: 3780 0RF multivitamin with folic acid [Tab-A-Joann] 400 mcg Tablet 1 tab PO QDAY Qty: 30 0RF nitroglycerin 0.4 mg Tablet, Sublingual 0.4 mg buccal Q5MIN PRN (Reason: Chest Pain) Qty: 30 0RF polyethylene glycol 3350 [HealthyLax] 17 gram Powder In Packet 17 g PO QDAY Qty: 14 0RF Eliquis 2.5 mg Tablet 2.5 mg PO BID Qty: 90 0RF clotrimazole 10 mg Kurt 10 mg PO 5 TIMES DAILY Qty: 60 0RF mirtazapine 7.5 mg tablet 7.5 mg PO QDAY Qty: 60 0RF Referrals: Nile Alonzo MD [Primary Care Provider] - In 1 week Problem List Clinical Impression: Leukocytosis, CKD (chronic kidney disease) Patient/Caregiver Discharge Instructions Other Activity Instructions:: Patient's procalcitonin is negative there is no acute infectious process the wound appears chronic with poor healing but is not infected. Review the medical record show chronic leukocytosis prior to during and after discharge. Please follow-up with a primary care provider. CKD has improved after IV fluids. Please consider ethnic foods to increase his dietary intake. Education Materials: CKD Dc Additional Instructions: Encourage fluids and ethnic based foods to increase dietary intake. Print Language: Beninese Stand Alone Forms: Yessi Award Info., Work/School Release, Patient Portal Info Letter PA/SR. CONSULTANT Supervising Physician PA/SR. CONSULTANT Supervising Physician: Keo Saenz ENP
[2024-07-24 19:08] VITALS: BP 124/57; PULSE 69; RESP 12; O2SAT 100
[2024-07-24 19:21] LABS: Basophils # (Auto) 0.1 Thou/mm3 (0.0-0.2); Basophils % (Auto) 0 % (0-2.5); Eosinophils # (Auto) 7.4 Thou/mm3 (0.0-0.5); Eosinophils % (Auto) 47 % (0-10); Hemoglobin 9.8 g/dL (13.5-16.0); Immature Granulocytes % (Auto) 0 % (0-0); Immature Granulocytes Auto 0.04 Thou/mm3 (0.00-0.00); Lymphocytes # (Auto) 1.7 Thou/mm3 (1.0-4.8); Lymphocytes % (Auto) 11 % (10-50); Mean Corpuscular HGB Conc 32.7 g/dl (31.0-37.0); Mean Corpuscular Hemoglobin 31.7 pg (25.0-35.0); Mean Corpuscular Volume 97 fL (80-100); Monocytes % (Auto) 7 % (0-12); Neutrophils # (Auto) 5.5 Thou/mm3 (1.8-7.7); Neutrophils % (Auto) 35 % (37-80); Nucleated Red Blood Cell % 0 /100 WBC (0); Platelet Count 348 Thou/mm3 (140-440); Red Blood Count 3.09 Miln/mm3 (4.50-5.90); White Blood Count 15.7 Thou/mm3 (3.8-10.6)
[2024-07-24 19:36] LABS: INR 1.1 (0.9-1.3); Partial Thromboplastin Time 36.7 Seconds (22.0-36.0); Prothrombin Time 11.6 Seconds (9.0-12.2)
[2024-07-24 19:47] LABS: Alanine Aminotransferase 65 U/L (10-49); Albumin, Serum 3.8 gm/dL (3.4-4.8); Alkaline Phosphatase 222 U/L (46-116); Anion Gap 9 (7-16); Aspartate Amino Transferase 79 U/L (0-34); BUN/Creatinine Ratio 11 Ratio (12-20); Bilirubin,Total 0.2 mg/dL (0.3-1.2); Blood Urea Nitrogen 18 mg/dL (9-23); Calcium 9.4 mg/dL (8.3-10.6); Calcium (Corrected) 9.6 mg/dL (8.5-10.1); Carbon Dioxide 24.9 mMol/L (20.0-31.0); Chloride 101 mMol/L (98-107); Creatinine (Component) 1.7 mg/dL (0.6-1.3); Estimated Creatinine Clearance 32.4 mL/min (>60); Globulin 3.9 gm/dL (2.3-3.5); Glucose 216 mg/dL (74-106); Osmolality,Calculated 279 (275-295); Potassium 3.9 mMol/L (3.4-5.1); Procalcitonin 0.11 ng/ml (0.0-0.49); Sodium 135 mMol/L (136-145); Total Protein 7.7 gm/dL (5.7-8.2); eGFR 42 See Note
[2024-07-24] MEDS: SODIUM CHLORIDE 0.9% 500 ML 500 ML 999 ML IV ×2 (20:01→20:53)
[2024-07-24 21:40] LABS: Anion Gap 8 (7-16); BUN/Creatinine Ratio 11 Ratio (12-20); Blood Urea Nitrogen 17 mg/dL (9-23); Calcium 8.7 mg/dL (8.3-10.6); Carbon Dioxide 23.2 mMol/L (20.0-31.0); Chloride 106 mMol/L (98-107); Creatinine (Component) 1.5 mg/dL (0.6-1.3); Estimated Creatinine Clearance 36.7 mL/min (>60); Glucose 159 mg/dL (74-106); Osmolality,Calculated 278 (275-295); Potassium 3.9 mMol/L (3.4-5.1); Sodium 137 mMol/L (136-145); eGFR 49 See Note
--- NOTE | 2024-07-24 22:23 | PC.NURSE ---
SPOKE TO KIRSTIN MEAD FROM [facility] TO GIVE REPORT THAT PATIENT IS BEING DISCHARGE BACK TO FACILITY.
[2024-07-24 23:45] VITALS: BP 115/51; PULSE 79; RESP 16; TEMP 36.9; O2SAT 98
[2024-07-25 00:42] VITALS: BP 125/60; PULSE 71; RESP 16; TEMP 36.6; O2SAT 99
== END 2024-07-25 00:44 | disposition home or self-care (01) ==
PROVIDERS: Registered Nurse General Practice; Emergency Provider Emergency Medicine; PCP Hospitalist
DX: D72.829 Elevated white blood cell count, unspecified (principal); N18.9 Chronic kidney disease, unspecified
CPT/HCPCS: 36415; 80048; 80053; 81001; 83605; 84145; 85025; 85610; 85730; 96360; 96361; 99284; J7040

== ENCOUNTER → 2024-08-24 | Outpatient (CLI) | payer MEDICARE, SELFPAY | END | disposition home or self-care (01) | PROVIDERS: Visit Provider Surgery | DX: T81.89XA Other complications of procedures, not elsewhere classified, initial encounter (principal); I73.9 Peripheral vascular disease, unspecified; E11.52 Type 2 diabetes mellitus with diabetic peripheral angiopathy with gangrene; Z87.891 Personal history of nicotine dependence; Z79.84 Long term (current) use of oral hypoglycemic drugs; N18.6 End stage renal disease; D64.9 Anemia, unspecified; L85.3 Xerosis cutis; Z99.3 Dependence on wheelchair; E78.5 Hyperlipidemia, unspecified | CPT/HCPCS: 11044; 99213; A9270; G0463 ==

== ENCOUNTER → 2024-08-31 | Outpatient (CLI) | payer MEDICARE, SELFPAY | END | disposition home or self-care (01) | PROVIDERS: PCP Physician Assistant; Referring Provider Physician Assistant; Visit Provider Student in an Organized Health Care Education/Training Program | DX: E11.621 Type 2 diabetes mellitus with foot ulcer (principal); T81.89XA Other complications of procedures, not elsewhere classified, initial encounter; S91.104A Unspecified open wound of right lesser toe(s) without damage to nail, initial encounter; X58.XXXA Exposure to other specified factors, initial encounter; I73.9 Peripheral vascular disease, unspecified; E11.52 Type 2 diabetes mellitus with diabetic peripheral angiopathy with gangrene; Z87.891 Personal history of nicotine dependence; N18.6 End stage renal disease; L85.3 Xerosis cutis; E78.5 Hyperlipidemia, unspecified; Z79.84 Long term (current) use of oral hypoglycemic drugs; D64.9 Anemia, unspecified; Z99.3 Dependence on wheelchair | CPT/HCPCS: 99214; A9270; G0463 ==

== ENCOUNTER → 2024-09-28 | Outpatient (CLI) | payer MEDICARE, SELFPAY | END | disposition home or self-care (01) | LOC: SWHD 09:45 | PROVIDERS: PCP Physician Assistant; Referring Provider Physician Assistant; Visit Provider Student in an Organized Health Care Education/Training Program | DX: E11.621 Type 2 diabetes mellitus with foot ulcer (principal); T81.89XA Other complications of procedures, not elsewhere classified, initial encounter; S91.104A Unspecified open wound of right lesser toe(s) without damage to nail, initial encounter; S91.302A Unspecified open wound, left foot, initial encounter; X58.XXXA Exposure to other specified factors, initial encounter; I73.9 Peripheral vascular disease, unspecified; E11.52 Type 2 diabetes mellitus with diabetic peripheral angiopathy with gangrene; Z87.891 Personal history of nicotine dependence; N18.6 End stage renal disease; L85.3 Xerosis cutis; E78.5 Hyperlipidemia, unspecified; Z79.84 Long term (current) use of oral hypoglycemic drugs; D64.9 Anemia, unspecified; Z99.3 Dependence on wheelchair | CPT/HCPCS: 11042; A9270 ==

== ENCOUNTER → 2024-10-05 | Outpatient (CLI) | payer MEDICARE, SELFPAY | END | disposition home or self-care (01) | LOC: SWHD 09:35 | PROVIDERS: PCP Physician Assistant; Referring Provider Physician Assistant; Visit Provider Student in an Organized Health Care Education/Training Program | DX: E11.621 Type 2 diabetes mellitus with foot ulcer (principal); T81.89XA Other complications of procedures, not elsewhere classified, initial encounter; S91.104A Unspecified open wound of right lesser toe(s) without damage to nail, initial encounter; S91.302A Unspecified open wound, left foot, initial encounter; X58.XXXA Exposure to other specified factors, initial encounter; I73.9 Peripheral vascular disease, unspecified; E11.52 Type 2 diabetes mellitus with diabetic peripheral angiopathy with gangrene; Z87.891 Personal history of nicotine dependence; N18.6 End stage renal disease; L85.3 Xerosis cutis; E78.5 Hyperlipidemia, unspecified; Z79.84 Long term (current) use of oral hypoglycemic drugs; D64.9 Anemia, unspecified; Z99.3 Dependence on wheelchair | CPT/HCPCS: 11044; 11047; A9270 ==

== ENCOUNTER → 2024-10-12 | Outpatient (CLI) | payer MEDICARE, SELFPAY | END | disposition home or self-care (01) | LOC: SWHD 09:38 | PROVIDERS: PCP Physician Assistant; Referring Provider Physician Assistant; Visit Provider Student in an Organized Health Care Education/Training Program | DX: E11.621 Type 2 diabetes mellitus with foot ulcer (principal); T81.89XA Other complications of procedures, not elsewhere classified, initial encounter; S91.104A Unspecified open wound of right lesser toe(s) without damage to nail, initial encounter; S91.302A Unspecified open wound, left foot, initial encounter; X58.XXXA Exposure to other specified factors, initial encounter; L97.826 Non-pressure chronic ulcer of other part of left lower leg with bone involvement without evidence of necrosis; L97.512 Non-pressure chronic ulcer of other part of right foot with fat layer exposed; I73.9 Peripheral vascular disease, unspecified; E11.52 Type 2 diabetes mellitus with diabetic peripheral angiopathy with gangrene; Z87.891 Personal history of nicotine dependence; N18.6 End stage renal disease; L85.3 Xerosis cutis; E78.5 Hyperlipidemia, unspecified; Z79.84 Long term (current) use of oral hypoglycemic drugs; D64.9 Anemia, unspecified; Z99.3 Dependence on wheelchair | CPT/HCPCS: 97597; 97598; A9270 ==

== ENCOUNTER → 2024-10-19 | Outpatient (CLI) | payer MEDICARE, SELFPAY | END | disposition home or self-care (01) | LOC: SWHD 09:06 | PROVIDERS: PCP Physician Assistant; Referring Provider Physician Assistant; Visit Provider Student in an Organized Health Care Education/Training Program | DX: E11.621 Type 2 diabetes mellitus with foot ulcer (principal); T81.89XA Other complications of procedures, not elsewhere classified, initial encounter; S91.104A Unspecified open wound of right lesser toe(s) without damage to nail, initial encounter; S91.302A Unspecified open wound, left foot, initial encounter; X58.XXXA Exposure to other specified factors, initial encounter; L97.826 Non-pressure chronic ulcer of other part of left lower leg with bone involvement without evidence of necrosis; L97.512 Non-pressure chronic ulcer of other part of right foot with fat layer exposed; I73.9 Peripheral vascular disease, unspecified; E11.52 Type 2 diabetes mellitus with diabetic peripheral angiopathy with gangrene; Z87.891 Personal history of nicotine dependence; N18.6 End stage renal disease; L85.3 Xerosis cutis; E78.5 Hyperlipidemia, unspecified | CPT/HCPCS: 97597; A9270 ==

== ENCOUNTER → 2024-10-26 | Outpatient (CLI) | payer MEDICARE, SELFPAY | END | disposition home or self-care (01) | LOC: SWHD 10:43 | PROVIDERS: PCP Physician Assistant; Referring Provider Physician Assistant; Visit Provider Student in an Organized Health Care Education/Training Program | DX: E11.621 Type 2 diabetes mellitus with foot ulcer (principal); T81.89XA Other complications of procedures, not elsewhere classified, initial encounter; S91.104A Unspecified open wound of right lesser toe(s) without damage to nail, initial encounter; S91.302A Unspecified open wound, left foot, initial encounter; X58.XXXA Exposure to other specified factors, initial encounter; L97.512 Non-pressure chronic ulcer of other part of right foot with fat layer exposed; L97.826 Non-pressure chronic ulcer of other part of left lower leg with bone involvement without evidence of necrosis; E11.52 Type 2 diabetes mellitus with diabetic peripheral angiopathy with gangrene; Z87.891 Personal history of nicotine dependence; N18.6 End stage renal disease; L85.3 Xerosis cutis; E78.5 Hyperlipidemia, unspecified | CPT/HCPCS: 11044; 11047; A9270 ==

== ENCOUNTER → 2024-11-02 | Outpatient (CLI) | payer MEDICARE, SELFPAY | END | disposition home or self-care (01) | LOC: SWHD 13:48 | PROVIDERS: PCP Physician Assistant; Referring Provider Physician Assistant; Visit Provider Student in an Organized Health Care Education/Training Program | DX: E11.621 Type 2 diabetes mellitus with foot ulcer (principal); T81.89XA Other complications of procedures, not elsewhere classified, initial encounter; S91.104A Unspecified open wound of right lesser toe(s) without damage to nail, initial encounter; S91.302A Unspecified open wound, left foot, initial encounter; X58.XXXA Exposure to other specified factors, initial encounter; I73.9 Peripheral vascular disease, unspecified; Z87.891 Personal history of nicotine dependence; N18.6 End stage renal disease; E78.5 Hyperlipidemia, unspecified | CPT/HCPCS: 11044; A9270 ==

== ENCOUNTER → 2024-11-08 | Outpatient (CLI) | payer MEDICARE, SELFPAY | END | disposition home or self-care (01) | LOC: SWHD 13:09 | PROVIDERS: PCP Family Medicine; Referring Provider Family Medicine; Visit Provider Student in an Organized Health Care Education/Training Program | DX: E11.621 Type 2 diabetes mellitus with foot ulcer (principal); T81.89XA Other complications of procedures, not elsewhere classified, initial encounter; S91.302A Unspecified open wound, left foot, initial encounter; S91.104A Unspecified open wound of right lesser toe(s) without damage to nail, initial encounter; X58.XXXA Exposure to other specified factors, initial encounter; E11.51 Type 2 diabetes mellitus with diabetic peripheral angiopathy without gangrene; I73.9 Peripheral vascular disease, unspecified; Z87.891 Personal history of nicotine dependence; N18.6 End stage renal disease; E78.5 Hyperlipidemia, unspecified | CPT/HCPCS: 11042; A9270 ==

== ENCOUNTER → 2024-11-11 | Outpatient (CLI) | payer MEDICARE, SELFPAY | END | disposition home or self-care (01) | LOC: SWHD 10:09 | PROVIDERS: PCP Physician Assistant; Referring Provider Physician Assistant; Visit Provider Surgery | DX: T81.89XA Other complications of procedures, not elsewhere classified, initial encounter (principal); S91.302A Unspecified open wound, left foot, initial encounter; S91.104A Unspecified open wound of right lesser toe(s) without damage to nail, initial encounter; X58.XXXA Exposure to other specified factors, initial encounter; E11.51 Type 2 diabetes mellitus with diabetic peripheral angiopathy without gangrene; I73.9 Peripheral vascular disease, unspecified; Z87.891 Personal history of nicotine dependence; N18.6 End stage renal disease; E78.5 Hyperlipidemia, unspecified | CPT/HCPCS: 17250; A9270 ==

== ENCOUNTER → 2024-11-16 | Outpatient (CLI) | payer MEDICARE, SELFPAY | END | disposition home or self-care (01) | PROVIDERS: PCP Physician Assistant; Referring Provider Physician Assistant; Visit Provider Student in an Organized Health Care Education/Training Program | DX: T81.89XA Other complications of procedures, not elsewhere classified, initial encounter (principal); S91.302A Unspecified open wound, left foot, initial encounter; S91.104A Unspecified open wound of right lesser toe(s) without damage to nail, initial encounter; X58.XXXA Exposure to other specified factors, initial encounter; E11.51 Type 2 diabetes mellitus with diabetic peripheral angiopathy without gangrene; I73.9 Peripheral vascular disease, unspecified; Z87.891 Personal history of nicotine dependence; E78.5 Hyperlipidemia, unspecified | CPT/HCPCS: 97597; A9270 ==

== ENCOUNTER → 2024-11-23 | Outpatient (CLI) | payer MEDICARE, SELFPAY | END | disposition home or self-care (01) | LOC: SWHD 11:22 | PROVIDERS: PCP Physician Assistant; Referring Provider Physician Assistant; Visit Provider Student in an Organized Health Care Education/Training Program | DX: T81.89XA Other complications of procedures, not elsewhere classified, initial encounter (principal); S91.302A Unspecified open wound, left foot, initial encounter; S91.104A Unspecified open wound of right lesser toe(s) without damage to nail, initial encounter; X58.XXXA Exposure to other specified factors, initial encounter; E11.51 Type 2 diabetes mellitus with diabetic peripheral angiopathy without gangrene; I73.9 Peripheral vascular disease, unspecified; Z87.891 Personal history of nicotine dependence; E78.5 Hyperlipidemia, unspecified | CPT/HCPCS: 11042; 11045; J3490; A9270 ==

== ENCOUNTER → 2024-11-30 | Outpatient (CLI) | payer MEDICARE, SELFPAY | END | disposition home or self-care (01) | PROVIDERS: PCP Physician Assistant; Referring Provider Physician Assistant; Visit Provider Student in an Organized Health Care Education/Training Program | DX: T81.89XA Other complications of procedures, not elsewhere classified, initial encounter (principal); S91.104A Unspecified open wound of right lesser toe(s) without damage to nail, initial encounter; S91.302A Unspecified open wound, left foot, initial encounter; X58.XXXA Exposure to other specified factors, initial encounter; E11.51 Type 2 diabetes mellitus with diabetic peripheral angiopathy without gangrene; I73.9 Peripheral vascular disease, unspecified; Z87.891 Personal history of nicotine dependence; E78.5 Hyperlipidemia, unspecified | CPT/HCPCS: 11042; 17250; A9270 ==

== ENCOUNTER → 2024-12-07 | Outpatient (CLI) | payer MEDICARE, SELFPAY | END | disposition home or self-care (01) | LOC: SWHD 11:00 | PROVIDERS: PCP Physician Assistant; Referring Provider Physician Assistant; Visit Provider Student in an Organized Health Care Education/Training Program | DX: T81.89XA Other complications of procedures, not elsewhere classified, initial encounter (principal); S91.104A Unspecified open wound of right lesser toe(s) without damage to nail, initial encounter; S91.302A Unspecified open wound, left foot, initial encounter; X58.XXXA Exposure to other specified factors, initial encounter; E11.51 Type 2 diabetes mellitus with diabetic peripheral angiopathy without gangrene; I73.9 Peripheral vascular disease, unspecified; Z87.891 Personal history of nicotine dependence; E78.5 Hyperlipidemia, unspecified | CPT/HCPCS: 17250; A9270 ==

== ENCOUNTER → 2024-12-14 | Outpatient (CLI) | payer MEDICARE, SELFPAY | END | disposition home or self-care (01) | LOC: SWHD 11:04 | PROVIDERS: PCP Physician Assistant; Referring Provider Physician Assistant; Visit Provider Student in an Organized Health Care Education/Training Program | DX: I96 Gangrene, not elsewhere classified (principal); T81.89XA Other complications of procedures, not elsewhere classified, initial encounter; S91.104A Unspecified open wound of right lesser toe(s) without damage to nail, initial encounter; S98.912A Complete traumatic amputation of left foot, level unspecified, initial encounter; X58.XXXA Exposure to other specified factors, initial encounter; I73.9 Peripheral vascular disease, unspecified; Z87.891 Personal history of nicotine dependence; E78.5 Hyperlipidemia, unspecified; E11.52 Type 2 diabetes mellitus with diabetic peripheral angiopathy with gangrene | CPT/HCPCS: 97597; A9270 ==

== ENCOUNTER → 2024-12-21 | Outpatient (CLI) | payer MEDICARE, SELFPAY | END | disposition home or self-care (01) | LOC: SWHD 11:18 | PROVIDERS: PCP Physician Assistant; Referring Provider Physician Assistant; Visit Provider Student in an Organized Health Care Education/Training Program | DX: I96 Gangrene, not elsewhere classified (principal); T81.89XA Other complications of procedures, not elsewhere classified, initial encounter; S91.104A Unspecified open wound of right lesser toe(s) without damage to nail, initial encounter; S98.912A Complete traumatic amputation of left foot, level unspecified, initial encounter; X58.XXXA Exposure to other specified factors, initial encounter; Z87.891 Personal history of nicotine dependence; E78.5 Hyperlipidemia, unspecified; E11.52 Type 2 diabetes mellitus with diabetic peripheral angiopathy with gangrene | CPT/HCPCS: 11042 ==

== ENCOUNTER → 2024-12-28 | Outpatient (CLI) | payer MEDICARE, SELFPAY ==
--- NOTE | 2024-12-28 12:30 | XR_ITS ---
Examination: Toes, right 3 views Technique: Toes AP oblique lateral 3 views Date and time of exam: December 28, 2024 1247 hours INDICATIONS: Nonhealing wound fifth digit noticed beginning one week ago. FINDINGS: Moderate osteopenia. No fracture. No anjelica cortical bone destruction IMPRESSION: No anjelica cortical bone destruction
== END | disposition home or self-care (01) ==
LOC: SDIM 12:18
PROVIDERS: PCP Physician Assistant; Referring Provider Student in an Organized Health Care Education/Training Program; Visit Provider Student in an Organized Health Care Education/Training Program
DX: S91.104A Unspecified open wound of right lesser toe(s) without damage to nail, initial encounter (principal); X58.XXXA Exposure to other specified factors, initial encounter
CPT/HCPCS: 73660

== ENCOUNTER → 2025-01-04 | Outpatient (CLI) | payer MEDICARE, SELFPAY | END | disposition home or self-care (01) | LOC: SWHD 12:25 | PROVIDERS: PCP Physician Assistant; Referring Provider Physician Assistant; Visit Provider Student in an Organized Health Care Education/Training Program | DX: I96 Gangrene, not elsewhere classified (principal); T81.89XA Other complications of procedures, not elsewhere classified, initial encounter; S98.912A Complete traumatic amputation of left foot, level unspecified, initial encounter; X58.XXXA Exposure to other specified factors, initial encounter; L97.512 Non-pressure chronic ulcer of other part of right foot with fat layer exposed; Z87.891 Personal history of nicotine dependence; E78.5 Hyperlipidemia, unspecified; E11.52 Type 2 diabetes mellitus with diabetic peripheral angiopathy with gangrene | CPT/HCPCS: 11044; A9270 ==

== ENCOUNTER → 2025-01-11 | Outpatient (CLI) | payer MEDICARE, SELFPAY | END | disposition home or self-care (01) | LOC: SWHD 10:34 | PROVIDERS: PCP Physician Assistant; Referring Provider Physician Assistant; Visit Provider Student in an Organized Health Care Education/Training Program | DX: I96 Gangrene, not elsewhere classified (principal); T81.89XA Other complications of procedures, not elsewhere classified, initial encounter; S98.912A Complete traumatic amputation of left foot, level unspecified, initial encounter; X58.XXXA Exposure to other specified factors, initial encounter; L97.512 Non-pressure chronic ulcer of other part of right foot with fat layer exposed; Z87.891 Personal history of nicotine dependence; E78.5 Hyperlipidemia, unspecified; E11.52 Type 2 diabetes mellitus with diabetic peripheral angiopathy with gangrene | CPT/HCPCS: 11042; A9270 ==

== ENCOUNTER → 2025-01-20 | Outpatient (CLI) | payer MEDICARE, SELFPAY | END | disposition home or self-care (01) | LOC: SWHD 11:05 | PROVIDERS: PCP Physician Assistant; Referring Provider Physician Assistant; Visit Provider Student in an Organized Health Care Education/Training Program | DX: I96 Gangrene, not elsewhere classified (principal); T81.89XA Other complications of procedures, not elsewhere classified, initial encounter; S98.912A Complete traumatic amputation of left foot, level unspecified, initial encounter; X58.XXXA Exposure to other specified factors, initial encounter; L97.512 Non-pressure chronic ulcer of other part of right foot with fat layer exposed; Z87.891 Personal history of nicotine dependence; E78.5 Hyperlipidemia, unspecified; E11.52 Type 2 diabetes mellitus with diabetic peripheral angiopathy with gangrene | CPT/HCPCS: 11044; A9270 ==

== ENCOUNTER → 2025-02-01 | Outpatient (CLI) | payer MEDICARE, SELFPAY | END | disposition home or self-care (01) | LOC: SWHD 11:01 | PROVIDERS: PCP Physician Assistant; Referring Provider Physician Assistant; Visit Provider Student in an Organized Health Care Education/Training Program | DX: I96 Gangrene, not elsewhere classified (principal); T81.89XA Other complications of procedures, not elsewhere classified, initial encounter; S98.912A Complete traumatic amputation of left foot, level unspecified, initial encounter; X58.XXXA Exposure to other specified factors, initial encounter; L97.512 Non-pressure chronic ulcer of other part of right foot with fat layer exposed; Z87.891 Personal history of nicotine dependence; E78.5 Hyperlipidemia, unspecified; E11.52 Type 2 diabetes mellitus with diabetic peripheral angiopathy with gangrene | CPT/HCPCS: 97597; 11044; A9270 ==

== ENCOUNTER → 2025-02-08 | Outpatient (CLI) | payer MEDICARE, SELFPAY | END | disposition home or self-care (01) | LOC: SWHD 10:56 | PROVIDERS: PCP Physician Assistant; Referring Provider Physician Assistant; Visit Provider Student in an Organized Health Care Education/Training Program | DX: I96 Gangrene, not elsewhere classified (principal); T81.89XA Other complications of procedures, not elsewhere classified, initial encounter; S98.912A Complete traumatic amputation of left foot, level unspecified, initial encounter; X58.XXXA Exposure to other specified factors, initial encounter; L97.512 Non-pressure chronic ulcer of other part of right foot with fat layer exposed; Z87.891 Personal history of nicotine dependence; E78.5 Hyperlipidemia, unspecified; E11.52 Type 2 diabetes mellitus with diabetic peripheral angiopathy with gangrene | CPT/HCPCS: 97597; A9270 ==

== ENCOUNTER → 2025-02-15 | Outpatient (CLI) | payer MEDICARE, SELFPAY | END | disposition home or self-care (01) | LOC: SWHD 10:15 | PROVIDERS: PCP Physician Assistant; Referring Provider Physician Assistant; Visit Provider Student in an Organized Health Care Education/Training Program | DX: I96 Gangrene, not elsewhere classified (principal); T81.89XA Other complications of procedures, not elsewhere classified, initial encounter; S98.912A Complete traumatic amputation of left foot, level unspecified, initial encounter; X58.XXXA Exposure to other specified factors, initial encounter; L97.512 Non-pressure chronic ulcer of other part of right foot with fat layer exposed; Z87.891 Personal history of nicotine dependence; E78.5 Hyperlipidemia, unspecified; E11.52 Type 2 diabetes mellitus with diabetic peripheral angiopathy with gangrene | CPT/HCPCS: 11044; A9270 ==

== ENCOUNTER → 2025-02-22 | Outpatient (CLI) | payer MEDICARE, SELFPAY | END | disposition home or self-care (01) | LOC: SWHD 13:05 | PROVIDERS: PCP Physician Assistant; Referring Provider Physician Assistant; Visit Provider Student in an Organized Health Care Education/Training Program | DX: I96 Gangrene, not elsewhere classified (principal); T81.89XA Other complications of procedures, not elsewhere classified, initial encounter; S98.912A Complete traumatic amputation of left foot, level unspecified, initial encounter; X58.XXXA Exposure to other specified factors, initial encounter; L97.512 Non-pressure chronic ulcer of other part of right foot with fat layer exposed; Z87.891 Personal history of nicotine dependence; E78.5 Hyperlipidemia, unspecified; E11.52 Type 2 diabetes mellitus with diabetic peripheral angiopathy with gangrene | CPT/HCPCS: 99214; A9270; G0463 ==

== ENCOUNTER → 2025-03-03 | Outpatient (CLI) | payer MEDICARE, SELFPAY | END | disposition home or self-care (01) | PROVIDERS: PCP Physician Assistant; Referring Provider Physician Assistant; Visit Provider Surgery | DX: I96 Gangrene, not elsewhere classified (principal); T81.89XA Other complications of procedures, not elsewhere classified, initial encounter; S98.912A Complete traumatic amputation of left foot, level unspecified, initial encounter; X58.XXXA Exposure to other specified factors, initial encounter; L97.512 Non-pressure chronic ulcer of other part of right foot with fat layer exposed; Z87.891 Personal history of nicotine dependence; E78.5 Hyperlipidemia, unspecified; E11.52 Type 2 diabetes mellitus with diabetic peripheral angiopathy with gangrene | CPT/HCPCS: 99214; G0463 ==

== ENCOUNTER → 2025-03-10 | Outpatient (CLI) | payer MEDICARE, SELFPAY | END | disposition home or self-care (01) | PROVIDERS: PCP Physician Assistant; Referring Provider Physician Assistant; Visit Provider Surgery | DX: I96 Gangrene, not elsewhere classified (principal); T81.89XA Other complications of procedures, not elsewhere classified, initial encounter; S98.912A Complete traumatic amputation of left foot, level unspecified, initial encounter; X58.XXXA Exposure to other specified factors, initial encounter; L97.512 Non-pressure chronic ulcer of other part of right foot with fat layer exposed; Z87.891 Personal history of nicotine dependence; E78.5 Hyperlipidemia, unspecified; E11.52 Type 2 diabetes mellitus with diabetic peripheral angiopathy with gangrene | CPT/HCPCS: 99214; G0463 ==